=== PATIENT | female | born 1975 | race Hispanic/Latino ===

== ENCOUNTER → 2017-09-17 15:21 | Outpatient (CLI) | payer OTHER, SELFPAY ==
[2017-09-17 15:34] LABS: Add Manual Diff / Slide Review NO; Basophils Percent Auto 0.5 % (0-2); Eosinophils Percent Auto 1.1 % (2-4); Hematocrit 35.3 % (36-46); Hemoglobin 11.4 g/dL (12.0-16.0); Lymphocytes Percent Auto 25.9 % (25-40); Mean Corpuscular HGB Conc 32.4 % (30-36); Mean Corpuscular Hemoglobin 26.3 PG (26-34); Mean Corpuscular Volume 81.2 fL (80-100); Monocytes Percent Auto 6.6 % (3-14); Neutrophils Absolute Auto 5400 /uL (3000-5900); Neutrophils Percent Auto 65.9 % (50-75); Platelet Count 170 X10^3/uL (150-400); Red Blood Cell Count 4.34 X10^6/uL (4.0-5.2); White Blood Cell Count 8.2 X10^3/uL (4.5-11.0)
[2017-09-17 16:13] LABS: Alanine Aminotransferase 23 IU/L (9-52); Albumin 3.8 g/dL (3.5-5.0); Albumin Globulin Ratio 1.4 (1.0-2.8); Alkaline Phosphatase 40 U/L (38-126); Aspartate Aminotransferase 19 IU/L (14-36); BUN Creatinine Ratio 23.3 (6-22); Bilirubin Total 0.9 mg/dL (0.2-1.3); Blood Urea Nitrogen 14 mg/dL (7-17); Calcium 9.2 mg/dL (8.4-10.2); Carbon Dioxide 27 mmol/L (22-32); Chloride 102 mmol/L (98-107); Estimated Glomerular Filt Rate > 60.0 mL/min (>60); Globulin 2.8 g/dL (1.7-4.1); Glucose 95 mg/dL (70-100); HEMOLYSIS < 15 (0-50); Potassium 3.9 mmol/L (3.4-5.1); Sodium 139 mmol/L (137-145); Total Protein 6.6 g/dL (6.3-8.2)
[2017-09-17 16:42] LABS: Thyroid Stimulating Hormone 2.34 uIU/mL (0.47-4.68)
== END ==
PROVIDERS: Family Provider Family Medicine; PCP Family Medicine; Visit Provider Family Medicine
DX: R53.83 Other fatigue (principal)
CPT/HCPCS: 36415; 80053; 84443; 85025

== ENCOUNTER 2017-11-21 16:00 | Outpatient (RCR) | payer OTHER, SELFPAY ==
--- NOTE | 2017-10-31 18:24 | PT.OIE ---
Current Diagnoses Cervicalgia (10/30/17) Provider Visit Care Team Role Provider Type Emelia Henson MD Attending Provider Physician Family Provider Primary Care Provider Specialty: Family Practice Address: [address] [place] [address], [facility] Email: [email or web address] Physical Therapy Initial Evaluation PT-OP-A Visit Information Start: 10/22/17 08:10 Freq: Status: Active Protocol: Document 10/30/17 18:01 [facility] (Rec: 10/31/17 18:23 [facility] [email or web address]) Out-Patient Physical Therapy Visit Information Visit Information Visit Type Initial Evaluation Visit Start Time 10:45 Visit Stop Time 11:30 Total Visit Minutes 45 Visit Number 1 Number of BRIDGE IRONWORKER HELPER Visits 0 Evaluation Information Evaluation Date 10/30/17 PT-OP-B Current Condition Start: 10/22/17 08:10 Freq: Status: Active Protocol: Document 10/30/17 18:01 [facility] (Rec: 10/31/17 18:23 [facility] [email or web address]) Current Condition History of Current Condition Onset Date cervical pain began 1 month ago, chronic hx of LBP Current Complaints cervical and LBP History of Current Condition 42 year old female with 1 month onset of neck pain and history of chronic back pain. Marely reports she works in [employer] for [employer] . Her job requires frequent lifting of heavy boxes and pushing of carts. 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 She notes difficulty sleeping at night as it hurts to turn on bed. Her pain also includes intermittned pain into the lateral hip and groin on the right. Pain is rated 7/10 Prior Treatments and Tests Xrays taken in 2008 and 2014 Treatment Goals Patient/Caregiver Goals goals include reducing pain and improving function Current Functional Impairments (Reported) Functional Limitations- ADL's limited sleeping due to pain and limited Ability to do ADL' s at the end of her work day Functional Limitations- Work/School pain with lifting and pushing activities at work PT-OP-F Manual Assessment Start: 10/22/17 08:10 Freq: Status: Active Protocol: Document 10/30/17 18:01 [facility] (Rec: 10/31/17 18:23 [facility] [email or web address]) Manual Assessments Soft Tissue Assessment Soft Tissue Mobility Assessment tightness in the lumbarspinal bilaterally with flattened lumbar spine, this makes it difficult for Marely to lay flat on her back PT-OP-J Posture/Palpation/Skin Start: 10/22/17 08:10 Freq: Status: Active Protocol: Document 10/30/17 18:01 [facility] (Rec: 10/31/17 18:23 [facility] [email or web address]) Posture Evaluation Comments Posture Comments flattened lumbar spine with visable muscle guarding Palpation Assessment Location Three Palpation Location upper trapezius and levator scapula on the right Palpation Findings Soft Tissue Tightness Spasm Muscle Guarding Tenderness Two Palpation Location right PSIS Palpation Findings Tenderness One Palpation Location lumbar paraspinals Palpation Findings Soft Tissue Tightness Spasm Muscle Guarding Tenderness Palpation Details bilaterally PT-OP-K Range of Motion Start: 10/22/17 08:10 Freq: Status: Active Protocol: Document 10/30/17 18:01 [facility] (Rec: 10/31/17 18:23 [facility] [email or web address]) Cervical Spine Range of Motion Cervical Spine Active Testing Position Sitting Flexion 60 Rotation Left 40 Rotation Right 40 Lateral Flexion Left 20 Lateral Flexion Right 40 ROM Limitations Soft Tissue Tightness Pain Lumbar Spine Range of Motion Lumbar Spine Active Testing Position standing Flexion 50 Lateral Flexion Left 10 Lateral Flexion Right 10 ROM Limitations Soft Tissue Tightness Comments it is very difficult for Marely to flex her lumbar spine, extension was not attempted as she is already in a closed pack position with her lumbar spine Hip Goniometric Range of Motion Hip Measured in Degrees Left Hip ROM WFL No Testing Position Supine Flexion w/Knee Flexed 85 Straight Leg Raise 40 Extension 5 External Rotation 20 Right Hip ROM WFL No Testing Position Supine Flexion w/Knee Flexed 90 Straight Leg Raise 50 Extension 5 External Rotation 30 Hip ROM Limitations Hip ROM Limitations Soft Tissue Tightness Comments very limited in hip ROM biliaterally due to soft tissue tightness, unable to perform a single knee to chest with opposite knee straight due to pulling on the spine, tightness in the iliospoas bilaterally PT-OP-M Strength Start: 10/22/17 08:10 Freq: Status: Active Protocol: Document 10/30/17 18:01 [facility] (Rec: 10/31/17 18:23 [facility] [email or web address]) Trunk Strength Trunk Manual Muscle Testing Core Stabilization decreased strength of the transverse abdominal musculature with + ASLR bilaterally PT-OP-Q Treatments Start: 10/22/17 08:10 Freq: Status: Active Protocol: Document 10/30/17 18:01 [facility] (Rec: 10/31/17 18:23 [facility] [email or web address]) Therapeutic Exercises Supine Exercises 1 Supine Exercise Name pt given home stretching program of SKTC, HS stretch with strap, figure 4 Side bilateral Reps/Minutes hold 1-2 minutes per side PT-OP-R Modalities Start: 10/22/17 08:10 Freq: Status: Active Protocol: Document 10/30/17 18:01 [facility] (Rec: 10/31/17 18:23 [facility] [email or web address]) Hot Pack/Cold Pack Treatment Hot Pack Location low back and cervical spine with stretches Patient Position Hooklying PT-OP-T Assessment and Plan Start: 10/22/17 08:10 Freq: Status: Active Protocol: Document 10/30/17 18:01 [facility] (Rec: 10/31/17 18:23 [facility] [email or web address]) Physical Therapy Assessment Rehab Potential Rehabilitation Potential Excellent Evaluation Complexity Number of Personal Factors/Comorbidities 0 Number of Body Systems Impaired 1-2 Clinical Presentation at Evaluation Stable Impairments Impairments Activity Tolerance Pain Posture ROM Soft Tissue Mobility Strength Tone Goals Three Impairment the patient is in need of body mechanics training for work related activity Usp Goal (LTG) Marely understands proper body mechanics for work related activity and is able to demonstrate proper lifting techniques in the clinic Two Impairment Soft tissue tightness in the right upper trapezius and lumbar paraspinals Usp Goal (LTG) improve mobilty of the muscle tissue to improve cervical and lumbar ROM and decrease myofascial tightness LTG Duration 8 weeks One Impairment pain rated 7/10 in the cervical spine and low back Short Term Goal (STG) Marely is able to reduce her LBP and cervical pain with manual techniques and a home stretching/stabilization program to 2-3/10 STG Duration 6 weeks Assessment Summary Assessment Marely presents to Physical therapy today with signs and symptoms of both neck and low back pain. She does not currently have a exercise program and her work related duties place strain on her lumbar spine. She is very limited in ROM of lumbar flexion and her hip musculature is very tight. She holds tension in the upper trapezius R>L and has difficulty with cervical spine side bending activities. Treatment will focus on a program for improved flexibility, manual therapy techniques, strengthening and body mechanics training to prevent injuries while working Physical Therapy Plan Frequency and Duration Frequency of Treatment 2x/Week Duration of Treatment 8 weeks Plan of Care Start Date 10/30/17 Plan of Care End Date 12/25/17 Therapeutic Interventions Therapeutic Interventions Home Exercise Program Joint Mobilizations Manual Therapy Neuromuscular Re-education Self-Care/Home Management Soft Tissue Mobilization Therapeutic Exercises Modalities Electric Stimulation Hot Packs Ultrasound Next Visit Focus/Plan Next Note Type Treatment Note Next Visit Plan begin working on soft tissue mobilizations for the lumbar spine and upper trapezius
--- NOTE | 2017-11-07 13:41 | PT.OPPOC ---
Current Diagnoses Cervicalgia (10/30/17) Provider Visit Care Team Role Provider Type Emelia Henson MD Attending Provider Physician Family Provider Primary Care Provider Specialty: Family Practice Address: [address] [place] [address], [id number] Email: [email or web address] Plan Of Care PT-OP-T Assessment and Plan Start: 10/22/17 08:10 Freq: Status: Active Protocol: Document 10/30/17 18:01 [facility] (Rec: 10/31/17 18:23 [facility] [email or web address]) Physical Therapy Assessment Rehab Potential Rehabilitation Potential Excellent Evaluation Complexity Number of Personal Factors/Comorbidities 0 Number of Body Systems Impaired 1-2 Clinical Presentation at Evaluation Stable Impairments Impairments Activity Tolerance Pain Posture ROM Soft Tissue Mobility Strength Tone Goals Three Impairment the patient is in need of body mechanics training for work related activity Correction Goal (LTG) Marely understands proper body mechanics for work related activity and is able to demonstrate proper lifting techniques in the clinic Two Impairment Soft tissue tightness in the right upper trapezius and lumbar paraspinals Teletype Technician Goal (LTG) improve mobilty of the muscle tissue to improve cervical and lumbar ROM and decrease myofascial tightness LTG Duration 8 weeks One Impairment pain rated 7/10 in the cervical spine and low back Short Term Goal (STG) Marely is able to reduce her LBP and cervical pain with manual techniques and a home stretching/stabilization program to 2-3/10 STG Duration 6 weeks Assessment Summary Assessment Marely presents to Physical therapy today with signs and symptoms of both neck and low back pain. She does not currently have a exercise program and her work related duties place strain on her lumbar spine. She is very limited in ROM of lumbar flexion and her hip musculatre is very tight. She holds tension in the upper trapezius R>L and hasd difficulty with cervical spine sidebending activities. Treatment will focus on a program for improved flexibility, manual therapy tecnhiques, strengthening and bodymechanics training to prevent injuries while working Physical Therapy Plan Frequency and Duration Frequency of Treatment 2x/Week Duration of Treatment 8 weeks Plan of Care Start Date 10/30/17 Plan of Care End Date 12/25/17 Therapeutic Interventions Therapeutic Interventions Home Exercise Program Joint Mobilizations Manual Therapy Neuromuscular Re-education Self-Care/Home Management Soft Tissue Mobilization Therapeutic Exercises Modalities Electric Stimulation Hot Packs Ultrasound Next Visit Focus/Plan Next Note Type Treatment Note Next Visit Plan begin working on soft tissue mobilizations for the lumbar spine and upper trapezius Plan of Care Dates Plan of Care Start Date 10/30/17 Plan of Care End Date 12/25/17 Please Sign and Return: I have reviewed this Plan of Care and certify that the skilled therapy services above are required to meet the patient?s needs. Physician Signature Date Printed Name and Credentials Clinical Instructor Signature Printed Name and Credentials
--- NOTE | 2017-11-12 17:55 | PT.OTN ---
Current Diagnoses Cervicalgia (11/12/17) Physical Therapy Treatment Note PT-OP-A Visit Information Start: 10/22/17 08:10 Freq: Status: Active Protocol: Document 11/12/17 17:49 [facility] (Rec: 11/12/17 17:55 [facility] [email or web address]) Out-Patient Physical Therapy Visit Information Visit Information Visit Type Treatment Note Visit Start Time 16:00 Visit Stop Time 16:45 Total Visit Minutes 45 Visit Number 2 Number of ELECTROPHONIC ENGINEER Visits 0 PT-OP-B Current Condition Start: 10/22/17 08:10 Freq: Status: Active Protocol: Document 10/30/17 18:01 [facility] (Rec: 10/31/17 18:23 [facility] [email or web address]) Current Condition History of Current Condition Onset Date cervical pain began 1 month ago, chronic hx of LBP Current Complaints cervical and LBP History of Current Condition 42 year old female with 1 month onset of neck pain and history of chronic back pain. Marely reports she works [facility] [employer] . Her job requires frequent lifting of heavy boxes and pushing of carts. 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 She notes difficulty sleeping at night as it hurts to turn on bed. Her pain also includes intermittned pain into the lateral hip and groin on the right. Pain is rated 7/10 Prior Treatments and Tests Xrays taken in 2008 and 2014 Treatment Goals Patient/Caregiver Goals goals include reducing pain and improving function Current Functional Impairments (Reported) Functional Limitations- ADL's limited sleeping due to pain and limited Ability to do ADL' s at the end of her work day Functional Limitations- Work/School pain with lifting and pushing activities at work PT-OP-C Subjective Start: 10/22/17 08:10 Freq: Status: Active Protocol: Document 11/12/17 17:49 [facility] (Rec: 11/12/17 17:55 [facility] [email or web address]) OP-PT Subjective Patient Comments Patient Comments Marely reports she has only done the stretches a few times as she does not have a lot of time after work PT-OP-F Manual Assessment Start: 10/22/17 08:10 Freq: Status: Active Protocol: Document 10/30/17 18:01 [facility] (Rec: 10/31/17 18:23 [facility] [email or web address]) Manual Assessments Soft Tissue Assessment Soft Tissue Mobility Assessment tightness in the lumbarspinal bilaterally with flattened lumbar spine, this makes it difficult for Marely to lay flat on her back PT-OP-J Posture/Palpation/Skin Start: 10/22/17 08:10 Freq: Status: Active Protocol: Document 10/30/17 18:01 [facility] (Rec: 10/31/17 18:23 [facility] [email or web address]) Posture Evaluation Comments Posture Comments flattened lumbar spine with visable muscle guarding Palpation Assessment Location Three Palpation Location upper trapezius and levator scapula on the right Palpation Findings Soft Tissue Tightness Spasm Muscle Guarding Tenderness Two Palpation Location right PSIS Palpation Findings Tenderness One Palpation Location lumbar paraspinals Palpation Findings Soft Tissue Tightness Spasm Muscle Guarding Tenderness Palpation Details bilaterally PT-OP-K Range of Motion Start: 10/22/17 08:10 Freq: Status: Active Protocol: Document 10/30/17 18:01 [facility] (Rec: 10/31/17 18:23 [facility] [email or web address]) Cervical Spine Range of Motion Cervical Spine Active Testing Position Sitting Flexion 60 Rotation Left 40 Rotation Right 40 Lateral Flexion Left 20 Lateral Flexion Right 40 ROM Limitations Soft Tissue Tightness Pain Lumbar Spine Range of Motion Lumbar Spine Active Testing Position standing Flexion 50 Lateral Flexion Left 10 Lateral Flexion Right 10 ROM Limitations Soft Tissue Tightness Comments it is very difficult for Marely to flex her lumbar spine, extension was not attempted as she is already in a closed pack position with her lumbar spine Hip Goniometric Range of Motion Hip Measured in Degrees Left Hip ROM WFL No Testing Position Supine Flexion w/Knee Flexed 85 Straight Leg Raise 40 Extension 5 External Rotation 20 Right Hip ROM WFL No Testing Position Supine Flexion w/Knee Flexed 90 Straight Leg Raise 50 Extension 5 External Rotation 30 Hip ROM Limitations Hip ROM Limitations Soft Tissue Tightness Comments very limited in hip ROM biliaterally due to soft tissue tightness, unable to perform a single knee to chest with opposite knee straight due to pulling on the spine, tightness in the iliospoas bilaterally PT-OP-M Strength Start: 10/22/17 08:10 Freq: Status: Active Protocol: Document 10/30/17 18:01 [facility] (Rec: 10/31/17 18:23 [facility] [email or web address]) Trunk Strength Trunk Manual Muscle Testing Core Stabilization decreased strength of the transverse abdominal musculature with + ASLR bilaterally PT-OP-Q Treatments Start: 10/22/17 08:10 Freq: Status: Active Protocol: Document 11/12/17 17:49 [facility] (Rec: 11/12/17 17:55 [facility] [email or web address]) Therapeutic Exercises Supine Exercises 1 Supine Exercise Name pt given home stretching program of SKTC, HS stretch with strap, figure 4 Side bilateral Reps/Minutes hold 1-2 minutes per side Other Exercises 2 Other Exercise Name bhavana pose Reps/Minutes hold 1-2 minutes 1 Other Exercise Name quadruped cat/cow Reps/Minutes 10 reps Manual Therapy Treatment Soft Tissue Mobilization 1 Body Location soft tissue mobilization to the lumbar paraspinals and thoracolumbar fascia Body Position prone over body pillow PT-OP-R Modalities Start: 10/22/17 08:10 Freq: Status: Active Protocol: Document 10/30/17 18:01 [facility] (Rec: 10/31/17 18:23 [facility] [email or web address]) Hot Pack/Cold Pack Treatment Hot Pack Location low back and cervical spine with stretches Patient Position Hooklying PT-OP-T Assessment and Plan Start: 10/22/17 08:10 Freq: Status: Active Protocol: Document 11/12/17 17:49 [facility] (Rec: 11/12/17 17:55 [facility] [email or web address]) Physical Therapy Assessment Assessment Summary Assessment I encouraged Marely to work on a home stretching program. She has poor ability to perform any type of lumbar segmental flexion. Pelvic tilts are extremely difficult for her and she is very guarded in the lumbar spine due to musculature restrictions Physical Therapy Plan Frequency and Duration Frequency of Treatment 2x/Week Duration of Treatment 8 weeks Plan of Care Start Date 10/30/17 Plan of Care End Date 12/25/17 Therapeutic Interventions Therapeutic Interventions Home Exercise Program Joint Mobilizations Manual Therapy Neuromuscular Re-education Self-Care/Home Management Soft Tissue Mobilization Therapeutic Exercises Modalities Electric Stimulation Hot Packs Ultrasound Next Visit Focus/Plan Next Note Type Treatment Note Next Visit Plan continue focusing on lumbar mobility into flexion and overall flexibility of the lumbar spine
--- NOTE | 2017-11-21 17:22 | PT.OTN ---
Current Diagnoses Cervicalgia (11/21/17) Physical Therapy Treatment Note PT-OP-A Visit Information Start: 10/22/17 08:10 Freq: Status: Active Protocol: Document 11/21/17 17:14 [facility] (Rec: 11/21/17 17:22 [facility] [email or web address]) Out-Patient Physical Therapy Visit Information Visit Information Visit Type Treatment Note Visit Start Time 16:00 Visit Stop Time 16:45 Total Visit Minutes 45 Visit Number 3 Number of SECURITY ASSESSOR Visits 0 PT-OP-B Current Condition Start: 10/22/17 08:10 Freq: Status: Active Protocol: Document 10/30/17 18:01 [facility] (Rec: 10/31/17 18:23 [facility] [email or web address]) Current Condition History of Current Condition Onset Date cervical pain began 1 month ago, chronic hx of LBP Current Complaints cervical and LBP History of Current Condition 42 year old female with 1 month onset of neck pain and history of chronic back pain. Marely reports she works [facility] [employer] [facility] . Her job requires frequent lifting of heavy boxes and pushing of carts. 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 She notes difficulty sleeping at night as it hurts to turn on bed. Her pain also includes intermittned pain into the lateral hip and groin on the right. Pain is rated 7/10 Prior Treatments and Tests Xrays taken in 2008 and 2014 Treatment Goals Patient/Caregiver Goals goals include reducing pain and improving function Current Functional Impairments (Reported) Functional Limitations- ADL's limited sleeping due to pain and limited Ability to do ADL' s at the end of her work day Functional Limitations- Work/School pain with lifting and pushing activities at work PT-OP-C Subjective Start: 10/22/17 08:10 Freq: Status: Active Protocol: Document 11/21/17 17:14 [facility] (Rec: 11/21/17 17:22 [facility] [email or web address]) OP-PT Subjective Patient Comments Patient Comments Marely reports she was gone camping last week so hasn't been stretching. Her back feels very tight and she is wondering about further imaging PT-OP-F Manual Assessment Start: 10/22/17 08:10 Freq: Status: Active Protocol: Document 10/30/17 18:01 [facility] (Rec: 10/31/17 18:23 [facility] [email or web address]) Manual Assessments Soft Tissue Assessment Soft Tissue Mobility Assessment tightness in the lumbarspinal bilaterally with flattened lumbar spine, this makes it difficult for Marely to lay flat on her back PT-OP-J Posture/Palpation/Skin Start: 10/22/17 08:10 Freq: Status: Active Protocol: Document 10/30/17 18:01 [facility] (Rec: 10/31/17 18:23 [facility] [email or web address]) Posture Evaluation Comments Posture Comments flattened lumbar spine with visable muscle guarding Palpation Assessment Location Three Palpation Location upper trapezius and levator scapula on the right Palpation Findings Soft Tissue Tightness Spasm Muscle Guarding Tenderness Two Palpation Location right PSIS Palpation Findings Tenderness One Palpation Location lumbar paraspinals Palpation Findings Soft Tissue Tightness Spasm Muscle Guarding Tenderness Palpation Details bilaterally PT-OP-K Range of Motion Start: 10/22/17 08:10 Freq: Status: Active Protocol: Document 10/30/17 18:01 [facility] (Rec: 10/31/17 18:23 [facility] [email or web address]) Cervical Spine Range of Motion Cervical Spine Active Testing Position Sitting Flexion 60 Rotation Left 40 Rotation Right 40 Lateral Flexion Left 20 Lateral Flexion Right 40 ROM Limitations Soft Tissue Tightness Pain Lumbar Spine Range of Motion Lumbar Spine Active Testing Position standing Flexion 50 Lateral Flexion Left 10 Lateral Flexion Right 10 ROM Limitations Soft Tissue Tightness Comments it is very difficult for Marely to flex her lumbar spine, extension was not attempted as she is already in a closed pack position with her lumbar spine Hip Goniometric Range of Motion Hip Measured in Degrees Left Hip ROM WFL No Testing Position Supine Flexion w/Knee Flexed 85 Straight Leg Raise 40 Extension 5 External Rotation 20 Right Hip ROM WFL No Testing Position Supine Flexion w/Knee Flexed 90 Straight Leg Raise 50 Extension 5 External Rotation 30 Hip ROM Limitations Hip ROM Limitations Soft Tissue Tightness Comments very limited in hip ROM biliaterally due to soft tissue tightness, unable to perform a single knee to chest with opposite knee straight due to pulling on the spine, tightness in the iliospoas bilaterally PT-OP-M Strength Start: 10/22/17 08:10 Freq: Status: Active Protocol: Document 10/30/17 18:01 [facility] (Rec: 10/31/17 18:23 [facility] [email or web address]) Trunk Strength Trunk Manual Muscle Testing Core Stabilization decreased strength of the transverse abdominal musculature with + ASLR bilaterally PT-OP-Q Treatments Start: 10/22/17 08:10 Freq: Status: Active Protocol: Document 11/21/17 17:14 [facility] (Rec: 11/21/17 17:22 [facility] [email or web address]) Therapeutic Exercises Supine Exercises 1 Supine Exercise Name SKTC, HS stretch with strap, figure 4 Side bilateral Reps/Minutes hold 1-2 minutes per side Other Exercises 4 Other Exercise Name hip flexor stretching off the edge of the bed 3 Other Exercise Name quadraped sidebends and thoracic rotation 2 Other Exercise Name bhavana pose Reps/Minutes hold 1-2 minutes 1 Other Exercise Name quadruped cat/cow Reps/Minutes 10 reps Manual Therapy Treatment Soft Tissue Mobilization 1 Body Location soft tissue mobilization to the lumbar paraspinals and thoracolumbar fascia Body Position prone over body pillow PT-OP-R Modalities Start: 10/22/17 08:10 Freq: Status: Active Protocol: Document 10/30/17 18:01 [facility] (Rec: 10/31/17 18:23 [facility] [email or web address]) Hot Pack/Cold Pack Treatment Hot Pack Location low back and cervical spine with stretches Patient Position Hooklying PT-OP-T Assessment and Plan Start: 10/22/17 08:10 Freq: Status: Active Protocol: Document 11/21/17 17:14 [facility] (Rec: 11/21/17 17:22 [facility] [email or web address]) Physical Therapy Assessment Assessment Summary Assessment cat cow is very difficult for marely to perform as she lacks awareness of lumbar flexion and her lumbar spine is very tight. Following STM and verbal cueing she was able to do it. Lumbar flexion increased following treatment Physical Therapy Plan Frequency and Duration Frequency of Treatment 2x/Week Duration of Treatment 8 weeks Plan of Care Start Date 10/30/17 Plan of Care End Date 12/25/17 Therapeutic Interventions Therapeutic Interventions Home Exercise Program Joint Mobilizations Manual Therapy Neuromuscular Re-education Self-Care/Home Management Soft Tissue Mobilization Therapeutic Exercises Modalities Electric Stimulation Hot Packs Ultrasound Next Visit Focus/Plan Next Note Type Treatment Note Next Visit Plan continue focusing on lumbar mobility into flexion and overall flexibility of the lumbar spine. add reach and pull for rotation next visit
--- NOTE | 2018-02-05 11:14 | PT.OPDS ---
Current Diagnoses Cervicalgia (11/21/17) Provider Visit Care Team Role Provider Type Emelia Henson MD Attending Provider Physician Family Provider Primary Care Provider Specialty: Family Practice Address: [address] [place] [address], [facility] Email: [email or web address] Visit Number Visit Number 3 Discharge Summary PT-OP-B Current Condition Start: 10/22/17 08:10 Freq: Status: Active Protocol: Document 10/30/17 18:01 [facility] (Rec: 10/31/17 18:23 [facility] [email or web address]) Current Condition History of Current Condition Onset Date cervical pain began 1 month ago, chronic hx of LBP Current Complaints cervical and LBP History of Current Condition 42 year old female with 1 month onset of neck pain and history of chronic back pain. Marely reports she works in [employer] . Her job requires frequent lifting of heavy boxes and pushing of carts. 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 She notes difficulty sleeping at night as it hurts to turn on bed. Her pain also includes intermittned pain into the lateral hip and groin on the right. Pain is rated 7/10 Prior Treatments and Tests Xrays taken in 2008 and 2014 Treatment Goals Patient/Caregiver Goals goals include reducing pain and improving function Current Functional Impairments (Reported) Functional Limitations- ADL's limited sleeping due to pain and limited Ability to do ADL' s at the end of her work day Functional Limitations- Work/School pain with lifting and pushing activities at work PT-OP-C Subjective Start: 10/22/17 08:10 Freq: Status: Active Protocol: Document 11/21/17 17:14 [facility] (Rec: 11/21/17 17:22 [facility] [email or web address]) OP-PT Subjective Patient Comments Patient Comments Marely reports she was gone camping last week so hasn't been stretching. Her back feels very tight and she is wondering about further imaging PT-OP-F Manual Assessment Start: 10/22/17 08:10 Freq: Status: Active Protocol: Document 10/30/17 18:01 [facility] (Rec: 10/31/17 18:23 [facility] [email or web address]) Manual Assessments Soft Tissue Assessment Soft Tissue Mobility Assessment tightness in the lumbarspinal bilaterally with flattened lumbar spine, this makes it difficult for Marely to lay flat on her back PT-OP-J Posture/Palpation/Skin Start: 10/22/17 08:10 Freq: Status: Active Protocol: Document 10/30/17 18:01 [facility] (Rec: 10/31/17 18:23 [facility] [email or web address]) Posture Evaluation Comments Posture Comments flattened lumbar spine with visable muscle guarding Palpation Assessment Location Three Palpation Location upper trapezius and levator scapula on the right Palpation Findings Soft Tissue Tightness Spasm Muscle Guarding Tenderness Two Palpation Location right PSIS Palpation Findings Tenderness One Palpation Location lumbar paraspinals Palpation Findings Soft Tissue Tightness Spasm Muscle Guarding Tenderness Palpation Details bilaterally PT-OP-K Range of Motion Start: 10/22/17 08:10 Freq: Status: Active Protocol: Document 10/30/17 18:01 [facility] (Rec: 10/31/17 18:23 [facility] [email or web address]) Cervical Spine Range of Motion Cervical Spine Active Testing Position Sitting Flexion 60 Rotation Left 40 Rotation Right 40 Lateral Flexion Left 20 Lateral Flexion Right 40 ROM Limitations Soft Tissue Tightness Pain Lumbar Spine Range of Motion Lumbar Spine Active Testing Position standing Flexion 50 Lateral Flexion Left 10 Lateral Flexion Right 10 ROM Limitations Soft Tissue Tightness Comments it is very difficult for Marely to flex her lumbar spine, extension was not attempted as she is already in a closed pack position with her lumbar spine Hip Goniometric Range of Motion Hip Measured in Degrees Left Hip ROM WFL No Testing Position Supine Flexion w/Knee Flexed 85 Straight Leg Raise 40 Extension 5 External Rotation 20 Right Hip ROM WFL No Testing Position Supine Flexion w/Knee Flexed 90 Straight Leg Raise 50 Extension 5 External Rotation 30 Hip ROM Limitations Hip ROM Limitations Soft Tissue Tightness Comments very limited in hip ROM biliaterally due to soft tissue tightness, unable to perform a single knee to chest with opposite knee straight due to pulling on the spine, tightness in the iliospoas bilaterally PT-OP-M Strength Start: 10/22/17 08:10 Freq: Status: Active Protocol: Document 10/30/17 18:01 [facility] (Rec: 10/31/17 18:23 [facility] [email or web address]) Trunk Strength Trunk Manual Muscle Testing Core Stabilization decreased strength of the transverse abdominal musculature with + ASLR bilaterally PT-OP-T Assessment and Plan Start: 10/22/17 08:10 Freq: Status: Active Protocol: Document 02/05/18 11:12 [facility] (Rec: 02/05/18 11:14 [facility] [email or web address]) Physical Therapy Assessment Assessment Summary Assessment Marely was seen for a total of 3 visits and failed to show up for her remaining visit in PT. She was last seen on . At that time she had not noticed a difference in her symptoms. Marely will be discharged from PT at this time Physical Therapy Plan Discharge Physical Therapy Discharge Reasons No Longer Attending PT Discharge Comments Marely did not continue PT for her full plan of care
== END 2018-06-18 08:07 ==
LOC: PHYS 16:00
PROVIDERS: Family Provider Family Medicine; PCP Family Medicine; Visit Provider Family Medicine
DX: M54.2 Cervicalgia (principal)
CPT/HCPCS: 97110; 97140; 97161

== ENCOUNTER → 2018-01-02 10:00 | Outpatient (CLI) | payer OTHER, SELFPAY | PROVIDERS: Family Provider Family Medicine; PCP Family Medicine | DX: Z23 Encounter for immunization (principal) | CPT/HCPCS: 90471; 90686 ==

== ENCOUNTER → 2018-01-08 09:33 | Outpatient (CLI) | payer OTHER, SELFPAY ==
[2018-01-08 11:35] LABS: Add Manual Diff / Slide Review NO; Basophils Percent Auto 0.7 % (0-2); Eosinophils Percent Auto 1.6 % (2-4); Hematocrit 33.4 % (36-46); Lymphocytes Percent Auto 19.6 % (25-40); Mean Corpuscular HGB Conc 32.2 % (30-36); Mean Corpuscular Hemoglobin 26.1 PG (26-34); Monocytes Percent Auto 6.5 % (3-14); Neutrophils Absolute Auto 4500 /uL (3000-5900); Neutrophils Percent Auto 71.6 % (50-75); Platelet Count 198 X10^3/uL (150-400); Red Blood Cell Count 4.13 X10^6/uL (4.0-5.2); Red Cell Distribution Width 14.3 % (11.6-14.8); White Blood Cell Count 6.3 X10^3/uL (4.5-11.0)
[2018-01-08 11:37] LABS: Hemoglobin 10.7 g/dL (12.0-16.0)
== END ==
PROVIDERS: Family Provider Family Medicine; PCP Family Medicine; Visit Provider Registered Nurse
DX: N93.9 Abnormal uterine and vaginal bleeding, unspecified (principal); R11.0 Nausea
CPT/HCPCS: 36415; 85025

== ENCOUNTER → 2018-01-29 09:55 | Outpatient (CLI) | payer OTHER, SELFPAY ==
--- NOTE | 2018-01-29 09:56 | DI.US.S_ITS ---
PROCEDURE: US PELVIC COMPLETE INDICATIONS: PAIN TECHNIQUE: Real-time scanning was performed of the pelvic organs, with image documentation. Additional endovaginal scanning was necessary due to incomplete visualization of the adnexal and endometrial structures by transabdominal scanning. COMPARISON: [facility], US, US PELVIC COMPLETE, 08/14/2017, 12:28. FINDINGS: Transabdominal scanning: Limited scanning through the kidneys shows no hydronephrosis. No pathologic free abdominal or pelvic fluid. Endovaginal scanning: Uterus: Uterus is normal in size at 10.0 x 5.5 x 8.0 cm. The endometrium measures 11.3 mm in combined thickness and is suboptimally visualized. Intramural versus submucosal fibroid measuring 3.8 x 3.9 x 3.9 cm. Ovaries: Dominant follicle involves right ovary measuring 14 mm otherwise the ovaries are normal. No adnexal masses seen. Normal transit kidneys. IMPRESSION: 1. 3.9 cm intramural versus submucosal fibroid along the anterior surface of the myometrium. If indicated. Pre and post contrast gynecologic protocol MRI could be performed for further localization. 2. Suboptimal visualization of the endometrial complex. Dictated by: Loi Stewart [facility] Interpreted: Moses Gabriel MD on 01/29/2018 at 11:21 Approved by: Moses Gabriel M.D. on 01/29/2018 at 15:38
== END ==
PROVIDERS: Family Provider Family Medicine; PCP Family Medicine; Visit Provider Obstetrics & Gynecology
DX: R10.2 Pelvic and perineal pain (principal); D25.9 Leiomyoma of uterus, unspecified
CPT/HCPCS: 76830; 76856

== ENCOUNTER → 2018-03-20 14:10 | Outpatient (CLI) | payer OTHER, SELFPAY | PROVIDERS: Visit Provider Registered Nurse | DX: R10.13 Epigastric pain (principal) | CPT/HCPCS: 83013 ==

== ENCOUNTER 2018-05-26 06:45 | Day surgery (SDC) | payer OTHER, SELFPAY ==
[2018-05-26] VITALS (9 sets, daily range): BP systolic 100–122; BP diastolic 55–76; PULSE 53–622; RESP 16–17; TEMP 36.2–37.1; O2SAT 96–100; BMI 23.6
--- NOTE | 2018-05-26 | PATH.2_ITS ---
[facility] Accession Number: [id number] . 01 Material submitted: . UTERUS AND BILATERAL FALLOPIAN TUBES . 02 Diagnosis: Morcellated Supracervical Hysterectomy Specimen With Bilateral Fallopian Tubes: Multiple leiomyomata, myometrium. Focal adenomysis. Inactive atrophic appearing endometrium, negative for atypia. Fallopian tubes unremarkable with the exception of one single small paratubal cyst, negative for atypia. MRV/05/28/2018 . 02 Electronically signed: . Toni Castañeda MD, Pathologist NPI- [id number] . 01 Gross description: . Received in formalin, labeled uterus and bilateral fallopian tubes, is a morcellated uterus (145 grams, 12.5 x 12.0 x 3.7 cm in aggregate) and two fimbriated fallopian tubes (tube #1: length-4.5 cm, diameter-0.6 cm; tube #2: length-3.7 cm, diameter-0.4 cm). The specimen cannot be oriented and the endometrium and myometrium cannot be grossly measured. The parenchyma is saini and contains multiple solid firm white whorled well-circumscribed homogenous nodules (0.2 x 0.2 x 0.1 cm-3.7 x 3.5 x 1.7 cm). The serosa is pale saini smooth and shiny. The fallopian tubes have peng-purple smooth and shiny serosa and saini unremarkable lumens. Section code: (A1-A4) uterine parenchyma, motor vehicle field representative; (A5) fallopian tube #1, motor vehicle field representative serial sections; (A6) fimbria #1, bivalved, entirely submitted; (A7) fallopian tube #2, motor vehicle field representative serial sections; (A8) fimbria #2, bivalved, entirely submitted. ([id number]) /[facility] . 02 Pathologist provided ICD-10: D25.9 . 02 CPT . 915883 Performed at: 01 [facility] [address] [place] [address], [place], [place] [id number] MD Phill Goins MD Phone: [phone] Performed at: [address] [place] [id number] [place], [place] [id number] MD Laurie Wilson MD Phone: [phone]
[2018-05-26] MEDS: LACTATED RINGERS 1,000 ML 100 ML IV ×2 (07:25→11:02)
[2018-05-26] MEDS: CEFAZOLIN 2 GM/100 ML FROZ.PIGGY IV (07:45)
--- NOTE | 2018-05-26 08:17 | SUR.PREOP ---
per dr. turner fingerstick blood glucose not needed
[2018-05-26] MEDS: BUPIVACAINE 0.5% W/ EPI (PF) VIAL 30 ML INJ (08:20)
[2018-05-26] MEDS: ACETAMINOPHEN IV 1,000 MG/100 ML VIAL 400 MG IV (08:30)
[2018-05-26] MEDS: ROPIVACAINE 0.2% PF 2 MG/ML 10ML AMP 20 ML INJ (08:33)
--- NOTE | 2018-05-26 08:35 | SUR.OPER ---
Lithotomy on padded OR bed. Mccalla Pad Positioner under torso. Head on pillow, arms padded and tucked at sides. Legs secured in padded yellow fins stirrups.
--- NOTE | 2018-05-26 09:34 | PM.PREOP ---
Pre-operative Note Interval Note History & Physical reviewed/Exam performed by Physician: Yes Changes to H&P: No
--- NOTE | 2018-05-26 09:49 | P.OP_ITS ---
Operative Date/Time/Diagnoses Date of procedure: 05/26/18 Time of procedure: 09:43 Pre-op diagnosis: Abnormal uterine bleeding Pelvic pain Post-op diagnosis: same Procedure: Procedures Operation Date: 05/26/18 07:45 Actual Procedures Side Surgeon p Laparoscopic Supracervical Hysterectomy w/Bilat salpinectomys Danna Craft MD Indications: Pelvic pain Abnormal uterine bleeding Surgeon: Danna Craft Lobsterman: Kory Pugh Anesthesia Type: General Operative Notes Findings: 10 week size uterus 2 cm simple left ovarian cyst Normal tubes Normal right ovary Normal liver and gallbladder Normal appendix Closure Type: primary Specimen(s): left tube, right tube and uterus Applied: catheter (Removed at the end of the case) Estimated blood loss (mL): 50 Blood products transfused: none Procedure in detail: The patient was taken to the operating room where she was placed in the dorsal supine position. After adequate general endotracheal anesthesia was achieved, she was placed in the dorsal lithotomy position, and prepped and draped in the usual sterile fashion. A timeout was performed. A bivalve speculum was placed into the vagina and the anterior lip of the cervix grasped with a single-tooth tenaculum. The cervical os was sequentially dilated until the ZUMI uterine manipulator could pass easily into the endometrial cavity. The single-tooth tenaculum was removed from the anterior lip of the cervix, and the bivalve speculum was removed from the vagina. Attention was then turned to the abdomen where 6 mL of half percent Marcaine with epinephrine were injected in the umbilical fold. A 5 mm incision was made. The Verhees needle was placed into the peritoneal cavity, and its placement confirmed by aspiration and drop test. The Verhees needle was removed. A 5 mm trocar was placed without difficulty. 2 other incisions were made midway between the pubic symphysis and umbilicus after 5 mL of half percent Marcaine with epinephrine were injected. These were 5 mm incisions. Two 5 mm trochars were placed under direct visualization. The right tube was grasped with an atraumatic grasper. Using the plasma kinetic with settings of 40 W the mesosalpinx was cauterized and cut all the way down to the cornua of the uterus. The cornua of the uterus was then grasped with an atraumatic grasper. The utero-ovarian ligaments were cauterized and cut. The round ligament and broad ligament was cauterized and cut with plasma kinetic. Hemostasis was achieved. The bladder flap was created using the plasma kinetic with cautery and cut [facility] across. The uterine arteries on the right side were extensively cauterized with plasma kinetic. All of this was repeated on the left side. A simple left ovarian cyst was excised using the PlasmaKinetic. The remainder of the bladder flap was created using the plasma kinetic, and the bladder taken down off the lower uterine segment and cervix. Using the Endoloop, the cervix was amputated from the uterus 2 cm above the uterosacral ligaments, after the ZUMI uterine manipulator was removed from the uterus. There endocervical canal was extensively cauterized. A sponge stick was placed into the vagina. 6 mL of half percent Marcaine with epi nephrine were injected above the pubic symphysis. A 12 mm trocar was placed and then removed. The fascia was extended bluntly using a Ramakrishna. An Endobag was placed through the suprapubic trocar and the uterus placed into the Endobag. The Tushar was placed into the endobag. The uterus was hand morcellated in approximately 16 pieces. The Endobag and Tushar were removed from the peritoneal cavity. The pelvis was copiously irrigated with warm normal saline. No bleeding was noted. 20 cc of 0.2% ropivacaine were placed over the pedicles. The instruments were removed from the abdomen. The CO2 was allowed to escape. The suprapubic incision was closed on the fascia with 0 Vicryl. All of the incisions were closed with 4-0 undyed Vicryl in a subcuticular fashion. Steri- Strips, 2 x 2, and op site were placed over the incisions. The moistened sponge stick was removed from the vagina. Sponge, lap, and instrument counts were correct x-2. The patient tolerated the procedure well, was taken to PACU in stable condition. Complications: none Post-operative Condition: stable Disposition: PACU Plan for aftercare: Home after recovery
--- NOTE | 2018-05-26 11:03 | SUR.PHASEII ---
Sister brought in, d/c instructions discussed, both voiced an understaning.
[2018-05-26] MEDS: ONDANSETRON 4 MG/2 ML INJ IV (11:05)
--- NOTE | 2018-05-26 11:06 | SUR.PHASEII ---
Pt lifted HOB and became pale and c/o nausea, dry heaved, medicated with ondansetron.
[2018-05-26] MEDS: METOCLOPRAMIDE 10 MG/2 ML INJ IV (11:13)
--- NOTE | 2018-05-26 11:15 | SUR.PHASEII ---
Pt still nauseated medicated with reglan.
--- NOTE | 2018-05-26 12:07 | SUR.PHASEII ---
[id number]!
--- NOTE | 2018-05-26 12:08 | SUR.PHASEII ---
Nausea resolved, up to br, steady on feet, pt wanting to get dressed. dressed and left when ready and left in stable condition.
== END 2018-05-26 12:20 | disposition home or self-care (01) ==
PROVIDERS: Family Provider Family Medicine; PCP Family Medicine; Visit Provider Obstetrics & Gynecology
PROC: 0UT94ZL Resection of Uterus, Supracervical, Percutaneous Endoscopic Approach (ICD-10-PCS; CPT 58542; principal; 2018-05-26 07:45)
DX: D25.9 Leiomyoma of uterus, unspecified (principal); D64.9 Anemia, unspecified; F41.9 Anxiety disorder, unspecified; F32.9 Major depressive disorder, single episode, unspecified; N93.9 Abnormal uterine and vaginal bleeding, unspecified
CPT/HCPCS: 58542; J0131; J0690; J1100; J1885; J2250; J2405; J2704; J2765; J2795; J3010

== ENCOUNTER → 2018-07-31 10:31 | Outpatient (CLI) | payer OTHER, SELFPAY ==
[2018-07-31 12:24] LABS: HEMOLYSIS < 15 (0-50); Iron 111 ug/dL (37-170)
[2018-07-31 12:37] LABS: Percent Iron Saturation 34 % (15-50); Total Iron Binding Capacity 331 ug/dL (265-497); Transferrin 244 mg/dL (206-381)
[2018-07-31 15:41] LABS: Add Manual Diff / Slide Review NO; Basophils Absolute Auto 100 /uL (0-100); Basophils Percent Auto 1.2 % (0-2); Eosinophils Absolute Auto 0 /uL (0-450); Eosinophils Percent Auto 0.8 % (2-4); Hematocrit 35.9 % (36-46); Hemoglobin 10.9 g/dL (12.0-16.0); Lymphocytes Absolute Auto 1300 /uL (1100-4500); Lymphocytes Percent Auto 29.1 % (25-40); Mean Corpuscular HGB Conc 30.4 % (30-36); Mean Corpuscular Volume 69.2 fL (80-100); Monocytes Absolute Auto 300 /uL (0-900); Monocytes Percent Auto 5.6 % (3-14); Neutrophils Absolute Auto 2900 /uL (1500-7000); Neutrophils Percent Auto 63.3 % (50-75); Platelet Count 163 X10^3/uL (150-400); Red Blood Cell Count 5.18 X10^6/uL (4.0-5.2); Red Cell Distribution Width 30.2 % (11.6-14.8); White Blood Cell Count 4.5 X10^3/uL (4.5-11.0)
[2018-07-31 16:06] LABS: Anisocytosis 3+; Hypochromasia 1+; Microcytosis 2+; Ovalocytes 1+; Poikilocytosis 1+; Target Cells 1+
== END ==
PROVIDERS: PCP Family Medicine; Visit Provider Registered Nurse
DX: D64.9 Anemia, unspecified (principal)
CPT/HCPCS: 36415; 83540; 83550; 85025

== ENCOUNTER → 2018-07-31 15:28 | Outpatient (CLI) | payer OTHER, SELFPAY ==
--- NOTE | 2018-07-31 15:30 | DI.RAD.S_ITS ---
PROCEDURE: XR LUMBAR SPINE MIN 4V INDICATIONS: Low back pain TECHNIQUE: 5 views of the lumbar spine were acquired. COMPARISON: [facility], , L-SPINE 2-3 VIEWS, 08/19/2008, 8:22. FINDINGS: Bones: 5 [id number] vertebrae are present. There is normal bony alignment. No vertebral body compression fractures. No suspicious bony lesions. Soft tissues: Overlying bowel gas pattern is normal. No suspicious soft tissue calcifications. Oblique images: No pars defects. IMPRESSION: No lumbar spine abnormalities. If clinical symptoms persist or clinical suspicion for pathology is high, MRI is suggested for further evaluation. Dictated by: Enedina Rodriguez M.D. on 07/31/2018 at 17:43 Approved by: Enedina Rodriguez M.D. on 07/31/2018 at 17:45
== END ==
PROVIDERS: Visit Provider Registered Nurse
DX: M54.5 Low back pain (principal); D64.9 Anemia, unspecified
CPT/HCPCS: 36415; 72110; 83540; 83550; 85025

== ENCOUNTER → 2018-08-25 14:56 | Outpatient (CLI) | payer OTHER, SELFPAY | PROVIDERS: Visit Provider Physician Assistant | DX: J02.9 Acute pharyngitis, unspecified (principal) | CPT/HCPCS: 87070 ==

== ENCOUNTER → 2018-08-26 14:18 | Outpatient (CLI) | payer OTHER, SELFPAY ==
[2018-08-29 18:29] LABS: Hematocrit 38.6 % (35.0-45.0); Hemoglobin 11.6 g/dL (11.7-15.5); MCH 23.4 pg (27.0-33.0); RBC Total Count 4.95 Million/uL (3.80-5.10); RDW 23.3 % (11.0-15.0)
== END ==
PROVIDERS: PCP Family Medicine; Visit Provider Family Medicine
DX: D64.9 Anemia, unspecified (principal)
CPT/HCPCS: 36415; 83021; 85014; 85018

== ENCOUNTER → 2018-08-26 15:29 | Outpatient (CLI) | payer OTHER, SELFPAY ==
--- NOTE | 2018-08-26 15:32 | DI.RAD.S_ITS ---
PROCEDURE: XR HIP W PEL IF DONE RT 2V INDICATIONS: DEFORMITY OF RIGHT HIP TECHNIQUE: AP pelvis with lateral view(s) of the right hip. COMPARISON: [facility], [facility], L-SPINE 2-3 VIEWS, 12/02/2014, 16:40. [facility], [facility], XR LUMBAR SPINE MIN 4V, 07/31/2018, 15:40. FINDINGS: Bones: No fractures or dislocations. Pelvic ring appears intact. No suspicious bony lesions. Soft tissues: The visualized bowel gas pattern is normal. No suspicious soft tissue calcifications. IMPRESSION: Minimal thinning of the interspace at each hip, no prior trauma or congenital anomaly identified over the hips bilaterally or the pelvis. Dictated by: Sánchez Javier M.D. on 08/26/2018 at 17:01 Approved by: Sánchez Javier M.D. on 08/26/2018 at 17:02
== END ==
PROVIDERS: PCP Family Medicine; Visit Provider Family Medicine
DX: M21.951 Unspecified acquired deformity of right thigh (principal); D64.9 Anemia, unspecified
CPT/HCPCS: 36415; 73502; 83021; 85014; 85018; 85041

== ENCOUNTER → 2019-01-13 08:38 | Outpatient (CLI) | payer OTHER, SELFPAY | PROVIDERS: PCP Family Medicine | DX: Z23 Encounter for immunization (principal) | CPT/HCPCS: 90471; 90686 ==

== ENCOUNTER → 2019-04-20 07:11 | Outpatient (CLI) | payer OTHER, SELFPAY ==
--- NOTE | 2019-04-20 07:12 | DI.US.S_ITS ---
PROCEDURE: US PELVIC COMPLETE INDICATIONS: PAIN TECHNIQUE: Real-time scanning was performed of the pelvic organs, with image documentation. Additional endovaginal scanning was necessary due to incomplete visualization of the adnexal and endometrial structures by transabdominal scanning. COMPARISON: [facility], US, US PELVIC COMPLETE, 01/29/2018, 10:11. [facility], US, US PELVIC COMPLETE, 08/14/2017, 12:28. FINDINGS: Transabdominal scanning: Limited scanning through the kidneys shows no hydronephrosis. No pathologic free abdominal or pelvic fluid. Endovaginal scanning: Uterus: Surgically absent Ovaries: Not seen on the left. On the right the ovary measures 1.7 x 1.9 x 3.1 cm and contains a complex solid versus echogenic cystic mass measuring up to 1.7 x 1.3 x 1.3 cm with increased peripheral vascularity. IMPRESSION: 3 ovoid complex structure measuring up to 1.7 cm within the right ovary could be echogenic cystic or solid in character, and a followup pelvic ultrasound in 6-8 weeks is recommended to establish presence or absence of resolution of this abnormality. An ovarian neoplasm could produce this appearance. Dictated by: Sánchez Javier M.D. on 04/20/2019 at 12:21 Approved by: Sánchez Javier M.D. on 04/20/2019 at 12:24
== END ==
PROVIDERS: PCP Family Medicine; Referring Provider Obstetrics & Gynecology; Visit Provider Nurse Practitioner Family
DX: R10.2 Pelvic and perineal pain (principal); N83.9 Noninflammatory disorder of ovary, fallopian tube and broad ligament, unspecified
CPT/HCPCS: 76830; 76856

== ENCOUNTER → 2019-04-22 16:58 | Outpatient (CLI) | payer OTHER, SELFPAY ==
[2019-04-22 18:36] LABS: Cancer Antigen 125 < 6 U/mL (0-35)
[2019-04-25 15:29] LABS: Human HE4 Antigen 25 pmol/L
== END ==
PROVIDERS: PCP Family Medicine; Visit Provider Specialist
DX: N83.209 Unspecified ovarian cyst, unspecified side (principal); R19.00 Intra-abdominal and pelvic swelling, mass and lump, unspecified site
CPT/HCPCS: 36415; 86304; 86305

== ENCOUNTER → 2019-05-26 13:33 | Outpatient (CLI) | payer OTHER, SELFPAY ==
[2019-05-26 14:21] LABS: Add Manual Diff / Slide Review NO; Basophils Absolute Auto 0 /uL (0-100); Basophils Percent Auto 0.6 % (0-2); Eosinophils Absolute Auto 100 /uL (0-450); Eosinophils Percent Auto 0.9 % (2-4); Hematocrit 39.4 % (36-46); Lymphocytes Absolute Auto 1500 /uL (1100-4500); Lymphocytes Percent Auto 22.6 % (25-40); Mean Corpuscular Hemoglobin 26.8 PG (26-34); Mean Corpuscular Volume 81.2 fL (80-100); Monocytes Absolute Auto 300 /uL (0-900); Monocytes Percent Auto 4.3 % (3-14); Neutrophils Absolute Auto 4900 /uL (1500-7000); Neutrophils Percent Auto 71.6 % (50-75); Platelet Count 175 X10^3/uL (150-400); Red Blood Cell Count 4.85 X10^6/uL (4.0-5.2); Red Cell Distribution Width 13.8 % (11.6-14.8); White Blood Cell Count 6.8 X10^3/uL (4.5-11.0)
== END ==
DX: D64.9 Anemia, unspecified (principal)
CPT/HCPCS: 36415; 85025

== ENCOUNTER → 2019-06-01 09:03 | Outpatient (CLI) | payer OTHER, SELFPAY ==
--- NOTE | 2019-06-01 09:04 | DI.US.S_ITS ---
PROCEDURE: US CAROTID DOPPLER BI INDICATIONS: LIGHT HEADED, DIZZINESS TECHNIQUE: Color and pulse Doppler interrogation was performed of both carotid systems, with image documentation and velocity measurements. COMPARISON: None. FINDINGS: Stenosis calculations are based on SRU (Society of Radiologists in Ultrasound) criteria. Right side: Brachial blood pressure: 121/81 mm Hg. Common carotid artery peak systolic velocity: 87 cm/sec. Internal carotid artery peak systolic velocity: 93 cm/sec. Internal carotid artery end diastolic velocity: 47 cm/sec. External carotid artery peak systolic velocity: 68 cm/sec. ICA/CCA peak systolic ratio: 1.08. Hernandez scale imaging description: No atherosclerotic plaques are seen. Percent internal carotid artery stenosis: Normal. Vertebral artery: Flow direction is antegrade. Left side: Brachial blood pressure: 116/83 mm Hg. Common carotid artery peak systolic velocity: 87 cm/sec. Internal carotid artery peak systolic velocity: 88 cm/sec. Internal carotid artery end diastolic velocity: 45 cm/sec. External carotid artery peak systolic velocity: 79 cm/sec. ICA/CCA peak systolic ratio: 1.02. Hernandez scale imaging description: No atherosclerotic plaques are seen. Percent internal carotid artery stenosis: Normal. Vertebral artery: Flow direction is antegrade. IMPRESSION: Normal appearing bilateral carotid arteries. No atherosclerotic plaques are seen. No stenosis is noted. Dictated by: Moses Gabriel M.D. on 06/01/2019 at 11:15 Approved by: Moses Gabriel M.D. on 06/01/2019 at 11:22
== END ==
DX: R42 Dizziness and giddiness (principal)
CPT/HCPCS: 93880

== ENCOUNTER 2019-06-23 16:45 | Outpatient (RCR) | payer OTHER, SELFPAY ==
--- NOTE | 2019-05-27 18:13 | PT.OIE ---
Current Diagnoses Cervicalgia (05/27/19) Pain in throat (05/27/19) Abnormal posture (05/27/19) Headache (05/27/19) Weakness (05/27/19) Past Medical History (Last Updated 04/14/19 @ 15:29 by LIZ Asher) Anemia (Chronic) Anxiety (Chronic) Depression (Chronic) History of heavy periods (Resolved) Pelvic pain (Acute 2008) Past Surgical History (Last Reviewed 08/22/18 @ 13:50 by Sravanthi Murillo DO) S/P laparoscopic supracervical hysterectomy (Acute 05/26/18) Visit Care Team Role Provider Type Andrey Damico [facility] Primary Care Provider Advanced Zig Zag Stitcher Specialty: Medical Address: [address] [place] [address], [id number] Email: Allan Mccurdy MD Attending Provider Physician Referring Provider Specialty: Ear, Nose, Throat Address: [address] [place] [id number] Email: [email or web address] Physical Therapy Initial Evaluation PT-OP-A Visit Information Start: 05/26/19 14:24 Freq: Status: Active Protocol: Document 05/27/19 09:02 [facility] (Rec: 05/27/19 09:57 [facility] [id number]) Out-Patient Physical Therapy Visit Information Visit Information Visit Type Initial Evaluation Visit Start Time 09:02 Visit Stop Time 09:50 Total Visit Minutes 48 Visit Number 1 Number of ANALYST Visits 0 PT-OP-B Current Condition Start: 05/26/19 14:24 Freq: Status: Active Protocol: Document 05/27/19 09:02 [facility] (Rec: 05/27/19 09:57 [facility] [id number]) Current Condition History of Current Condition Onset Date years Current Complaints neck pain, DEVI & R arm pain History of Current Condition Pt reprots neck pain for 3 years but never done anything about it. She thinks it could be related to her job and for the last year, it has been causing a lot of problems for her. She also has DEVI and has pain that goes from neck to wrist on R side. Pt denies any dizziness with DEVI. DEVI come and go and this last weekend, it was really bad. Pt reports her back also hurts. Pt reprots it is really bad. 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 Pt reports she can sleep but wakes up in the middle of night and has to change position. Pt is avoiding social activites on weekend d/ t just overall not feeling well. Prior Treatments and Tests none Treatment Goals Patient/Caregiver Goals make pain go away, do her daily activites without pain and be able to what she wants PT-OP-C Subjective Start: 05/26/19 14:24 Freq: Status: Active Protocol: Document 05/27/19 09:02 [facility] (Rec: 05/27/19 09:57 [facility] [id number]) Patient Questionnaires Neck Disability Index NDI Score 26.6%; OP-PT Pain Assessment Location neck Intensity 7 Scale Used Numeric (1 - 10) Description- Other tension, can get up to a 9/10, pins & needls in arms Frequency Constant Radiating Location R>L arm lat and sup or inf & med/ant to ant wrist & fingers2-5 & DEVI Variations/Patterns also pain in R lat side Pain Aggravating Factors Lifting Other Pain Aggravating Factors turning R>L, driving, longer she stays rotated, opening boxes Pain Alleviating Factors Cold,Medication PT-OP-F Manual Assessment Start: 05/26/19 14:24 Freq: Status: Active Protocol: Document 05/27/19 09:02 [facility] (Rec: 05/27/19 09:57 [facility] [id number]) Manual Assessments Soft Tissue Assessment Soft Tissue Mobility Assessment tightness in UT, LS, cervical paraspinals, scalenes w/ tenderness B PT-OP-K Range of Motion Start: 05/26/19 14:24 Freq: Status: Active Protocol: Document 05/27/19 09:02 [facility] (Rec: 05/27/19 09:57 [facility] [id number]) Cervical Spine Range of Motion Cervical Spine Active Flexion 25 Extension 50 Rotation Left 50 Rotation Right 40 Lateral Flexion Left 20 Lateral Flexion Right 25 ROM Limitations Pain Comments pain R with R SB PT-OP-L Special Tests Start: 05/26/19 14:24 Freq: Status: Active Protocol: Document 05/27/19 09:02 [facility] (Rec: 05/27/19 09:57 [facility] [id number]) Special Tests Cervical Spine Special Tests Vertebral Artery Test Results positive for dizziness Spurling's Test Test Results neg Alar Ligament Test Results neg Neural Special Tests- Upper Body Ulnar Nerve Tension Test Results Positive B Median Nerve Tension Test Results positive R> L Radial Nerve Tension Test Results neg B PT-OP-M Strength Start: 05/26/19 14:24 Freq: Status: Active Protocol: Document 05/27/19 09:02 [facility] (Rec: 05/27/19 09:57 [facility] [id number]) Shoulder Strength Shoulder Manual Muscle Testing Right Flexion 3+ Fair+ Abduction (C5) 3+ Fair+ External Rotation 4 Good Internal Rotation 4 Good Reason Not Measured Pain Comments pain w/flex & abd Left Flexion 4- Good- Abduction (C5) 4- Good- External Rotation 4 Good Internal Rotation 4 Good Elbow/Forearm Strength Elbow and Forearm Manual Muscle Testing Right Flexion (C6) 4 Good Extension (C7) 4 Good Pronation 4 Good Supination 4 Good Reason Not Measured Pain Comments pain w/ flex, ext, pronation Left Flexion (C6) 4 Good Extension (C7) 4 Good Pronation 4 Good Supination 4 Good Wrist Strength Wrist Manual Muscle Testing Right Flexion (C7) 4 Good Extension (C6) 4 Good Ulnar Deviation 4 Good Radial Deviation 4 Good Comments flex & ext pain Left Flexion (C7) 4 Good Extension (C6) 4 Good Ulnar Deviation 4 Good Radial Deviation 4 Good Hand Medical Charge Entry Specialist/Pinch Strength Hand Dominance Hand Dominance Right Hand Strength Right Comments 30lb, 30lb, 38lb, tension in neck w/ R gripping Left Comments 30lb, 40lb, 45lb PT-OP-Q Treatments Start: 05/26/19 14:24 Freq: Status: Active Protocol: Document 05/27/19 09:02 [facility] (Rec: 05/27/19 09:57 [facility] [id number]) Therapeutic Exercises Sitting Exercises scap retraction Side bilateral Reps/Minutes 5 Standing Exercises wall posture Standing Exercise Name w/90/90 ER Side bilateral Reps/Minutes 5 Self-Care/Home Management Treatment Education Other Education 144/98 BP PT-OP-T Assessment and Plan Start: 05/26/19 14:24 Freq: Status: Active Protocol: Document 05/27/19 09:02 [facility] (Rec: 05/27/19 09:57 [facility] [id number]) Physical Therapy Assessment Rehab Potential Rehabilitation Potential Good Evaluation Complexity Number of Personal Factors/Comorbidities 3 or More Number of Body Systems Impaired 4 or More Clinical Presentation at Evaluation Unstable Impairments Impairments Activity Tolerance,Functional Activities,Functional Mobility ,Pain,Posture,ROM,Soft Tissue Mobility,Strength Other Concerns Barriers to Rehabilitation high BP, vision changes, DEVI, neck pain, possible VBI testing-called STRATEGIC INSIGHTS LEAD re: symtoms and concerns and spoke with STRATEGIC INSIGHTS LEAD who planning testing and follow up on Saturday Goals activities [facility] Goal (LTG) Pt will report neck pain does not prevent her from doing social things on weekends and time off. LTG Duration 07/26/19 Three Impairment strength Short Term Goal (STG) Pt will be indep with HEP STG Duration 06/25/19 Deputy Sheriff Bailiff Goal (LTG) Pt will have 5/5 UE strength and age appropriate norms for hand strength to allow greater ease with owrk with dec pain. LTG Duration 07/26/19 Two Impairment ROM Short Term Goal (STG) Pt will be able to rotate and extend without dizziness. STG Duration 06/25/19 Deputy Sheriff Bailiff Goal (LTG) Pt will have full AROM for cervical mobility in order to be able to drive and do work activities without pain. LTG Duration 07/26/19 One Impairment NDI Short Term Goal (STG) Improve to lower than 17% to show improved function. STG Duration 06/25/19 Deputy Sheriff Bailiff Goal (LTG) Pt will improve to lower than 6% impairment to allow pt to have greater ease with daily activities. LTG Duration 07/26/19 Assessment Summary Assessment Pt presents with neck pain, DEVI and R>L arm pain with BUE weakness. She reports vision changes like things are moving sometimes and dizziness was noted with B rotations passively and actively especailly when extension was added. She presented with high BP today,which she reports is not typical. At this time her overall neck pain limits her activity on her time off. Call was placed to her provider re : symptoms and concern for possible VBI and he ordered US . Pt is to not be seen until cleared by her provider after testing. If she is clear with testing, then pt would benefit from PT in order to improve her ROM, strength of UE, and overall quality of life by improving function. Physical Therapy Plan Frequency and Duration Frequency of Treatment 1-2x/week Duration of Treatment 2 months Plan of Care Start Date 05/27/19 Plan of Care End Date 07/26/19 Therapeutic Interventions Therapeutic Interventions Aquatic Therapy,Home Exercise Program,Joint Mobilizations, Manual Therapy,Neuromuscular Re-education,Patient/Caregiver Education,Self-Care/Home Management,Soft Tissue Mobilization,Taping, Therapeutic Activities, Therapeutic Exercises Modalities Cold Pack/Ice Massage,Electric Stimulation,Hot Packs, Traction- Mechanical, Ultrasound Other Therapeutic Interventions manaul and modalities and end range ROM hold until sure no vascular involvement. Next Visit Focus/Plan Next Note Type Treatment Note Next Visit Plan monitor BP and wait to do follow up until further testing reveals if any VBI
--- NOTE | 2019-05-27 18:14 | PT.OPPOC ---
Physical, Occupational & Speech Therapy At [facility] Current Diagnoses Cervicalgia (05/27/19) Pain in throat (05/27/19) Abnormal posture (05/27/19) Headache (05/27/19) Weakness (05/27/19) Visit Care Team Role Provider Type Andrey Damico BLINDST[employer] LINING FELLER- Primary Care Provider Advanced Lace Pinner Specialty: Medical Address: [address] [place] [address], [id number] Email: Allan Mccurdy MD Attending Provider Physician Referring Provider Specialty: Ear, Nose, Throat Address: [address] [place] [address], [id number] Email: [email or web address] Plan Of Care PT-OP-T Assessment and Plan Start: 05/26/19 14:24 Freq: Status: Active Protocol: Document 05/27/19 09:02 [facility] (Rec: 05/27/19 09:57 [facility] [id number]) Physical Therapy Assessment Rehab Potential Rehabilitation Potential Good Evaluation Complexity Number of Personal Factors/Comorbidities 3 or More Number of Body Systems Impaired 4 or More Clinical Presentation at Evaluation Unstable Impairments Impairments Activity Tolerance,Functional Activities,Functional Mobility ,Pain,Posture,ROM,Soft Tissue Mobility,Strength Other Concerns Barriers to Rehabilitation high BP, vision changes, DEVI, neck pain, possible VBI testing-called TRAVEL GUIDE re: symtoms and concerns and spoke with TRAVEL GUIDE who planning testing and follow up on Saturday Goals activities Conservation Engineer Goal (LTG) Pt will report neck pain does not prevent her from doing social things on weekends and time off. LTG Duration 07/26/19 Three Impairment strength Short Term Goal (STG) Pt will be indep with HEP STG Duration 06/25/19 Conservation Engineer Goal (LTG) Pt will have 5/5 UE strength and age appropriate norms for hand strength to allow greater ease with owrk with dec pain. LTG Duration 07/26/19 Two Impairment ROM Short Term Goal (STG) Pt will be able to rotate and extend without dizziness. STG Duration 06/25/19 Conservation Engineer Goal (LTG) Pt will have full AROM for cervical mobility in order to be able to drive and do work activities without pain. LTG Duration 07/26/19 One Impairment NDI Short Term Goal (STG) Improve to lower than 17% to show improved function. STG Duration 06/25/19 Conservation Engineer Goal (LTG) Pt will improve to lower than 6% impairment to allow pt to have greater ease with daily activities. LTG Duration 07/26/19 Assessment Summary Assessment Pt presents with neck pain, DEVI and R>L arm pain with BUE weakness. She reports vision changes like things are moving sometimes and dizziness was noted with B rotations passively and actively especailly when extension was added. She presented with high BP today,which she reports is not typical. At this time her overall neck pain limits her activity on her time off. Call was placed to her provider re : symptoms and concern for possible VBI and he ordered US . Pt is to not be seen until cleared by her provider after testing. If she is clear with testing, then pt would benefit from PT in order to improve her ROM, strength of UE, and overall quality of life by improving function. Physical Therapy Plan Frequency and Duration Frequency of Treatment 1-2x/week Duration of Treatment 2 months Plan of Care Start Date 05/27/19 Plan of Care End Date 07/26/19 Therapeutic Interventions Therapeutic Interventions Aquatic Therapy,Home Exercise Program,Joint Mobilizations, Manual Therapy,Neuromuscular Re-education,Patient/Caregiver Education,Self-Care/Home Management,Soft Tissue Mobilization,Taping, Therapeutic Activities, Therapeutic Exercises Modalities Cold Pack/Ice Massage,Electric Stimulation,Hot Packs, Traction- Mechanical, Ultrasound Other Therapeutic Interventions manaul and modalities and end range ROM hold until sure no vascular involvement. Next Visit Focus/Plan Next Note Type Treatment Note Next Visit Plan monitor BP and wait to do follow up until further testing reveals if any VBI Plan of Care Dates Plan of Care Start Date 05/27/19 Plan of Care End Date 07/26/19 Electronically Signed by: Carmen Mccurdy, PT 05/27/19 [id number] Please Sign and Return: I have reviewed this Plan of Care and certify that the skilled therapy services above are required to meet the patient?s needs. Physician Signature Date Printed Name and Credentials Clinical Instructor Signature Printed Name and Credentials
--- NOTE | 2019-05-27 18:14 | PT.OPPOC ---
Physical, Occupational & Speech Therapy At [facility] Current Diagnoses Cervicalgia (05/27/19) Pain in throat (05/27/19) Abnormal posture (05/27/19) Headache (05/27/19) Weakness (05/27/19) Visit Care Team Role Provider Type Andrey Damico LOGISTICAL ENGINEER- Primary Care Provider Advanced Pharmacy Intake Technician Specialty: Medical Address: [address] [place] [address], [id number] Email: Allan Mccurdy MD Attending Provider Physician Referring Provider Specialty: Ear, Nose, Throat Address: [address] [place] [address], [id number] Email: [email or web address] Plan Of Care PT-OP-T Assessment and Plan Start: 05/26/19 14:24 Freq: Status: Active Protocol: Document 05/27/19 09:02 [facility] (Rec: 05/27/19 09:57 [facility] [id number]) Physical Therapy Assessment Rehab Potential Rehabilitation Potential Good Evaluation Complexity Number of Personal Factors/Comorbidities 3 or More Number of Body Systems Impaired 4 or More Clinical Presentation at Evaluation Unstable Impairments Impairments Activity Tolerance,Functional Activities,Functional Mobility ,Pain,Posture,ROM,Soft Tissue Mobility,Strength Other Concerns Barriers to Rehabilitation high BP, vision changes, DEVI, neck pain, possible VBI testing-called CEMENTER HELPER re: symtoms and concerns and spoke with CEMENTER HELPER who planning testing and follow up on Saturday Goals activities [employer] Miner Goal (LTG) Pt will report neck pain does not prevent her from doing social things on weekends and time off. LTG Duration 07/26/19 Three Impairment strength Short Term Goal (STG) Pt will be indep with HEP STG Duration 06/25/19 [place] Miner Goal (LTG) Pt will have 5/5 UE strength and age appropriate norms for hand strength to allow greater ease with owrk with dec pain. LTG Duration 07/26/19 Two Impairment ROM Short Term Goal (STG) Pt will be able to rotate and extend without dizziness. STG Duration 06/25/19 [employer] [place] Miner Goal (LTG) Pt will have full AROM for cervical mobility in order to be able to drive and do work activities without pain. LTG Duration 07/26/19 One Impairment NDI Short Term Goal (STG) Improve to lower than 17% to show improved function. STG Duration 06/25/19 [place] Miner Goal (LTG) Pt will improve to lower than 6% impairment to allow pt to have greater ease with daily activities. LTG Duration 07/26/19 Assessment Summary Assessment Pt presents with neck pain, DEVI and R>L arm pain with BUE weakness. She reports vision changes like things are moving sometimes and dizziness was noted with B rotations passively and actively especailly when extension was added. She presented with high BP today,which she reports is not typical. At this time her overall neck pain limits her activity on her time off. Call was placed to her provider re : symptoms and concern for possible VBI and he ordered US . Pt is to not be seen until cleared by her provider after testing. If she is clear with testing, then pt would benefit from PT in order to improve her ROM, strength of UE, and overall quality of life by improving function. Physical Therapy Plan Frequency and Duration Frequency of Treatment 1-2x/week Duration of Treatment 2 months Plan of Care Start Date 05/27/19 Plan of Care End Date 07/26/19 Therapeutic Interventions Therapeutic Interventions Aquatic Therapy,Home Exercise Program,Joint Mobilizations, Manual Therapy,Neuromuscular Re-education,Patient/Caregiver Education,Self-Care/Home Management,Soft Tissue Mobilization,Taping, Therapeutic Activities, Therapeutic Exercises Modalities Cold Pack/Ice Massage,Electric Stimulation,Hot Packs, Traction- Mechanical, Ultrasound Other Therapeutic Interventions manaul and modalities and end range ROM hold until sure no vascular involvement. Next Visit Focus/Plan Next Note Type Treatment Note Next Visit Plan monitor BP and wait to do follow up until further testing reveals if any VBI Plan of Care Dates Plan of Care Start Date 05/27/19 Plan of Care End Date 07/26/19 Electronically Signed by: Carmen Mccurdy, PT 05/27/19 0617 Please Sign and Return: I have reviewed this Plan of Care and certify that the skilled therapy services above are required to meet the patient?s needs. Physician Signature Date Printed Name and Credentials Clinical Instructor Signature Printed Name and Credentials
--- NOTE | 2019-06-10 11:19 | PT.OTN ---
Current Diagnoses Cervicalgia (06/10/19) Pain in throat (06/10/19) Abnormal posture (06/10/19) Headache (06/10/19) Weakness (06/10/19) Physical Therapy Treatment Note PT-OP-A Visit Information Start: 05/26/19 14:24 Freq: Status: Active Protocol: Document 06/10/19 08:12 [facility] (Rec: 06/10/19 11:19 [facility] [id number]) Out-Patient Physical Therapy Visit Information Visit Information Visit Type Treatment Note Visit Start Time 08:15 Visit Stop Time 08:58 Total Visit Minutes 43 Visit Number 2 Number of ENGINEERING TECHNOLOGIST Visits 0 PT-OP-B Current Condition Start: 05/26/19 14:24 Freq: Status: Active Protocol: Document 05/27/19 09:02 [facility] (Rec: 05/27/19 09:57 [facility] [id number]) Current Condition History of Current Condition Onset Date years Current Complaints neck pain, DEVI & R arm pain History of Current Condition Pt reprots neck pain for 3 years but never done anything about it. She thinks it could be related to her job and for the last year, it has been causing a lot of problems for her. She also has DEVI and has pain that goes from neck to wrist on R side. Pt denies any dizziness with DEVI. DEVI come and go and this last weekend, it was really bad. Pt reports her back also hurts. Pt reprots it is really bad. 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 Pt reports she can sleep but wakes up in the middle of night and has to change position. Pt is avoiding social activites on weekend d/ t just overall not feeling well. Prior Treatments and Tests none Treatment Goals Patient/Caregiver Goals make pain go away, do her daily activites without pain and be able to what she wants PT-OP-C Subjective Start: 05/26/19 14:24 Freq: Status: Active Protocol: Document 06/10/19 08:12 [facility] (Rec: 06/10/19 11:19 [facility] [id number]) OP-PT Subjective Patient Comments Patient Comments Pt reports she had a DEVI tonight and still a slight DEVI this AM but it is better now. PT-OP-F Manual Assessment Start: 05/26/19 14:24 Freq: Status: Active Protocol: Document 05/27/19 09:02 [facility] (Rec: 05/27/19 09:57 [facility] [id number]) Manual Assessments Soft Tissue Assessment Soft Tissue Mobility Assessment tightness in UT, LS, cervical paraspinals, scalenes w/ tenderness B PT-OP-K Range of Motion Start: 05/26/19 14:24 Freq: Status: Active Protocol: Document 05/27/19 09:02 [facility] (Rec: 05/27/19 09:57 [facility] [id number]) Cervical Spine Range of Motion Cervical Spine Active Flexion 25 Extension 50 Rotation Left 50 Rotation Right 40 Lateral Flexion Left 20 Lateral Flexion Right 25 ROM Limitations Pain Comments pain R with R SB PT-OP-L Special Tests Start: 05/26/19 14:24 Freq: Status: Active Protocol: Document 05/27/19 09:02 [facility] (Rec: 05/27/19 09:57 [facility] [id number]) Special Tests Cervical Spine Special Tests Vertebral Artery Test Results positive for dizziness Spurling's Test Test Results neg Alar Ligament Test Results neg Neural Special Tests- Upper Body Ulnar Nerve Tension Test Results Positive B Median Nerve Tension Test Results positive R> L Radial Nerve Tension Test Results neg B PT-OP-M Strength Start: 05/26/19 14:24 Freq: Status: Active Protocol: Document 05/27/19 09:02 [facility] (Rec: 05/27/19 09:57 [facility] [id number]) Shoulder Strength Shoulder Manual Muscle Testing Right Flexion 3+ Fair+ Abduction (C5) 3+ Fair+ External Rotation 4 Good Internal Rotation 4 Good Reason Not Measured Pain Comments pain w/flex & abd Left Flexion 4- Good- Abduction (C5) 4- Good- External Rotation 4 Good Internal Rotation 4 Good Elbow/Forearm Strength Elbow and Forearm Manual Muscle Testing Right Flexion (C6) 4 Good Extension (C7) 4 Good Pronation 4 Good Supination 4 Good Reason Not Measured Pain Comments pain w/ flex, ext, pronation Left Flexion (C6) 4 Good Extension (C7) 4 Good Pronation 4 Good Supination 4 Good Wrist Strength Wrist Manual Muscle Testing Right Flexion (C7) 4 Good Extension (C6) 4 Good Ulnar Deviation 4 Good Radial Deviation 4 Good Comments flex & ext pain Left Flexion (C7) 4 Good Extension (C6) 4 Good Ulnar Deviation 4 Good Radial Deviation 4 Good Hand Waterproofer Helper/Pinch Strength Hand Dominance Hand Dominance Right Hand Strength Right Comments 30lb, 30lb, 38lb, tension in neck w/ R gripping Left Comments 30lb, 40lb, 45lb PT-OP-Q Treatments Start: 05/26/19 14:24 Freq: Status: Active Protocol: Document 06/10/19 08:12 [facility] (Rec: 06/10/19 11:19 [facility] [id number]) Therapeutic Exercises Sidelying Exercises open book Side bilateral Reps/Minutes 10 Sitting Exercises stretches Sitting Exercise Name UT & LS Reps/Minutes 30 sec Comments UT stretch only L SB d/t pain w. R scap retraction Side bilateral Reps/Minutes 10 Standing Exercises wall posture Standing Exercise Name w/90/90 ER Side bilateral Reps/Minutes 5 Manual Therapy Treatment Soft Tissue Mobilization paraspinals Body Location R>L cervical paraspinals Mobilization Type Rolling Intensity/Depth Superficial Body Position Supine UT/LS Body Location R>L UT, LS & scalenes & SCM Mobilization Type Rolling,Strumming,Sustained Pressure Intensity/Depth Superficial Body Position Supine 1 Body Location SOR Mobilization Type Sustained Pressure Intensity/Depth Moderate Body Position Supine Joint Mobilizations 1st rib Joint R Direction caudal FM w/SB T spine Joint T1-3 Direction R transverse & PA FM w/L shoulder abd Grade II PT-OP-T Assessment and Plan Start: 05/26/19 14:24 Freq: Status: Active Protocol: Document 06/10/19 08:12 [facility] (Rec: 06/10/19 11:19 [facility] [id number]) Physical Therapy Assessment Goals activities Prison Goal (LTG) Pt will report neck pain does not prevent her from doing social things on weekends and time off. LTG Duration 07/26/19 Three Impairment strength Short Term Goal (STG) Pt will be indep with HEP STG Duration 06/25/19 Prison Goal (LTG) Pt will have 5/5 UE strength and age appropriate norms for hand strength to allow greater ease with owrk with dec pain. LTG Duration 07/26/19 Two Impairment ROM Short Term Goal (STG) Pt will be able to rotate and extend without dizziness. STG Duration 06/25/19 Internship Coordinator Goal (LTG) Pt will have full AROM for cervical mobility in order to be able to drive and do work activities without pain. LTG Duration 07/26/19 One Impairment NDI Short Term Goal (STG) Improve to lower than 17% to show improved function. STG Duration 06/25/19 Prison Goal (LTG) Pt will improve to lower than 6% impairment to allow pt to have greater ease with daily activities. LTG Duration 07/26/19 Assessment Summary Assessment Pt had clear US study of arteries with all normal flows . She had dizziness with ext & L rot but after gentle mobs to upper t spine no further c/ o dizziness with those head movements. She has significant tightness in R>L side witht elevated 1st rib on R Physical Therapy Plan Frequency and Duration Frequency of Treatment 1-2x/week Duration of Treatment 2 months Plan of Care Start Date 05/27/19 Plan of Care End Date 07/26/19 Next Visit Focus/Plan Next Note Type Treatment Note Next Visit Plan Gentle stretching & ROM with no dizziness symptoms during exercises, reivew HEP exercises from this session, gentle manual. work on upper thoracic mobility.
--- NOTE | 2019-06-16 18:20 | PT.OTN ---
Current Diagnoses Cervicalgia (06/16/19) Pain in throat (06/16/19) Abnormal posture (06/16/19) Headache (06/16/19) Weakness (06/16/19) Physical Therapy Treatment Note PT-OP-A Visit Information Start: 05/26/19 14:24 Freq: Status: Active Protocol: Document 06/16/19 18:09 [facility] (Rec: 06/16/19 18:20 [facility] [id number]) Out-Patient Physical Therapy Visit Information Visit Information Visit Type Treatment Note Visit Start Time 16:46 Visit Stop Time 17:32 Total Visit Minutes 46 Visit Number 3 Number of PSYCHIATRIC ORDERLY Visits 0 PT-OP-B Current Condition Start: 05/26/19 14:24 Freq: Status: Active Protocol: Document 05/27/19 09:02 [facility] (Rec: 05/27/19 09:57 [facility] [id number]) Current Condition History of Current Condition Onset Date years Current Complaints neck pain, DEVI & R arm pain History of Current Condition Pt reprots neck pain for 3 years but never done anything about it. She thinks it could be related to her job and for the last year, it has been causing a lot of problems for her. She also has DEVI and has pain that goes from neck to wrist on R side. Pt denies any dizziness with DEVI. DEVI come and go and this last weekend, it was really bad. Pt reports her back also hurts. Pt reprots it is really bad. 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 Pt reports she can sleep but wakes up in the middle of night and has to change position. Pt is avoiding social activites on weekend d/ t just overall not feeling well. Prior Treatments and Tests none Treatment Goals Patient/Caregiver Goals make pain go away, do her daily activites without pain and be able to what she wants PT-OP-C Subjective Start: 05/26/19 14:24 Freq: Status: Active Protocol: Document 06/16/19 18:09 [facility] (Rec: 06/16/19 18:20 [facility] [id number]) OP-PT Subjective Patient Comments Patient Comments Pt reprots yesterday having a DEVI & neck pain after wroking but not much today. COmpliance with HEP PT-OP-F Manual Assessment Start: 05/26/19 14:24 Freq: Status: Active Protocol: Document 05/27/19 09:02 [facility] (Rec: 05/27/19 09:57 [facility] [id number]) Manual Assessments Soft Tissue Assessment Soft Tissue Mobility Assessment tightness in UT, LS, cervical paraspinals, scalenes w/ tenderness B PT-OP-K Range of Motion Start: 05/26/19 14:24 Freq: Status: Active Protocol: Document 05/27/19 09:02 [facility] (Rec: 05/27/19 09:57 [facility] [id number]) Cervical Spine Range of Motion Cervical Spine Active Flexion 25 Extension 50 Rotation Left 50 Rotation Right 40 Lateral Flexion Left 20 Lateral Flexion Right 25 ROM Limitations Pain Comments pain R with R SB PT-OP-L Special Tests Start: 05/26/19 14:24 Freq: Status: Active Protocol: Document 05/27/19 09:02 [facility] (Rec: 05/27/19 09:57 [facility] [id number]) Special Tests Cervical Spine Special Tests Vertebral Artery Test Results positive for dizziness Spurling's Test Test Results neg Alar Ligament Test Results neg Neural Special Tests- Upper Body Ulnar Nerve Tension Test Results Positive B Median Nerve Tension Test Results positive R> L Radial Nerve Tension Test Results neg B PT-OP-M Strength Start: 05/26/19 14:24 Freq: Status: Active Protocol: Document 05/27/19 09:02 [facility] (Rec: 05/27/19 09:57 [facility] [id number]) Shoulder Strength Shoulder Manual Muscle Testing Right Flexion 3+ Fair+ Abduction (C5) 3+ Fair+ External Rotation 4 Good Internal Rotation 4 Good Reason Not Measured Pain Comments pain w/flex & abd Left Flexion 4- Good- Abduction (C5) 4- Good- External Rotation 4 Good Internal Rotation 4 Good Elbow/Forearm Strength Elbow and Forearm Manual Muscle Testing Right Flexion (C6) 4 Good Extension (C7) 4 Good Pronation 4 Good Supination 4 Good Reason Not Measured Pain Comments pain w/ flex, ext, pronation Left Flexion (C6) 4 Good Extension (C7) 4 Good Pronation 4 Good Supination 4 Good Wrist Strength Wrist Manual Muscle Testing Right Flexion (C7) 4 Good Extension (C6) 4 Good Ulnar Deviation 4 Good Radial Deviation 4 Good Comments flex & ext pain Left Flexion (C7) 4 Good Extension (C6) 4 Good Ulnar Deviation 4 Good Radial Deviation 4 Good Hand Billet Assembler/Pinch Strength Hand Dominance Hand Dominance Right Hand Strength Right Comments 30lb, 30lb, 38lb, tension in neck w/ R gripping Left Comments 30lb, 40lb, 45lb PT-OP-Q Treatments Start: 05/26/19 14:24 Freq: Status: Active Protocol: Document 06/16/19 18:09 [facility] (Rec: 06/16/19 18:20 [facility] [id number]) Therapeutic Exercises Standing Exercises flex Standing Exercise Name w/Habd Side bilateral Equipment Used L2 Reps/Minutes 10 ER Side bilateral Equipment Used L2 Reps/Minutes 10 row Side bilateral Equipment Used L3 Reps/Minutes 10 wall posture Standing Exercise Name w/90/90 ER Side bilateral Reps/Minutes 8 Manual Therapy Treatment Soft Tissue Mobilization paraspinals Body Location R>L cervical paraspinals Mobilization Type Rolling Intensity/Depth Superficial Body Position Supine UT/LS Body Location R>L UT, LS & scalenes & SCM Mobilization Type Rolling,Strumming,Sustained Pressure Intensity/Depth Superficial Body Position Supine 1 Body Location SOR Mobilization Type Sustained Pressure Intensity/Depth Moderate Body Position Supine Joint Mobilizations Cervical Joint C5 Direction transverse L w/chin tuck Grade II 1st rib Joint R Direction caudal FM w/SB T spine Joint T1-3 Direction L transverse & PA FM w/R cover position Grade II Self-Care/Home Management Treatment Education Other Education self release with tennis jen nd cane PT-OP-T Assessment and Plan Start: 05/26/19 14:24 Freq: Status: Active Protocol: Document 06/16/19 18:09 [facility] (Rec: 06/16/19 18:20 [facility] [id number]) Physical Therapy Assessment Goals activities Sales Agent Insurance Goal (LTG) Pt will report neck pain does not prevent her from doing social things on weekends and time off. LTG Duration 07/26/19 Three Impairment strength Short Term Goal (STG) Pt will be indep with HEP STG Duration 06/25/19 Sales Agent Insurance Goal (LTG) Pt will have 5/5 UE strength and age appropriate norms for hand strength to allow greater ease with owrk with dec pain. LTG Duration 07/26/19 Two Impairment ROM Short Term Goal (STG) Pt will be able to rotate and extend without dizziness. STG Duration 06/25/19 Half-Way Goal (LTG) Pt will have full AROM for cervical mobility in order to be able to drive and do work activities without pain. LTG Duration 07/26/19 One Impairment NDI Short Term Goal (STG) Improve to lower than 17% to show improved function. STG Duration 06/25/19 Half-Way Goal (LTG) Pt will improve to lower than 6% impairment to allow pt to have greater ease with daily activities. LTG Duration 07/26/19 Assessment Summary Assessment Pt did well with all exercises and mnaul with no dizziness. She had improved R rotation from about 60% to 90% full range. She required cueing for scap movement with UE exercises. Physical Therapy Plan Frequency and Duration Frequency of Treatment 1-2x/week Duration of Treatment 2 months Plan of Care Start Date 05/27/19 Plan of Care End Date 07/26/19 Next Visit Focus/Plan Next Note Type Treatment Note Next Visit Plan Gentle stretching & ROM with no dizziness symptoms during exercises, reivew HEP exercises from this session, gentle manual. work on upper thoracic mobility.
--- NOTE | 2019-06-23 17:58 | PT.OTN ---
Current Diagnoses Cervicalgia (06/23/19) Pain in throat (06/23/19) Abnormal posture (06/23/19) Headache (06/23/19) Weakness (06/23/19) Physical Therapy Treatment Note PT-OP-A Visit Information Start: 05/26/19 14:24 Freq: Status: Active Protocol: Document 06/23/19 17:41 [facility] (Rec: 06/23/19 17:58 [facility] [id number]) Out-Patient Physical Therapy Visit Information Visit Information Visit Type Treatment Note Visit Start Time 16:35 Visit Stop Time 17:30 Total Visit Minutes 55 Visit Number 4 Number of VOICE TEACHER Visits 0 PT-OP-B Current Condition Start: 05/26/19 14:24 Freq: Status: Active Protocol: Document 05/27/19 09:02 [facility] (Rec: 05/27/19 09:57 [facility] [id number]) Current Condition History of Current Condition Onset Date years Current Complaints neck pain, DEVI & R arm pain History of Current Condition Pt reprots neck pain for 3 years but never done anything about it. She thinks it could be related to her job and for the last year, it has been causing a lot of problems for her. She also has DEVI and has pain that goes from neck to wrist on R side. Pt denies any dizziness with DEVI. DEVI come and go and this last weekend, it was really bad. Pt reports her back also hurts. Pt reprots it is really bad. 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 Pt reports she can sleep but wakes up in the middle of night and has to change position. Pt is avoiding social activites on weekend d/ t just overall not feeling well. Prior Treatments and Tests none Treatment Goals Patient/Caregiver Goals make pain go away, do her daily activites without pain and be able to what she wants PT-OP-C Subjective Start: 05/26/19 14:24 Freq: Status: Active Protocol: Document 06/23/19 17:41 [facility] (Rec: 06/23/19 17:58 [facility] [id number]) OP-PT Subjective Patient Comments Patient Comments Pt reports she called out of work today d/t DEVI. notes she had a DEVI last night thatw as still present in AM. Pt reprots she had some neck pain during the time but neck pain was not has bad as head Patient Reported Progress Same PT-OP-F Manual Assessment Start: 05/26/19 14:24 Freq: Status: Active Protocol: Document 05/27/19 09:02 [facility] (Rec: 05/27/19 09:57 [facility] [id number]) Manual Assessments Soft Tissue Assessment Soft Tissue Mobility Assessment tightness in UT, LS, cervical paraspinals, scalenes w/ tenderness B PT-OP-K Range of Motion Start: 05/26/19 14:24 Freq: Status: Active Protocol: Document 05/27/19 09:02 [facility] (Rec: 05/27/19 09:57 [facility] [id number]) Cervical Spine Range of Motion Cervical Spine Active Flexion 25 Extension 50 Rotation Left 50 Rotation Right 40 Lateral Flexion Left 20 Lateral Flexion Right 25 ROM Limitations Pain Comments pain R with R SB PT-OP-L Special Tests Start: 05/26/19 14:24 Freq: Status: Active Protocol: Document 05/27/19 09:02 [facility] (Rec: 05/27/19 09:57 [facility] [id number]) Special Tests Cervical Spine Special Tests Vertebral Artery Test Results positive for dizziness Spurling's Test Test Results neg Alar Ligament Test Results neg Neural Special Tests- Upper Body Ulnar Nerve Tension Test Results Positive B Median Nerve Tension Test Results positive R> L Radial Nerve Tension Test Results neg B PT-OP-M Strength Start: 05/26/19 14:24 Freq: Status: Active Protocol: Document 05/27/19 09:02 [facility] (Rec: 05/27/19 09:57 [facility] [id number]) Shoulder Strength Shoulder Manual Muscle Testing Right Flexion 3+ Fair+ Abduction (C5) 3+ Fair+ External Rotation 4 Good Internal Rotation 4 Good Reason Not Measured Pain Comments pain w/flex & abd Left Flexion 4- Good- Abduction (C5) 4- Good- External Rotation 4 Good Internal Rotation 4 Good Elbow/Forearm Strength Elbow and Forearm Manual Muscle Testing Right Flexion (C6) 4 Good Extension (C7) 4 Good Pronation 4 Good Supination 4 Good Reason Not Measured Pain Comments pain w/ flex, ext, pronation Left Flexion (C6) 4 Good Extension (C7) 4 Good Pronation 4 Good Supination 4 Good Wrist Strength Wrist Manual Muscle Testing Right Flexion (C7) 4 Good Extension (C6) 4 Good Ulnar Deviation 4 Good Radial Deviation 4 Good Comments flex & ext pain Left Flexion (C7) 4 Good Extension (C6) 4 Good Ulnar Deviation 4 Good Radial Deviation 4 Good Hand Senior Director Of [employer]/Pinch Strength Hand Dominance Hand Dominance Right Hand Strength Right Comments 30lb, 30lb, 38lb, tension in neck w/ R gripping Left Comments 30lb, 40lb, 45lb PT-OP-Q Treatments Start: 05/26/19 14:24 Freq: Status: Active Protocol: Document 06/23/19 17:41 [facility] (Rec: 06/23/19 17:58 [facility] [id number]) Therapeutic Exercises Supine Exercises 1 Supine Exercise Name axial elongation Reps/Minutes 3sec x5 Sitting Exercises stretches Sitting Exercise Name UT & LS Side bilateral Reps/Minutes 30 sec ea Standing Exercises flex Standing Exercise Name w/Habd Side bilateral Equipment Used L2 Reps/Minutes 10 ER Side bilateral Equipment Used L2 Reps/Minutes 10 row Side bilateral Equipment Used L3 Reps/Minutes 5 wall posture Standing Exercise Name w/shoulder ext Side bilateral Reps/Minutes 8 Manual Therapy Treatment Soft Tissue Mobilization post neck Body Location w/flex & dycem Mobilization Type Myofascial Release cranial fascia Intensity/Depth Superficial Body Position Supine Comments ant & post R>L 1 Body Location SOR Mobilization Type Sustained Pressure Intensity/Depth Moderate Body Position Supine Joint Mobilizations T spine Joint T1-3 Direction L transverse & PA FM w/R cover position Grade II Self-Care/Home Management Treatment Education Other Education importance of posture, importance of postural exercises, importance of drinking water PT-OP-T Assessment and Plan Start: 05/26/19 14:24 Freq: Status: Active Protocol: Document 06/23/19 17:41 [facility] (Rec: 06/23/19 17:58 [facility] [id number]) Physical Therapy Assessment Goals activities Senior Living Goal (LTG) Pt will report neck pain does not prevent her from doing social things on weekends and time off. LTG Duration 07/26/19 Three Impairment strength Short Term Goal (STG) Pt will be indep with HEP STG Duration 06/25/19 Manager Generation Goal (LTG) Pt will have 5/5 UE strength and age appropriate norms for hand strength to allow greater ease with owrk with dec pain. LTG Duration 07/26/19 Two Impairment ROM Short Term Goal (STG) Pt will be able to rotate and extend without dizziness. STG Duration 06/25/19 Manager Generation Goal (LTG) Pt will have full AROM for cervical mobility in order to be able to drive and do work activities without pain. LTG Duration 07/26/19 One Impairment NDI Short Term Goal (STG) Improve to lower than 17% to show improved function. STG Duration 06/25/19 Manager Generation Goal (LTG) Pt will improve to lower than 6% impairment to allow pt to have greater ease with daily activities. LTG Duration 07/26/19 Assessment Summary Assessment Min cueing only required for exercises pt had already performed. Pt had difficulty with axial elongation but was indep after session. She was educated on why posture and posture exercises are also important and also on importance of drinking water as she only drinks at most 2 small bottles (10 oz) a day. She had improvement with neck R rotation from 75% to 90% ater manual treatment & had no pain with flex and ext. Physical Therapy Plan Frequency and Duration Frequency of Treatment 1-2x/week Duration of Treatment 2 months Plan of Care Start Date 05/27/19 Plan of Care End Date 07/26/19 Next Visit Focus/Plan Next Note Type Treatment Note Next Visit Plan Gentle stretching & ROM with no dizziness symptoms during exercises, reivew HEP exercises from this session, gentle manual. work on upper thoracic mobility.
--- NOTE | 2019-07-28 13:27 | PT-OP ANOTE ---
Pt called re: starting to schedule appointments again and informed will be following CDC guidelines with dec therapists present in clinic, masks worn, cleaning and hand washing. Educated that they are not required to attend and it this pt choice re: attending. Pt left message re: this and will be called to schedule later with options given.
--- NOTE | 2019-09-28 11:14 | PT.OPDS ---
Current Diagnoses Cervicalgia (06/23/19) Pain in throat (06/23/19) Abnormal posture (06/23/19) Headache (06/23/19) Weakness (06/23/19) Visit Care Team Role Provider Type Andrey Damico [facility] Primary Care Provider Advanced [employer]ric[employer] Specialist Specialty: Medical Address: [address] [place] [address], [id number] Email: Allan Mccurdy MD Attending Provider Physician Referring Provider Specialty: Ear, Nose, Throat Address: [address] [place] [address] Email: [email or web address] Number Visit Number 4 Discharge Summary PT-OP-T Assessment and Plan Start: 05/26/19 14:24 Freq: Status: Active Protocol: Document 09/28/19 11:13 [facility] (Rec: 09/28/19 11:14 [facility] [id number]) Physical Therapy Plan Discharge Physical Therapy Discharge Reasons Patient Request Discharge Comments Pt reports she is not ready to start attending PT again. DC at this time until pt feels ready was was instructed to get new referal.
== END 2019-10-06 09:00 ==
LOC: PHYS 16:45
PROVIDERS: Referring Provider Otolaryngology; Visit Provider Otolaryngology
DX: M54.2 Cervicalgia (principal); R07.0 Pain in throat; R53.1 Weakness; R51 Headache; R29.3 Abnormal posture
CPT/HCPCS: 97110; 97140; 97163

== ENCOUNTER → 2019-07-15 16:08 | Outpatient (CLI) | payer OTHER, SELFPAY ==
--- NOTE | 2019-07-15 16:13 | DI.MRI.S_ITS ---
PROCEDURE: MR HEAD/BRAIN WO/W CON INDICATIONS: ongoing new onset headaches, changing in severity TECHNIQUE: Noncontrast axial T1 spin echo, axial T2 fast spin echo, sagittal and axial FLAIR, coronal T2 fast spin echo, axial gradient echo, axial diffusion and ADC through the brain. After the administration of contrast, axial and coronal 3D VIBE or T1 spin echo with fat saturation through the brain. COMPARISON: None. FINDINGS: Image quality: Excellent. CSF Spaces: Basal cisterns are patent. No extra-axial fluid collections. Ventricles are normal in size and shape. Brain: No midline shift. No intracranial bleeds or masses. No abnormal intracranial enhancement. The brainstem appears normal. Diffusion-weighted images demonstrate no acute ischemic insults. No chronic ischemic insults. Normal intravascular flow voids are present. Skull and face: Calvarial marrow is normal in signal. Orbits appear normal. Sinuses: Sinuses and mastoids appear clear. IMPRESSION: Unremarkable intracranial study, without an imaging explanation found for the patient's presenting history of headache. No masses or abnormal enhancement can be seen. Dictated by: Ian Justice M.D. on 07/15/2019 at 16:31 Approved by: Ian Justice M.D. on 07/15/2019 at 16:33
== END ==
PROVIDERS: PCP Nurse Practitioner Family; Referring Provider Nurse Practitioner Family; Visit Provider Nurse Practitioner Family
DX: R51 Headache (principal)
CPT/HCPCS: 70553; A9579

== ENCOUNTER → 2019-08-31 06:43 | Outpatient (CLI) | payer OTHER, SELFPAY ==
[2019-08-31 07:22] LABS: Add Manual Diff / Slide Review NO; Basophils Absolute Auto 100 /uL (0-100); Basophils Percent Auto 0.9 % (0-2); Eosinophils Absolute Auto 100 /uL (0-450); Eosinophils Percent Auto 1.2 % (2-4); Hematocrit 39.1 % (36-46); Hemoglobin 12.6 g/dL (12.0-16.0); Lymphocytes Absolute Auto 1600 /uL (1100-4500); Lymphocytes Percent Auto 26.8 % (25-40); Mean Corpuscular HGB Conc 32.3 % (30-36); Mean Corpuscular Hemoglobin 26.6 PG (26-34); Mean Corpuscular Volume 82.3 fL (80-100); Monocytes Absolute Auto 400 /uL (0-900); Monocytes Percent Auto 7.1 % (3-14); Neutrophils Absolute Auto 3900 /uL (1500-7000); Platelet Count 188 X10^3/uL (150-400); Red Blood Cell Count 4.75 X10^6/uL (4.0-5.2); Red Cell Distribution Width 14.5 % (11.6-14.8)
[2019-08-31 07:32] LABS: HEMOLYSIS < 15 (0-50); Iron 118 ug/dL (37-170)
[2019-08-31 07:34] LABS: Alanine Aminotransferase 12 IU/L (<35); Albumin 4.2 g/dL (3.5-5.0); Albumin Globulin Ratio 1.4 (1.0-2.8); Alkaline Phosphatase 37 U/L (38-126); Aspartate Aminotransferase 24 IU/L (14-36); Bilirubin Total 1.2 mg/dL (0.2-1.3); Blood Urea Nitrogen 17 mg/dL (7-17); Calcium 9.2 mg/dL (8.4-10.2); Carbon Dioxide 27 mmol/L (22-32); Chloride 104 mmol/L (98-107); Estimated Glomerular Filt Rate > 60.0 mL/min (>60); Globulin 3.1 g/dL (1.7-4.1); Glucose 94 mg/dL (70-100); HEMOLYSIS < 15 (0-50); Potassium 3.7 mmol/L (3.4-5.1); Sodium 140 mmol/L (137-145); Total Protein 7.3 g/dL (6.3-8.2)
[2019-08-31 07:43] LABS: Percent Iron Saturation 49 % (15-50); Total Iron Binding Capacity 240 ug/dL (265-497); Transferrin 173 mg/dL (206-381)
[2019-08-31 08:13] LABS: Ferritin 70 ng/mL (6-137)
== END ==
PROVIDERS: PCP Nurse Practitioner Family; Referring Provider Internal Medicine Hematology & Oncology; Visit Provider Internal Medicine Hematology & Oncology
DX: D64.9 Anemia, unspecified (principal)
CPT/HCPCS: 36415; 80053; 82728; 83540; 83550; 85025

== ENCOUNTER → 2019-10-06 16:48 | Outpatient (CLI) | payer OTHER, SELFPAY ==
--- NOTE | 2019-10-06 16:51 | DI.RAD.S_ITS ---
PROCEDURE: XR CLAVICLE RT INDICATIONS: right clavicle enlargement at the lateral head TECHNIQUE: 2 views of the clavicle were acquired. COMPARISON: None. FINDINGS: Bones: No fractures or dislocations. There is degenerative changes at the a.c. joint with osteophytic spurring directed cephalad and caudad, and also relative elevation of the clavicle across the acromion to a mild degree, resulting in a contour prominence over the area of elevation. This is extended cephalad by an estimated 6-7 mm from normal. This may indicate ligamentous laxity or prior trauma in that area. No suspicious bony lesions. Soft tissues: No suspicious soft tissue calcifications. IMPRESSION: A.c. joint osteoarthritis and mild elevation of the distal clavicle at the a.c. joint. This produces an overlying soft tissue prominence in that area, but no underlying bone lesion or soft tissue lesion/mass is suspected. Dictated by: Sánchez Javier M.D. on 10/06/2019 at 17:23 Approved by: Sánchez Javier M.D. on 10/06/2019 at 17:24
== END ==
PROVIDERS: PCP Nurse Practitioner Family; Referring Provider Nurse Practitioner Family; Visit Provider Nurse Practitioner Family
DX: Q74.0 Other congenital malformations of upper limb(s), including shoulder girdle (principal); M19.011 Primary osteoarthritis, right shoulder
CPT/HCPCS: 73000

== ENCOUNTER → 2019-10-08 14:50 | Outpatient (CLI) | payer OTHER, SELFPAY ==
--- NOTE | 2019-10-08 14:52 | DI.US.S_ITS ---
PROCEDURE: US PELVIC COMPLETE INDICATIONS: PELVIC PRESSURE TECHNIQUE: Real-time scanning was performed of the pelvic organs, with image documentation. Additional endovaginal scanning was necessary due to incomplete visualization of the adnexal and endometrial structures by transabdominal scanning. COMPARISON: [facility], , PELVIC COMPLETE, 04/20/2019, 7:32. [facility], , PELVIC COMPLETE, 06/10/2019, 10:26. [facility], , PELVIC COMPLETE, 07/22/2019, 10:39. FINDINGS: Transabdominal scanning: Limited scanning through the kidneys shows no hydronephrosis. No pathologic free abdominal or pelvic fluid. Endovaginal scanning: Uterus: Status post hysterectomy. Ovaries: The left ovary is not seen. The right ovary measures 2.1 x 1 x 1.2 cm and demonstrates no significant ultrasound abnormality. No adnexal masses are seen on either side. IMPRESSION: Unremarkable right ovary. Status post hysterectomy. Nonvisualization of the left ovary. Dictated by: Ian Justice M.D. on 10/08/2019 at 15:06 Approved by: Ian Justice M.D. on 10/08/2019 at 15:07
== END ==
PROVIDERS: PCP Nurse Practitioner Family; Referring Provider Nurse Practitioner Family; Visit Provider Nurse Practitioner Family
DX: R10.2 Pelvic and perineal pain (principal); Z90.710 Acquired absence of both cervix and uterus
CPT/HCPCS: 76830; 76856

== ENCOUNTER → 2019-11-05 07:09 | Outpatient (CLI) | payer OTHER, SELFPAY ==
[2019-11-05 08:47] LABS: Cholesterol 168 mg/dL (140-199); HDL Cholesterol 59 mg/dL (40-60); LDL Cholesterol Calculated 95 mg/dL (<100); Triglycerides 71 mg/dL (35-150)
[2019-11-05 09:14] LABS: TSH w/ Reflex to FT4 1.96 uIU/mL (0.47-4.68)
== END ==
PROVIDERS: PCP Nurse Practitioner Family; Referring Provider Nurse Practitioner Family; Visit Provider Nurse Practitioner Family
DX: Z13.6 Encounter for screening for cardiovascular disorders (principal); L65.9 Nonscarring hair loss, unspecified; R53.83 Other fatigue
CPT/HCPCS: 36415; 80061; 84443

== ENCOUNTER → 2020-01-26 | Outpatient (CLI) | payer OTHER, SELFPAY | PROVIDERS: PCP Nurse Practitioner Family; Referring Provider Internal Medicine; Visit Provider Internal Medicine | DX: Z23 Encounter for immunization (principal) | CPT/HCPCS: 90471; 90686 ==

== ENCOUNTER → 2020-03-29 08:36 | Outpatient (CLI) | payer OTHER, SELFPAY ==
[2020-03-29 09:20] LABS: COVID19 -Nasal RAPID POSITIVE (Negative)
== END ==
PROVIDERS: PCP Nurse Practitioner Family; Visit Provider Nurse Practitioner Family
DX: U07.1 COVID-19 (principal)
CPT/HCPCS: 87635

== ENCOUNTER → 2020-04-14 14:00 | Outpatient (CLI) | payer OTHER, SELFPAY ==
[2020-04-14 14:22] LABS: COVID19 -Nasal RAPID Negative (Negative)
== END ==
PROVIDERS: PCP Nurse Practitioner Family; Visit Provider Physician Assistant
DX: Z20.822 Contact with and (suspected) exposure to COVID-19 (principal)
CPT/HCPCS: 87635

== ENCOUNTER → 2020-05-13 11:17 | Outpatient (CLI) | payer OTHER, SELFPAY ==
[2020-05-13 12:07] LABS: COVID19 -Nasal RAPID Negative (Negative)
[2020-05-13 12:24] LABS: Influenza A - CEPHEID Flu A NEGATIVE (NEGATIVE); Influenza B - CEPHEID Flu B NEGATIVE (NEGATIVE)
== END ==
PROVIDERS: PCP Nurse Practitioner Family; Visit Provider Student in an Organized Health Care Education/Training Program
DX: R05 Cough (principal); Z20.822 Contact with and (suspected) exposure to COVID-19; J34.89 Other specified disorders of nose and nasal sinuses; R07.9 Chest pain, unspecified
CPT/HCPCS: 87502; 87635

== ENCOUNTER → 2020-05-13 11:51 | Outpatient (CLI) | payer OTHER, SELFPAY ==
--- NOTE | 2020-05-13 11:52 | DI.RAD.S_ITS ---
PROCEDURE: XR CHEST 2V INDICATIONS: Chest pain, likely cough-related TECHNIQUE: 2 views of the chest were acquired. COMPARISON: None. FINDINGS: Surgical changes and devices: None. Lungs and pleura: Lungs are clear. No pleural effusions or pneumothorax. Mediastinum: Mediastinal contours are normal. Heart size is normal. Bones and chest wall: No suspicious bony abnormalities. Soft tissues appear unremarkable. IMPRESSION: No acute cardiopulmonary process demonstrated radiographically. Dictated by: Lucas Valentin M.D. on 05/13/2020 at 11:34 Approved by: Lucas Valentin M.D. on 05/13/2020 at 11:35
--- NOTE | 2020-05-13 11:52 | DI.RAD.S_ITS ---
PROCEDURE: XR SINUS <3V INDICATIONS: Sinus pain, atypical for infection. TECHNIQUE: 2 views of the sinuses were acquired. COMPARISON: None. FINDINGS: Sinuses: The visualized sinuses demonstrate no air-fluid levels or mucosal thickening. The visualized mastoids also appear clear. Bones: No suspicious bony lesions. Nasal septum is midline. IMPRESSION: Normal sinus series. Dictated by: Mark Duarte M.D. on 05/13/2020 at 12:32 Approved by: Mark Duarte M.D. on 05/13/2020 at 12:32
== END ==
PROVIDERS: PCP Nurse Practitioner Family; Referring Provider Student in an Organized Health Care Education/Training Program; Visit Provider Student in an Organized Health Care Education/Training Program
DX: Z20.822 Contact with and (suspected) exposure to COVID-19 (principal); R05 Cough; J34.89 Other specified disorders of nose and nasal sinuses; R07.9 Chest pain, unspecified
CPT/HCPCS: 70210; 71046; 87502; 87635

== ENCOUNTER → 2020-06-30 08:10 | Outpatient (CLI) | payer OTHER, SELFPAY ==
[2020-06-30 09:50] LABS: Add Manual Diff / Slide Review NO; Basophils Absolute Auto 0 /uL (0-100); Basophils Percent Auto 0.9 % (0-2); Eosinophils Absolute Auto 100 /uL (0-450); Eosinophils Percent Auto 1.5 % (2-4); Hematocrit 39.6 % (36-46); Hemoglobin 12.8 g/dL (12.0-16.0); Lymphocytes Absolute Auto 1500 /uL (1100-4500); Lymphocytes Percent Auto 29.1 % (25-40); Mean Corpuscular HGB Conc 32.3 % (30-36); Mean Corpuscular Hemoglobin 26.2 PG (26-34); Mean Corpuscular Volume 81.2 fL (80-100); Monocytes Absolute Auto 400 /uL (0-900); Monocytes Percent Auto 7.2 % (3-14); Neutrophils Absolute Auto 3100 /uL (1500-7000); Neutrophils Percent Auto 61.3 % (50-75); Platelet Count 175 X10^3/uL (150-400); Red Blood Cell Count 4.87 X10^6/uL (4.0-5.2); Red Cell Distribution Width 14.8 % (11.6-14.8)
[2020-06-30 09:54] LABS: Alanine Aminotransferase 31 IU/L (<35); Albumin 4.2 g/dL (3.5-5.0); Albumin Globulin Ratio 1.6 (1.0-2.8); Alkaline Phosphatase 52 U/L (38-126); Aspartate Aminotransferase 34 IU/L (14-36); Bilirubin Total 1.3 mg/dL (0.2-1.3); Blood Urea Nitrogen 13 mg/dL (7-17); Calcium 9.7 mg/dL (8.4-10.2); Carbon Dioxide 31 mmol/L (22-32); Chloride 102 mmol/L (98-107); Estimated Glomerular Filt Rate > 60.0 mL/min (>60); Globulin 2.7 g/dL (1.7-4.1); Glucose 92 mg/dL (70-100); HEMOLYSIS < 15 (0-50); Potassium 3.9 mmol/L (3.4-5.1); Sodium 139 mmol/L (137-145); Total Protein 6.9 g/dL (6.3-8.2)
== END ==
PROVIDERS: PCP Nurse Practitioner Family; Referring Provider Nurse Practitioner Family; Visit Provider Nurse Practitioner Family
DX: Z00.00 Encounter for general adult medical examination without abnormal findings (principal)
CPT/HCPCS: 36415; 80053; 85025

== ENCOUNTER → 2020-07-07 16:51 | Outpatient (CLI) | payer OTHER, SELFPAY ==
--- NOTE | 2020-07-07 16:55 | DI.RAD.S_ITS ---
PROCEDURE: XR CERVICAL SPINE 2V OR 3V INDICATIONS: muscular neck pain, patient request TECHNIQUE: 3 view(s) of the cervical spine were acquired. COMPARISON: [facility], CR, XR CLAVICLE RT, 10/06/2019, 16:49. FINDINGS: Bones: No fractures or dislocations to the T1 level. The lateral masses of C1 appear intact on the odontoid view. No suspicious bony lesions. Note is made of moderate-to- moderately severe C6-C7 degenerative disc height reduction and endplate osteophyte formation, without subluxation. Soft tissues: No prevertebral soft tissue swelling. IMPRESSION: C6-C7 moderate to moderately severe degenerative disc disease without subluxation. No definite acute disease is found, however. Dictated by: Sánchez Javier M.D. on 07/08/2020 at 10:45 Approved by: Sánchez Javier M.D. on 07/08/2020 at 10:59
== END ==
PROVIDERS: PCP Nurse Practitioner Family; Referring Provider Nurse Practitioner Family; Visit Provider Nurse Practitioner Family
DX: S16.1XXA Strain of muscle, fascia and tendon at neck level, initial encounter (principal); M50.323 Other cervical disc degeneration at C6-C7 level
CPT/HCPCS: 72040

== ENCOUNTER → 2020-08-23 13:18 | Outpatient (CLI) | payer OTHER, SELFPAY ==
--- NOTE | 2020-08-23 | DI.RAD.S_ITS ---
PROCEDURE: FL BARIUM SWALLOW W SPEECH INDICATIONS: Gastro-esophageal reflux disease without esophagit COMPARISON: None. TECHNIQUE: Examination was conducted in conjunction with speech pathology per standard protocol. In the lateral projection, filming was performed of the patient swallowing. AP projection filming may also be performed with patient swallowing. COMPARISON: FINDINGS: Function: The oral preparatory phase appears normal, with proper containment. The subsequent oral propulsive phase, pharyngeal phase, and esophageal phase of swallowing also appear normal with all proffered substances. No laryngotracheal penetration or aspiration. There is mild residue with thicker barium consistencies. Morphology: No cricopharyngeal bar is identified. No cervical esophageal webs. No Zenker's diverticulum. No strictures. IMPRESSION: No evidence of aspiration. Dictated by: Alvino Tovar M.D. on 08/23/2020 at 15:09 Approved by: Alvino Tovar M.D. on 08/23/2020 at 15:09
--- NOTE | 2020-08-23 14:50 | ST.SWALLOW ---
Visit Care Team Role Provider Type LIZ Asher Primary Care Provider Advanced [employer] Service Technician Specialty: Family Practice Address: [address] [place] [address], [id number] Email: [email or web address] Allan Mccurdy MD Attending Provider Physician Referring Provider Specialty: Ear, Nose, Throat Address: [address] [place] [address], [id number] Email: [email or web address] Modified Barium Swallow Study [employer] Modified Barium Swallow Study Start: 08/23/20 14:13 Freq: Status: Active Protocol: Document 08/23/20 14:13 [facility] (Rec: 08/23/20 14:50 [facility] [id number]) Modified Barium Swallow Study Total Time Visit Start Time 13:30 Visit Stop Time 14:00 Total Visit Minutes [address] Allan Mccurdy Reason for Referral GERD, dysphagia Setting Setting Outpatient Care Patient Information Identification Type Name,ID Card Patient History Pt is a 45-yr-old female who c /o sticking sensation at base of throat and proximal to medial esophagus with intake of foods such as chicken and Gummy Bears over the last 8 weeks. She is sometimes able to clear this with additional swallows of food or liquid but not always. Recently she has had pain at the left base of throat with swallow as well. Medical history is significant for GERD, which is not being actively treated. No complaints of airway compromise during sticking episodes. Pt denies choking or coughing with oral intake. Subjective Observations The pt arrived on time. The procedure was explained to her and she was agreeable to proceed. Patient Positioning Position View Lat-A/P Imaging Lateral View Textures Administered Trials Presented Thin Liquid via Spoon,Thin Liquid via Cup,[place] Liquid via Spoon,[place] Liquid via Cup,Honey Liquid via Spoon, Dysphagia Blenderized Textures ,Regular Textures Oral Phase Source: MBSIMP (TM) (C) Bolus Specific Scoring Grid Lip Closure No Impairment (WNL) Tongue Control During Bolus Hold No Impairment (WNL) Bolus Prep/Mastication No Impairment (WNL) Bolus Transport/Lingual Motion No Impairment (WNL) A/P Lingual Propulsion Delay No: One mild episode d/t gag reflex Oral Residue No Impairment (WNL) Residue Clearing No Impairment (WNL) Nasal Regurgitation No Additional Oral Phase Observations Oral Peripheral Exam: Features were symmetrical and WNL of strength, coordination, and ROM. Pt has natural dentition with some molars missing on left side, upper and lower. This did not appear to impact mastication. Soft palate elevated mildly upon phonation; completely during swallowing. Pharyngeal Phase Source: MBSIMP (TM) (C) Bolus Specific Scoring Grid Delayed Initiation of Pharyngeal Swallow No Soft Palate Elevation No Impairment (WNL) Tongue Base Strength/Range of Motion No Impairment (WNL) Residue Along the Tongue Base Yes: Occ trace, clears with subsequent swallow Clearance of Residue Along Tongue Base No Impairment (WNL) Laryngeal Elevation No Impairment (WNL) Anterior Hyoid Movement Minimal Impairment Epiglottic Range of Motion Moderate Impairment Vallecular Residue Yes: Mild-moderate Clearance of Vallecular Residue Mild Impairment Laryngeal Vestibular Closure Mild Impairment Pharyngeal Stripping Wave No Impairment (WNL) Pharyngeal Contraction No Impairment (WNL) Posterior Pharyngeal Wall Residue No Upper Esophageal Sphincter Opening No Impairment (WNL) Residue in the Pyriform Sinuses No Esophageal Clearance Upright Position No Impairment (WNL) Pharyngoesophageal Backflow Observed No Additional Pharyngeal Phase Observations No laryngeal penetration or tracheal aspiration observed. Epiglottic inversion was reduced to horizontal displacement, resulting in consistent residue in vallecula, trace to moderate, increasing with increase bolus bulk. Hyolaryngeal elevation was WNL; anterior excursion was inconsistent, occ mildly reduced. Osteophytes were observed at C5-C6 and C6-C7 which did not significantly impede bolus flow; trace residue was observed post swallow at C6-C7 osteophyte and mostly cleared with subsequent swallows. No significant increase in residue at this level was observed with increased bolus bulk; not likely the source of the pt's sticking sensation. A/P View Textures Administered Trials Presented [place] Liquid via Cup,Barium Tablet A/P View Observations Pharyngeal Contraction No Impairment (WNL) Esophageal Function No Impairment (WNL) Esophageal Clearance Upright Position No Impairment (WNL) Esophageal Observations Esophageal Function No esophageal residue was observed in a/p view. NTL and 13 mm barium tablet passed through to stomach without delay. Clinical Impressions Dysphagia Type Oral and Pharyngeal Swallow WFL Findings The pt presents with largely normal swallow function. Occasional reduced anterior propulsion of the hyoid was observed, as was consistently (reduced epiglottic inversion to horizontal level). This resulted in consistent mild residue at vallecula that mostly but not entirely cleared with subsequent swallows. Osteophytes were observed at C5-C6 and C6-C7. Trace residue was observed at the latter level, but otherwise did not impede bolus flow and is not suspected as source of the pt's sticking sensation. Suspect GERD/LPR contributes to the pt's symptoms. While esophageal clearance was timely and complete during this study, symptoms may appear over the course of a meal or with more varied foods. Additionally, the pt's pain with swallow may be a result of LPR, although this cannot be determined from this study. Appreciate ENT's assessment in this area. Patient Appropriate for Therapy Yes: Short course for education & exercises Recommendations Diet Liquids Order Thin Diet Order Regular Medication Recommendation As Tolerated Aspiration Precautions Recommended Precautions Upright at 90 Degrees,Small Bites/Sips Treatment Plan Therapy Recommendations Outpatient Speech Therapy Additional Therapy Recommendations May benefit from education RE GERD/LPR, exercises for epiglottic inversion Compensatory Strategies Recommendations Sitting Upright (90 deg),Small Bites and Sips,Alternate Liquids/Solids Short Term Goals Pt education; Exercises to increase epiglottic inversion [employer] Goals Pt to tolerate regular diet, thin liquids without discomfort and s/sx of aspiration. Placement Recommendation After Discharge Home
== END ==
PROVIDERS: PCP Nurse Practitioner Family; Referring Provider Otolaryngology; Visit Provider Otolaryngology
DX: R13.10 Dysphagia, unspecified (principal); K21.9 Gastro-esophageal reflux disease without esophagitis; R09.89 Other specified symptoms and signs involving the circulatory and respiratory systems
CPT/HCPCS: 74230; 92611

== ENCOUNTER → 2020-09-22 14:03 | Outpatient (CLI) | payer OTHER, SELFPAY ==
[2020-09-22 16:25] LABS: Free T4, Direct Thyroxine 1.02 ng/dL (0.78-2.19)
[2020-09-22 16:38] LABS: Thyroid Stimulating Hormone 1.65 uIU/mL (0.47-4.68)
== END ==
PROVIDERS: PCP Nurse Practitioner Family; Referring Provider Physician Assistant; Visit Provider Physician Assistant
DX: L65.9 Nonscarring hair loss, unspecified (principal)
CPT/HCPCS: 36415; 84439; 84443

== ENCOUNTER → 2021-03-03 18:37 | Outpatient (CLI) | payer OTHER, SELFPAY | PROVIDERS: PCP Nurse Practitioner Family; Referring Provider Internal Medicine; Visit Provider Internal Medicine | DX: Z23 Encounter for immunization (principal) | CPT/HCPCS: 90471; 90686 ==

== ENCOUNTER 2021-08-09 16:45 | Outpatient (RCR) | payer OTHER, SELFPAY ==
--- NOTE | 2021-03-30 16:23 | PT.OIE ---
Current Diagnoses Tension-type headache, unspecified, not intractable (03/30/21) Other muscle spasm (03/30/21) Abnormal posture (03/30/21) Weakness (03/30/21) Jaw pain (03/30/21) Strain of muscle, fascia and tendon at neck level, initial encounter (03/30/21) Past Medical History (Last Updated 07/06/20 @ 17:32 by LIZ Asher) Abnormal prominence of clavicle Anemia Anxiety Chronic sore throat Depression Encounter for routine gynecological examination (07/06/20) Encounter for wellness examination in adult (07/06/20) Fatigue Hair loss History of heavy periods Neck strain Pelvic pain (2008) S/P laparoscopic supracervical hysterectomy (05/26/18) Screening for heart disease Sinusitis Tension headache Past Surgical History (Last Reviewed 08/22/18 @ 13:50 by Sravanthi Murillo DO) S/P laparoscopic supracervical hysterectomy (05/26/18) Visit Care Team Role Provider Type LIZ Asher Attending Provider Advanced Senior Resident Care Director Family Provider Primary Care Provider Referring Provider Specialty: Family Practice Address: [address] [place] [address], [facility] Email: [email or web address] Physical Therapy Initial Evaluation PT-OP-A Visit Information Start: 03/29/21 12:31 Freq: Status: Active Protocol: Document 03/30/21 12:04 [facility] (Rec: 03/30/21 13:02 [facility] [id number]) Out-Patient Physical Therapy Visit Information Visit Information Visit Type Initial Evaluation Visit Start Time 12:05 Visit Stop Time 12:50 Total Visit Minutes 45 Visit Number 1 Number of HYDRO OPERATOR Visits 0 PT-OP-B Current Condition Start: 03/29/21 12:31 Freq: Status: Active Protocol: Document 03/30/21 12:04 [facility] (Rec: 03/30/21 13:02 [facility] [id number]) Current Condition History of Current Condition Onset Date 2018 start w/neck pain but constant since 2019 & recent worsening Current Complaints neck pain, DEVI, R UE pain, R jaw pain History of Current Condition Pt reports months after last time PT session and was doing Botox for DEVI but they haven't had much improvement. She saw chiro for about 3 months and it helped a little. She was doing her PT exercises for a while but has stopped. Pt has pain in ears now and hurts R upper neck all to inf shoulder blade and into upper R brachium and goes occ into forearm. Pt has pain B w/neck and w/head and ears. Pt has DEVI pretty much every day. Some days she can deal with it and other days it gets worse. Pt reports ears are sensative to noises like loud noises (like closing doors and dropping something, noises in the kitchen). She doesn't ahve any infection and saw ENT and they said nothing is wrong w/ her ears. Pt gets jaw pain and when gets botox gets it in her jaw, neck and R shoulder. Pt repots sometimes when she gts really bad DEVI then she feels it go into jaw. She told her dentist about pain in jaw /R mouth and was told her teeth are fine. She clenches and is supposed to wear a lifeguard at night but she hasn't done it. She got the ones at the store but they don 't stay in place. It would cost $600 to do out of pocket nigtht guard. Pt reports she has had constant DEVI and neck pain about 2 years ago. Pt reports she feels like PT exercises helped a little (was only able to do about 3x/week ). Pt tried massage but was frustrated because the person did entire body and it didn't help. She uses self massage tools but only helps sometimes . Pt gets only a little bit of dizziness. Notices only when sitting up. She has to lift, push and pull heavy stuff and does a lot of repitions of opening boxes and this all inc pain.SOmetimes just putting force to use knife and it starts to hurt before even moving knife. She has tried mm relaxers MDs prescribe but they make her so sleepy that she cannot do it for long. She tries for 10-12 days but it only helps a little. Pt reports she is constantly moving when she sleeps d/t pain in R shoulder. pt has chronic LBP Prior Treatments and Tests MRI brain-WNL, Xray neck( from report-IMPRESSION: C6-C7 moderate to moderately severe degenerative disc disease without subluxation. No definite acute disease is found, however.), carotid doppler-WNL , ENT testing, dental treatment w/over the counter mouth guard, PT-some help, chiro-some help, 1x massage, normal swallow based on MBS Treatment Goals Patient/Caregiver Goals dec pain w/daily activities, improve sleep PT-OP-C Subjective Start: 03/29/21 12:31 Freq: Status: Active Protocol: Document 03/30/21 12:04 [facility] (Rec: 03/30/21 13:02 [facility] [id number]) Patient Questionnaires Neck Disability Index NDI Score 13/50 Quick Dash- Upper Extremity Quick Dash UE Score 25 OP-PT Pain Assessment Location neck Pain Location Details B neck, temples, R shoulder & scap, R brachium, R jaw, B ears Scale Used 2/10 at best, 8/10 Description Sharp,With Movement Description- Other feels swollen Frequency Constant Pain Duration can last 24 hours when it gets really flared Radiating Location R forearm & tingling in post fingers 3&4 Pain Aggravating Factors Changing Position,ADL's, Lifting Pain Alleviating Factors Heat,Medication Other Pain Alleviating Factors self massage tool, ibuprofen, ointment PT-OP-F Manual Assessment Start: 03/29/21 12:31 Freq: Status: Active Protocol: Document 03/30/21 12:04 [facility] (Rec: 03/30/21 13:02 [facility] [id number]) Manual Assessments Soft Tissue Assessment Soft Tissue Mobility Assessment R>L UT, LS, scalenes, SCM, temporalis, masseter, rhomboids, lats, traps Joint Mobility Assessment Joint Mobility Assessment 1st rib eelvation, ant humerus in glenoid PT-OP-J Posture/Palpation/Skin Start: 03/29/21 12:31 Freq: Status: Active Protocol: Document 03/30/21 12:04 [facility] (Rec: 03/30/21 13:02 [facility] [id number]) Posture Evaluation Evelyn Postural Classification System Elbow Flexion Test 0 Comments Posture Comments fwd shoulders R>L, IR R shoulder, SB neck L shear R, R 1st rib elevated, fwd head PT-OP-K Range of Motion Start: 03/29/21 12:31 Freq: Status: Active Protocol: Document 03/30/21 12:04 [facility] (Rec: 03/30/21 13:02 [facility] [id number]) Cervical Spine Range of Motion Cervical Spine Active Degrees Flexion 34 Extension 57 Rotation Left 42 Rotation Right 45 Lateral Flexion Left 24 Lateral Flexion Right 24 Comments pain R rot, flex TMJ Range of Motion Comments Comments slight deviation to L w/WNL ROM Shoulder Goniometric Range of Motion Shoulder ROM Limitations Comments pain at end ranges w/RUE ROM and missing about 10 deg in most motions as compared to L PT-OP-L Special Tests Start: 03/29/21 12:31 Freq: Status: Active Protocol: Document 03/30/21 12:04 [facility] (Rec: 03/30/21 13:02 [facility] [id number]) Special Tests Neural Special Tests- Upper Body Ulnar Nerve Tension Test Results neg R Median Nerve Tension Test Results positive R Radial Nerve Tension Test Results positive r PT-OP-M Strength Start: 03/29/21 12:31 Freq: Status: Active Protocol: Document 03/30/21 12:04 [facility] (Rec: 03/30/21 13:02 [facility] [id number]) Shoulder Strength Shoulder Manual Muscle Testing Left Flexion 4 Good Extension 4+ Good+ Abduction (C5) 4 Good External Rotation 4 Good Internal Rotation 4 Good Right Flexion 3+ Fair+ Extension 3+ Fair+ Abduction (C5) 3+ Fair+ External Rotation 3+ Fair+ Internal Rotation 3+ Fair+ Elbow/Forearm Strength Elbow and Forearm Manual Muscle Testing Left Flexion (C6) 4+ Good+ Extension (C7) 5 Normal Right Flexion (C6) 4- Good- Extension (C7) 4- Good- Hand Portable Track Crew Chief/Pinch Strength Hand Strength Right Comments 30lb, 25lb 33lb Left Comments 45lb, 30lb, 35lb PT-OP-Q Treatments Start: 03/29/21 12:31 Freq: Status: Active Protocol: Document 03/30/21 12:04 [facility] (Rec: 03/30/21 13:02 [facility] [id number]) Therapeutic Exercises Sidelying Exercises open book Side bilateral Reps/Minutes 8 Comments significantly less range w/RUE Standing Exercises wall posture Standing Exercise Name wall roll up w/B UE ext Side bilateral Reps/Minutes 2x PT-OP-T Assessment and Plan Start: 03/29/21 12:31 Freq: Status: Active Protocol: Document 03/30/21 12:04 [facility] (Rec: 03/30/21 13:02 [facility] [id number]) Physical Therapy Assessment Rehab Potential Rehabilitation Potential Good Evaluation Complexity Number of Personal Factors/Comorbidities 3 or More Number of Body Systems Impaired 4 or More Clinical Presentation at Evaluation Evolving Impairments Impairments Activity Tolerance,Functional Activities,Functional Mobility ,Pain,Posture,ROM,Soft Tissue Mobility,Strength Goals sleep Short Term Goal (STG) Pt will be able to prop self comfortably to be able to have inc ease of falling asleep and staying asleep. STG Duration 04/30/21 Invoicing Machine Operator Goal (LTG) Pt will be sherie to sleep through the night waking up no more than 1x to readjust LTG Duration 06/28/21 activties Short Term Goal (STG) Pt will have neg median and radial n tension testing in order to improve return to UE activities w/dec pain. STG Duration Invoicing Machine Operator Goal (LTG) Pt will be able to do all work tasks and housework w/o inc pain greater than 2/10 LTG Duration 06/28/21 strength Short Term Goal (STG) Pt will be indep w/HEP for ROM , strength and mobility. STG Duration 04/30/21 Invoicing Machine Operator Goal (LTG) pt will improve UE strength to 5/5 B w/o inc pain and universal winding machine operator strength to age related norms and EFT to at least 4/5 to show improved stabilty in order for pt to carry out work related tasks w/o inc pain. LTG Duration 06/28/21 ROM Short Term Goal (STG) pt will have equal R to L shoulder ROM w/o pain at end ranges STG Duration 05/29/21 Intermediate Goal (LTG) Pt will have full cervical motion without pain in order to imrpove pt's ability to do typical daily activities like driving, and work. LTG Duration 06/28/21 Assessment Summary Assessment Pt presents w/worsening and spreading of neck pain and DEVI to now pain into RUE w/pos median & radial neural tension testing and pain into scapular region and jaw/ears. She has some deviation of jaw w/opening but liekly jaw and ear pain related to upper cervical dysfunction. She has constant pain now that gets worse with activity including ADLs, house work, and her occupation. She has decreased RUE strength including dec universal winding machine operator strength, dec R shoulder ROm and dec thoracic and cervical mobility likely contributing to and as a result of her pain. She would benefit from skilled PT to work on her deficits and improve her overall mobility. Physical Therapy Plan Frequency and Duration Frequency of Treatment 1-2x/week Duration of Treatment 3 months Plan of Care Start Date 03/30/21 Plan of Care End Date 06/28/21 Therapeutic Interventions Therapeutic Interventions Home Exercise Program,Joint Mobilizations,Manual Therapy, Neuromuscular Re-education, Patient/Caregiver Education, Self-Care/Home Management,Soft Tissue Mobilization,Taping, Therapeutic Activities, Therapeutic Exercises Modalities Cold Pack/Ice Massage,Electric Stimulation,Hot Packs, Infrared Therapy,Traction- Mechanical,Ultrasound Next Visit Focus/Plan Next Note Type Treatment Note Next Visit Plan review exercises, upper tspine mobs, STM to cervical & thoracic mobility, PNF R scap, axial elongation training, scap retraction exercises
--- NOTE | 2021-03-30 16:23 | PT.OPPOC ---
Physical, Occupational & Speech Therapy At [facility] Current Diagnoses Tension-type headache, unspecified, not intractable (03/30/21) Other muscle spasm (03/30/21) Abnormal posture (03/30/21) Weakness (03/30/21) Jaw pain (03/30/21) Strain of muscle, fascia and tendon at neck level, initial encounter (03/30/21) Visit Care Team Role Provider Type LIZ Asher Attending Provider Advanced Water And Gas Helper Family Provider Primary Care Provider Referring Provider Specialty: Family Practice Address: [address] [place] [address], [id number] Email: [email or web address] Plan Of Care PT-OP-T Assessment and Plan Start: 03/29/21 12:31 Freq: Status: Active Protocol: Document 03/30/21 12:04 [facility] (Rec: 03/30/21 13:02 [facility] [id number]) Physical Therapy Assessment Rehab Potential Rehabilitation Potential Good Evaluation Complexity Number of Personal Factors/Comorbidities 3 or More Number of Body Systems Impaired 4 or More Clinical Presentation at Evaluation Evolving Impairments Impairments Activity Tolerance,Functional Activities,Functional Mobility ,Pain,Posture,ROM,Soft Tissue Mobility,Strength Goals sleep Short Term Goal (STG) Pt will be able to prop self comfortably to be able to have inc ease of falling asleep and staying asleep. STG Duration 04/30/21 Quality Assurance Supervisor Body Goal (LTG) Pt will be sherie to sleep through the night waking up no more than 1x to readjust LTG Duration 06/28/21 activties Short Term Goal (STG) Pt will have neg median and radial n tension testing in order to improve return to UE activities w/dec pain. STG Duration Custodial Goal (LTG) Pt will be able to do all work tasks and housework w/o inc pain greater than 2/10 LTG Duration 06/28/21 strength Short Term Goal (STG) Pt will be indep w/HEP for ROM , strength and mobility. STG Duration 04/30/21 Quality Assurance Supervisor Body Goal (LTG) pt will improve UE strength to 5/5 B w/o inc pain and hospice educator strength to age related norms and EFT to at least 4/5 to show improved stabilty in order for pt to carry out work related tasks w/o inc pain. LTG Duration 06/28/21 ROM Short Term Goal (STG) pt will have equal R to L shoulder ROM w/o pain at end ranges STG Duration 05/29/21 Quality Assurance Supervisor Body Goal (LTG) Pt will have full cervical motion without pain in order to imrpove pt's ability to do typical daily activities like driving, and work. LTG Duration 06/28/21 Assessment Summary Assessment Pt presents w/worsening and spreading of neck pain and DEVI to now pain into RUE w/pos median & radial neural tension testing and pain into scapular region and jaw/ears. She has some deviation of jaw w/opening but liekly jaw and ear pain related to upper cervical dysfunction. She has constant pain now that gets worse with activity including ADLs, house work, and her occupation. She has decreased RUE strength including dec hospice educator strength, dec R shoulder ROm and dec thoracic and cervical mobility likely contributing to and as a result of her pain. She would benefit from skilled PT to work on her deficits and improve her overall mobility. Physical Therapy Plan Frequency and Duration Frequency of Treatment 1-2x/week Duration of Treatment 3 months Plan of Care Start Date 03/30/21 Plan of Care End Date 06/28/21 Therapeutic Interventions Therapeutic Interventions Home Exercise Program,Joint Mobilizations,Manual Therapy, Neuromuscular Re-education, Patient/Caregiver Education, Self-Care/Home Management,Soft Tissue Mobilization,Taping, Therapeutic Activities, Therapeutic Exercises Modalities Cold Pack/Ice Massage,Electric Stimulation,Hot Packs, Infrared Therapy,Traction- Mechanical,Ultrasound Next Visit Focus/Plan Next Note Type Treatment Note Next Visit Plan review exercises, upper tspine mobs, STM to cervical & thoracic mobility, PNF R scap, axial elongation training, scap retraction exercises Plan of Care Dates Plan of Care Start Date 03/30/21 Plan of Care End Date 06/28/21 Electronically Signed by: Carmen Mccurdy, PT 03/30/21 [id number] Please Sign and Return: I have reviewed this Plan of Care and certify that the skilled therapy services above are required to meet the patient?s needs. Physician Signature Date Printed Name and Credentials Clinical Instructor Signature Printed Name and Credentials
--- NOTE | 2021-04-04 18:57 | PT.OTN ---
Current Diagnoses Tension-type headache, unspecified, not intractable (04/04/21) Other muscle spasm (04/04/21) Abnormal posture (04/04/21) Weakness (04/04/21) Jaw pain (04/04/21) Strain of muscle, fascia and tendon at neck level, initial encounter (04/04/21) Physical Therapy Treatment Note PT-OP-A Visit Information Start: 03/29/21 12:31 Freq: Status: Active Protocol: Document 04/04/21 15:18 [facility] (Rec: 04/04/21 18:57 [facility] [id number]) Out-Patient Physical Therapy Visit Information Visit Information Visit Type Treatment Note Visit Start Time 15:19 Visit Stop Time 16:01 Total Visit Minutes 42 Visit Number 2 Number of CEMENT FINISHER Visits 0 PT-OP-B Current Condition Start: 03/29/21 12:31 Freq: Status: Active Protocol: Document 03/30/21 12:04 [facility] (Rec: 03/30/21 13:02 [facility] [id number]) Current Condition History of Current Condition Onset Date 2017 start w/neck pain but constant since 2019 & recent worsening Current Complaints neck pain, DEVI, R UE pain, R jaw pain History of Current Condition Pt reports months after last time PT session and was doing Botox for DEVI but they haven't had much improvement. She saw chiro for about 3 months and it helped a little. She was doing her PT exercises for a while but has stopped. Pt has pain in ears now and hurts R upper neck all to inf shoulder blade and into upper R brachium and goes occ into forearm. Pt has pain B w/neck and w/head and ears. Pt has DEVI pretty much every day. Some days she can deal with it and other days it gets worse. Pt reports ears are sensative to noises like loud noises (like closing doors and dropping something, noises in the kitchen). She doesn't ahve any infection and saw ENT and they said nothing is wrong w/ her ears. Pt gets jaw pain and when gets botox gets it in her jaw, neck and R shoulder. Pt repots sometimes when she gts really bad DEVI then she feels it go into jaw. She told her dentist about pain in jaw /R mouth and was told her teeth are fine. 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 She got the ones at the store but they don 't stay in place. It would cost $600 to do out of pocket nigtht guard. Pt reports she has had constant DEVI and neck pain about 2 years ago. Pt reports she feels like PT exercises helped a little (was only able to do about 3x/week ). Pt tried massage but was frustrated because the person did entire body and it didn't help. She uses self massage tools but only helps sometimes . Pt gets only a little bit of dizziness. Notices only when sitting up. She has to lift, push and pull heavy stuff and does a lot of repitions of opening boxes and this all inc pain.SOmetimes just putting force to use knife and it starts to hurt before even moving knife. She has tried mm relaxers MDs prescribe but they make her so sleepy that she cannot do it for long. She tries for 10-12 days but it only helps a little. Pt reports she is constantly moving when she sleeps d/t pain in R shoulder. pt has chronic LBP Prior Treatments and Tests MRI brain-WNL, Xray neck( from report-IMPRESSION: C6-C7 moderate to moderately severe degenerative disc disease without subluxation. No definite acute disease is found, however.), carotid doppler-WNL , ENT testing, dental treatment w/over the counter mouth guard, PT-some help, chiro-some help, 1x massage, normal swallow based on MBS Treatment Goals Patient/Caregiver Goals dec pain w/daily activities, improve sleep PT-OP-C Subjective Start: 03/29/21 12:31 Freq: Status: Active Protocol: Document 04/04/21 15:18 [facility] (Rec: 04/04/21 18:57 [facility] [id number]) OP-PT Subjective Patient Comments Patient Comments Pt reports just washing her hands today hurt her hsoulder/ neck PT-OP-F Manual Assessment Start: 03/29/21 12:31 Freq: Status: Active Protocol: Document 03/30/21 12:04 [facility] (Rec: 03/30/21 13:02 [facility] [id number]) Manual Assessments Soft Tissue Assessment Soft Tissue Mobility Assessment R>L UT, LS, scalenes, SCM, temporalis, masseter, rhomboids, lats, traps Joint Mobility Assessment Joint Mobility Assessment 1st rib eelvation, ant humerus in glenoid PT-OP-J Posture/Palpation/Skin Start: 03/29/21 12:31 Freq: Status: Active Protocol: Document 03/30/21 12:04 [facility] (Rec: 03/30/21 13:02 [facility] [id number]) Posture Evaluation [facility] Postural Classification System Elbow Flexion Test 0 Comments Posture Comments fwd shoulders R>L, IR R shoulder, SB neck L shear R, R 1st rib elevated, fwd head PT-OP-K Range of Motion Start: 03/29/21 12:31 Freq: Status: Active Protocol: Document 03/30/21 12:04 [facility] (Rec: 03/30/21 13:02 [facility] [id number]) Cervical Spine Range of Motion Cervical Spine Active Degrees Flexion 34 Extension 57 Rotation Left 42 Rotation Right 45 Lateral Flexion Left 24 Lateral Flexion Right 24 Comments pain R rot, flex TMJ Range of Motion Comments Comments slight deviation to L w/WNL ROM Shoulder Goniometric Range of Motion Shoulder ROM Limitations Comments pain at end ranges w/RUE ROM and missing about 10 deg in most motions as compared to L PT-OP-L Special Tests Start: 03/29/21 12:31 Freq: Status: Active Protocol: Document 03/30/21 12:04 [facility] (Rec: 03/30/21 13:02 [facility] [id number]) Special Tests Neural Special Tests- Upper Body Ulnar Nerve Tension Test Results neg R Median Nerve Tension Test Results positive R Radial Nerve Tension Test Results positive r PT-OP-M Strength Start: 03/29/21 12:31 Freq: Status: Active Protocol: Document 03/30/21 12:04 [facility] (Rec: 03/30/21 13:02 [facility] [id number]) Shoulder Strength Shoulder Manual Muscle Testing Left Flexion 4 Good Extension 4+ Good+ Abduction (C5) 4 Good External Rotation 4 Good Internal Rotation 4 Good Right Flexion 3+ Fair+ Extension 3+ Fair+ Abduction (C5) 3+ Fair+ External Rotation 3+ Fair+ Internal Rotation 3+ Fair+ Elbow/Forearm Strength Elbow and Forearm Manual Muscle Testing Left Flexion (C6) 4+ Good+ Extension (C7) 5 Normal Right Flexion (C6) 4- Good- Extension (C7) 4- Good- Hand Screen Printer/Pinch Strength Hand Strength Right Comments 30lb, 25lb 33lb Left Comments 45lb, 30lb, 35lb PT-OP-Q Treatments Start: 03/29/21 12:31 Freq: Status: Active Protocol: Document 04/04/21 15:18 [facility] (Rec: 04/04/21 18:57 [facility] [id number]) Therapeutic Exercises Supine Exercises thoracic mobilization Supine Exercise Name towel roll under back (pelvic tilts & LTR) Side bilateral Comments pt had difficulty w/tilt and did better w/LTR cervical retraction Supine Exercise Name focus on axial elongation Reps/Minutes 10 Sidelying Exercises open book Side bilateral Reps/Minutes 6 Comments significantly less range w/RUE Standing Exercises row Side bilateral Equipment Used L1 Reps/Minutes 20 Comments cues for scap retraction wall posture Standing Exercise Name wall roll up w/B UE ext Side bilateral Reps/Minutes 2x20 sec Manual Therapy Treatment Soft Tissue Mobilization UT/LS Body Location R UT, LS & scalenes & SCM Mobilization Type Rolling,Strumming,Sustained Pressure Intensity/Depth Moderate Body Position Sidelying Comments w/ post dep of scapR Joint Mobilizations T spine Body Position Sidelying Comments transverse glide FM T5 UPA R T6 inf glide rib 6 FM inf glide rib 2 & 3 FM s/l Self-Care/Home Management Treatment Education Other Education Anatomy of ribcage and importance of mobility of ribcage for scap movement and how that affects neck pain & its connection-use of pictures and models PT-OP-T Assessment and Plan Start: 03/29/21 12:31 Freq: Status: Active Protocol: Document 04/04/21 15:18 [facility] (Rec: 04/04/21 18:57 [facility] [id number]) Physical Therapy Assessment Goals sleep Short Term Goal (STG) Pt will be able to prop self comfortably to be able to have inc ease of falling asleep and staying asleep. STG Duration 04/30/21 Ergonomic Specialist Goal (LTG) Pt will be sherie to sleep through the night waking up no more than 1x to readjust LTG Duration 06/28/21 activties Short Term Goal (STG) Pt will have neg median and radial n tension testing in order to improve return to UE activities w/dec pain. STG Duration Correction Goal (LTG) Pt will be able to do all work tasks and housework w/o inc pain greater than 2/10 LTG Duration 06/28/21 strength Short Term Goal (STG) Pt will be indep w/HEP for ROM , strength and mobility. STG Duration 04/30/21 Correction Goal (LTG) pt will improve UE strength to 5/5 B w/o inc pain and rocket engine tester strength to age related norms and EFT to at least 4/5 to show improved stabilty in order for pt to carry out work related tasks w/o inc pain. LTG Duration 06/28/21 ROM Short Term Goal (STG) pt will have equal R to L shoulder ROM w/o pain at end ranges STG Duration 05/29/21 Ergonomic Specialist Goal (LTG) Pt will have full cervical motion without pain in order to imrpove pt's ability to do typical daily activities like driving, and work. LTG Duration 06/28/21 Assessment Summary Assessment Pt had improved ability for scapula to sit on ribcage after manual treatment. She had slight improvement in depression but was still significant limited w/ depression. She was able to do exercises w/o inc pain as lng as cued to stay in comfortable range. Physical Therapy Plan Frequency and Duration Frequency of Treatment 1-2x/week Duration of Treatment 3 months Plan of Care Start Date 03/30/21 Plan of Care End Date 06/28/21 Next Visit Focus/Plan Next Note Type Treatment Note Next Visit Plan review rows & chin tucks & tspine mob w/towel, PNF & work on scap R mobility & cervical soft tissue mobility
--- NOTE | 2021-04-06 17:09 | PT.OTN ---
Current Diagnoses Tension-type headache, unspecified, not intractable (04/06/21) Other muscle spasm (04/06/21) Abnormal posture (04/06/21) Weakness (04/06/21) Jaw pain (04/06/21) Strain of muscle, fascia and tendon at neck level, initial encounter (04/06/21) Physical Therapy Treatment Note PT-OP-A Visit Information Start: 03/29/21 12:31 Freq: Status: Active Protocol: Document 04/06/21 15:13 [facility] (Rec: 04/06/21 17:09 [facility] [id number]) Out-Patient Physical Therapy Visit Information Visit Information Visit Type Treatment Note Visit Start Time 16:05 Visit Stop Time 16:50 Total Visit Minutes 45 Visit Number 3 Number of SECURITY TECHNICIAN Visits 0 PT-OP-B Current Condition Start: 03/29/21 12:31 Freq: Status: Active Protocol: Document 03/30/21 12:04 [facility] (Rec: 03/30/21 13:02 [facility] [id number]) Current Condition History of Current Condition Onset Date 2017 start w/neck pain but constant since 2019 & recent worsening Current Complaints neck pain, DEVI, R UE pain, R jaw pain History of Current Condition Pt reports months after last time PT session and was doing Botox for DEVI but they haven't had much improvement. She saw chiro for about 3 months and it helped a little. She was doing her PT exercises for a while but has stopped. Pt has pain in ears now and hurts R upper neck all to inf shoulder blade and into upper R brachium and goes occ into forearm. Pt has pain B w/neck and w/head and ears. Pt has DEVI pretty much every day. Some days she can deal with it and other days it gets worse. Pt reports ears are sensative to noises like loud noises (like closing doors and dropping something, noises in the kitchen). She doesn't ahve any infection and saw ENT and they said nothing is wrong w/ her ears. Pt gets jaw pain and when gets botox gets it in her jaw, neck and R shoulder. Pt repots sometimes when she gts really bad DEVI then she feels it go into jaw. She told her dentist about pain in jaw /R mouth and was told her teeth are fine. 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 She got the ones at the store but they don 't stay in place. It would cost $600 to do out of pocket nigtht guard. Pt reports she has had constant DEVI and neck pain about 2 years ago. Pt reports she feels like PT exercises helped a little (was only able to do about 3x/week ). Pt tried massage but was frustrated because the person did entire body and it didn't help. She uses self massage tools but only helps sometimes . Pt gets only a little bit of dizziness. Notices only when sitting up. She has to lift, push and pull heavy stuff and does a lot of repitions of opening boxes and this all inc pain.SOmetimes just putting force to use knife and it starts to hurt before even moving knife. She has tried mm relaxers MDs prescribe but they make her so sleepy that she cannot do it for long. She tries for 10-12 days but it only helps a little. Pt reports she is constantly moving when she sleeps d/t pain in R shoulder. pt has chronic LBP Prior Treatments and Tests MRI brain-WNL, Xray neck( from report-IMPRESSION: C6-C7 moderate to moderately severe degenerative disc disease without subluxation. No definite acute disease is found, however.), carotid doppler-WNL , ENT testing, dental treatment w/over the counter mouth guard, PT-some help, chiro-some help, 1x massage, normal swallow based on MBS Treatment Goals Patient/Caregiver Goals dec pain w/daily activities, improve sleep PT-OP-C Subjective Start: 03/29/21 12:31 Freq: Status: Active Protocol: Document 04/06/21 15:13 [facility] (Rec: 04/06/21 17:09 [facility] [id number]) OP-PT Subjective Patient Comments Patient Comments Pt reports soreness for about 1 hour after last session but noted imrpoved comfort a little later. PT-OP-F Manual Assessment Start: 03/29/21 12:31 Freq: Status: Active Protocol: Document 03/30/21 12:04 [facility] (Rec: 03/30/21 13:02 [facility] [id number]) Manual Assessments Soft Tissue Assessment Soft Tissue Mobility Assessment R>L UT, LS, scalenes, SCM, temporalis, masseter, rhomboids, lats, traps Joint Mobility Assessment Joint Mobility Assessment 1st rib eelvation, ant humerus in glenoid PT-OP-J Posture/Palpation/Skin Start: 03/29/21 12:31 Freq: Status: Active Protocol: Document 03/30/21 12:04 [facility] (Rec: 03/30/21 13:02 [facility] [id number]) Posture Evaluation [facility] Postural Classification System Elbow Flexion Test 0 Comments Posture Comments fwd shoulders R>L, IR R shoulder, SB neck L shear R, R 1st rib elevated, fwd head PT-OP-K Range of Motion Start: 03/29/21 12:31 Freq: Status: Active Protocol: Document 03/30/21 12:04 [facility] (Rec: 03/30/21 13:02 [facility] [id number]) Cervical Spine Range of Motion Cervical Spine Active Degrees Flexion 34 Extension 57 Rotation Left 42 Rotation Right 45 Lateral Flexion Left 24 Lateral Flexion Right 24 Comments pain R rot, flex TMJ Range of Motion Comments Comments slight deviation to L w/WNL ROM Shoulder Goniometric Range of Motion Shoulder ROM Limitations Comments pain at end ranges w/RUE ROM and missing about 10 deg in most motions as compared to L PT-OP-L Special Tests Start: 03/29/21 12:31 Freq: Status: Active Protocol: Document 03/30/21 12:04 [facility] (Rec: 03/30/21 13:02 [facility] [id number]) Special Tests Neural Special Tests- Upper Body Ulnar Nerve Tension Test Results neg R Median Nerve Tension Test Results positive R Radial Nerve Tension Test Results positive r PT-OP-M Strength Start: 03/29/21 12:31 Freq: Status: Active Protocol: Document 03/30/21 12:04 [facility] (Rec: 03/30/21 13:02 [facility] [id number]) Shoulder Strength Shoulder Manual Muscle Testing Left Flexion 4 Good Extension 4+ Good+ Abduction (C5) 4 Good External Rotation 4 Good Internal Rotation 4 Good Right Flexion 3+ Fair+ Extension 3+ Fair+ Abduction (C5) 3+ Fair+ External Rotation 3+ Fair+ Internal Rotation 3+ Fair+ Elbow/Forearm Strength Elbow and Forearm Manual Muscle Testing Left Flexion (C6) 4+ Good+ Extension (C7) 5 Normal Right Flexion (C6) 4- Good- Extension (C7) 4- Good- Hand Oracle Programmer/Pinch Strength Hand Strength Right Comments 30lb, 25lb 33lb Left Comments 45lb, 30lb, 35lb PT-OP-Q Treatments Start: 03/29/21 12:31 Freq: Status: Active Protocol: Document 04/06/21 15:13 [facility] (Rec: 04/06/21 17:09 [facility] [id number]) Therapeutic Exercises Supine Exercises cervical retraction Supine Exercise Name focus on axial elongation Reps/Minutes 10 Standing Exercises row Side bilateral Equipment Used L1 Reps/Minutes 20 Comments cues for scap retraction Other Exercises cat/cow Reps/Minutes 10 Self-Care/Home Management Treatment Education Other Education edu to try to ice after therapy and drink a lot of water to help w/the soreness. edu to work on HEP at home to cont to keep gains. Discussed how scap and ribcage position are likely heavy contributors to pain and how that affects her neck pain. PT-OP-T Assessment and Plan Start: 03/29/21 12:31 Freq: Status: Active Protocol: Document 04/06/21 15:13 [facility] (Rec: 04/06/21 17:09 [facility] [id number]) Physical Therapy Assessment Goals sleep Short Term Goal (STG) Pt will be able to prop self comfortably to be able to have inc ease of falling asleep and staying asleep. STG Duration 04/30/21 Pole Tester Goal (LTG) Pt will be sherie to sleep through the night waking up no more than 1x to readjust LTG Duration 06/28/21 activties Short Term Goal (STG) Pt will have neg median and radial n tension testing in order to improve return to UE activities w/dec pain. STG Duration Pole Tester Goal (LTG) Pt will be able to do all work tasks and housework w/o inc pain greater than 2/10 LTG Duration 06/28/21 strength Short Term Goal (STG) Pt will be indep w/HEP for ROM , strength and mobility. STG Duration 04/30/21 Intermediate Goal (LTG) pt will improve UE strength to 5/5 B w/o inc pain and molder setter strength to age related norms and EFT to at least 4/5 to show improved stabilty in order for pt to carry out work related tasks w/o inc pain. LTG Duration 06/28/21 ROM Short Term Goal (STG) pt will have equal R to L shoulder ROM w/o pain at end ranges STG Duration 05/29/21 Intermediate Goal (LTG) Pt will have full cervical motion without pain in order to imrpove pt's ability to do typical daily activities like driving, and work. LTG Duration 06/28/21 Assessment Summary Assessment Pt had signicantly improved cervical rotation from about 50% R rot to about 70% range after manual treatment. She had improved scap depression and retraction after manual also. Good exercise performance Physical Therapy Plan Frequency and Duration Frequency of Treatment 1-2x/week Duration of Treatment 3 months Plan of Care Start Date 03/30/21 Plan of Care End Date 06/28/21 Next Visit Focus/Plan Next Note Type Treatment Note Next Visit Plan C1 & C2 mobs, work on cranium mobility, PNF, review wall posture and tspine towel mob, cat/camel
--- NOTE | 2021-04-10 17:06 | PT.OTN ---
Current Diagnoses Tension-type headache, unspecified, not intractable (04/10/21) Other muscle spasm (04/10/21) Abnormal posture (04/10/21) Weakness (04/10/21) Jaw pain (04/10/21) Strain of muscle, fascia and tendon at neck level, initial encounter (04/10/21) Physical Therapy Treatment Note PT-OP-A Visit Information Start: 03/29/21 12:31 Freq: Status: Active Protocol: Document 04/10/21 15:25 MA (Rec: 04/10/21 16:04 MA [id number]) Out-Patient Physical Therapy Visit Information Visit Information Visit Type Treatment Note Visit Note pt was 10 minutes late to tx Visit Start Time 15:25 Visit Stop Time 16:03 Total Visit Minutes 38 Visit Number 4 Number of SPRAY BLENDER Visits 1 PT-OP-B Current Condition Start: 03/29/21 12:31 Freq: Status: Active Protocol: Document 03/30/21 12:04 [facility] (Rec: 03/30/21 13:02 [facility] [id number]) Current Condition History of Current Condition Onset Date 2017 start w/neck pain but constant since 2019 & recent worsening Current Complaints neck pain, DEVI, R UE pain, R jaw pain History of Current Condition Pt reports months after last time PT session and was doing Botox for DEVI but they haven't had much improvement. She saw chiro for about 3 months and it helped a little. She was doing her PT exercises for a while but has stopped. Pt has pain in ears now and hurts R upper neck all to inf shoulder blade and into upper R brachium and goes occ into forearm. Pt has pain B w/neck and w/head and ears. Pt has DEVI pretty much every day. Some days she can deal with it and other days it gets worse. Pt reports ears are sensative to noises like loud noises (like closing doors and dropping something, noises in the kitchen). She doesn't ahve any infection and saw ENT and they said nothing is wrong w/ her ears. Pt gets jaw pain and when gets botox gets it in her jaw, neck and R shoulder. Pt repots sometimes when she gts really bad DEVI then she feels it go into jaw. She told her dentist about pain in jaw /R mouth and was told her teeth are fine. She clenches and is supposed to wear a awake overnight monitor at night but she hasn't done it. She got the ones at the store but they don 't stay in place. It would cost $600 to do out of pocket nigtht guard. Pt reports she has had constant DEVI and neck pain about 2 years ago. Pt reports she feels like PT exercises helped a little (was only able to do about 3x/week ). Pt tried massage but was frustrated because the person did entire body and it didn't help. She uses self massage tools but only helps sometimes . Pt gets only a little bit of dizziness. Notices only when sitting up. She has to lift, push and pull heavy stuff and does a lot of repitions of opening boxes and this all inc pain.SOmetimes just putting force to use knife and it starts to hurt before even moving knife. She has tried mm relaxers MDs prescribe but they make her so sleepy that she cannot do it for long. She tries for 10-12 days but it only helps a little. Pt reports she is constantly moving when she sleeps d/t pain in R shoulder. pt has chronic LBP Prior Treatments and Tests MRI brain-WNL, Xray neck( from report-IMPRESSION: C6-C7 moderate to moderately severe degenerative disc disease without subluxation. No definite acute disease is found, however.), carotid doppler-WNL , ENT testing, dental treatment w/over the counter mouth guard, PT-some help, chiro-some help, 1x massage, normal swallow based on MBS Treatment Goals Patient/Caregiver Goals dec pain w/daily activities, improve sleep PT-OP-C Subjective Start: 03/29/21 12:31 Freq: Status: Active Protocol: Document 04/10/21 15:25 MA (Rec: 04/10/21 16:04 MA [id number]) OP-PT Subjective Patient Comments Patient Comments Pt feels a little stiff after this weekend where she primarily sat around watching TV and didn't move much. PT-OP-F Manual Assessment Start: 03/29/21 12:31 Freq: Status: Active Protocol: Document 03/30/21 12:04 [facility] (Rec: 03/30/21 13:02 [facility] [id number]) Manual Assessments Soft Tissue Assessment Soft Tissue Mobility Assessment R>L UT, LS, scalenes, SCM, temporalis, masseter, rhomboids, lats, traps Joint Mobility Assessment Joint Mobility Assessment 1st rib eelvation, ant humerus in glenoid PT-OP-J Posture/Palpation/Skin Start: 03/29/21 12:31 Freq: Status: Active Protocol: Document 03/30/21 12:04 [facility] (Rec: 03/30/21 13:02 [facility] [id number]) Posture Evaluation [facility] Postural Classification System Elbow Flexion Test 0 Comments Posture Comments fwd shoulders R>L, IR R shoulder, SB neck L shear R, R 1st rib elevated, fwd head PT-OP-K Range of Motion Start: 03/29/21 12:31 Freq: Status: Active Protocol: Document 03/30/21 12:04 [facility] (Rec: 03/30/21 13:02 [facility] [id number]) Cervical Spine Range of Motion Cervical Spine Active Degrees Flexion 34 Extension 57 Rotation Left 42 Rotation Right 45 Lateral Flexion Left 24 Lateral Flexion Right 24 Comments pain R rot, flex TMJ Range of Motion Comments Comments slight deviation to L w/WNL ROM Shoulder Goniometric Range of Motion Shoulder ROM Limitations Comments pain at end ranges w/RUE ROM and missing about 10 deg in most motions as compared to L PT-OP-L Special Tests Start: 03/29/21 12:31 Freq: Status: Active Protocol: Document 03/30/21 12:04 [facility] (Rec: 03/30/21 13:02 [facility] [id number]) Special Tests Neural Special Tests- Upper Body Ulnar Nerve Tension Test Results neg R Median Nerve Tension Test Results positive R Radial Nerve Tension Test Results positive r PT-OP-M Strength Start: 03/29/21 12:31 Freq: Status: Active Protocol: Document 03/30/21 12:04 [facility] (Rec: 03/30/21 13:02 [facility] [id number]) Shoulder Strength Shoulder Manual Muscle Testing Left Flexion 4 Good Extension 4+ Good+ Abduction (C5) 4 Good External Rotation 4 Good Internal Rotation 4 Good Right Flexion 3+ Fair+ Extension 3+ Fair+ Abduction (C5) 3+ Fair+ External Rotation 3+ Fair+ Internal Rotation 3+ Fair+ Elbow/Forearm Strength Elbow and Forearm Manual Muscle Testing Left Flexion (C6) 4+ Good+ Extension (C7) 5 Normal Right Flexion (C6) 4- Good- Extension (C7) 4- Good- Hand Registered Representative/Pinch Strength Hand Strength Right Comments 30lb, 25lb 33lb Left Comments 45lb, 30lb, 35lb PT-OP-Q Treatments Start: 03/29/21 12:31 Freq: Status: Active Protocol: Document 04/10/21 15:25 MA (Rec: 04/10/21 16:04 MA [id number]) Therapeutic Exercises Supine Exercises cervical retraction Supine Exercise Name focus on axial elongation Reps/Minutes 10 Sidelying Exercises open book Side bilateral Reps/Minutes 6 Comments significantly less range w/RUE Sitting Exercises Chin Tucks Sitting Exercise Name Cervical retraction-chin truck s Reps/Minutes x5 Other Exercises cat/cow Reps/Minutes 10 Manual Therapy Treatment Soft Tissue Mobilization UT/LS Body Location R UT, LS & scalenes & SCM Mobilization Type Rolling,Strumming,Sustained Pressure Intensity/Depth Moderate Body Position Sidelying Comments w/ post dep of scapR Manual Traction CS Details cervical traction Reps/Duration 2x1' PT-OP-T Assessment and Plan Start: 03/29/21 12:31 Freq: Status: Active Protocol: Document 04/10/21 15:25 MA (Rec: 04/10/21 16:04 MA [id number]) Physical Therapy Assessment Goals sleep Short Term Goal (STG) Pt will be able to prop self comfortably to be able to have inc ease of falling asleep and staying asleep. STG Duration 04/30/21 Longterm Goal (LTG) Pt will be sherie to sleep through the night waking up no more than 1x to readjust LTG Duration 06/28/21 activties Short Term Goal (STG) Pt will have neg median and radial n tension testing in order to improve return to UE activities w/dec pain. STG Duration Longterm Goal (LTG) Pt will be able to do all work tasks and housework w/o inc pain greater than 2/10 LTG Duration 06/28/21 strength Short Term Goal (STG) Pt will be indep w/HEP for ROM , strength and mobility. STG Duration 04/30/21 Perfect Bind Machine Operator Goal (LTG) pt will improve UE strength to 5/5 B w/o inc pain and roving machine operator strength to age related norms and EFT to at least 4/5 to show improved stabilty in order for pt to carry out work related tasks w/o inc pain. LTG Duration 06/28/21 ROM Short Term Goal (STG) pt will have equal R to L shoulder ROM w/o pain at end ranges STG Duration 05/29/21 Longterm Goal (LTG) Pt will have full cervical motion without pain in order to imrpove pt's ability to do typical daily activities like driving, and work. LTG Duration 06/28/21 Assessment Summary Assessment Pt requires heavy cues during cat/cow exercise to avoid shd elevation and for thoracic flexion. She continues to report increased pain during cervical rotation when seated but has no pain with rotation when in supine with head supported by pillows. Pt requires cues during open book exercise to increase cervical rotation with her thoracic rotation. Pt would continue to benefit from skilled therapy for decreasing cervical pain and increasing cervical ROM bilaterally. Physical Therapy Plan Frequency and Duration Frequency of Treatment 1-2x/week Duration of Treatment 3 months Plan of Care Start Date 03/30/21 Plan of Care End Date 06/28/21 Therapeutic Interventions Therapeutic Interventions Home Exercise Program,Joint Mobilizations,Manual Therapy, Neuromuscular Re-education, Patient/Caregiver Education, Self-Care/Home Management,Soft Tissue Mobilization,Taping, Therapeutic Activities, Therapeutic Exercises Modalities Cold Pack/Ice Massage,Electric Stimulation,Hot Packs, Infrared Therapy,Traction- Mechanical,Ultrasound Next Visit Focus/Plan Next Note Type Treatment Note Next Visit Plan C1 & C2 mobs, work on cranium mobility, PNF, review wall posture and tspine towel mob, cat/camel
--- NOTE | 2021-04-12 16:53 | PT.OTN ---
Current Diagnoses Tension-type headache, unspecified, not intractable (04/12/21) Other muscle spasm (04/12/21) Abnormal posture (04/12/21) Weakness (04/12/21) Jaw pain (04/12/21) Strain of muscle, fascia and tendon at neck level, initial encounter (04/12/21) Physical Therapy Treatment Note PT-OP-A Visit Information Start: 03/29/21 12:31 Freq: Status: Active Protocol: Document 04/12/21 15:17 [facility] (Rec: 04/12/21 16:52 [facility] [id number]) Out-Patient Physical Therapy Visit Information Visit Information Visit Type Treatment Note Visit Start Time 15:20 Visit Stop Time 16:00 Total Visit Minutes 40 Visit Number 5 Number of ELECTRIC RANGE ASSEMBLER Visits 0 PT-OP-B Current Condition Start: 03/29/21 12:31 Freq: Status: Active Protocol: Document 03/30/21 12:04 [facility] (Rec: 03/30/21 13:02 [facility] [id number]) Current Condition History of Current Condition Onset Date 2017 start w/neck pain but constant since 2019 & recent worsening Current Complaints neck pain, DEVI, R UE pain, R jaw pain History of Current Condition Pt reports months after last time PT session and was doing Botox for DEVI but they haven't had much improvement. She saw chiro for about 3 months and it helped a little. She was doing her PT exercises for a while but has stopped. Pt has pain in ears now and hurts R upper neck all to inf shoulder blade and into upper R brachium and goes occ into forearm. Pt has pain B w/neck and w/head and ears. Pt has DEVI pretty much every day. Some days she can deal with it and other days it gets worse. Pt reports ears are sensative to noises like loud noises (like closing doors and dropping something, noises in the kitchen). She doesn't ahve any infection and saw ENT and they said nothing is wrong w/ her ears. Pt gets jaw pain and when gets botox gets it in her jaw, neck and R shoulder. Pt repots sometimes when she gts really bad DEVI then she feels it go into jaw. She told her dentist about pain in jaw /R mouth and was told her teeth are fine. She clenches and is supposed to wear a steward/stewardess night at night but she hasn't done it. She got the ones at the store but they don 't stay in place. It would cost $600 to do out of pocket nigtht guard. Pt reports she has had constant DEVI and neck pain about 2 years ago. Pt reports she feels like PT exercises helped a little (was only able to do about 3x/week ). Pt tried massage but was frustrated because the person did entire body and it didn't help. She uses self massage tools but only helps sometimes . Pt gets only a little bit of dizziness. Notices only when sitting up. She has to lift, push and pull heavy stuff and does a lot of repitions of opening boxes and this all inc pain.SOmetimes just putting force to use knife and it starts to hurt before even moving knife. She has tried mm relaxers MDs prescribe but they make her so sleepy that she cannot do it for long. She tries for 10-12 days but it only helps a little. Pt reports she is constantly moving when she sleeps d/t pain in R shoulder. pt has chronic LBP Prior Treatments and Tests MRI brain-WNL, Xray neck( from report-IMPRESSION: C6-C7 moderate to moderately severe degenerative disc disease without subluxation. No definite acute disease is found, however.), carotid doppler-WNL , ENT testing, dental treatment w/over the counter mouth guard, PT-some help, chiro-some help, 1x massage, normal swallow based on MBS Treatment Goals Patient/Caregiver Goals dec pain w/daily activities, improve sleep PT-OP-C Subjective Start: 03/29/21 12:31 Freq: Status: Active Protocol: Document 04/12/21 15:17 [facility] (Rec: 04/12/21 16:52 [facility] [id number]) OP-PT Subjective Patient Comments Patient Comments Pt reports a little better. Notes some upper tspine discomfort w/chin tucks Patient Reported Progress Improving PT-OP-F Manual Assessment Start: 03/29/21 12:31 Freq: Status: Active Protocol: Document 03/30/21 12:04 [facility] (Rec: 03/30/21 13:02 [facility] [id number]) Manual Assessments Soft Tissue Assessment Soft Tissue Mobility Assessment R>L UT, LS, scalenes, SCM, temporalis, masseter, rhomboids, lats, traps Joint Mobility Assessment Joint Mobility Assessment 1st rib eelvation, ant humerus in glenoid PT-OP-J Posture/Palpation/Skin Start: 03/29/21 12:31 Freq: Status: Active Protocol: Document 03/30/21 12:04 [facility] (Rec: 03/30/21 13:02 [facility] [id number]) Posture Evaluation [facility] Postural Classification System Elbow Flexion Test 0 Comments Posture Comments fwd shoulders R>L, IR R shoulder, SB neck L shear R, R 1st rib elevated, fwd head PT-OP-K Range of Motion Start: 03/29/21 12:31 Freq: Status: Active Protocol: Document 03/30/21 12:04 [facility] (Rec: 03/30/21 13:02 [facility] [id number]) Cervical Spine Range of Motion Cervical Spine Active Degrees Flexion 34 Extension 57 Rotation Left 42 Rotation Right 45 Lateral Flexion Left 24 Lateral Flexion Right 24 Comments pain R rot, flex TMJ Range of Motion Comments Comments slight deviation to L w/WNL ROM Shoulder Goniometric Range of Motion Shoulder ROM Limitations Comments pain at end ranges w/RUE ROM and missing about 10 deg in most motions as compared to L PT-OP-L Special Tests Start: 03/29/21 12:31 Freq: Status: Active Protocol: Document 03/30/21 12:04 [facility] (Rec: 03/30/21 13:02 [facility] [id number]) Special Tests Neural Special Tests- Upper Body Ulnar Nerve Tension Test Results neg R Median Nerve Tension Test Results positive R Radial Nerve Tension Test Results positive r PT-OP-M Strength Start: 03/29/21 12:31 Freq: Status: Active Protocol: Document 03/30/21 12:04 [facility] (Rec: 03/30/21 13:02 [facility] [id number]) Shoulder Strength Shoulder Manual Muscle Testing Left Flexion 4 Good Extension 4+ Good+ Abduction (C5) 4 Good External Rotation 4 Good Internal Rotation 4 Good Right Flexion 3+ Fair+ Extension 3+ Fair+ Abduction (C5) 3+ Fair+ External Rotation 3+ Fair+ Internal Rotation 3+ Fair+ Elbow/Forearm Strength Elbow and Forearm Manual Muscle Testing Left Flexion (C6) 4+ Good+ Extension (C7) 5 Normal Right Flexion (C6) 4- Good- Extension (C7) 4- Good- Hand Behavioral Health Professional/Pinch Strength Hand Strength Right Comments 30lb, 25lb 33lb Left Comments 45lb, 30lb, 35lb PT-OP-Q Treatments Start: 03/29/21 12:31 Freq: Status: Active Protocol: Document 04/12/21 15:17 [facility] (Rec: 04/12/21 16:52 [facility] [id number]) Therapeutic Exercises Supine Exercises foam roll Supine Exercise Name // on it: relax onto then roll side to side, shoulder flex, shoulder habd Side bilateral Reps/Minutes 10 ea Sitting Exercises Chin Tucks Sitting Exercise Name Cervical retraction-chin truck s Reps/Minutes 2x8 Comments 1x before and 1x after manual Other Exercises cat/cow Reps/Minutes 10 Manual Therapy Treatment Soft Tissue Mobilization post neck Body Location SOR Mobilization Type Sustained Pressure cranial fascia Body Location R temporalis Mobilization Type Rolling UT/LS Body Location R UT, LS & scalenes & SCM Mobilization Type Rolling,Strumming,Sustained Pressure Intensity/Depth Moderate Body Position Supine Comments w/ chin tuck Joint Mobilizations Cervical Comments C 1 transverse L and UPA R FM C2 transverse L FM 1st rib Joint R Direction caudal FM w/SB T spine Body Position seated Comments UPA R T1&2 PA T1& T2 PT-OP-T Assessment and Plan Start: 03/29/21 12:31 Freq: Status: Active Protocol: Document 04/12/21 15:17 [facility] (Rec: 04/12/21 16:52 [facility] [id number]) Physical Therapy Assessment Goals sleep Short Term Goal (STG) Pt will be able to prop self comfortably to be able to have inc ease of falling asleep and staying asleep. STG Duration 04/30/21 Fresh Foods Clerk Goal (LTG) Pt will be sherie to sleep through the night waking up no more than 1x to readjust LTG Duration 06/28/21 activties Short Term Goal (STG) Pt will have neg median and radial n tension testing in order to improve return to UE activities w/dec pain. STG Duration Fresh Foods Clerk Goal (LTG) Pt will be able to do all work tasks and housework w/o inc pain greater than 2/10 LTG Duration 06/28/21 strength Short Term Goal (STG) Pt will be indep w/HEP for ROM , strength and mobility. STG Duration 04/30/21 Long-Term Goal (LTG) pt will improve UE strength to 5/5 B w/o inc pain and tobacco sweeper strength to age related norms and EFT to at least 4/5 to show improved stabilty in order for pt to carry out work related tasks w/o inc pain. LTG Duration 06/28/21 ROM Short Term Goal (STG) pt will have equal R to L shoulder ROM w/o pain at end ranges STG Duration 05/29/21 Long-Term Goal (LTG) Pt will have full cervical motion without pain in order to imrpove pt's ability to do typical daily activities like driving, and work. LTG Duration 06/28/21 Assessment Summary Assessment Pt did well with manual therapy today with imrpoved ROM into chin tuck with less pain along w/ improved rotations but still pain at end range R rot. She did better w/cat/camel exercise today Physical Therapy Plan Frequency and Duration Frequency of Treatment 1-2x/week Duration of Treatment 3 months Plan of Care Start Date 03/30/21 Plan of Care End Date 06/28/21 Next Visit Focus/Plan Next Note Type Treatment Note Next Visit Plan C1 & C2 mobs, work on cranium mobility, PNF, review wall posture and tspine towel mob, thoracic mobility exercises
--- NOTE | 2021-04-17 17:36 | PT.OTN ---
Current Diagnoses Tension-type headache, unspecified, not intractable (04/17/21) Other muscle spasm (04/17/21) Abnormal posture (04/17/21) Weakness (04/17/21) Jaw pain (04/17/21) Strain of muscle, fascia and tendon at neck level, initial encounter (04/17/21) Physical Therapy Treatment Note PT-OP-A Visit Information Start: 03/29/21 12:31 Freq: Status: Active Protocol: Document 04/17/21 16:05 MA (Rec: 04/17/21 17:36 MA [id number]) Out-Patient Physical Therapy Visit Information Visit Information Visit Type Treatment Note Visit Start Time 16:05 Visit Stop Time 17:00 Total Visit Minutes 55 Visit Number 6 Number of FASHION CONSULTANT SELLING Visits 1 PT-OP-B Current Condition Start: 03/29/21 12:31 Freq: Status: Active Protocol: Document 03/30/21 12:04 [facility] (Rec: 03/30/21 13:02 [facility] [id number]) Current Condition History of Current Condition Onset Date 2017 start w/neck pain but constant since 2019 & recent worsening Current Complaints neck pain, DEVI, R UE pain, R jaw pain History of Current Condition Pt reports months after last time PT session and was doing Botox for DEVI but they haven't had much improvement. She saw chiro for about 3 months and it helped a little. She was doing her PT exercises for a while but has stopped. Pt has pain in ears now and hurts R upper neck all to inf shoulder blade and into upper R brachium and goes occ into forearm. Pt has pain B w/neck and w/head and ears. Pt has DEVI pretty much every day. Some days she can deal with it and other days it gets worse. Pt reports ears are sensative to noises like loud noises (like closing doors and dropping something, noises in the kitchen). She doesn't ahve any infection and saw ENT and they said nothing is wrong w/ her ears. Pt gets jaw pain and when gets botox gets it in her jaw, neck and R shoulder. Pt repots sometimes when she gts really bad DEVI then she feels it go into jaw. She told her dentist about pain in jaw /R mouth and was told her teeth are fine. She clenches and is supposed to wear a ice guard skating rink at night but she hasn't done it. She got the ones at the store but they don 't stay in place. It would cost $600 to do out of pocket nigtht guard. Pt reports she has had constant DEVI and neck pain about 2 years ago. Pt reports she feels like PT exercises helped a little (was only able to do about 3x/week ). Pt tried massage but was frustrated because the person did entire body and it didn't help. She uses self massage tools but only helps sometimes . Pt gets only a little bit of dizziness. Notices only when sitting up. She has to lift, push and pull heavy stuff and does a lot of repitions of opening boxes and this all inc pain.SOmetimes just putting force to use knife and it starts to hurt before even moving knife. She has tried mm relaxers MDs prescribe but they make her so sleepy that she cannot do it for long. She tries for 10-12 days but it only helps a little. Pt reports she is constantly moving when she sleeps d/t pain in R shoulder. pt has chronic LBP Prior Treatments and Tests MRI brain-WNL, Xray neck( from report-IMPRESSION: C6-C7 moderate to moderately severe degenerative disc disease without subluxation. No definite acute disease is found, however.), carotid doppler-WNL , ENT testing, dental treatment w/over the counter mouth guard, PT-some help, chiro-some help, 1x massage, normal swallow based on MBS Treatment Goals Patient/Caregiver Goals dec pain w/daily activities, improve sleep PT-OP-C Subjective Start: 03/29/21 12:31 Freq: Status: Active Protocol: Document 04/17/21 16:05 MA (Rec: 04/17/21 17:36 MA [id number]) OP-PT Subjective Patient Comments Patient Comments Pt has been trying to carry her purse on her L shd more often. She has had some pain when looking over her R shd and pain is in the middle of her R shd blade PT-OP-F Manual Assessment Start: 03/29/21 12:31 Freq: Status: Active Protocol: Document 03/30/21 12:04 [facility] (Rec: 03/30/21 13:02 [facility] [id number]) Manual Assessments Soft Tissue Assessment Soft Tissue Mobility Assessment R>L UT, LS, scalenes, SCM, temporalis, masseter, rhomboids, lats, traps Joint Mobility Assessment Joint Mobility Assessment 1st rib eelvation, ant humerus in glenoid PT-OP-J Posture/Palpation/Skin Start: 03/29/21 12:31 Freq: Status: Active Protocol: Document 03/30/21 12:04 [facility] (Rec: 03/30/21 13:02 [facility] [id number]) Posture Evaluation [facility] Postural Classification System Elbow Flexion Test 0 Comments Posture Comments fwd shoulders R>L, IR R shoulder, SB neck L shear R, R 1st rib elevated, fwd head PT-OP-K Range of Motion Start: 03/29/21 12:31 Freq: Status: Active Protocol: Document 03/30/21 12:04 [facility] (Rec: 03/30/21 13:02 [facility] [id number]) Cervical Spine Range of Motion Cervical Spine Active Degrees Flexion 34 Extension 57 Rotation Left 42 Rotation Right 45 Lateral Flexion Left 24 Lateral Flexion Right 24 Comments pain R rot, flex TMJ Range of Motion Comments Comments slight deviation to L w/WNL ROM Shoulder Goniometric Range of Motion Shoulder ROM Limitations Comments pain at end ranges w/RUE ROM and missing about 10 deg in most motions as compared to L PT-OP-L Special Tests Start: 03/29/21 12:31 Freq: Status: Active Protocol: Document 03/30/21 12:04 [facility] (Rec: 03/30/21 13:02 [facility] [id number]) Special Tests Neural Special Tests- Upper Body Ulnar Nerve Tension Test Results neg R Median Nerve Tension Test Results positive R Radial Nerve Tension Test Results positive r PT-OP-M Strength Start: 03/29/21 12:31 Freq: Status: Active Protocol: Document 03/30/21 12:04 [facility] (Rec: 03/30/21 13:02 [facility] [id number]) Shoulder Strength Shoulder Manual Muscle Testing Left Flexion 4 Good Extension 4+ Good+ Abduction (C5) 4 Good External Rotation 4 Good Internal Rotation 4 Good Right Flexion 3+ Fair+ Extension 3+ Fair+ Abduction (C5) 3+ Fair+ External Rotation 3+ Fair+ Internal Rotation 3+ Fair+ Elbow/Forearm Strength Elbow and Forearm Manual Muscle Testing Left Flexion (C6) 4+ Good+ Extension (C7) 5 Normal Right Flexion (C6) 4- Good- Extension (C7) 4- Good- Hand Freelance Graphic Designer/Pinch Strength Hand Strength Right Comments 30lb, 25lb 33lb Left Comments 45lb, 30lb, 35lb PT-OP-Q Treatments Start: 03/29/21 12:31 Freq: Status: Active Protocol: Document 04/17/21 16:05 MA (Rec: 04/17/21 17:36 MA [id number]) Therapeutic Exercises Supine Exercises cervical retraction Supine Exercise Name focus on axial elongation Reps/Minutes 10 Sitting Exercises Chin Tucks Sitting Exercise Name Cervical retraction-chin truck s Reps/Minutes 2x8 Therapeutic Activity Therapeutic Activity Lifting Name lifting, pushing, pulling Reps/Minutes 10' Comments ten pounds in milk crate working on proper posture an d mm recruitment for daily work activities Manual Therapy Treatment Soft Tissue Mobilization infraspinatus Body Location R infra scour Intensity/Depth Moderate Body Position seated UT/LS Body Location R UT, LS & scalenes & SCM Mobilization Type Rolling,Strumming,Sustained Pressure Intensity/Depth Moderate Body Position Supine Comments w/ chin tuck Self-Care/Home Management Treatment Activities Self-Care/Home Management Activities posture in seated in front of mirror; pt tends to elevate R shd PT-OP-R Modalities Start: 03/29/21 12:31 Freq: Status: Active Protocol: Document 04/17/21 16:05 MA (Rec: 04/17/21 17:36 MA [id number]) Electric Stimulation Electric Stimulation IFC Body Location R UT Duration (Minutes) 10 Intensity 9 Target/Sweep Sweep High/Low Low Patient Position Supine PT-OP-T Assessment and Plan Start: 03/29/21 12:31 Freq: Status: Active Protocol: Document 04/17/21 16:05 MA (Rec: 04/17/21 17:36 MA [id number]) Physical Therapy Assessment Goals sleep Short Term Goal (STG) Pt will be able to prop self comfortably to be able to have inc ease of falling asleep and staying asleep. STG Duration 04/30/21 Residential Goal (LTG) Pt will be sherie to sleep through the night waking up no more than 1x to readjust LTG Duration 06/28/21 activties Short Term Goal (STG) Pt will have neg median and radial n tension testing in order to improve return to UE activities w/dec pain. STG Duration Jig Operator Goal (LTG) Pt will be able to do all work tasks and housework w/o inc pain greater than 2/10 LTG Duration 06/28/21 strength Short Term Goal (STG) Pt will be indep w/HEP for ROM , strength and mobility. STG Duration 04/30/21 Residential Goal (LTG) pt will improve UE strength to 5/5 B w/o inc pain and registered nurse teacher strength to age related norms and EFT to at least 4/5 to show improved stabilty in order for pt to carry out work related tasks w/o inc pain. LTG Duration 06/28/21 ROM Short Term Goal (STG) pt will have equal R to L shoulder ROM w/o pain at end ranges STG Duration 05/29/21 Residential Goal (LTG) Pt will have full cervical motion without pain in order to imrpove pt's ability to do typical daily activities like driving, and work. LTG Duration 06/28/21 Assessment Summary Assessment Had pt watch posture in mirror during activities. Pt tends to recruit R UT>L UT and has difficutly with scap retraction. Worked on pushing/ pulling a 10# box, working on scap retraction without elevation while pulling box backwards. When pt demonstrates lifting, she twists knees to one side and lifts box, holding box out to one side of body. Educated pt on proper lifting techniques, keeping box close to center of mass and widening stance, using legs to lift. Pt c/o pain in middle of shd blade when performing activities such as looking over R shd. She is tender to palpation along medial infraspinatus, but has no pain with shd abd. Ended with IFC to R UT for cervical pain. Physical Therapy Plan Frequency and Duration Frequency of Treatment 1-2x/week Duration of Treatment 3 months Plan of Care Start Date 03/30/21 Plan of Care End Date 06/28/21 Therapeutic Interventions Therapeutic Interventions Home Exercise Program,Joint Mobilizations,Manual Therapy, Neuromuscular Re-education, Patient/Caregiver Education, Self-Care/Home Management,Soft Tissue Mobilization,Taping, Therapeutic Activities, Therapeutic Exercises Modalities Cold Pack/Ice Massage,Electric Stimulation,Hot Packs, Infrared Therapy,Traction- Mechanical,Ultrasound Next Visit Focus/Plan Next Note Type Treatment Note Next Visit Plan Assess how pt felt after IFC and review lifting/pushing/ pulling; C1 & C2 mobs, work on cranium mobility, PNF, review wall posture and tspine towel mob, thoracic mobility exercises
--- NOTE | 2021-04-19 18:36 | PT.OTN ---
Current Diagnoses Tension-type headache, unspecified, not intractable (04/19/21) Other muscle spasm (04/19/21) Abnormal posture (04/19/21) Weakness (04/19/21) Jaw pain (04/19/21) Strain of muscle, fascia and tendon at neck level, initial encounter (04/19/21) Physical Therapy Treatment Note PT-OP-A Visit Information Start: 03/29/21 12:31 Freq: Status: Active Protocol: Document 04/19/21 18:12 [facility] (Rec: 04/19/21 18:36 [facility] [id number]) Out-Patient Physical Therapy Visit Information Visit Information Visit Type Treatment Note Visit Start Time 10:30 Visit Stop Time 11:30 Total Visit Minutes 60 Visit Number 7 Number of ACTIVITY THERAPY TEACHER Visits 0 PT-OP-B Current Condition Start: 03/29/21 12:31 Freq: Status: Active Protocol: Document 03/30/21 12:04 [facility] (Rec: 03/30/21 13:02 [facility] [id number]) Current Condition History of Current Condition Onset Date 2017 start w/neck pain but constant since 2019 & recent worsening Current Complaints neck pain, DEVI, R UE pain, R jaw pain History of Current Condition Pt reports months after last time PT session and was doing Botox for DEVI but they haven't had much improvement. She saw chiro for about 3 months and it helped a little. She was doing her PT exercises for a while but has stopped. Pt has pain in ears now and hurts R upper neck all to inf shoulder blade and into upper R brachium and goes occ into forearm. Pt has pain B w/neck and w/head and ears. Pt has DEVI pretty much every day. Some days she can deal with it and other days it gets worse. Pt reports ears are sensative to noises like loud noises (like closing doors and dropping something, noises in the kitchen). She doesn't ahve any infection and saw ENT and they said nothing is wrong w/ her ears. Pt gets jaw pain and when gets botox gets it in her jaw, neck and R shoulder. Pt repots sometimes when she gts really bad DEVI then she feels it go into jaw. She told her dentist about pain in jaw /R mouth and was told her teeth are fine. She clenches and is supposed to wear a roll carrier at night but she hasn't done it. She got the ones at the store but they don 't stay in place. It would cost $600 to do out of pocket nigtht guard. Pt reports she has had constant DEVI and neck pain about 2 years ago. Pt reports she feels like PT exercises helped a little (was only able to do about 3x/week ). Pt tried massage but was frustrated because the person did entire body and it didn't help. She uses self massage tools but only helps sometimes . Pt gets only a little bit of dizziness. Notices only when sitting up. She has to lift, push and pull heavy stuff and does a lot of repitions of opening boxes and this all inc pain.SOmetimes just putting force to use knife and it starts to hurt before even moving knife. She has tried mm relaxers MDs prescribe but they make her so sleepy that she cannot do it for long. She tries for 10-12 days but it only helps a little. Pt reports she is constantly moving when she sleeps d/t pain in R shoulder. pt has chronic LBP Prior Treatments and Tests MRI brain-WNL, Xray neck( from report-IMPRESSION: C6-C7 moderate to moderately severe degenerative disc disease without subluxation. No definite acute disease is found, however.), carotid doppler-WNL , ENT testing, dental treatment w/over the counter mouth guard, PT-some help, chiro-some help, 1x massage, normal swallow based on MBS Treatment Goals Patient/Caregiver Goals dec pain w/daily activities, improve sleep PT-OP-C Subjective Start: 03/29/21 12:31 Freq: Status: Active Protocol: Document 04/19/21 18:12 [facility] (Rec: 04/19/21 18:36 [facility] [id number]) OP-PT Subjective Patient Comments Patient Comments Pt reprots Devi and neck pain have been less intense. She has been sleeping better through the night w/less pain. Notes she also dec coffee and no longe ris drinking a cup at night Patient Reported Progress Improving PT-OP-F Manual Assessment Start: 03/29/21 12:31 Freq: Status: Active Protocol: Document 03/30/21 12:04 [facility] (Rec: 03/30/21 13:02 [facility] [id number]) Manual Assessments Soft Tissue Assessment Soft Tissue Mobility Assessment R>L UT, LS, scalenes, SCM, temporalis, masseter, rhomboids, lats, traps Joint Mobility Assessment Joint Mobility Assessment 1st rib eelvation, ant humerus in glenoid PT-OP-J Posture/Palpation/Skin Start: 03/29/21 12:31 Freq: Status: Active Protocol: Document 03/30/21 12:04 [facility] (Rec: 03/30/21 13:02 [facility] [id number]) Posture Evaluation [facility] Postural Classification System Elbow Flexion Test 0 Comments Posture Comments fwd shoulders R>L, IR R shoulder, SB neck L shear R, R 1st rib elevated, fwd head PT-OP-K Range of Motion Start: 03/29/21 12:31 Freq: Status: Active Protocol: Document 03/30/21 12:04 [facility] (Rec: 03/30/21 13:02 [facility] [id number]) Cervical Spine Range of Motion Cervical Spine Active Degrees Flexion 34 Extension 57 Rotation Left 42 Rotation Right 45 Lateral Flexion Left 24 Lateral Flexion Right 24 Comments pain R rot, flex TMJ Range of Motion Comments Comments slight deviation to L w/WNL ROM Shoulder Goniometric Range of Motion Shoulder ROM Limitations Comments pain at end ranges w/RUE ROM and missing about 10 deg in most motions as compared to L PT-OP-L Special Tests Start: 03/29/21 12:31 Freq: Status: Active Protocol: Document 03/30/21 12:04 [facility] (Rec: 03/30/21 13:02 [facility] [id number]) Special Tests Neural Special Tests- Upper Body Ulnar Nerve Tension Test Results neg R Median Nerve Tension Test Results positive R Radial Nerve Tension Test Results positive r PT-OP-M Strength Start: 03/29/21 12:31 Freq: Status: Active Protocol: Document 03/30/21 12:04 [facility] (Rec: 03/30/21 13:02 [facility] [id number]) Shoulder Strength Shoulder Manual Muscle Testing Left Flexion 4 Good Extension 4+ Good+ Abduction (C5) 4 Good External Rotation 4 Good Internal Rotation 4 Good Right Flexion 3+ Fair+ Extension 3+ Fair+ Abduction (C5) 3+ Fair+ External Rotation 3+ Fair+ Internal Rotation 3+ Fair+ Elbow/Forearm Strength Elbow and Forearm Manual Muscle Testing Left Flexion (C6) 4+ Good+ Extension (C7) 5 Normal Right Flexion (C6) 4- Good- Extension (C7) 4- Good- Hand In Store Marketing Associate/Pinch Strength Hand Strength Right Comments 30lb, 25lb 33lb Left Comments 45lb, 30lb, 35lb PT-OP-Q Treatments Start: 03/29/21 12:31 Freq: Status: Active Protocol: Document 04/19/21 18:12 [facility] (Rec: 04/19/21 18:36 [facility] [id number]) Therapeutic Activity Therapeutic Activity Lifting Reps/Minutes 15min Comments work on lifting crate from ground then pull from under plinth to lift w/no weight then progressed to 10lb, 20lb then 30 lb in each position, work on scap set Manual Therapy Treatment Soft Tissue Mobilization post neck Body Location SOR Mobilization Type Sustained Pressure paraspinals Body Location R>L cervical paraspinals Mobilization Type Rolling Intensity/Depth Superficial Body Position Supine UT/LS Body Location R UT, LS & scalenes & SCM Mobilization Type Rolling,Strumming,Sustained Pressure Intensity/Depth Moderate Body Position Supine Comments w/ chin tuck Joint Mobilizations Cervical Comments R UPA C1 R UPA C4 1st rib Joint R 1st & 2nd Direction caudal FM T spine Comments UPA R T1&2 PA T1& T2 PT-OP-R Modalities Start: 03/29/21 12:31 Freq: Status: Active Protocol: Document 04/19/21 18:12 [facility] (Rec: 04/19/21 18:36 [facility] [id number]) Electric Stimulation Electric Stimulation IFC Body Location R UT Duration (Minutes) 10 Intensity 12 Target/Sweep Sweep High/Low Low Patient Position Supine Combined With Heat/Cold Hot Pack PT-OP-T Assessment and Plan Start: 03/29/21 12:31 Freq: Status: Active Protocol: Document 04/19/21 18:12 [facility] (Rec: 04/19/21 18:36 [facility] [id number]) Physical Therapy Assessment Goals sleep Short Term Goal (STG) Pt will be able to prop self comfortably to be able to have inc ease of falling asleep and staying asleep. STG Duration 04/30/21 Usp Goal (LTG) Pt will be sherie to sleep through the night waking up no more than 1x to readjust LTG Duration 06/28/21 activties Short Term Goal (STG) Pt will have neg median and radial n tension testing in order to improve return to UE activities w/dec pain. STG Duration Senior Database Programmer Goal (LTG) Pt will be able to do all work tasks and housework w/o inc pain greater than 2/10 LTG Duration 06/28/21 strength Short Term Goal (STG) Pt will be indep w/HEP for ROM , strength and mobility. STG Duration 04/30/21 Usp Goal (LTG) pt will improve UE strength to 5/5 B w/o inc pain and third officer strength to age related norms and EFT to at least 4/5 to show improved stabilty in order for pt to carry out work related tasks w/o inc pain. LTG Duration 06/28/21 ROM Short Term Goal (STG) pt will have equal R to L shoulder ROM w/o pain at end ranges STG Duration 05/29/21 Senior Database Programmer Goal (LTG) Pt will have full cervical motion without pain in order to imrpove pt's ability to do typical daily activities like driving, and work. LTG Duration 06/28/21 Assessment Summary Assessment Pt did better with lifting after cues and mult reps and was able to lift up to 30#. She did well with manual with improvement of range. Physical Therapy Plan Frequency and Duration Frequency of Treatment 1-2x/week Duration of Treatment 3 months Plan of Care Start Date 03/30/21 Plan of Care End Date 06/28/21 Next Visit Focus/Plan Next Note Type Treatment Note Next Visit Plan cont to work cervical mobility for R rot, review lifting as needed
--- NOTE | 2021-04-26 12:53 | PT.OTN ---
Current Diagnoses Tension-type headache, unspecified, not intractable (04/26/21) Other muscle spasm (04/26/21) Abnormal posture (04/26/21) Weakness (04/26/21) Jaw pain (04/26/21) Strain of muscle, fascia and tendon at neck level, initial encounter (04/26/21) Physical Therapy Treatment Note PT-OP-A Visit Information Start: 03/29/21 12:31 Freq: Status: Active Protocol: Document 04/26/21 11:54 MA (Rec: 04/26/21 12:50 MA [id number]) Out-Patient Physical Therapy Visit Information Visit Information Visit Type Treatment Note Visit Start Time 12:00 Visit Stop Time 12:54 Total Visit Minutes 54 Visit Number 8 Number of DISTRIBUTION SUPERVISOR Visits 1 PT-OP-B Current Condition Start: 03/29/21 12:31 Freq: Status: Active Protocol: Document 03/30/21 12:04 [facility] (Rec: 03/30/21 13:02 [facility] [id number]) Current Condition History of Current Condition Onset Date 2017 start w/neck pain but constant since 2019 & recent worsening Current Complaints neck pain, DEVI, R UE pain, R jaw pain History of Current Condition Pt reports months after last time PT session and was doing Botox for DEVI but they haven't had much improvement. She saw chiro for about 3 months and it helped a little. She was doing her PT exercises for a while but has stopped. Pt has pain in ears now and hurts R upper neck all to inf shoulder blade and into upper R brachium and goes occ into forearm. Pt has pain B w/neck and w/head and ears. Pt has DEVI pretty much every day. Some days she can deal with it and other days it gets worse. Pt reports ears are sensative to noises like loud noises (like closing doors and dropping something, noises in the kitchen). She doesn't ahve any infection and saw ENT and they said nothing is wrong w/ her ears. Pt gets jaw pain and when gets botox gets it in her jaw, neck and R shoulder. Pt repots sometimes when she gts really bad DEVI then she feels it go into jaw. She told her dentist about pain in jaw /R mouth and was told her teeth are fine. 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 She got the ones at the store but they don 't stay in place. It would cost $600 to do out of pocket nigtht guard. Pt reports she has had constant DEVI and neck pain about 2 years ago. Pt reports she feels like PT exercises helped a little (was only able to do about 3x/week ). Pt tried massage but was frustrated because the person did entire body and it didn't help. She uses self massage tools but only helps sometimes . Pt gets only a little bit of dizziness. Notices only when sitting up. She has to lift, push and pull heavy stuff and does a lot of repitions of opening boxes and this all inc pain.SOmetimes just putting force to use knife and it starts to hurt before even moving knife. She has tried mm relaxers MDs prescribe but they make her so sleepy that she cannot do it for long. She tries for 10-12 days but it only helps a little. Pt reports she is constantly moving when she sleeps d/t pain in R shoulder. pt has chronic LBP Prior Treatments and Tests MRI brain-WNL, Xray neck( from report-IMPRESSION: C6-C7 moderate to moderately severe degenerative disc disease without subluxation. No definite acute disease is found, however.), carotid doppler-WNL , ENT testing, dental treatment w/over the counter mouth guard, PT-some help, chiro-some help, 1x massage, normal swallow based on MBS Treatment Goals Patient/Caregiver Goals dec pain w/daily activities, improve sleep PT-OP-C Subjective Start: 03/29/21 12:31 Freq: Status: Active Protocol: Document 04/26/21 11:54 MA (Rec: 04/26/21 12:50 MA [id number]) OP-PT Subjective Patient Comments Patient Comments Pt had increased neck pain over the weekend but has not had any HAs recently PT-OP-F Manual Assessment Start: 03/29/21 12:31 Freq: Status: Active Protocol: Document 03/30/21 12:04 [facility] (Rec: 03/30/21 13:02 [facility] [id number]) Manual Assessments Soft Tissue Assessment Soft Tissue Mobility Assessment R>L UT, LS, scalenes, SCM, temporalis, masseter, rhomboids, lats, traps Joint Mobility Assessment Joint Mobility Assessment 1st rib eelvation, ant humerus in glenoid PT-OP-J Posture/Palpation/Skin Start: 03/29/21 12:31 Freq: Status: Active Protocol: Document 03/30/21 12:04 [facility] (Rec: 03/30/21 13:02 [facility] [id number]) Posture Evaluation [facility] Postural Classification System Elbow Flexion Test 0 Comments Posture Comments fwd shoulders R>L, IR R shoulder, SB neck L shear R, R 1st rib elevated, fwd head PT-OP-K Range of Motion Start: 03/29/21 12:31 Freq: Status: Active Protocol: Document 03/30/21 12:04 [facility] (Rec: 03/30/21 13:02 [facility] [id number]) Cervical Spine Range of Motion Cervical Spine Active Degrees Flexion 34 Extension 57 Rotation Left 42 Rotation Right 45 Lateral Flexion Left 24 Lateral Flexion Right 24 Comments pain R rot, flex TMJ Range of Motion Comments Comments slight deviation to L w/WNL ROM Shoulder Goniometric Range of Motion Shoulder ROM Limitations Comments pain at end ranges w/RUE ROM and missing about 10 deg in most motions as compared to L PT-OP-L Special Tests Start: 03/29/21 12:31 Freq: Status: Active Protocol: Document 03/30/21 12:04 [facility] (Rec: 03/30/21 13:02 [facility] [id number]) Special Tests Neural Special Tests- Upper Body Ulnar Nerve Tension Test Results neg R Median Nerve Tension Test Results positive R Radial Nerve Tension Test Results positive r PT-OP-M Strength Start: 03/29/21 12:31 Freq: Status: Active Protocol: Document 03/30/21 12:04 [facility] (Rec: 03/30/21 13:02 [facility] [id number]) Shoulder Strength Shoulder Manual Muscle Testing Left Flexion 4 Good Extension 4+ Good+ Abduction (C5) 4 Good External Rotation 4 Good Internal Rotation 4 Good Right Flexion 3+ Fair+ Extension 3+ Fair+ Abduction (C5) 3+ Fair+ External Rotation 3+ Fair+ Internal Rotation 3+ Fair+ Elbow/Forearm Strength Elbow and Forearm Manual Muscle Testing Left Flexion (C6) 4+ Good+ Extension (C7) 5 Normal Right Flexion (C6) 4- Good- Extension (C7) 4- Good- Hand Filler Block Inserter Remover/Pinch Strength Hand Strength Right Comments 30lb, 25lb 33lb Left Comments 45lb, 30lb, 35lb PT-OP-Q Treatments Start: 03/29/21 12:31 Freq: Status: Active Protocol: Document 04/26/21 11:54 MA (Rec: 04/26/21 12:50 MA [id number]) Therapeutic Exercises Sitting Exercises Stretch Sitting Exercise Name UT & levator stretches Side bilateral Reps/Minutes 30 ea Chin Tucks Sitting Exercise Name Cervical retraction-chin truck s Reps/Minutes 2x8 Manual Therapy Treatment Soft Tissue Mobilization UT/LS Body Location R UT, LS & scalenes & SCM Mobilization Type Rolling,Strumming,Sustained Pressure Intensity/Depth Moderate Body Position Supine Comments w/ chin tuck Joint Mobilizations Cervical Body Position Sitting Comments NAGS for CS rotation PT-OP-R Modalities Start: 03/29/21 12:31 Freq: Status: Active Protocol: Document 04/26/21 11:54 MA (Rec: 04/26/21 12:50 MA [id number]) Electric Stimulation Electric Stimulation IFC Body Location R UT Duration (Minutes) 15 Intensity 12 Target/Sweep Sweep High/Low Low Patient Position Supine Combined With Heat/Cold Hot Pack PT-OP-T Assessment and Plan Start: 03/29/21 12:31 Freq: Status: Active Protocol: Document 04/26/21 11:54 MA (Rec: 04/26/21 12:50 MA [id number]) Physical Therapy Assessment Goals sleep Short Term Goal (STG) Pt will be able to prop self comfortably to be able to have inc ease of falling asleep and staying asleep. STG Duration 04/30/21 Casino Floor Walker Goal (LTG) Pt will be sherie to sleep through the night waking up no more than 1x to readjust LTG Duration 06/28/21 activties Short Term Goal (STG) Pt will have neg median and radial n tension testing in order to improve return to UE activities w/dec pain. STG Duration Casino Floor Walker Goal (LTG) Pt will be able to do all work tasks and housework w/o inc pain greater than 2/10 LTG Duration 06/28/21 strength Short Term Goal (STG) Pt will be indep w/HEP for ROM , strength and mobility. STG Duration 04/30/21 Casino Floor Walker Goal (LTG) pt will improve UE strength to 5/5 B w/o inc pain and medical coding instructor strength to age related norms and EFT to at least 4/5 to show improved stabilty in order for pt to carry out work related tasks w/o inc pain. LTG Duration 06/28/21 ROM Short Term Goal (STG) pt will have equal R to L shoulder ROM w/o pain at end ranges STG Duration 05/29/21 Casino Floor Walker Goal (LTG) Pt will have full cervical motion without pain in order to imrpove pt's ability to do typical daily activities like driving, and work. LTG Duration 06/28/21 Assessment Summary Assessment Pt has improved cervical rotation after manual work. She is able to get 55 degrees R rotation and 60 degrees L rot at end of session. Spent time talking with pt during electrical stimulation about her concerns over her neck pain. Despite pain getting better, pt still wonders if she needs imaging done. Reminded pt she has had less HAs and cervical pain since starting therapy and has improved ~10 degrees bilaterally with cervical rotation demonstrating good progress with PT. Pt is getting increased pain on the weekends but does not have as much pain on weekdays while at work. Pt is primarily sedentary on the weekends and admits to watching more TV. PT encouraged pt to continue stretching and working on posture more on the weekends to avoid stiffness through CS which is likely leading to her increased pain. Physical Therapy Plan Frequency and Duration Frequency of Treatment 1-2x/week Duration of Treatment 3 months Plan of Care Start Date 03/30/21 Plan of Care End Date 06/28/21 Therapeutic Interventions Therapeutic Interventions Home Exercise Program,Joint Mobilizations,Manual Therapy, Neuromuscular Re-education, Patient/Caregiver Education, Self-Care/Home Management,Soft Tissue Mobilization,Taping, Therapeutic Activities, Therapeutic Exercises Modalities Cold Pack/Ice Massage,Electric Stimulation,Hot Packs, Infrared Therapy,Traction- Mechanical,Ultrasound Next Visit Focus/Plan Next Note Type Treatment Note Next Visit Plan cont to work cervical mobility for R rot, review lifting as needed
--- NOTE | 2021-05-05 17:04 | PT.OTN ---
Current Diagnoses Tension-type headache, unspecified, not intractable (05/05/21) Other muscle spasm (05/05/21) Abnormal posture (05/05/21) Weakness (05/05/21) Jaw pain (05/05/21) Strain of muscle, fascia and tendon at neck level, initial encounter (05/05/21) Physical Therapy Treatment Note PT-OP-A Visit Information Start: 03/29/21 12:31 Freq: Status: Active Protocol: Document 05/05/21 16:07 MA (Rec: 05/05/21 17:02 MA [id number]) Out-Patient Physical Therapy Visit Information Visit Information Visit Type Treatment Note Visit Start Time 16:05 Visit Stop Time 16:52 Total Visit Minutes 47 Visit Number 9 Number of BACK SIZER Visits 2 PT-OP-B Current Condition Start: 03/29/21 12:31 Freq: Status: Active Protocol: Document 03/30/21 12:04 [facility] (Rec: 03/30/21 13:02 [facility] [id number]) Current Condition History of Current Condition Onset Date 2017 start w/neck pain but constant since 2019 & recent worsening Current Complaints neck pain, DEVI, R UE pain, R jaw pain History of Current Condition Pt reports months after last time PT session and was doing Botox for DEVI but they haven't had much improvement. She saw chiro for about 3 months and it helped a little. She was doing her PT exercises for a while but has stopped. Pt has pain in ears now and hurts R upper neck all to inf shoulder blade and into upper R brachium and goes occ into forearm. Pt has pain B w/neck and w/head and ears. Pt has DEVI pretty much every day. Some days she can deal with it and other days it gets worse. Pt reports ears are sensative to noises like loud noises (like closing doors and dropping something, noises in the kitchen). She doesn't ahve any infection and saw ENT and they said nothing is wrong w/ her ears. Pt gets jaw pain and when gets botox gets it in her jaw, neck and R shoulder. Pt repots sometimes when she gts really bad DEVI then she feels it go into jaw. She told her dentist about pain in jaw /R mouth and was told her teeth are fine. 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 She got the ones at the store but they don 't stay in place. It would cost $600 to do out of pocket nigtht guard. Pt reports she has had constant DEVI and neck pain about 2 years ago. Pt reports she feels like PT exercises helped a little (was only able to do about 3x/week ). Pt tried massage but was frustrated because the person did entire body and it didn't help. She uses self massage tools but only helps sometimes . Pt gets only a little bit of dizziness. Notices only when sitting up. She has to lift, push and pull heavy stuff and does a lot of repitions of opening boxes and this all inc pain.SOmetimes just putting force to use knife and it starts to hurt before even moving knife. She has tried mm relaxers MDs prescribe but they make her so sleepy that she cannot do it for long. She tries for 10-12 days but it only helps a little. Pt reports she is constantly moving when she sleeps d/t pain in R shoulder. pt has chronic LBP Prior Treatments and Tests MRI brain-WNL, Xray neck( from report-IMPRESSION: C6-C7 moderate to moderately severe degenerative disc disease without subluxation. No definite acute disease is found, however.), carotid doppler-WNL , ENT testing, dental treatment w/over the counter mouth guard, PT-some help, chiro-some help, 1x massage, normal swallow based on MBS Treatment Goals Patient/Caregiver Goals dec pain w/daily activities, improve sleep PT-OP-C Subjective Start: 03/29/21 12:31 Freq: Status: Active Protocol: Document 05/05/21 16:07 MA (Rec: 05/05/21 17:02 [place] [id number]) OP-PT Subjective Patient Comments Patient Comments Pt had increased neck pain again over the weekend. She had to call out of work on Saturday due to pain. Pain has been pretty consistent since the weekend. She is now having R ear aches, suboccipital DEVI, and R neck pain. PT-OP-F Manual Assessment Start: 03/29/21 12:31 Freq: Status: Active Protocol: Document 03/30/21 12:04 [facility] (Rec: 03/30/21 13:02 [facility] [id number]) Manual Assessments Soft Tissue Assessment Soft Tissue Mobility Assessment R>L UT, LS, scalenes, SCM, temporalis, masseter, rhomboids, lats, traps Joint Mobility Assessment Joint Mobility Assessment 1st rib eelvation, ant humerus in glenoid PT-OP-J Posture/Palpation/Skin Start: 03/29/21 12:31 Freq: Status: Active Protocol: Document 03/30/21 12:04 [facility] (Rec: 03/30/21 13:02 [facility] [id number]) Posture Evaluation [facility] Postural Classification System Elbow Flexion Test 0 Comments Posture Comments fwd shoulders R>L, IR R shoulder, SB neck L shear R, R 1st rib elevated, fwd head PT-OP-K Range of Motion Start: 03/29/21 12:31 Freq: Status: Active Protocol: Document 03/30/21 12:04 [facility] (Rec: 03/30/21 13:02 [facility] [id number]) Cervical Spine Range of Motion Cervical Spine Active Degrees Flexion 34 Extension 57 Rotation Left 42 Rotation Right 45 Lateral Flexion Left 24 Lateral Flexion Right 24 Comments pain R rot, flex TMJ Range of Motion Comments Comments slight deviation to L w/WNL ROM Shoulder Goniometric Range of Motion Shoulder ROM Limitations Comments pain at end ranges w/RUE ROM and missing about 10 deg in most motions as compared to L PT-OP-L Special Tests Start: 03/29/21 12:31 Freq: Status: Active Protocol: Document 03/30/21 12:04 [facility] (Rec: 03/30/21 13:02 [facility] [id number]) Special Tests Neural Special Tests- Upper Body Ulnar Nerve Tension Test Results neg R Median Nerve Tension Test Results positive R Radial Nerve Tension Test Results positive r PT-OP-M Strength Start: 03/29/21 12:31 Freq: Status: Active Protocol: Document 03/30/21 12:04 [facility] (Rec: 03/30/21 13:02 [facility] [id number]) Shoulder Strength Shoulder Manual Muscle Testing Left Flexion 4 Good Extension 4+ Good+ Abduction (C5) 4 Good External Rotation 4 Good Internal Rotation 4 Good Right Flexion 3+ Fair+ Extension 3+ Fair+ Abduction (C5) 3+ Fair+ External Rotation 3+ Fair+ Internal Rotation 3+ Fair+ Elbow/Forearm Strength Elbow and Forearm Manual Muscle Testing Left Flexion (C6) 4+ Good+ Extension (C7) 5 Normal Right Flexion (C6) 4- Good- Extension (C7) 4- Good- Hand Optical Goods Worker/Pinch Strength Hand Strength Right Comments 30lb, 25lb 33lb Left Comments 45lb, 30lb, 35lb PT-OP-Q Treatments Start: 03/29/21 12:31 Freq: Status: Active Protocol: Document 05/05/21 16:07 MA (Rec: 05/05/21 17:02 MA [id number]) Therapeutic Exercises Sitting Exercises Stretch Sitting Exercise Name gentle ROM and UT/levator stretches Side bilateral Reps/Minutes 4' Manual Therapy Treatment Soft Tissue Mobilization paraspinals Body Location R>L cervical paraspinals Mobilization Type Rolling Intensity/Depth Superficial Body Position Supine UT/LS Body Location R UT, mid trap, LS & scalenes & SCM Mobilization Type Rolling,Strumming,Sustained Pressure Intensity/Depth Moderate Body Position Supine Comments w/ chin tuck Manual Traction CS Details cervical traction Reps/Duration 2x1' Self-Care/Home Management Treatment Education Other Education Educated pt on continuing to work on posture throughout day ; discussed what could be causing ear ache/DEVI; encouraged pt to stretch and use heating pad at home this weekend; educated on sleeping position and using a thicker pillow for more neck support when side sleeping. PT-OP-R Modalities Start: 03/29/21 12:31 Freq: Status: Active Protocol: Document 04/26/21 11:54 MA (Rec: 04/26/21 12:50 MA [id number]) Electric Stimulation Electric Stimulation IFC Body Location R UT Duration (Minutes) 15 Intensity 12 Target/Sweep Sweep High/Low Low Patient Position Supine Combined With Heat/Cold Hot Pack PT-OP-T Assessment and Plan Start: 03/29/21 12:31 Freq: Status: Active Protocol: Document 05/05/21 16:07 MA (Rec: 05/05/21 17:02 MA [id number]) Physical Therapy Assessment Goals sleep Short Term Goal (STG) Pt will be able to prop self comfortably to be able to have inc ease of falling asleep and staying asleep. STG Duration 04/30/21 Long-Term Goal (LTG) Pt will be sherie to sleep through the night waking up no more than 1x to readjust LTG Duration 06/28/21 activties Short Term Goal (STG) Pt will have neg median and radial n tension testing in order to improve return to UE activities w/dec pain. STG Duration Choir Accompanist Goal (LTG) Pt will be able to do all work tasks and housework w/o inc pain greater than 2/10 LTG Duration 06/28/21 strength Short Term Goal (STG) Pt will be indep w/HEP for ROM , strength and mobility. STG Duration 04/30/21 Long-Term Goal (LTG) pt will improve UE strength to 5/5 B w/o inc pain and city collector strength to age related norms and EFT to at least 4/5 to show improved stabilty in order for pt to carry out work related tasks w/o inc pain. LTG Duration 06/28/21 ROM Short Term Goal (STG) pt will have equal R to L shoulder ROM w/o pain at end ranges STG Duration 05/29/21 Choir Accompanist Goal (LTG) Pt will have full cervical motion without pain in order to imrpove pt's ability to do typical daily activities like driving, and work. LTG Duration 06/28/21 Assessment Summary Assessment Pt arrives with R side cervical pain and R ear pain this session. Pain improves after STM and ear no longer hurts by end of session. Educated pt on mm that could cause DEVI and ear pain felt. Discussed sleeping with a thicker pillow for more cervical support as pt is a side sleeper. Encouraged pt to continue with gentle stretches this weekend and being more mindful of forward head posture. Physical Therapy Plan Frequency and Duration Frequency of Treatment 1-2x/week Duration of Treatment 3 months Plan of Care Start Date 03/30/21 Plan of Care End Date 06/28/21 Therapeutic Interventions Therapeutic Interventions Home Exercise Program,Joint Mobilizations,Manual Therapy, Neuromuscular Re-education, Patient/Caregiver Education, Self-Care/Home Management,Soft Tissue Mobilization,Taping, Therapeutic Activities, Therapeutic Exercises Modalities Cold Pack/Ice Massage,Electric Stimulation,Hot Packs, Infrared Therapy,Traction- Mechanical,Ultrasound Next Visit Focus/Plan Next Note Type Treatment Note Next Visit Plan cont to work cervical mobility for R rot, review lifting as needed
--- NOTE | 2021-05-10 18:13 | PT.OTN ---
Current Diagnoses Tension-type headache, unspecified, not intractable (05/10/21) Other muscle spasm (05/10/21) Abnormal posture (05/10/21) Weakness (05/10/21) Jaw pain (05/10/21) Strain of muscle, fascia and tendon at neck level, initial encounter (05/10/21) Physical Therapy Treatment Note PT-OP-A Visit Information Start: 03/29/21 12:31 Freq: Status: Active Protocol: Document 05/10/21 17:52 [facility] (Rec: 05/10/21 18:13 [facility] [id number]) Out-Patient Physical Therapy Visit Information Visit Information Visit Type Treatment Note Visit Start Time 16:50 Visit Stop Time 17:31 Total Visit Minutes 41 Visit Number 10 Number of GRIZZLY WORKER Visits 0 PT-OP-B Current Condition Start: 03/29/21 12:31 Freq: Status: Active Protocol: Document 03/30/21 12:04 [facility] (Rec: 03/30/21 13:02 [facility] [id number]) Current Condition History of Current Condition Onset Date 2017 start w/neck pain but constant since 2019 & recent worsening Current Complaints neck pain, DEVI, R UE pain, R jaw pain History of Current Condition Pt reports months after last time PT session and was doing Botox for DEVI but they haven't had much improvement. She saw chiro for about 3 months and it helped a little. She was doing her PT exercises for a while but has stopped. Pt has pain in ears now and hurts R upper neck all to inf shoulder blade and into upper R brachium and goes occ into forearm. Pt has pain B w/neck and w/head and ears. Pt has DEVI pretty much every day. Some days she can deal with it and other days it gets worse. Pt reports ears are sensative to noises like loud noises (like closing doors and dropping something, noises in the kitchen). She doesn't ahve any infection and saw ENT and they said nothing is wrong w/ her ears. Pt gets jaw pain and when gets botox gets it in her jaw, neck and R shoulder. Pt repots sometimes when she gts really bad DEVI then she feels it go into jaw. She told her dentist about pain in jaw /R mouth and was told her teeth are fine. She clenches and is supposed to wear a guard lieutenant at night but she hasn't done it. She got the ones at the store but they don 't stay in place. It would cost $600 to do out of pocket nigtht guard. Pt reports she has had constant DEVI and neck pain about 2 years ago. Pt reports she feels like PT exercises helped a little (was only able to do about 3x/week ). Pt tried massage but was frustrated because the person did entire body and it didn't help. She uses self massage tools but only helps sometimes . Pt gets only a little bit of dizziness. Notices only when sitting up. She has to lift, push and pull heavy stuff and does a lot of repitions of opening boxes and this all inc pain.SOmetimes just putting force to use knife and it starts to hurt before even moving knife. She has tried mm relaxers MDs prescribe but they make her so sleepy that she cannot do it for long. She tries for 10-12 days but it only helps a little. Pt reports she is constantly moving when she sleeps d/t pain in R shoulder. pt has chronic LBP Prior Treatments and Tests MRI brain-WNL, Xray neck( from report-IMPRESSION: C6-C7 moderate to moderately severe degenerative disc disease without subluxation. No definite acute disease is found, however.), carotid doppler-WNL , ENT testing, dental treatment w/over the counter mouth guard, PT-some help, chiro-some help, 1x massage, normal swallow based on MBS Treatment Goals Patient/Caregiver Goals dec pain w/daily activities, improve sleep PT-OP-C Subjective Start: 03/29/21 12:31 Freq: Status: Active Protocol: Document 05/10/21 17:52 [facility] (Rec: 05/10/21 18:13 [facility] [id number]) OP-PT Subjective Patient Comments Patient Comments Pt reprots she has good days and bad days. Sometimes neck is really sore but sometimes not. Notes mostly UT region pain and mild DEVI but no UE pain. PT-OP-F Manual Assessment Start: 03/29/21 12:31 Freq: Status: Active Protocol: Document 03/30/21 12:04 [facility] (Rec: 03/30/21 13:02 [facility] [id number]) Manual Assessments Soft Tissue Assessment Soft Tissue Mobility Assessment R>L UT, LS, scalenes, SCM, temporalis, masseter, rhomboids, lats, traps Joint Mobility Assessment Joint Mobility Assessment 1st rib eelvation, ant humerus in glenoid PT-OP-J Posture/Palpation/Skin Start: 03/29/21 12:31 Freq: Status: Active Protocol: Document 03/30/21 12:04 [facility] (Rec: 03/30/21 13:02 [facility] [id number]) Posture Evaluation [facility] Postural Classification System Elbow Flexion Test 0 Comments Posture Comments fwd shoulders R>L, IR R shoulder, SB neck L shear R, R 1st rib elevated, fwd head PT-OP-K Range of Motion Start: 03/29/21 12:31 Freq: Status: Active Protocol: Document 03/30/21 12:04 [facility] (Rec: 03/30/21 13:02 [facility] [id number]) Cervical Spine Range of Motion Cervical Spine Active Degrees Flexion 34 Extension 57 Rotation Left 42 Rotation Right 45 Lateral Flexion Left 24 Lateral Flexion Right 24 Comments pain R rot, flex TMJ Range of Motion Comments Comments slight deviation to L w/WNL ROM Shoulder Goniometric Range of Motion Shoulder ROM Limitations Comments pain at end ranges w/RUE ROM and missing about 10 deg in most motions as compared to L PT-OP-L Special Tests Start: 03/29/21 12:31 Freq: Status: Active Protocol: Document 03/30/21 12:04 [facility] (Rec: 03/30/21 13:02 [facility] [id number]) Special Tests Neural Special Tests- Upper Body Ulnar Nerve Tension Test Results neg R Median Nerve Tension Test Results positive R Radial Nerve Tension Test Results positive r PT-OP-M Strength Start: 03/29/21 12:31 Freq: Status: Active Protocol: Document 03/30/21 12:04 [facility] (Rec: 03/30/21 13:02 [facility] [id number]) Shoulder Strength Shoulder Manual Muscle Testing Left Flexion 4 Good Extension 4+ Good+ Abduction (C5) 4 Good External Rotation 4 Good Internal Rotation 4 Good Right Flexion 3+ Fair+ Extension 3+ Fair+ Abduction (C5) 3+ Fair+ External Rotation 3+ Fair+ Internal Rotation 3+ Fair+ Elbow/Forearm Strength Elbow and Forearm Manual Muscle Testing Left Flexion (C6) 4+ Good+ Extension (C7) 5 Normal Right Flexion (C6) 4- Good- Extension (C7) 4- Good- Hand Bilingual Office Assistant/Pinch Strength Hand Strength Right Comments 30lb, 25lb 33lb Left Comments 45lb, 30lb, 35lb PT-OP-Q Treatments Start: 03/29/21 12:31 Freq: Status: Active Protocol: Document 05/10/21 17:52 [facility] (Rec: 05/10/21 18:13 [facility] [id number]) Manual Therapy Treatment Soft Tissue Mobilization post neck Body Location SOR Mobilization Type Sustained Pressure paraspinals Body Location R>L cervical paraspinals Mobilization Type Rolling Intensity/Depth Superficial Body Position Supine UT/LS Body Location R UT, mid trap, LS & scalenes & SCM Mobilization Type Rolling,Strumming,Sustained Pressure Intensity/Depth Moderate Body Position Supine 1 Body Location R rhomboids Mobilization Type Rolling Intensity/Depth Moderate Body Position Sidelying Joint Mobilizations Cervical Joint C5 AP FM 1st rib Body Position Supine Comments 1st and 2nd rib caudal FM 2nd rib AP FM 3rd rib AP & caudal FM T spine Comments 1. UPA T 1-2 FM supine w/chin tuck 2. transverse L FM T1 3. T5 transverse L FM s/l Neuro Re-Education Treatment Other Activities PNF Details R post dep sustained hold Self-Care/Home Management Treatment Education Other Education edu importance for checking scap posture through day PT-OP-R Modalities Start: 03/29/21 12:31 Freq: Status: Active Protocol: Document 04/26/21 11:54 [facility] (Rec: 04/26/21 12:50 [facility] [id number]) Electric Stimulation Electric Stimulation IFC Body Location R UT Duration (Minutes) 15 Intensity 12 Target/Sweep Sweep High/Low Low Patient Position Supine Combined With Heat/Cold Hot Pack PT-OP-T Assessment and Plan Start: 03/29/21 12:31 Freq: Status: Active Protocol: Document 05/10/21 17:52 [facility] (Rec: 05/10/21 18:13 [facility] [id number]) Physical Therapy Assessment Goals sleep Short Term Goal (STG) Pt will be able to prop self comfortably to be able to have inc ease of falling asleep and staying asleep. STG Duration 04/30/21 Education Counselor Goal (LTG) Pt will be sherie to sleep through the night waking up no more than 1x to readjust LTG Duration 06/28/21 activties Short Term Goal (STG) Pt will have neg median and radial n tension testing in order to improve return to UE activities w/dec pain. STG Duration Education Counselor Goal (LTG) Pt will be able to do all work tasks and housework w/o inc pain greater than 2/10 LTG Duration 06/28/21 strength Short Term Goal (STG) Pt will be indep w/HEP for ROM , strength and mobility. STG Duration 04/30/21 Mcc Goal (LTG) pt will improve UE strength to 5/5 B w/o inc pain and seed laboratory technician strength to age related norms and EFT to at least 4/5 to show improved stabilty in order for pt to carry out work related tasks w/o inc pain. LTG Duration 06/28/21 ROM Short Term Goal (STG) pt will have equal R to L shoulder ROM w/o pain at end ranges STG Duration 05/29/21 Mcc Goal (LTG) Pt will have full cervical motion without pain in order to imrpove pt's ability to do typical daily activities like driving, and work. LTG Duration 06/28/21 Assessment Summary Assessment Pt had imrpoved R AROM rot from about 65% to about 75% after manual therapy and L rot AROm from about 80% to 90% after manual treatment and signifiacnlty improved ability to scap depress/retract to allow cervical mm to relax. Physical Therapy Plan Frequency and Duration Frequency of Treatment 1-2x/week Duration of Treatment 3 months Plan of Care Start Date 03/30/21 Plan of Care End Date 06/28/21 Next Visit Focus/Plan Next Note Type Treatment Note Next Visit Plan work on cervical mobility and scap mobility to improve R scap depression; review exercises
--- NOTE | 2021-05-18 17:49 | PT.OTN ---
Current Diagnoses Tension-type headache, unspecified, not intractable (05/18/21) Other muscle spasm (05/18/21) Abnormal posture (05/18/21) Weakness (05/18/21) Jaw pain (05/18/21) Strain of muscle, fascia and tendon at neck level, initial encounter (05/18/21) Physical Therapy Treatment Note PT-OP-A Visit Information Start: 03/29/21 12:31 Freq: Status: Active Protocol: Document 05/18/21 16:41 [facility] (Rec: 05/18/21 17:49 [facility] [id number]) Out-Patient Physical Therapy Visit Information Visit Information Visit Type Treatment Note Visit Start Time 16:47 Visit Stop Time 17:30 Total Visit Minutes 43 Visit Number 11 Number of CATERPILLAR OPERATOR Visits 0 PT-OP-B Current Condition Start: 03/29/21 12:31 Freq: Status: Active Protocol: Document 03/30/21 12:04 [facility] (Rec: 03/30/21 13:02 [facility] [id number]) Current Condition History of Current Condition Onset Date 2017 start w/neck pain but constant since 2019 & recent worsening Current Complaints neck pain, DEVI, R UE pain, R jaw pain History of Current Condition Pt reports months after last time PT session and was doing Botox for DEVI but they haven't had much improvement. She saw chiro for about 3 months and it helped a little. She was doing her PT exercises for a while but has stopped. Pt has pain in ears now and hurts R upper neck all to inf shoulder blade and into upper R brachium and goes occ into forearm. Pt has pain B w/neck and w/head and ears. Pt has DEVI pretty much every day. Some days she can deal with it and other days it gets worse. Pt reports ears are sensative to noises like loud noises (like closing doors and dropping something, noises in the kitchen). She doesn't ahve any infection and saw ENT and they said nothing is wrong w/ her ears. Pt gets jaw pain and when gets botox gets it in her jaw, neck and R shoulder. Pt repots sometimes when she gts really bad DEVI then she feels it go into jaw. She told her dentist about pain in jaw /R mouth and was told her teeth are fine. She clenches and is supposed to wear a receiver stocker at night but she hasn't done it. She got the ones at the store but they don 't stay in place. It would cost $600 to do out of pocket nigtht guard. Pt reports she has had constant DEVI and neck pain about 2 years ago. Pt reports she feels like PT exercises helped a little (was only able to do about 3x/week ). Pt tried massage but was frustrated because the person did entire body and it didn't help. She uses self massage tools but only helps sometimes . Pt gets only a little bit of dizziness. Notices only when sitting up. She has to lift, push and pull heavy stuff and does a lot of repitions of opening boxes and this all inc pain.SOmetimes just putting force to use knife and it starts to hurt before even moving knife. She has tried mm relaxers MDs prescribe but they make her so sleepy that she cannot do it for long. She tries for 10-12 days but it only helps a little. Pt reports she is constantly moving when she sleeps d/t pain in R shoulder. pt has chronic LBP Prior Treatments and Tests MRI brain-WNL, Xray neck( from report-IMPRESSION: C6-C7 moderate to moderately severe degenerative disc disease without subluxation. No definite acute disease is found, however.), carotid doppler-WNL , ENT testing, dental treatment w/over the counter mouth guard, PT-some help, chiro-some help, 1x massage, normal swallow based on MBS Treatment Goals Patient/Caregiver Goals dec pain w/daily activities, improve sleep PT-OP-C Subjective Start: 03/29/21 12:31 Freq: Status: Active Protocol: Document 05/18/21 16:41 [facility] (Rec: 05/18/21 17:49 [facility] [id number]) OP-PT Subjective Patient Comments Patient Comments Pt reports last weekend and week and sometimes she doesn't feel it at all. She thinks she has been doing well. Notes some pain in R temporal area the other day. Took migrane med and after going to bed that evening, felt finethe next day. thinks sometimes gets pain when sitting on couch for long periods watching TV Patient Reported Progress Improving PT-OP-F Manual Assessment Start: 03/29/21 12:31 Freq: Status: Active Protocol: Document 03/30/21 12:04 [facility] (Rec: 03/30/21 13:02 [facility] [id number]) Manual Assessments Soft Tissue Assessment Soft Tissue Mobility Assessment R>L UT, LS, scalenes, SCM, temporalis, masseter, rhomboids, lats, traps Joint Mobility Assessment Joint Mobility Assessment 1st rib eelvation, ant humerus in glenoid PT-OP-J Posture/Palpation/Skin Start: 03/29/21 12:31 Freq: Status: Active Protocol: Document 03/30/21 12:04 [facility] (Rec: 03/30/21 13:02 [facility] [id number]) Posture Evaluation [facility] Postural Classification System Elbow Flexion Test 0 Comments Posture Comments fwd shoulders R>L, IR R shoulder, SB neck L shear R, R 1st rib elevated, fwd head PT-OP-K Range of Motion Start: 03/29/21 12:31 Freq: Status: Active Protocol: Document 03/30/21 12:04 [facility] (Rec: 03/30/21 13:02 [facility] [id number]) Cervical Spine Range of Motion Cervical Spine Active Degrees Flexion 34 Extension 57 Rotation Left 42 Rotation Right 45 Lateral Flexion Left 24 Lateral Flexion Right 24 Comments pain R rot, flex TMJ Range of Motion Comments Comments slight deviation to L w/WNL ROM Shoulder Goniometric Range of Motion Shoulder ROM Limitations Comments pain at end ranges w/RUE ROM and missing about 10 deg in most motions as compared to L PT-OP-L Special Tests Start: 03/29/21 12:31 Freq: Status: Active Protocol: Document 03/30/21 12:04 [facility] (Rec: 03/30/21 13:02 [facility] [id number]) Special Tests Neural Special Tests- Upper Body Ulnar Nerve Tension Test Results neg R Median Nerve Tension Test Results positive R Radial Nerve Tension Test Results positive r PT-OP-M Strength Start: 03/29/21 12:31 Freq: Status: Active Protocol: Document 03/30/21 12:04 [facility] (Rec: 03/30/21 13:02 [facility] [id number]) Shoulder Strength Shoulder Manual Muscle Testing Left Flexion 4 Good Extension 4+ Good+ Abduction (C5) 4 Good External Rotation 4 Good Internal Rotation 4 Good Right Flexion 3+ Fair+ Extension 3+ Fair+ Abduction (C5) 3+ Fair+ External Rotation 3+ Fair+ Internal Rotation 3+ Fair+ Elbow/Forearm Strength Elbow and Forearm Manual Muscle Testing Left Flexion (C6) 4+ Good+ Extension (C7) 5 Normal Right Flexion (C6) 4- Good- Extension (C7) 4- Good- Hand Process Tank Tender/Pinch Strength Hand Strength Right Comments 30lb, 25lb 33lb Left Comments 45lb, 30lb, 35lb PT-OP-Q Treatments Start: 03/29/21 12:31 Freq: Status: Active Protocol: Document 05/18/21 16:41 [facility] (Rec: 05/18/21 17:49 [facility] [id number]) Manual Therapy Treatment Soft Tissue Mobilization post neck Body Location SOR Mobilization Type Sustained Pressure cranial fascia Body Location R temporalis Mobilization Type Rolling paraspinals Body Location R>L cervical paraspinals Mobilization Type Rolling Intensity/Depth Superficial Body Position Supine UT/LS Body Location R UT, LS & scalenes & SCM Mobilization Type Rolling,Strumming,Sustained Pressure Intensity/Depth Moderate Body Position Hooklying Joint Mobilizations Cervical Joint C2 transverse glide FM L 1st rib Body Position Supine Comments 1st and 2nd rib caudal FM T spine Comments 1. UPA & PA T1-2 seatd FM Self-Care/Home Management Treatment Education Other Education edu re: use of throw pillows to prop spine into better alignment on couchand how that affects neck. Edu to cont current exercises at home. Edu how to prop self if leaning to side or laying on the couch too and working on neutral neck alignment PT-OP-R Modalities Start: 03/29/21 12:31 Freq: Status: Active Protocol: Document 04/26/21 11:54 [facility] (Rec: 04/26/21 12:50 [facility] [id number]) Electric Stimulation Electric Stimulation IFC Body Location R UT Duration (Minutes) 15 Intensity 12 Target/Sweep Sweep High/Low Low Patient Position Supine Combined With Heat/Cold Hot Pack PT-OP-T Assessment and Plan Start: 03/29/21 12:31 Freq: Status: Active Protocol: Document 05/18/21 16:41 [facility] (Rec: 05/18/21 17:49 [facility] [id number]) Physical Therapy Assessment Goals sleep Short Term Goal (STG) Pt will be able to prop self comfortably to be able to have inc ease of falling asleep and staying asleep. STG Duration 04/30/21 Theater Teacher Goal (LTG) Pt will be sherie to sleep through the night waking up no more than 1x to readjust LTG Duration 06/28/21 activties Short Term Goal (STG) Pt will have neg median and radial n tension testing in order to improve return to UE activities w/dec pain. STG Duration Intermediate Goal (LTG) Pt will be able to do all work tasks and housework w/o inc pain greater than 2/10 LTG Duration 06/28/21 strength Short Term Goal (STG) Pt will be indep w/HEP for ROM , strength and mobility. STG Duration 04/30/21 Theater Teacher Goal (LTG) pt will improve UE strength to 5/5 B w/o inc pain and pedigree tracer strength to age related norms and EFT to at least 4/5 to show improved stabilty in order for pt to carry out work related tasks w/o inc pain. LTG Duration 06/28/21 ROM Short Term Goal (STG) pt will have equal R to L shoulder ROM w/o pain at end ranges STG Duration 05/29/21 Intermediate Goal (LTG) Pt will have full cervical motion without pain in order to imrpove pt's ability to do typical daily activities like driving, and work. LTG Duration 06/28/21 Assessment Summary Assessment Pt did well with ROM and improved to have equal ROM to about 90% of range B after mnaul and less tightness when turning to R. She started w/ about 75% to R and 85% to L. Pt had improved cervical ext w /less discomfort after manual. Physical Therapy Plan Frequency and Duration Frequency of Treatment 1-2x/week Duration of Treatment 3 months Plan of Care Start Date 03/30/21 Plan of Care End Date 06/28/21 Next Visit Focus/Plan Next Note Type Treatment Note Next Visit Plan Cont to work on cranial mobility & cervical moblity to allow for improved scap movement, try further scap staibltiy exercises.
--- NOTE | 2021-05-31 16:56 | PT.OTN ---
Current Diagnoses Tension-type headache, unspecified, not intractable (05/31/21) Other muscle spasm (05/31/21) Abnormal posture (05/31/21) Weakness (05/31/21) Jaw pain (05/31/21) Strain of muscle, fascia and tendon at neck level, initial encounter (05/31/21) Physical Therapy Treatment Note PT-OP-A Visit Information Start: 03/29/21 12:31 Freq: Status: Active Protocol: Document 05/31/21 16:04 MA (Rec: 05/31/21 16:56 MA [id number]) Out-Patient Physical Therapy Visit Information Visit Information Visit Type Treatment Note Visit Start Time 16:05 Visit Stop Time 16:55 Total Visit Minutes 50 Visit Number 12 Number of HAMMER SMITH Visits 1 PT-OP-B Current Condition Start: 03/29/21 12:31 Freq: Status: Active Protocol: Document 03/30/21 12:04 [facility] (Rec: 03/30/21 13:02 [facility] [id number]) Current Condition History of Current Condition Onset Date 2017 start w/neck pain but constant since 2019 & recent worsening Current Complaints neck pain, DEVI, R UE pain, R jaw pain History of Current Condition Pt reports months after last time PT session and was doing Botox for DEVI but they haven't had much improvement. She saw chiro for about 3 months and it helped a little. She was doing her PT exercises for a while but has stopped. Pt has pain in ears now and hurts R upper neck all to inf shoulder blade and into upper R brachium and goes occ into forearm. Pt has pain B w/neck and w/head and ears. Pt has DEVI pretty much every day. Some days she can deal with it and other days it gets worse. Pt reports ears are sensative to noises like loud noises (like closing doors and dropping something, noises in the kitchen). She doesn't ahve any infection and saw ENT and they said nothing is wrong w/ her ears. Pt gets jaw pain and when gets botox gets it in her jaw, neck and R shoulder. Pt repots sometimes when she gts really bad DEVI then she feels it go into jaw. She told her dentist about pain in jaw /R mouth and was told her teeth are fine. 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 She got the ones at the store but they don 't stay in place. It would cost $600 to do out of pocket nigtht guard. Pt reports she has had constant DEVI and neck pain about 2 years ago. Pt reports she feels like PT exercises helped a little (was only able to do about 3x/week ). Pt tried massage but was frustrated because the person did entire body and it didn't help. She uses self massage tools but only helps sometimes . Pt gets only a little bit of dizziness. Notices only when sitting up. She has to lift, push and pull heavy stuff and does a lot of repitions of opening boxes and this all inc pain.SOmetimes just putting force to use knife and it starts to hurt before even moving knife. She has tried mm relaxers MDs prescribe but they make her so sleepy that she cannot do it for long. She tries for 10-12 days but it only helps a little. Pt reports she is constantly moving when she sleeps d/t pain in R shoulder. pt has chronic LBP Prior Treatments and Tests MRI brain-WNL, Xray neck( from report-IMPRESSION: C6-C7 moderate to moderately severe degenerative disc disease without subluxation. No definite acute disease is found, however.), carotid doppler-WNL , ENT testing, dental treatment w/over the counter mouth guard, PT-some help, chiro-some help, 1x massage, normal swallow based on MBS Treatment Goals Patient/Caregiver Goals dec pain w/daily activities, improve sleep PT-OP-C Subjective Start: 03/29/21 12:31 Freq: Status: Active Protocol: Document 05/31/21 16:04 MA (Rec: 05/31/21 16:56 MA [id number]) OP-PT Subjective Patient Comments Patient Comments Pt has not had a DEVI since last week. Her neck pain has improved. She has had issues swallowing for ~2 years and recently got an endoscopy and colonoscopy but does not have results. PT-OP-F Manual Assessment Start: 03/29/21 12:31 Freq: Status: Active Protocol: Document 03/30/21 12:04 [facility] (Rec: 03/30/21 13:02 [facility] [id number]) Manual Assessments Soft Tissue Assessment Soft Tissue Mobility Assessment R>L UT, LS, scalenes, SCM, temporalis, masseter, rhomboids, lats, traps Joint Mobility Assessment Joint Mobility Assessment 1st rib eelvation, ant humerus in glenoid PT-OP-J Posture/Palpation/Skin Start: 03/29/21 12:31 Freq: Status: Active Protocol: Document 03/30/21 12:04 [facility] (Rec: 03/30/21 13:02 [facility] [id number]) Posture Evaluation [facility] Postural Classification System Elbow Flexion Test 0 Comments Posture Comments fwd shoulders R>L, IR R shoulder, SB neck L shear R, R 1st rib elevated, fwd head PT-OP-K Range of Motion Start: 03/29/21 12:31 Freq: Status: Active Protocol: Document 03/30/21 12:04 [facility] (Rec: 03/30/21 13:02 [facility] [id number]) Cervical Spine Range of Motion Cervical Spine Active Degrees Flexion 34 Extension 57 Rotation Left 42 Rotation Right 45 Lateral Flexion Left 24 Lateral Flexion Right 24 Comments pain R rot, flex TMJ Range of Motion Comments Comments slight deviation to L w/WNL ROM Shoulder Goniometric Range of Motion Shoulder ROM Limitations Comments pain at end ranges w/RUE ROM and missing about 10 deg in most motions as compared to L PT-OP-L Special Tests Start: 03/29/21 12:31 Freq: Status: Active Protocol: Document 03/30/21 12:04 [facility] (Rec: 03/30/21 13:02 [facility] [id number]) Special Tests Neural Special Tests- Upper Body Ulnar Nerve Tension Test Results neg R Median Nerve Tension Test Results positive R Radial Nerve Tension Test Results positive r PT-OP-M Strength Start: 03/29/21 12:31 Freq: Status: Active Protocol: Document 03/30/21 12:04 [facility] (Rec: 03/30/21 13:02 [facility] [id number]) Shoulder Strength Shoulder Manual Muscle Testing Left Flexion 4 Good Extension 4+ Good+ Abduction (C5) 4 Good External Rotation 4 Good Internal Rotation 4 Good Right Flexion 3+ Fair+ Extension 3+ Fair+ Abduction (C5) 3+ Fair+ External Rotation 3+ Fair+ Internal Rotation 3+ Fair+ Elbow/Forearm Strength Elbow and Forearm Manual Muscle Testing Left Flexion (C6) 4+ Good+ Extension (C7) 5 Normal Right Flexion (C6) 4- Good- Extension (C7) 4- Good- Hand Plywood Layup Line Back Feeder/Pinch Strength Hand Strength Right Comments 30lb, 25lb 33lb Left Comments 45lb, 30lb, 35lb PT-OP-Q Treatments Start: 03/29/21 12:31 Freq: Status: Active Protocol: Document 05/31/21 16:04 MA (Rec: 05/31/21 16:56 MA [id number]) Therapeutic Exercises Sidelying Exercises open book Side bilateral Reps/Minutes 6 Comments significantly less range w/RUE Sitting Exercises Stretch Sitting Exercise Name gentle ROM and UT/levator stretches Side bilateral Reps/Minutes 4' Chin Tucks Sitting Exercise Name Cervical retraction-chin truck s Reps/Minutes 2x8 Manual Therapy Treatment Soft Tissue Mobilization paraspinals Body Location R>L cervical paraspinals Mobilization Type Rolling Intensity/Depth Superficial Body Position Supine UT/LS Body Location R UT, LS & scalenes & SCM Mobilization Type Rolling,Strumming,Sustained Pressure Intensity/Depth Moderate Body Position Hooklying Joint Mobilizations Cervical Joint C2 transverse glide FM L 1st rib Body Position Supine Comments 1st and 2nd rib caudal FM Manual Traction CS Details cervical traction Reps/Duration 2x1' PT-OP-R Modalities Start: 03/29/21 12:31 Freq: Status: Active Protocol: Document 05/31/21 16:04 MA (Rec: 05/31/21 16:56 MA [id number]) Hot Pack/Cold Pack Treatment Hot Pack Location CS Patient Position Hooklying Treatment Duration (minutes) 10 Patient Tolerance Good PT-OP-T Assessment and Plan Start: 03/29/21 12:31 Freq: Status: Active Protocol: Document 05/31/21 16:04 MA (Rec: 05/31/21 16:56 MA [id number]) Physical Therapy Assessment Goals sleep Short Term Goal (STG) Pt will be able to prop self comfortably to be able to have inc ease of falling asleep and staying asleep. STG Duration 04/30/21 Fdc Goal (LTG) Pt will be sherie to sleep through the night waking up no more than 1x to readjust LTG Duration 06/28/21 activties Short Term Goal (STG) Pt will have neg median and radial n tension testing in order to improve return to UE activities w/dec pain. STG Duration Fdc Goal (LTG) Pt will be able to do all work tasks and housework w/o inc pain greater than 2/10 LTG Duration 06/28/21 strength Short Term Goal (STG) Pt will be indep w/HEP for ROM , strength and mobility. STG Duration 04/30/21 Computer Programming Professor Goal (LTG) pt will improve UE strength to 5/5 B w/o inc pain and station manager strength to age related norms and EFT to at least 4/5 to show improved stabilty in order for pt to carry out work related tasks w/o inc pain. LTG Duration 06/28/21 ROM Short Term Goal (STG) pt will have equal R to L shoulder ROM w/o pain at end ranges STG Duration 05/29/21 Computer Programming Professor Goal (LTG) Pt will have full cervical motion without pain in order to imrpove pt's ability to do typical daily activities like driving, and work. LTG Duration 06/28/21 Assessment Summary Assessment Marely was able to increase cervical ROM from 60-68 degrees R rotation and from 70 -73 degrees L. She mentions during therapy that she has some discomfort during open book exercise at home. Reviewed exercise and pt states she usually only uses one flat pillow to support her head but has no discomfort when she uses two pillows today at therapy. Discomfort was likely caused by pt sidebending with rotation. Physical Therapy Plan Frequency and Duration Frequency of Treatment 1-2x/week Duration of Treatment 3 months Plan of Care Start Date 03/30/21 Plan of Care End Date 06/28/21 Therapeutic Interventions Therapeutic Interventions Home Exercise Program,Joint Mobilizations,Manual Therapy, Neuromuscular Re-education, Patient/Caregiver Education, Self-Care/Home Management,Soft Tissue Mobilization,Taping, Therapeutic Activities, Therapeutic Exercises Modalities Cold Pack/Ice Massage,Electric Stimulation,Hot Packs, Infrared Therapy,Traction- Mechanical,Ultrasound Next Visit Focus/Plan Next Note Type Treatment Note Next Visit Plan Cont to work on cranial mobility & cervical moblity to allow for improved scap movement, try further scap staibltiy exercises.
--- NOTE | 2021-06-07 09:06 | PT.OTN ---
Current Diagnoses Tension-type headache, unspecified, not intractable (06/07/21) Other muscle spasm (06/07/21) Abnormal posture (06/07/21) Weakness (06/07/21) Jaw pain (06/07/21) Strain of muscle, fascia and tendon at neck level, initial encounter (06/07/21) Physical Therapy Treatment Note PT-OP-A Visit Information Start: 03/29/21 12:31 Freq: Status: Active Protocol: Document 06/07/21 08:19 [facility] (Rec: 06/07/21 09:06 [facility] [id number]) Out-Patient Physical Therapy Visit Information Visit Information Visit Type Treatment Note Visit Start Time 08:19 Visit Stop Time 09:00 Total Visit Minutes 41 Visit Number 13 Number of DRY END TESTER Visits 0 PT-OP-B Current Condition Start: 03/29/21 12:31 Freq: Status: Active Protocol: Document 03/30/21 12:04 [facility] (Rec: 03/30/21 13:02 [facility] [id number]) Current Condition History of Current Condition Onset Date 2017 start w/neck pain but constant since 2019 & recent worsening Current Complaints neck pain, DEVI, R UE pain, R jaw pain History of Current Condition Pt reports months after last time PT session and was doing Botox for DEVI but they haven't had much improvement. She saw chiro for about 3 months and it helped a little. She was doing her PT exercises for a while but has stopped. Pt has pain in ears now and hurts R upper neck all to inf shoulder blade and into upper R brachium and goes occ into forearm. Pt has pain B w/neck and w/head and ears. Pt has DEVI pretty much every day. Some days she can deal with it and other days it gets worse. Pt reports ears are sensative to noises like loud noises (like closing doors and dropping something, noises in the kitchen). She doesn't ahve any infection and saw ENT and they said nothing is wrong w/ her ears. Pt gets jaw pain and when gets botox gets it in her jaw, neck and R shoulder. Pt repots sometimes when she gts really bad DEVI then she feels it go into jaw. She told her dentist about pain in jaw /R mouth and was told her teeth are fine. 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 She got the ones at the store but they don 't stay in place. It would cost $600 to do out of pocket nigtht guard. Pt reports she has had constant DEVI and neck pain about 2 years ago. Pt reports she feels like PT exercises helped a little (was only able to do about 3x/week ). Pt tried massage but was frustrated because the person did entire body and it didn't help. She uses self massage tools but only helps sometimes . Pt gets only a little bit of dizziness. Notices only when sitting up. She has to lift, push and pull heavy stuff and does a lot of repitions of opening boxes and this all inc pain.SOmetimes just putting force to use knife and it starts to hurt before even moving knife. She has tried mm relaxers MDs prescribe but they make her so sleepy that she cannot do it for long. She tries for 10-12 days but it only helps a little. Pt reports she is constantly moving when she sleeps d/t pain in R shoulder. pt has chronic LBP Prior Treatments and Tests MRI brain-WNL, Xray neck( from report-IMPRESSION: C6-C7 moderate to moderately severe degenerative disc disease without subluxation. No definite acute disease is found, however.), carotid doppler-WNL , ENT testing, dental treatment w/over the counter mouth guard, PT-some help, chiro-some help, 1x massage, normal swallow based on MBS Treatment Goals Patient/Caregiver Goals dec pain w/daily activities, improve sleep PT-OP-C Subjective Start: 03/29/21 12:31 Freq: Status: Active Protocol: Document 06/07/21 08:19 [facility] (Rec: 06/07/21 09:06 [facility] [id number]) OP-PT Subjective Patient Comments Patient Comments Pt reports much better, More mild pain w/turning to R or heavy lift at work PT-OP-F Manual Assessment Start: 03/29/21 12:31 Freq: Status: Active Protocol: Document 03/30/21 12:04 [facility] (Rec: 03/30/21 13:02 [facility] [id number]) Manual Assessments Soft Tissue Assessment Soft Tissue Mobility Assessment R>L UT, LS, scalenes, SCM, temporalis, masseter, rhomboids, lats, traps Joint Mobility Assessment Joint Mobility Assessment 1st rib eelvation, ant humerus in glenoid PT-OP-J Posture/Palpation/Skin Start: 03/29/21 12:31 Freq: Status: Active Protocol: Document 03/30/21 12:04 [facility] (Rec: 03/30/21 13:02 [facility] [id number]) Posture Evaluation [facility] Postural Classification System Elbow Flexion Test 0 Comments Posture Comments fwd shoulders R>L, IR R shoulder, SB neck L shear R, R 1st rib elevated, fwd head PT-OP-K Range of Motion Start: 03/29/21 12:31 Freq: Status: Active Protocol: Document 03/30/21 12:04 [facility] (Rec: 03/30/21 13:02 [facility] [id number]) Cervical Spine Range of Motion Cervical Spine Active Degrees Flexion 34 Extension 57 Rotation Left 42 Rotation Right 45 Lateral Flexion Left 24 Lateral Flexion Right 24 Comments pain R rot, flex TMJ Range of Motion Comments Comments slight deviation to L w/WNL ROM Shoulder Goniometric Range of Motion Shoulder ROM Limitations Comments pain at end ranges w/RUE ROM and missing about 10 deg in most motions as compared to L PT-OP-L Special Tests Start: 03/29/21 12:31 Freq: Status: Active Protocol: Document 03/30/21 12:04 [facility] (Rec: 03/30/21 13:02 [facility] [id number]) Special Tests Neural Special Tests- Upper Body Ulnar Nerve Tension Test Results neg R Median Nerve Tension Test Results positive R Radial Nerve Tension Test Results positive r PT-OP-M Strength Start: 03/29/21 12:31 Freq: Status: Active Protocol: Document 03/30/21 12:04 [facility] (Rec: 03/30/21 13:02 [facility] [id number]) Shoulder Strength Shoulder Manual Muscle Testing Left Flexion 4 Good Extension 4+ Good+ Abduction (C5) 4 Good External Rotation 4 Good Internal Rotation 4 Good Right Flexion 3+ Fair+ Extension 3+ Fair+ Abduction (C5) 3+ Fair+ External Rotation 3+ Fair+ Internal Rotation 3+ Fair+ Elbow/Forearm Strength Elbow and Forearm Manual Muscle Testing Left Flexion (C6) 4+ Good+ Extension (C7) 5 Normal Right Flexion (C6) 4- Good- Extension (C7) 4- Good- Hand Court Orderly/Pinch Strength Hand Strength Right Comments 30lb, 25lb 33lb Left Comments 45lb, 30lb, 35lb PT-OP-Q Treatments Start: 03/29/21 12:31 Freq: Status: Active Protocol: Document 06/07/21 08:19 [facility] (Rec: 06/07/21 09:06 [facility] [id number]) Therapeutic Exercises Sidelying Exercises open book Side bilateral Reps/Minutes 6 Comments significantly less range w/RUE Sitting Exercises Chin Tucks Sitting Exercise Name Cervical retraction-chin truck s Reps/Minutes 5 Standing Exercises Habd Standing Exercise Name Habd w/flex Side bilateral Equipment Used L2 Reps/Minutes 15 row Side bilateral Equipment Used L2 Reps/Minutes 20 Comments cues for scap retraction Manual Therapy Treatment Soft Tissue Mobilization UT/LS Body Location R UT, LS & scalenes & SCM Mobilization Type Rolling,Strumming,Sustained Pressure Intensity/Depth Moderate Body Position Hooklying Joint Mobilizations 1st rib Comments 1st and 2nd & 3rd rib inf and caudal FM T spine Comments 1. transverse L T2&3 FM 2. transverse T7 L FM & UPA R FM PT-OP-R Modalities Start: 03/29/21 12:31 Freq: Status: Active Protocol: Document 05/31/21 16:04 MA (Rec: 05/31/21 16:56 MA [id number]) Hot Pack/Cold Pack Treatment Hot Pack Location CS Patient Position Hooklying Treatment Duration (minutes) 10 Patient Tolerance Good PT-OP-T Assessment and Plan Start: 03/29/21 12:31 Freq: Status: Active Protocol: Document 06/07/21 08:19 [facility] (Rec: 06/07/21 09:06 [facility] [id number]) Physical Therapy Assessment Goals sleep Short Term Goal (STG) Pt will be able to prop self comfortably to be able to have inc ease of falling asleep and staying asleep. STG Duration achieved 06/07 Global Cto Goal (LTG) Pt will be sherie to sleep through the night waking up no more than 1x to readjust LTG Duration achieved 06/07 activties Short Term Goal (STG) Pt will have neg median and radial n tension testing in order to improve return to UE activities w/dec pain. 06/07-no radial or ulnar n tension, mild median n tension STG Duration Group Home Goal (LTG) Pt will be able to do all work tasks and housework w/o inc pain greater than 2/10 06/07-okay right now but avoids lifting heavy boxes and opening boxes LTG Duration 8 weeks strength Short Term Goal (STG) Pt will be indep w/HEP for ROM , strength and mobility. STG Duration achieved progressing as able Group Home Goal (LTG) pt will improve UE strength to 5/5 B w/o inc pain and crate builder strength to age related norms and EFT to at least 4/5 to show improved stabilty in order for pt to carry out work related tasks w/o inc pain. LTG Duration 06/28/21 ROM Short Term Goal (STG) pt will have equal R to L shoulder ROM w/o pain at end ranges 06/07 achieved all except R IR still mild discomfort STG Duration 05/29/21 Global Cto Goal (LTG) Pt will have full cervical motion without pain in order to imrpove pt's ability to do typical daily activities like driving, and work. LTG Duration 06/28/21 Assessment Summary Assessment Pt tolerated session well and was able to do arm behidn back into IR without paina fter manual and improved about 15 deg w/rot R cervically Physical Therapy Plan Frequency and Duration Frequency of Treatment 1-2x/week Duration of Treatment 3 months Plan of Care Start Date 03/30/21 Plan of Care End Date 06/28/21 Next Visit Focus/Plan Next Note Type Treatment Note Next Visit Plan Cont to work on cranial mobility & cervical moblity to allow for improved scap movement, try further scap staibltiy exercises.
--- NOTE | 2021-06-14 10:07 | PT.OTN ---
Current Diagnoses Tension-type headache, unspecified, not intractable (06/14/21) Other muscle spasm (06/14/21) Abnormal posture (06/14/21) Weakness (06/14/21) Jaw pain (06/14/21) Strain of muscle, fascia and tendon at neck level, initial encounter (06/14/21) Physical Therapy Treatment Note PT-OP-A Visit Information Start: 03/29/21 12:31 Freq: Status: Active Protocol: Document 06/14/21 07:29 [facility] (Rec: 06/14/21 10:05 [facility] [id number]) Out-Patient Physical Therapy Visit Information Visit Information Visit Type Treatment Note Visit Start Time 09:05 Visit Stop Time 09:44 Total Visit Minutes 39 Visit Number 14 Number of STARBUCKS CLERK Visits 0 PT-OP-B Current Condition Start: 03/29/21 12:31 Freq: Status: Active Protocol: Document 03/30/21 12:04 [facility] (Rec: 03/30/21 13:02 [facility] [id number]) Current Condition History of Current Condition Onset Date 2017 start w/neck pain but constant since 2019 & recent worsening Current Complaints neck pain, DEVI, R UE pain, R jaw pain History of Current Condition Pt reports months after last time PT session and was doing Botox for DEVI but they haven't had much improvement. She saw chiro for about 3 months and it helped a little. She was doing her PT exercises for a while but has stopped. Pt has pain in ears now and hurts R upper neck all to inf shoulder blade and into upper R brachium and goes occ into forearm. Pt has pain B w/neck and w/head and ears. Pt has DEVI pretty much every day. Some days she can deal with it and other days it gets worse. Pt reports ears are sensative to noises like loud noises (like closing doors and dropping something, noises in the kitchen). She doesn't ahve any infection and saw ENT and they said nothing is wrong w/ her ears. Pt gets jaw pain and when gets botox gets it in her jaw, neck and R shoulder. Pt repots sometimes when she gts really bad DEVI then she feels it go into jaw. She told her dentist about pain in jaw /R mouth and was told her teeth are fine. 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 She got the ones at the store but they don 't stay in place. It would cost $600 to do out of pocket nigtht guard. Pt reports she has had constant DEVI and neck pain about 2 years ago. Pt reports she feels like PT exercises helped a little (was only able to do about 3x/week ). Pt tried massage but was frustrated because the person did entire body and it didn't help. She uses self massage tools but only helps sometimes . Pt gets only a little bit of dizziness. Notices only when sitting up. She has to lift, push and pull heavy stuff and does a lot of repitions of opening boxes and this all inc pain.SOmetimes just putting force to use knife and it starts to hurt before even moving knife. She has tried mm relaxers MDs prescribe but they make her so sleepy that she cannot do it for long. She tries for 10-12 days but it only helps a little. Pt reports she is constantly moving when she sleeps d/t pain in R shoulder. pt has chronic LBP Prior Treatments and Tests MRI brain-WNL, Xray neck( from report-IMPRESSION: C6-C7 moderate to moderately severe degenerative disc disease without subluxation. No definite acute disease is found, however.), carotid doppler-WNL , ENT testing, dental treatment w/over the counter mouth guard, PT-some help, chiro-some help, 1x massage, normal swallow based on MBS Treatment Goals Patient/Caregiver Goals dec pain w/daily activities, improve sleep PT-OP-C Subjective Start: 03/29/21 12:31 Freq: Status: Active Protocol: Document 06/14/21 07:29 [facility] (Rec: 06/14/21 10:05 [facility] [id number]) OP-PT Subjective Patient Comments Patient Comments Last couple of days she has noted some pain along neck. Usure what started it.Tried stretches but didn't help while seh was doing it. This AM she woke up feeling better than other days. A little obit of DEVI at base of skull when neck was hurting. PT-OP-F Manual Assessment Start: 03/29/21 12:31 Freq: Status: Active Protocol: Document 03/30/21 12:04 [facility] (Rec: 03/30/21 13:02 [facility] [id number]) Manual Assessments Soft Tissue Assessment Soft Tissue Mobility Assessment R>L UT, LS, scalenes, SCM, temporalis, masseter, rhomboids, lats, traps Joint Mobility Assessment Joint Mobility Assessment 1st rib eelvation, ant humerus in glenoid PT-OP-J Posture/Palpation/Skin Start: 03/29/21 12:31 Freq: Status: Active Protocol: Document 03/30/21 12:04 [facility] (Rec: 03/30/21 13:02 [facility] [id number]) Posture Evaluation [facility] Postural Classification System Elbow Flexion Test 0 Comments Posture Comments fwd shoulders R>L, IR R shoulder, SB neck L shear R, R 1st rib elevated, fwd head PT-OP-K Range of Motion Start: 03/29/21 12:31 Freq: Status: Active Protocol: Document 03/30/21 12:04 [facility] (Rec: 03/30/21 13:02 [facility] [id number]) Cervical Spine Range of Motion Cervical Spine Active Degrees Flexion 34 Extension 57 Rotation Left 42 Rotation Right 45 Lateral Flexion Left 24 Lateral Flexion Right 24 Comments pain R rot, flex TMJ Range of Motion Comments Comments slight deviation to L w/WNL ROM Shoulder Goniometric Range of Motion Shoulder ROM Limitations Comments pain at end ranges w/RUE ROM and missing about 10 deg in most motions as compared to L PT-OP-L Special Tests Start: 03/29/21 12:31 Freq: Status: Active Protocol: Document 03/30/21 12:04 [facility] (Rec: 03/30/21 13:02 [facility] [id number]) Special Tests Neural Special Tests- Upper Body Ulnar Nerve Tension Test Results neg R Median Nerve Tension Test Results positive R Radial Nerve Tension Test Results positive r PT-OP-M Strength Start: 03/29/21 12:31 Freq: Status: Active Protocol: Document 03/30/21 12:04 [facility] (Rec: 03/30/21 13:02 [facility] [id number]) Shoulder Strength Shoulder Manual Muscle Testing Left Flexion 4 Good Extension 4+ Good+ Abduction (C5) 4 Good External Rotation 4 Good Internal Rotation 4 Good Right Flexion 3+ Fair+ Extension 3+ Fair+ Abduction (C5) 3+ Fair+ External Rotation 3+ Fair+ Internal Rotation 3+ Fair+ Elbow/Forearm Strength Elbow and Forearm Manual Muscle Testing Left Flexion (C6) 4+ Good+ Extension (C7) 5 Normal Right Flexion (C6) 4- Good- Extension (C7) 4- Good- Hand Manager Fine Dining/Pinch Strength Hand Strength Right Comments 30lb, 25lb 33lb Left Comments 45lb, 30lb, 35lb PT-OP-Q Treatments Start: 03/29/21 12:31 Freq: Status: Active Protocol: Document 06/14/21 07:29 [facility] (Rec: 06/14/21 10:05 [facility] [id number]) Therapeutic Exercises Prone Exercises over tball Prone Exercise Name 1. Habd 2. 90/90 ER 3. scaption Side bilateral Equipment Used 1. 2# 2. 1# 3. 0# Reps/Minutes 10 ea Standing Exercises Habd Standing Exercise Name Habd w/flex Side bilateral Equipment Used 1 Reps/Minutes 15 Manual Therapy Treatment Soft Tissue Mobilization scalenes Body Location R scalenes & SCM Mobilization Type Rolling,Strumming Intensity/Depth Moderate Body Position Supine 1 Body Location SOR Mobilization Type Sustained Pressure Joint Mobilizations Cervical Comments C4 UPA R FM 1st rib Comments 1-3 caudal FM rib 2 AP FM T spine Comments 1. T1-3 transverse L FM PT-OP-R Modalities Start: 03/29/21 12:31 Freq: Status: Active Protocol: Document 05/31/21 16:04 [facility] (Rec: 05/31/21 16:56 [facility] [id number]) Hot Pack/Cold Pack Treatment Hot Pack Location CS Patient Position Hooklying Treatment Duration (minutes) 10 Patient Tolerance Good PT-OP-T Assessment and Plan Start: 03/29/21 12:31 Freq: Status: Active Protocol: Document 06/14/21 07:29 [facility] (Rec: 06/14/21 10:05 [facility] [id number]) Physical Therapy Assessment Goals sleep Short Term Goal (STG) Pt will be able to prop self comfortably to be able to have inc ease of falling asleep and staying asleep. STG Duration achieved 06/07 Fpc Goal (LTG) Pt will be sherie to sleep through the night waking up no more than 1x to readjust LTG Duration achieved 06/07 activties Short Term Goal (STG) Pt will have neg median and radial n tension testing in order to improve return to UE activities w/dec pain. 06/07-no radial or ulnar n tension, mild median n tension STG Duration Distributor Sales Manager Goal (LTG) Pt will be able to do all work tasks and housework w/o inc pain greater than 2/10 3/9-okay right now but avoids lifting heavy boxes and opening boxes LTG Duration 8 weeks strength Short Term Goal (STG) Pt will be indep w/HEP for ROM , strength and mobility. 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 LTG Duration 06/28/21 ROM Short Term Goal (STG) pt will have equal R to L shoulder ROM w/o pain at end ranges 06/07 achieved all except R IR still mild discomfort STG Duration 05/29/21 Fpc Goal (LTG) Pt will have full cervical motion without pain in order to imrpove pt's ability to do typical daily activities like driving, and work. LTG Duration 06/28/21 Assessment Summary Assessment Pt had improved R rot from about 70% to 90% of range and had dec pain in R neck w/R SB after manual. Pt reported fatigue w/ball exercises, but did well w/scap motion w/min cues but did require a lot of cues for neck position duirng the exercises. Physical Therapy Plan Frequency and Duration Frequency of Treatment 1-2x/week Duration of Treatment 3 months Plan of Care Start Date 03/30/21 Plan of Care End Date 06/28/21 Next Visit Focus/Plan Next Note Type Treatment Note Next Visit Plan review exericses & cont to work on ability to get R scap dep & R cervical SB & rot w/o pain
--- NOTE | 2021-06-21 16:55 | PT.OTN ---
Current Diagnoses Tension-type headache, unspecified, not intractable (06/21/21) Other muscle spasm (06/21/21) Abnormal posture (06/21/21) Weakness (06/21/21) Jaw pain (06/21/21) Strain of muscle, fascia and tendon at neck level, initial encounter (06/21/21) Physical Therapy Treatment Note PT-OP-A Visit Information Start: 03/29/21 12:31 Freq: Status: Active Protocol: Document 06/21/21 14:30 [facility] (Rec: 06/21/21 15:18 [facility] [id number]) Out-Patient Physical Therapy Visit Information Visit Information Visit Type Treatment Note Visit Start Time 14:30 Visit Stop Time 15:10 Total Visit Minutes 40 Visit Number 15 Number of EDGE BLACKER Visits 1 PT-OP-B Current Condition Start: 03/29/21 12:31 Freq: Status: Active Protocol: Document 03/30/21 12:04 [facility] (Rec: 03/30/21 13:02 [facility] [id number]) Current Condition History of Current Condition Onset Date 2017 start w/neck pain but constant since 2019 & recent worsening Current Complaints neck pain, DEVI, R UE pain, R jaw pain History of Current Condition Pt reports months after last time PT session and was doing Botox for DEVI but they haven't had much improvement. She saw chiro for about 3 months and it helped a little. She was doing her PT exercises for a while but has stopped. Pt has pain in ears now and hurts R upper neck all to inf shoulder blade and into upper R brachium and goes occ into forearm. Pt has pain B w/neck and w/head and ears. Pt has DEVI pretty much every day. Some days she can deal with it and other days it gets worse. Pt reports ears are sensative to noises like loud noises (like closing doors and dropping something, noises in the kitchen). She doesn't ahve any infection and saw ENT and they said nothing is wrong w/ her ears. Pt gets jaw pain and when gets botox gets it in her jaw, neck and R shoulder. Pt repots sometimes when she gts really bad DEVI then she feels it go into jaw. She told her dentist about pain in jaw /R mouth and was told her teeth are fine. She clenches and is supposed to wear a night time nanny at night but she hasn't done it. She got the ones at the store but they don 't stay in place. It would cost $600 to do out of pocket nigtht guard. Pt reports she has had constant DEVI and neck pain about 2 years ago. Pt reports she feels like PT exercises helped a little (was only able to do about 3x/week ). Pt tried massage but was frustrated because the person did entire body and it didn't help. She uses self massage tools but only helps sometimes . Pt gets only a little bit of dizziness. Notices only when sitting up. She has to lift, push and pull heavy stuff and does a lot of repitions of opening boxes and this all inc pain.SOmetimes just putting force to use knife and it starts to hurt before even moving knife. She has tried mm relaxers MDs prescribe but they make her so sleepy that she cannot do it for long. She tries for 10-12 days but it only helps a little. Pt reports she is constantly moving when she sleeps d/t pain in R shoulder. pt has chronic LBP Prior Treatments and Tests MRI brain-WNL, Xray neck( from report-IMPRESSION: C6-C7 moderate to moderately severe degenerative disc disease without subluxation. No definite acute disease is found, however.), carotid doppler-WNL , ENT testing, dental treatment w/over the counter mouth guard, PT-some help, chiro-some help, 1x massage, normal swallow based on MBS Treatment Goals Patient/Caregiver Goals dec pain w/daily activities, improve sleep PT-OP-C Subjective Start: 03/29/21 12:31 Freq: Status: Active Protocol: Document 06/21/21 14:30 [facility] (Rec: 06/21/21 15:18 [facility] [id number]) OP-PT Subjective Patient Comments Patient Comments Pt has had less neck pain and feels therapy is helping. PT-OP-F Manual Assessment Start: 03/29/21 12:31 Freq: Status: Active Protocol: Document 03/30/21 12:04 [facility] (Rec: 03/30/21 13:02 [facility] [id number]) Manual Assessments Soft Tissue Assessment Soft Tissue Mobility Assessment R>L UT, LS, scalenes, SCM, temporalis, masseter, rhomboids, lats, traps Joint Mobility Assessment Joint Mobility Assessment 1st rib eelvation, ant humerus in glenoid PT-OP-J Posture/Palpation/Skin Start: 03/29/21 12:31 Freq: Status: Active Protocol: Document 03/30/21 12:04 [facility] (Rec: 03/30/21 13:02 [facility] [id number]) Posture Evaluation [facility] Postural Classification System Elbow Flexion Test 0 Comments Posture Comments fwd shoulders R>L, IR R shoulder, SB neck L shear R, R 1st rib elevated, fwd head PT-OP-K Range of Motion Start: 03/29/21 12:31 Freq: Status: Active Protocol: Document 03/30/21 12:04 [facility] (Rec: 03/30/21 13:02 [facility] [id number]) Cervical Spine Range of Motion Cervical Spine Active Degrees Flexion 34 Extension 57 Rotation Left 42 Rotation Right 45 Lateral Flexion Left 24 Lateral Flexion Right 24 Comments pain R rot, flex TMJ Range of Motion Comments Comments slight deviation to L w/WNL ROM Shoulder Goniometric Range of Motion Shoulder ROM Limitations Comments pain at end ranges w/RUE ROM and missing about 10 deg in most motions as compared to L PT-OP-L Special Tests Start: 03/29/21 12:31 Freq: Status: Active Protocol: Document 03/30/21 12:04 [facility] (Rec: 03/30/21 13:02 [facility] [id number]) Special Tests Neural Special Tests- Upper Body Ulnar Nerve Tension Test Results neg R Median Nerve Tension Test Results positive R Radial Nerve Tension Test Results positive r PT-OP-M Strength Start: 03/29/21 12:31 Freq: Status: Active Protocol: Document 03/30/21 12:04 [facility] (Rec: 03/30/21 13:02 [facility] [id number]) Shoulder Strength Shoulder Manual Muscle Testing Left Flexion 4 Good Extension 4+ Good+ Abduction (C5) 4 Good External Rotation 4 Good Internal Rotation 4 Good Right Flexion 3+ Fair+ Extension 3+ Fair+ Abduction (C5) 3+ Fair+ External Rotation 3+ Fair+ Internal Rotation 3+ Fair+ Elbow/Forearm Strength Elbow and Forearm Manual Muscle Testing Left Flexion (C6) 4+ Good+ Extension (C7) 5 Normal Right Flexion (C6) 4- Good- Extension (C7) 4- Good- Hand Health Manager/Pinch Strength Hand Strength Right Comments 30lb, 25lb 33lb Left Comments 45lb, 30lb, 35lb PT-OP-Q Treatments Start: 03/29/21 12:31 Freq: Status: Active Protocol: Document 06/21/21 14:30 [facility] (Rec: 06/21/21 15:18 [facility] [id number]) Therapeutic Exercises Prone Exercises over tball Prone Exercise Name 1. Habd 2. 90/90 ER 3. scaption Side bilateral Equipment Used 1. 2# 2. 1# 3. 0# Reps/Minutes 10 ea Comments reviewed for HEP- cues for CS positioning Sitting Exercises Stretch Sitting Exercise Name gentle ROM and UT/levator stretches Side bilateral Reps/Minutes 2x30 Standing Exercises Scaption Resistance lvl 1 TB Reps/Minutes 10x Comments working on working on upward roation with depression Manual Therapy Treatment Soft Tissue Mobilization scalenes Body Location R scalenes & SCM Mobilization Type Rolling,Strumming Intensity/Depth Moderate Body Position Supine UT/LS Body Location R UT, LS & scalenes & SCM Mobilization Type Rolling,Strumming,Sustained Pressure Intensity/Depth Moderate Body Position Hooklying PT-OP-R Modalities Start: 03/29/21 12:31 Freq: Status: Active Protocol: Document 05/31/21 16:04 [facility] (Rec: 05/31/21 16:56 [facility] [id number]) Hot Pack/Cold Pack Treatment Hot Pack Location CS Patient Position Hooklying Treatment Duration (minutes) 10 Patient Tolerance Good PT-OP-T Assessment and Plan Start: 03/29/21 12:31 Freq: Status: Active Protocol: Document 06/21/21 14:30 [facility] (Rec: 06/21/21 15:18 [facility] [id number]) Physical Therapy Assessment Goals sleep Short Term Goal (STG) Pt will be able to prop self comfortably to be able to have inc ease of falling asleep and staying asleep. STG Duration achieved 06/07 Care Home Goal (LTG) Pt will be sherie to sleep through the night waking up no more than 1x to readjust LTG Duration achieved 06/07 activties Short Term Goal (STG) Pt will have neg median and radial n tension testing in order to improve return to UE activities w/dec pain. 06/07-no radial or ulnar n tension, mild median n tension STG Duration Stove Mechanic Goal (LTG) Pt will be able to do all work tasks and housework w/o inc pain greater than 2/10 3/9-okay right now but avoids lifting heavy boxes and opening boxes LTG Duration 8 weeks strength Short Term Goal (STG) Pt will be indep w/HEP for ROM , strength and mobility. 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 LTG Duration 06/28/21 ROM Short Term Goal (STG) pt will have equal R to L shoulder ROM w/o pain at end ranges 3 achieved all except R IR still mild discomfort STG Duration 05/29/21 Stove Mechanic Goal (LTG) Pt will have full cervical motion without pain in order to imrpove pt's ability to do typical daily activities like driving, and work. LTG Duration 06/28/21 Assessment Summary Assessment Pt arrives with minor pain when SB and rotating CS. She has no pain after manual work. Spent significant time today working on scaption as pt has difficulty with keeping scap depressed with upward rotation when prone over theraball. Pt better able to engage lower traps with scaption at wall using theraband resistance. Physical Therapy Plan Frequency and Duration Frequency of Treatment 1-2x/week Duration of Treatment 3 months Plan of Care Start Date 03/30/21 Plan of Care End Date 06/28/21 Therapeutic Interventions Therapeutic Interventions Home Exercise Program,Joint Mobilizations,Manual Therapy, Neuromuscular Re-education, Patient/Caregiver Education, Self-Care/Home Management,Soft Tissue Mobilization,Taping, Therapeutic Activities, Therapeutic Exercises Modalities Cold Pack/Ice Massage,Electric Stimulation,Hot Packs, Infrared Therapy,Traction- Mechanical,Ultrasound Next Visit Focus/Plan Next Note Type Treatment Note Next Visit Plan review exericses & cont to work on ability to get R scap dep & R cervical SB & rot w/o pain
--- NOTE | 2021-07-06 18:26 | PT.OTN ---
Current Diagnoses Tension-type headache, unspecified, not intractable (07/06/21) Other muscle spasm (07/06/21) Abnormal posture (07/06/21) Weakness (07/06/21) Jaw pain (07/06/21) Strain of muscle, fascia and tendon at neck level, initial encounter (07/06/21) Physical Therapy Treatment Note PT-OP-A Visit Information Start: 03/29/21 12:31 Freq: Status: Active Protocol: Document 07/06/21 16:53 [facility] (Rec: 07/06/21 18:25 [facility] [id number]) Out-Patient Physical Therapy Visit Information Visit Information Visit Type Progress Note Visit Start Time 16:51 Visit Stop Time 17:32 Total Visit Minutes 41 Visit Number 16 Number of RATE ENGINEER Visits 0 PT-OP-B Current Condition Start: 03/29/21 12:31 Freq: Status: Active Protocol: Document 03/30/21 12:04 [facility] (Rec: 03/30/21 13:02 [facility] [id number]) Current Condition History of Current Condition Onset Date 2017 start w/neck pain but constant since 2019 & recent worsening Current Complaints neck pain, DEVI, R UE pain, R jaw pain History of Current Condition Pt reports months after last time PT session and was doing Botox for DEVI but they haven't had much improvement. She saw chiro for about 3 months and it helped a little. She was doing her PT exercises for a while but has stopped. Pt has pain in ears now and hurts R upper neck all to inf shoulder blade and into upper R brachium and goes occ into forearm. Pt has pain B w/neck and w/head and ears. Pt has DEVI pretty much every day. Some days she can deal with it and other days it gets worse. Pt reports ears are sensative to noises like loud noises (like closing doors and dropping something, noises in the kitchen). She doesn't ahve any infection and saw ENT and they said nothing is wrong w/ her ears. Pt gets jaw pain and when gets botox gets it in her jaw, neck and R shoulder. Pt repots sometimes when she gts really bad DEVI then she feels it go into jaw. She told her dentist about pain in jaw /R mouth and was told her teeth are fine. She clenches and is supposed to wear a guard chief at night but she hasn't done it. She got the ones at the store but they don 't stay in place. It would cost $600 to do out of pocket nigtht guard. Pt reports she has had constant DEVI and neck pain about 2 years ago. Pt reports she feels like PT exercises helped a little (was only able to do about 3x/week ). Pt tried massage but was frustrated because the person did entire body and it didn't help. She uses self massage tools but only helps sometimes . Pt gets only a little bit of dizziness. Notices only when sitting up. She has to lift, push and pull heavy stuff and does a lot of repitions of opening boxes and this all inc pain.SOmetimes just putting force to use knife and it starts to hurt before even moving knife. She has tried mm relaxers MDs prescribe but they make her so sleepy that she cannot do it for long. She tries for 10-12 days but it only helps a little. Pt reports she is constantly moving when she sleeps d/t pain in R shoulder. pt has chronic LBP Prior Treatments and Tests MRI brain-WNL, Xray neck( from report-IMPRESSION: C6-C7 moderate to moderately severe degenerative disc disease without subluxation. No definite acute disease is found, however.), carotid doppler-WNL , ENT testing, dental treatment w/over the counter mouth guard, PT-some help, chiro-some help, 1x massage, normal swallow based on MBS Treatment Goals Patient/Caregiver Goals dec pain w/daily activities, improve sleep PT-OP-C Subjective Start: 03/29/21 12:31 Freq: Status: Active Protocol: Document 07/06/21 16:53 [facility] (Rec: 07/06/21 18:25 [facility] [id number]) OP-PT Subjective Patient Comments Patient Comments Pt reports feeling better. She does have to be careful how she does things and does still get minor pain in neck. wants to take a break from PT and see if she does okay indep Patient Reported Progress Improving PT-OP-F Manual Assessment Start: 03/29/21 12:31 Freq: Status: Active Protocol: Document 03/30/21 12:04 [facility] (Rec: 03/30/21 13:02 [facility] [id number]) Manual Assessments Soft Tissue Assessment Soft Tissue Mobility Assessment R>L UT, LS, scalenes, SCM, temporalis, masseter, rhomboids, lats, traps Joint Mobility Assessment Joint Mobility Assessment 1st rib eelvation, ant humerus in glenoid PT-OP-J Posture/Palpation/Skin Start: 03/29/21 12:31 Freq: Status: Active Protocol: Document 07/06/21 16:53 [facility] (Rec: 07/06/21 18:25 [facility] [id number]) Posture Evaluation Evelyn Postural Classification System Elbow Flexion Test 2 PT-OP-K Range of Motion Start: 03/29/21 12:31 Freq: Status: Active Protocol: Document 07/06/21 16:53 [facility] (Rec: 07/06/21 18:25 [facility] [id number]) Cervical Spine Range of Motion Cervical Spine Active Degrees Flexion 60 Extension 70 Rotation Left 79 Rotation Right 70 Lateral Flexion Left 43 Lateral Flexion Right 34 Comments tight w/rot R & SB L PT-OP-L Special Tests Start: 03/29/21 12:31 Freq: Status: Active Protocol: Document 07/06/21 16:53 [facility] (Rec: 07/06/21 18:25 [facility] [id number]) Special Tests Neural Special Tests- Upper Body Ulnar Nerve Tension Test Results neg R Median Nerve Tension Test Results neg R Radial Nerve Tension Test Results neg R PT-OP-M Strength Start: 03/29/21 12:31 Freq: Status: Active Protocol: Document 07/06/21 16:53 [facility] (Rec: 07/06/21 18:25 [facility] [id number]) Shoulder Strength Shoulder Manual Muscle Testing Left Flexion 5 Normal Extension 5 Normal Abduction (C5) 5 Normal External Rotation 5 Normal Internal Rotation 5 Normal Right Flexion 4+ Good+ Extension 5 Normal Abduction (C5) 4+ Good+ External Rotation 5 Normal Internal Rotation 5 Normal Elbow/Forearm Strength Elbow and Forearm Manual Muscle Testing Left Flexion (C6) 5 Normal Extension (C7) 5 Normal Right Flexion (C6) 4+ Good+ Extension (C7) 5 Normal Hand Aoc Director Intelligence Officer/Pinch Strength Hand Strength Right Comments 50, 60, 58lbs Left Comments 60, 55, 55 PT-OP-Q Treatments Start: 03/29/21 12:31 Freq: Status: Active Protocol: Document 07/06/21 16:53 [facility] (Rec: 07/06/21 18:25 [facility] [id number]) Therapeutic Exercises Prone Exercises over tball Prone Exercise Name 1. Habd 2. 90/90 ER 3. scaption Side bilateral Equipment Used 1. 2# 2. 1# 3. 0# Reps/Minutes 10 ea Comments reviewed for HEP- cues for CS positioning Standing Exercises Habd Standing Exercise Name Habd w/flex Side bilateral Equipment Used 1 Reps/Minutes 6 Manual Therapy Treatment Soft Tissue Mobilization scalenes Body Location R scalenes & SCM Mobilization Type Rolling,Strumming Intensity/Depth Moderate Body Position Supine Joint Mobilizations GH Joint post glide FM R 1st rib Comments 1 R caudal FM PT-OP-R Modalities Start: 03/29/21 12:31 Freq: Status: Active Protocol: Document 05/31/21 16:04 [facility] (Rec: 05/31/21 16:56 [facility] [id number]) Hot Pack/Cold Pack Treatment Hot Pack Location CS Patient Position Hooklying Treatment Duration (minutes) 10 Patient Tolerance Good PT-OP-T Assessment and Plan Start: 03/29/21 12:31 Freq: Status: Active Protocol: Document 07/06/21 16:53 [facility] (Rec: 07/06/21 18:25 [facility] [id number]) Physical Therapy Assessment Goals sleep Short Term Goal (STG) Pt will be able to prop self comfortably to be able to have inc ease of falling asleep and staying asleep. STG Duration achieved 06/07 Rug Hooker Goal (LTG) Pt will be sherie to sleep through the night waking up no more than 1x to readjust LTG Duration achieved 06/07 activties Short Term Goal (STG) Pt will have neg median and radial n tension testing in order to improve return to UE activities w/dec pain. 06/07-no radial or ulnar n tension, mild median n tension STG Duration achieved Rug Hooker Goal (LTG) Pt will be able to do all work tasks and housework w/o inc pain greater than 2/10 3-okay right now but avoids lifting heavy boxes and opening boxes LTG Duration achieved -is careful about how she does some things at work strength Short Term Goal (STG) Pt will be indep w/HEP for ROM , strength and mobility. STG Duration achieved progressing as able [facility]ci Goal (LTG) pt will improve UE strength to 5/5 B w/o inc pain and unitizer strength to age related norms and EFT to at least 4/5 to show improved stabilty in order for pt to carry out work related tasks w/o inc pain. 07/06-unitizer WNL, UE strenngth and EFT improved LTG Duration 09/05/21 ROM Short Term Goal (STG) pt will have equal R to L shoulder ROM w/o pain at end ranges / achieved all except R IR still mild discomfort STG Duration 08/05/21 [facility] Goal (LTG) Pt will have full cervical motion without pain in order to imrpove pt's ability to do typical daily activities like driving, and work. 07/06-much improved minorly limited LTG Duration 09/05/21 Assessment Summary Assessment Pt has made excellent progress w/PT. She has much improved cervical ROM, Shoulder ROM, UE strength. She is back to doing work tasks, but just more carefull and reports no DEVI recently and only mild plan . Plan to check in with pt in about 1 month to see if she does okay w/o PT and if she needs any review for exercises . Physical Therapy Plan Frequency and Duration Frequency of Treatment as needed Duration of Treatment 2 months Plan of Care Start Date 07/06/21 Plan of Care End Date 09/05/21 Therapeutic Interventions Therapeutic Interventions Home Exercise Program,Joint Mobilizations,Manual Therapy, Neuromuscular Re-education, Patient/Caregiver Education, Self-Care/Home Management,Soft Tissue Mobilization,Taping, Therapeutic Activities, Therapeutic Exercises Modalities Cold Pack/Ice Massage,Electric Stimulation,Hot Packs, Infrared Therapy,Traction- Mechanical,Ultrasound Next Visit Focus/Plan Next Note Type Treatment Note Next Visit Plan review exercises as needed and determine if pt ready for DC.
--- NOTE | 2021-07-06 18:26 | PT.OPPOC ---
Physical, Occupational & Speech Therapy At [facility] Current Diagnoses Tension-type headache, unspecified, not intractable (07/06/21) Other muscle spasm (07/06/21) Abnormal posture (07/06/21) Weakness (07/06/21) Jaw pain (07/06/21) Strain of muscle, fascia and tendon at neck level, initial encounter (07/06/21) Visit Care Team Role Provider Type LIZ Asher Attending Provider Advanced Acetylene Cylinder Packing Mixer Family Provider Primary Care Provider Referring Provider Specialty: Family Practice Address: [address] [place] [address], [id number] Email: [email or web address] Plan Of Care PT-OP-T Assessment and Plan Start: 03/29/21 12:31 Freq: Status: Active Protocol: Document 07/06/21 16:53 [facility] (Rec: 07/06/21 18:25 [facility] [id number]) Physical Therapy Assessment Goals sleep Short Term Goal (STG) Pt will be able to prop self comfortably to be able to have inc ease of falling asleep and staying asleep. STG Duration achieved 06/07 Automotive Refinish Technician Goal (LTG) Pt will be sherie to sleep through the night waking up no more than 1x to readjust LTG Duration achieved 06/07 activties Short Term Goal (STG) Pt will have neg median and radial n tension testing in order to improve return to UE activities w/dec pain. 06/07-no radial or ulnar n tension, mild median n tension STG Duration achieved Automotive Refinish Technician Goal (LTG) Pt will be able to do all work tasks and housework w/o inc pain greater than 2/10 06/07-okay right now but avoids lifting heavy boxes and opening boxes LTG Duration achieved -is careful about how she does some things at work strength Short Term Goal (STG) Pt will be indep w/HEP for ROM , strength and mobility. STG Duration achieved progressing as able Automotive Refinish Technician Goal (LTG) pt will improve UE strength to 5/5 B w/o inc pain and job molder strength to age related norms and EFT to at least 4/5 to show improved stabilty in order for pt to carry out work related tasks w/o inc pain. 07/06-job molder WNL, UE strenngth and EFT improved LTG Duration 09/05/21 ROM Short Term Goal (STG) pt will have equal R to L shoulder ROM w/o pain at end ranges 06/07 achieved all except R IR still mild discomfort STG Duration 08/05/21 [facility] Goal (LTG) Pt will have full cervical motion without pain in order to imrpove pt's ability to do typical daily activities like driving, and work. 07/06-much improved minorly limited LTG Duration 09/05/21 Assessment Summary Assessment Pt has made excellent progress w/PT. She has much improved cervical ROM, Shoulder ROM, UE strength. She is back to doing work tasks, but just more carefull and reports no DEVI recently and only mild plan . Plan to check in with pt in about 1 month to see if she does okay w/o PT and if she needs any review for exercises . Physical Therapy Plan Frequency and Duration Frequency of Treatment as needed Duration of Treatment 2 months Plan of Care Start Date 07/06/21 Plan of Care End Date 09/05/21 Therapeutic Interventions Therapeutic Interventions Home Exercise Program,Joint Mobilizations,Manual Therapy, Neuromuscular Re-education, Patient/Caregiver Education, Self-Care/Home Management,Soft Tissue Mobilization,Taping, Therapeutic Activities, Therapeutic Exercises Modalities Cold Pack/Ice Massage,Electric Stimulation,Hot Packs, Infrared Therapy,Traction- Mechanical,Ultrasound Next Visit Focus/Plan Next Note Type Treatment Note Next Visit Plan review exercises as needed and determine if pt ready for DC. Plan of Care Dates Plan of Care Start Date 07/06/21 Plan of Care End Date 09/05/21 Electronically Signed by: Carmen Mccurdy, PT 07/06/21 [id number] Please Sign and Return: I have reviewed this Plan of Care and certify that the skilled therapy services above are required to meet the patient?s needs. Physician Signature Date Printed Name and Credentials Clinical Instructor Signature Printed Name and Credentials
--- NOTE | 2021-08-09 18:01 | PT.OTN ---
Current Diagnoses Tension-type headache, unspecified, not intractable (08/09/21) Other muscle spasm (08/09/21) Abnormal posture (08/09/21) Weakness (08/09/21) Jaw pain (08/09/21) Strain of muscle, fascia and tendon at neck level, initial encounter (08/09/21) Physical Therapy Treatment Note PT-OP-A Visit Information Start: 03/29/21 12:31 Freq: Status: Active Protocol: Document 08/09/21 16:49 [facility] (Rec: 08/09/21 18:01 [facility] [id number]) Out-Patient Physical Therapy Visit Information Visit Information Visit Type Progress Note Visit Start Time 16:50 Visit Stop Time 17:35 Total Visit Minutes 45 Visit Number 17 Number of CAD TECHNICIAN Visits 0 PT-OP-B Current Condition Start: 03/29/21 12:31 Freq: Status: Active Protocol: Document 03/30/21 12:04 [facility] (Rec: 03/30/21 13:02 [facility] [id number]) Current Condition History of Current Condition Onset Date 2017 start w/neck pain but constant since 2019 & recent worsening Current Complaints neck pain, DEVI, R UE pain, R jaw pain History of Current Condition Pt reports months after last time PT session and was doing Botox for EDVI but they haven't had much improvement. She saw chiro for about 3 months and it helped a little. She was doing her PT exercises for a while but has stopped. Pt has pain in ears now and hurts R upper neck all to inf shoulder blade and into upper R brachium and goes occ into forearm. Pt has pain B w/neck and w/head and ears. Pt has DEVI pretty much every day. Some days she can deal with it and other days it gets worse. Pt reports ears are sensative to noises like loud noises (like closing doors and dropping something, noises in the kitchen). She doesn't ahve any infection and saw ENT and they said nothing is wrong w/ her ears. Pt gets jaw pain and when gets botox gets it in her jaw, neck and R shoulder. Pt repots sometimes when she gts really bad DEVI then she feels it go into jaw. She told her dentist about pain in jaw /R mouth and was told her teeth are fine. She clenches and is supposed to wear a guard captain at night but she hasn't done it. She got the ones at the store but they don 't stay in place. It would cost $600 to do out of pocket nigtht guard. Pt reports she has had constant DEVI and neck pain about 2 years ago. Pt reports she feels like PT exercises helped a little (was only able to do about 3x/week ). Pt tried massage but was frustrated because the person did entire body and it didn't help. She uses self massage tools but only helps sometimes . Pt gets only a little bit of dizziness. Notices only when sitting up. She has to lift, push and pull heavy stuff and does a lot of repitions of opening boxes and this all inc pain.SOmetimes just putting force to use knife and it starts to hurt before even moving knife. She has tried mm relaxers MDs prescribe but they make her so sleepy that she cannot do it for long. She tries for 10-12 days but it only helps a little. Pt reports she is constantly moving when she sleeps d/t pain in R shoulder. pt has chronic LBP Prior Treatments and Tests MRI brain-WNL, Xray neck( from report-IMPRESSION: C6-C7 moderate to moderately severe degenerative disc disease without subluxation. No definite acute disease is found, however.), carotid doppler-WNL , ENT testing, dental treatment w/over the counter mouth guard, PT-some help, chiro-some help, 1x massage, normal swallow based on MBS Treatment Goals Patient/Caregiver Goals dec pain w/daily activities, improve sleep PT-OP-C Subjective Start: 03/29/21 12:31 Freq: Status: Active Protocol: Document 08/09/21 16:49 [facility] (Rec: 08/09/21 18:01 [facility] [id number]) OP-PT Subjective Patient Comments Patient Comments Pt reports she has been stressed the last 2 weeks and has noticed inc pain including when trying to sleep. PT-OP-F Manual Assessment Start: 03/29/21 12:31 Freq: Status: Active Protocol: Document 03/30/21 12:04 [facility] (Rec: 03/30/21 13:02 [facility] [id number]) Manual Assessments Soft Tissue Assessment Soft Tissue Mobility Assessment R>L UT, LS, scalenes, SCM, temporalis, masseter, rhomboids, lats, traps Joint Mobility Assessment Joint Mobility Assessment 1st rib eelvation, ant humerus in glenoid PT-OP-J Posture/Palpation/Skin Start: 03/29/21 12:31 Freq: Status: Active Protocol: Document 08/09/21 16:49 [facility] (Rec: 08/09/21 18:01 [facility] [id number]) Posture Evaluation [facility] Postural Classification System Elbow Flexion Test 2 PT-OP-K Range of Motion Start: 03/29/21 12:31 Freq: Status: Active Protocol: Document 08/09/21 16:49 [facility] (Rec: 08/09/21 18:01 [facility] [id number]) Cervical Spine Range of Motion Cervical Spine Active Degrees Flexion 63 Extension 68 Rotation Left 64 Rotation Right 55 Lateral Flexion Left 26 Lateral Flexion Right 33 Comments discomfort R w/R SB & Rot & L sB PT-OP-L Special Tests Start: 03/29/21 12:31 Freq: Status: Active Protocol: Document 07/06/21 16:53 [facility] (Rec: 07/06/21 18:25 [facility] [id number]) Special Tests Neural Special Tests- Upper Body Ulnar Nerve Tension Test Results neg R Median Nerve Tension Test Results neg R Radial Nerve Tension Test Results neg R PT-OP-M Strength Start: 03/29/21 12:31 Freq: Status: Active Protocol: Document 08/09/21 16:49 [facility] (Rec: 08/09/21 18:01 [facility] [id number]) Shoulder Strength Shoulder Manual Muscle Testing Left Flexion 5 Normal Extension 5 Normal Abduction (C5) 5 Normal External Rotation 5 Normal Internal Rotation 5 Normal Right Flexion 4+ Good+ Extension 5 Normal Abduction (C5) 4+ Good+ External Rotation 5 Normal Internal Rotation 5 Normal PT-OP-Q Treatments Start: 03/29/21 12:31 Freq: Status: Active Protocol: Document 08/09/21 16:49 [facility] (Rec: 08/09/21 18:01 [facility] [id number]) Manual Therapy Treatment Soft Tissue Mobilization scalenes Body Location R scalenes & SCM Mobilization Type Rolling,Strumming Intensity/Depth Moderate Body Position Sidelying UT/LS Body Location R UT, LS Mobilization Type Rolling,Strumming,Sustained Pressure Intensity/Depth Moderate Body Position Sidelying Joint Mobilizations GH Joint post glide FM R Cervical Comments 1. C1 AP R 2. C7 AP R 1st rib Comments 1 R caudal FM T spine Comments 1. T1-3 L transverse FM 2. T6-9 R transverse FM 3. UPA R T6-8 FM Self-Care/Home Management Treatment Education Other Education edu to pt importance to do things to dec her stress like trying yoga or meditation or walks. Edu for cont exercises PT-OP-R Modalities Start: 03/29/21 12:31 Freq: Status: Active Protocol: Document 05/31/21 16:04 [facility] (Rec: 05/31/21 16:56 [facility] [id number]) Hot Pack/Cold Pack Treatment Hot Pack Location CS Patient Position Hooklying Treatment Duration (minutes) 10 Patient Tolerance Good PT-OP-T Assessment and Plan Start: 03/29/21 12:31 Freq: Status: Active Protocol: Document 08/09/21 16:49 [facility] (Rec: 08/09/21 18:01 [facility] [id number]) Physical Therapy Assessment Goals sleep Short Term Goal (STG) Pt will be able to prop self comfortably to be able to have inc ease of falling asleep and staying asleep. STG Duration achieved 06/07 Correction Goal (LTG) Pt will be sherie to sleep through the night waking up no more than 1x to readjust achieved 06/07 resume goal 08/09 d/t issue again LTG Duration 10/09/21 activties Short Term Goal (STG) Pt will have neg median and radial n tension testing in order to improve return to UE activities w/dec pain. 06/07-no radial or ulnar n tension, mild median n tension STG Duration achieved Real Estate Management Specialist Goal (LTG) Pt will be able to do all work tasks and housework w/o inc pain greater than 2/10 06/07-okay right now but avoids lifting heavy boxes and opening boxes LTG Duration achieved -is careful about how she does some things at work strength Short Term Goal (STG) Pt will be indep w/HEP for ROM , strength and mobility. STG Duration achieved progressing as able Real Estate Management Specialist Goal (LTG) pt will improve UE strength to 5/5 B w/o inc pain and gusset stitcher strength to age related norms and EFT to at least 4/5 to show improved stabilty in order for pt to carry out work related tasks w/o inc pain. 07/06-gusset stitcher WNL, UE strenngth and EFT improved LTG Duration 09/05/21 ROM Short Term Goal (STG) pt will have equal R to L shoulder ROM w/o pain at end ranges 3/9 achieved all except R IR still mild discomfort STG Duration 08/30/21 Real Estate Management Specialist Goal (LTG) Pt will have full cervical motion without pain in order to imrpove pt's ability to do typical daily activities like driving, and work. 07/06-much improved minorly limited LTG Duration 10/09/21 Assessment Summary Assessment Pt had imrpoved rotation and SB B w/less pain after manual treatment along w/imrpoved trunk rotation and scap depression ability. She presented w/signficantly more tightness today and was encouraged to work on doing activities to help manage this at home. Pt to resume regular PT as she did not do well on her own yet so plan to wrok on setting pt up w/ better independece w/HEP and maintaining gains Physical Therapy Plan Frequency and Duration Frequency of Treatment 1x/Week Duration of Treatment 2 months Plan of Care Start Date 08/09/21 Plan of Care End Date 10/09/21 Therapeutic Interventions Therapeutic Interventions Home Exercise Program,Joint Mobilizations,Manual Therapy, Neuromuscular Re-education, Patient/Caregiver Education, Self-Care/Home Management,Soft Tissue Mobilization,Taping, Therapeutic Activities, Therapeutic Exercises Modalities Cold Pack/Ice Massage,Electric Stimulation,Hot Packs, Infrared Therapy,Traction- Mechanical,Ultrasound Next Visit Focus/Plan Next Note Type Treatment Note Next Visit Plan review exercises for pt to be focusing on & tennis ball roll out and manual to imrpove mobiltiy
--- NOTE | 2021-08-09 18:02 | PT.OPPOC ---
Physical, Occupational & Speech Therapy At [facility] Current Diagnoses Tension-type headache, unspecified, not intractable (08/09/21) Other muscle spasm (08/09/21) Abnormal posture (08/09/21) Weakness (08/09/21) Jaw pain (08/09/21) Strain of muscle, fascia and tendon at neck level, initial encounter (08/09/21) Visit Care Team Role Provider Type LIZ Asher Attending Provider Advanced Leak Hunter Family Provider Primary Care Provider Referring Provider Specialty: Medical Address: [address] [place] [address], [id number] Email: [email or web address] Plan Of Care PT-OP-T Assessment and Plan Start: 03/29/21 12:31 Freq: Status: Active Protocol: Document 08/09/21 16:49 [facility] (Rec: 08/09/21 18:01 [facility] [id number]) Physical Therapy Assessment Goals sleep Short Term Goal (STG) Pt will be able to prop self comfortably to be able to have inc ease of falling asleep and staying asleep. STG Duration achieved 06/07 Fpc Goal (LTG) Pt will be sherie to sleep through the night waking up no more than 1x to readjust achieved 06/07 resume goal 08/09 d/t issue again LTG Duration 10/09/21 activties Short Term Goal (STG) Pt will have neg median and radial n tension testing in order to improve return to UE activities w/dec pain. 06/07-no radial or ulnar n tension, mild median n tension STG Duration achieved Loan Processor Goal (LTG) Pt will be able to do all work tasks and housework w/o inc pain greater than 2/10 06/07-okay right now but avoids lifting heavy boxes and opening boxes LTG Duration achieved -is careful about how she does some things at work strength Short Term Goal (STG) Pt will be indep w/HEP for ROM , strength and mobility. STG Duration achieved progressing as able Loan Processor Goal (LTG) pt will improve UE strength to 5/5 B w/o inc pain and melon packer strength to age related norms and EFT to at least 4/5 to show improved stabilty in order for pt to carry out work related tasks w/o inc pain. 07/06-melon packer WNL, UE strenngth and EFT improved LTG Duration 09/05/21 ROM Short Term Goal (STG) pt will have equal R to L shoulder ROM w/o pain at end ranges 3/9 achieved all except R IR still mild discomfort STG Duration 08/30/21 Fpc Goal (LTG) Pt will have full cervical motion without pain in order to imrpove pt's ability to do typical daily activities like driving, and work. 07/06-much improved minorly limited LTG Duration 10/09/21 Assessment Summary Assessment Pt had imrpoved rotation and SB B w/less pain after manual treatment along w/imrpoved trunk rotation and scap depression ability. She presented w/signficantly more tightness today and was encouraged to work on doing activities to help manage this at home. Pt to resume regular PT as she did not do well on her own yet so plan to wrok on setting pt up w/ better independece w/HEP and maintaining gains Physical Therapy Plan Frequency and Duration Frequency of Treatment 1x/Week Duration of Treatment 2 months Plan of Care Start Date 08/09/21 Plan of Care End Date 10/09/21 Therapeutic Interventions Therapeutic Interventions Home Exercise Program,Joint Mobilizations,Manual Therapy, Neuromuscular Re-education, Patient/Caregiver Education, Self-Care/Home Management,Soft Tissue Mobilization,Taping, Therapeutic Activities, Therapeutic Exercises Modalities Cold Pack/Ice Massage,Electric Stimulation,Hot Packs, Infrared Therapy,Traction- Mechanical,Ultrasound Next Visit Focus/Plan Next Note Type Treatment Note Next Visit Plan review exercises for pt to be focusing on & tennis ball roll out and manual to imrpove mobiltiy Plan of Care Dates Plan of Care Start Date 08/09/21 Plan of Care End Date 10/09/21 Electronically Signed by: Carmen Mccurdy, PT 08/09/21 8821 If you are in agreement with this Plan of Care, please return a signed and dated copy. I have reviewed this Plan of Care and certify that the skilled therapy services above are required to meet the patient?s needs. Physician Signature Date Printed Name and Credentials Clinical Instructor Signature Printed Name and Credentials
--- NOTE | 2021-09-26 10:23 | PT-OP ANOTE ---
Pt called and has not scheduled d/t having to work extra at work, but is going to have time soon so plans to call to schedule today
--- NOTE | 2021-12-14 14:13 | PT.OPDS ---
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 (Rec: 03/30/21 13:02 [facility] [id number]) Current Condition History of Current Condition Onset Date 2017 start w/neck pain but constant since 2019 & recent worsening Current Complaints neck pain, DEVI, R UE pain, R jaw pain History of Current Condition Pt reports months after last time PT session and was doing Botox for DEVI but they haven't had much improvement. She saw chiro for about 3 months and it helped a little. She was doing her PT exercises for a while but has stopped. Pt has pain in ears now and hurts R upper neck all to inf shoulder blade and into upper R brachium and goes occ into forearm. Pt has pain B w/neck and w/head and ears. Pt has DEVI pretty much every day. Some days she can deal with it and other days it gets worse. Pt reports ears are sensative to noises like loud noises (like closing doors and dropping something, noises in the kitchen). She doesn't ahve any infection and saw ENT and they said nothing is wrong w/ her ears. Pt gets jaw pain and when gets botox gets it in her jaw, neck and R shoulder. Pt repots sometimes when she gts really bad DEVI then she feels it go into jaw. She told her dentist about pain in jaw /R mouth and was told her teeth are fine. She clenches and is supposed to wear a book repairer at night but she hasn't done it. She got the ones at the store but they don 't stay in place. It would cost $600 to do out of pocket nigtht guard. Pt reports she has had constant DEVI and neck pain about 2 years ago. Pt reports she feels like PT exercises helped a little (was only able to do about 3x/week ). Pt tried massage but was frustrated because the person did entire body and it didn't help. She uses self massage tools but only helps sometimes . Pt gets only a little bit of dizziness. Notices only when sitting up. She has to lift, push and pull heavy stuff and does a lot of repitions of opening boxes and this all inc pain.SOmetimes just putting force to use knife and it starts to hurt before even moving knife. She has tried mm relaxers MDs prescribe but they make her so sleepy that she cannot do it for long. She tries for 10-12 days but it only helps a little. Pt reports she is constantly moving when she sleeps d/t pain in R shoulder. pt has chronic LBP Prior Treatments and Tests MRI brain-WNL, Xray neck( from report-IMPRESSION: C6-C7 moderate to moderately severe degenerative disc disease without subluxation. No definite acute disease is found, however.), carotid doppler-WNL , ENT testing, dental treatment w/over the counter mouth guard, PT-some help, chiro-some help, 1x massage, normal swallow based on MBS Treatment Goals Patient/Caregiver Goals dec pain w/daily activities, improve sleep PT-OP-C Subjective Start: 03/29/21 12:31 Freq: Status: Active Protocol: Document 08/09/21 16:49 [facility] (Rec: 08/09/21 18:01 [facility] [id number]) OP-PT Subjective Patient Comments Patient Comments Pt reports she has been stressed the last 2 weeks and has noticed inc pain including when trying to sleep. PT-OP-F Manual Assessment Start: 03/29/21 12:31 Freq: Status: Active Protocol: Document 03/30/21 12:04 [facility] (Rec: 03/30/21 13:02 [facility] [id number]) Manual Assessments Soft Tissue Assessment Soft Tissue Mobility Assessment R>L UT, LS, scalenes, SCM, temporalis, masseter, rhomboids, lats, traps Joint Mobility Assessment Joint Mobility Assessment 1st rib eelvation, ant humerus in glenoid PT-OP-J Posture/Palpation/Skin Start: 03/29/21 12:31 Freq: Status: Active Protocol: Document 08/09/21 16:49 [facility] (Rec: 08/09/21 18:01 [facility] [id number]) Posture Evaluation [facility] Postural Classification System Elbow Flexion Test 2 PT-OP-K Range of Motion Start: 03/29/21 12:31 Freq: Status: Active Protocol: Document 08/09/21 16:49 [facility] (Rec: 08/09/21 18:01 [facility] [id number]) Cervical Spine Range of Motion Cervical Spine Active Degrees Flexion 63 Extension 68 Rotation Left 64 Rotation Right 55 Lateral Flexion Left 26 Lateral Flexion Right 33 Comments discomfort R w/R SB & Rot & L sB PT-OP-L Special Tests Start: 03/29/21 12:31 Freq: Status: Active Protocol: Document 07/06/21 16:53 [facility] (Rec: 07/06/21 18:25 [facility] [id number]) Special Tests Neural Special Tests- Upper Body Ulnar Nerve Tension Test Results neg R Median Nerve Tension Test Results neg R Radial Nerve Tension Test Results neg R PT-OP-M Strength Start: 03/29/21 12:31 Freq: Status: Active Protocol: Document 08/09/21 16:49 [facility] (Rec: 08/09/21 18:01 [facility] [id number]) Shoulder Strength Shoulder Manual Muscle Testing Left Flexion 5 Normal Extension 5 Normal Abduction (C5) 5 Normal External Rotation 5 Normal Internal Rotation 5 Normal Right Flexion 4+ Good+ Extension 5 Normal Abduction (C5) 4+ Good+ External Rotation 5 Normal Internal Rotation 5 Normal PT-OP-T Assessment and Plan Start: 03/29/21 12:31 Freq: Status: Active Protocol: Document 12/14/21 14:12 [facility] (Rec: 12/14/21 14:13 [facility] [id number]) Physical Therapy Assessment Goals sleep Short Term Goal (STG) Pt will be able to prop self comfortably to be able to have inc ease of falling asleep and staying asleep. STG Duration achieved 06/07 Entertainment Dancer Goal (LTG) Pt will be sherie to sleep through the night waking up no more than 1x to readjust achieved 06/07 resume goal 08/09 d/t issue again LTG Duration 10/09/21 activties Short Term Goal (STG) Pt will have neg median and radial n tension testing in order to improve return to UE activities w/dec pain. 06/07-no radial or ulnar n tension, mild median n tension STG Duration achieved Entertainment Dancer Goal (LTG) Pt will be able to do all work tasks and housework w/o inc pain greater than 2/10 06/07-okay right now but avoids lifting heavy boxes and opening boxes LTG Duration achieved -is careful about how she does some things at work strength Short Term Goal (STG) Pt will be indep w/HEP for ROM , strength and mobility. 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 07/06-tour bus driver WNL, UE strenngth and EFT improved LTG Duration 09/05/21 ROM Short Term Goal (STG) pt will have equal R to L shoulder ROM w/o pain at end ranges 06/07 achieved all except R IR still mild discomfort STG Duration 08/30/21 Entertainment Dancer Goal (LTG) Pt will have full cervical motion without pain in order to imrpove pt's ability to do typical daily activities like driving, and work. 07/06-much improved minorly limited LTG Duration 10/09/21 Assessment Summary Assessment Pt was doing better at last appt with still intermittent pain. Pt was supposed to schedule more appts and was called a couple times to schedule and she noted she would call back.P t did not call back to schedule further appts so pt DC at this time. Pt has not been seen for 4 months. DC at this time. Physical Therapy Plan Discharge Physical Therapy Discharge Reasons No Longer Attending PT
== END 2021-12-15 09:22 ==
LOC: PHYS 16:45
PROVIDERS: Family Provider Nurse Practitioner Family; PCP Nurse Practitioner Family; Referring Provider Nurse Practitioner Family; Visit Provider Nurse Practitioner Family
DX: S16.1XXA Strain of muscle, fascia and tendon at neck level, initial encounter (principal); G44.209 Tension-type headache, unspecified, not intractable; M62.838 Other muscle spasm; R53.1 Weakness; R29.3 Abnormal posture; R68.84 Jaw pain
CPT/HCPCS: 97014; 97110; 97112; 97140; 97162; 97530; 97535; G0283

== ENCOUNTER → 2022-01-25 07:58 | Outpatient (CLI) | payer OTHER, SELFPAY | PROVIDERS: Family Provider Nurse Practitioner Family; PCP Registered Nurse Diabetes Educator; Referring Provider Internal Medicine; Visit Provider Internal Medicine | DX: Z23 Encounter for immunization (principal) | CPT/HCPCS: 90471; 90686 ==

== ENCOUNTER → 2022-03-12 09:26 | Outpatient (CLI) | payer OTHER, SELFPAY ==
[2022-03-12 10:01] LABS: Appearance Urine UA SL CLOUDY; Bilirubin Urine UA NEGATIVE (NEGATIVE); Color Urine UA YELLOW; Glucose Urine UA NEGATIVE (Negative); Ketones Urine UA NEGATIVE (NEGATIVE); Leukocyte Esterase Urine UA TRACE (NEGATIVE); Nitrite Urine UA NEGATIVE (Negative); Occult Blood Urine UA 2+ (Negative); Protein Urine UA NEGATIVE (Negative); Specific Gravity Urine UA 1.025 (1.000-1.035); Urobilinogen Urine UA 0.2 E.U./dL (0.2)
[2022-03-12 10:12] LABS: Bacteria Urine None Seen; Culture Indicated Urine Specimen Cultured; RBC Urine 0-1/HPF (0-5/HPF); Squamous Epithelial Cell Urine 0-1 /HPF (0-5/HPF); WBC Urine 0-1/HPF (0-5/HPF)
[2022-03-12 10:48] LABS: Hematocrit 36.6 % (36-46); Hemoglobin 11.9 g/dL (12.0-16.0)
== END ==
PROVIDERS: Family Provider Nurse Practitioner Family; PCP Registered Nurse Diabetes Educator; Referring Provider Registered Nurse Diabetes Educator; Visit Provider Registered Nurse Diabetes Educator
DX: R10.2 Pelvic and perineal pain (principal); R30.0 Dysuria
CPT/HCPCS: 36415; 81001; 85014; 85018

== ENCOUNTER → 2022-03-14 10:50 | Outpatient (CLI) | payer OTHER, SELFPAY | PROVIDERS: Family Provider Nurse Practitioner Family; PCP Registered Nurse Diabetes Educator; Visit Provider Registered Nurse Diabetes Educator | DX: R31.9 Hematuria, unspecified (principal) | CPT/HCPCS: 87086 ==

== ENCOUNTER → 2022-03-19 14:43 | Outpatient (CLI) | payer OTHER, SELFPAY ==
--- NOTE | 2022-03-19 14:44 | DI.US.S_ITS ---
PROCEDURE: US PELVIC COMPLETE INDICATIONS: RIGHT PELVIC PAIN, NAUSEA, AND DIARRHEA X 2 WEEKS. PARTIAL HYSTERECTOMY. HISTORY OF OVARIAN CYST. TECHNIQUE: Real-time scanning was performed of the pelvic organs, with image documentation. Additional endovaginal scanning was necessary due to incomplete visualization of the adnexal and endometrial structures by transabdominal scanning. COMPARISON: [facility], , US PELVIC COMPLETE, 10/08/2019, 15:02. FINDINGS: Uterus: Status post hysterectomy. Ovaries: The ovaries are not well visualized. Other: No pathologic free abdominal or pelvic fluid. IMPRESSION: Status post hysterectomy. Bilateral ovaries not visualized on this examination. We strive to produce accurate, complete, and clear reports of imaging services. To assist us in improving patient care, this report was composed using standard report templates and voice recognition software. Therefore, it may contain abnormal punctuation, insertions and/or omissions. Occasional wrong-word or sound-alike substitutions may occur. Though we review the report and make efforts to correct it, we do recommend that the report be read carefully in proper context to recognize any text inaccuracies. Dictated by: Carlos Ryenolds M.D. on 03/19/2022 at 16:11 Approved by: Carlos Reynolds M.D. on 03/19/2022 at 16:13
== END ==
PROVIDERS: Family Provider Nurse Practitioner Family; PCP Registered Nurse Diabetes Educator; Referring Provider Physician Assistant Medical; Visit Provider Physician Assistant Medical
DX: R10.2 Pelvic and perineal pain (principal); Z90.710 Acquired absence of both cervix and uterus
CPT/HCPCS: 76830; 76856

== ENCOUNTER → 2022-03-20 15:32 | Outpatient (CLI) | payer OTHER, SELFPAY ==
[2022-03-20 15:46] LABS: Add Manual Diff / Slide Review NO; Basophils Absolute Auto 0 /uL (0-100); Basophils Percent Auto 0.7 % (0-2); Eosinophils Absolute Auto 100 /uL (0-450); Eosinophils Percent Auto 1.1 % (2-4); Hematocrit 37.1 % (36-46); Hemoglobin 11.8 g/dL (12.0-16.0); Lymphocytes Absolute Auto 1800 /uL (1100-4500); Lymphocytes Percent Auto 27.8 % (25-40); Mean Corpuscular HGB Conc 31.9 % (30-36); Mean Corpuscular Hemoglobin 25.2 PG (26-34); Monocytes Absolute Auto 500 /uL (0-900); Monocytes Percent Auto 7.1 % (3-14); Neutrophils Absolute Auto 4100 /uL (1500-7000); Neutrophils Percent Auto 63.3 % (50-75); Platelet Count 171 X10^3/uL (150-400); Red Cell Distribution Width 14.1 % (11.6-14.8); White Blood Cell Count 6.5 X10^3/uL (4.5-11.0)
[2022-03-20 16:19] LABS: Alanine Aminotransferase 19 IU/L (<35); Albumin 4.2 g/dL (3.5-5.0); Albumin Globulin Ratio 1.3 (1.0-2.8); Alkaline Phosphatase 54 U/L (38-126); Aspartate Aminotransferase 25 IU/L (14-36); BUN Creatinine Ratio 31.5 (6-22); Bilirubin Total 0.9 mg/dL (0.2-1.3); Blood Urea Nitrogen 17 mg/dL (7-17); C-Reactive Protein Quant < 0.5 mg/dL (<1.0); Calcium 9.4 mg/dL (8.4-10.2); Carbon Dioxide 28 mmol/L (22-32); Chloride 103 mmol/L (98-107); Estimated Glomerular Filt Rate > 60 mL/min (>60); Globulin 3.2 g/dL (1.7-4.1); Glucose 94 mg/dL (70-100); HEMOLYSIS 16 (0-50); Potassium 3.8 mmol/L (3.4-5.1); Sodium 138 mmol/L (137-145); Total Protein 7.4 g/dL (6.3-8.2)
[2022-03-20 16:35] LABS: Erythrocyte Sedimentation Rate 7 MM/HR (0-20)
== END ==
PROVIDERS: Family Provider Nurse Practitioner Family; PCP Registered Nurse Diabetes Educator; Referring Provider Registered Nurse Diabetes Educator; Visit Provider Registered Nurse Diabetes Educator
DX: R10.31 Right lower quadrant pain (principal)
CPT/HCPCS: 36415; 80053; 85025; 85651; 86140

== ENCOUNTER → 2022-04-02 07:45 | Outpatient (CLI) | payer OTHER, SELFPAY ==
--- NOTE | 2022-04-02 07:46 | DI.CT.S_ITS ---
PROCEDURE: CT ABDOMEN PELVIS WO/W CON INDICATIONS: eval LLQ pain and hematuria TECHNIQUE: Optional 5 mm thick noncontrast images acquired from the diaphragm to the symphysis pubis. After the administration of intravenous contrast, 5 mm thick images acquired from the diaphragm to the symphysis pubis after a 10-minute delay. 2 mm thick coronal and sagittal reformats were then performed of the kidneys and ureters. For radiation dose reduction, the following was used: automated exposure control, adjustment of mA and/or kV according to patient size. COMPARISON: None. FINDINGS: Image quality: Excellent. Lung bases: Lung bases are clear. Heart size is normal. Urinary system: Both kidneys are normal in size, without hydronephrosis or nephrolithiasis on pre-contrast images. No perinephric fat stranding. There is normal bilateral renal enhancement. Renal calyces appear normal in morphology when filled with contrast. Opacified portions of both ureters demonstrate normal caliber. Bladder wall thickness is normal. No calcified bladder stones. Other solid organs: Liver is normal in size and enhancement. Multiple scattered hepatic hypodensities most of which are too small to accurately characterize. Largest measures 3.8 x 3.7 cm in maximum axial cross-sectional dimension (image 54/series 3). It measures fluid attenuation and is nonenhancing. This is compatible with a hepatic cyst within the lateral segment of left hepatic lobe. Gallbladder is unremarkable. Biliary system is non dilated. Pancreas enhances normally. Spleen is normal in size and enhancement. No adrenal nodules. Peritoneum and bowel: Bowel loops demonstrate normal wall thickness and caliber. No free fluid or air. A few scant colonic diverticula without acute diverticulitis. Nodes and vessels: No retroperitoneal or mesenteric adenopathy by size criteria. Aorta and inferior vena cava are normal in size. Abdominal wall: There is a fat-containing umbilical hernia without acute inflammation. Pelvis: No pathologic free pelvic fluid. No inguinal hernias. No pelvic adenopathy. Bones: No suspicious bony lesions. No acute vertebral body compression fractures. IMPRESSION: 1. No evidence for urolithiasis or obstructive uropathy. No suspicious urothelial abnormalities identified within the upper renal collecting system or urinary bladder. 2. Scanned colonic diverticulosis without acute diverticulitis. 3. Multiple hepatic hypodensities most of which are too small to accurately characterize. These are likely hepatic cysts versus hemangiomas. Largest hypodensity is noted in the lateral segment of the left hepatic lobe which is nonenhancing and measures near-fluid attenuation. Dictated by: Carlos Reynolds M.D. on 04/03/2022 at 9:40 Approved by: Carlos Reynolds M.D. on 04/03/2022 at 9:49
== END ==
PROVIDERS: Family Provider Nurse Practitioner Family; PCP Registered Nurse Diabetes Educator; Referring Provider Registered Nurse Diabetes Educator; Visit Provider Registered Nurse Diabetes Educator
DX: R10.31 Right lower quadrant pain (principal); R31.9 Hematuria, unspecified; K42.9 Umbilical hernia without obstruction or gangrene
CPT/HCPCS: 74178; Q9967

== ENCOUNTER → 2022-04-20 15:31 | Outpatient (ROUT) | payer OTHER, SELFPAY ==
[2022-04-20 15:51] LABS: Add Manual Diff / Slide Review NO; Basophils Absolute Auto 0 /uL (0-100); Basophils Percent Auto 0.7 % (0-2); Eosinophils Absolute Auto 100 /uL (0-450); Eosinophils Percent Auto 1.2 % (2-4); Hematocrit 35.8 % (36-46); Hemoglobin 11.5 g/dL (12.0-16.0); Lymphocytes Absolute Auto 2000 /uL (1100-4500); Lymphocytes Percent Auto 34.4 % (25-40); Mean Corpuscular Hemoglobin 25.3 PG (26-34); Mean Corpuscular Volume 78.9 fL (80-100); Monocytes Absolute Auto 400 /uL (0-900); Neutrophils Absolute Auto 3200 /uL (1500-7000); Neutrophils Percent Auto 56.7 % (50-75); Platelet Count 171 X10^3/uL (150-400); Red Blood Cell Count 4.54 X10^6/uL (4.0-5.2); Red Cell Distribution Width 14.4 % (11.6-14.8); White Blood Cell Count 5.7 X10^3/uL (4.5-11.0)
[2022-04-20 16:09] LABS: Alanine Aminotransferase 18 IU/L (<35); Albumin Globulin Ratio 1.4 (1.0-2.8); Alkaline Phosphatase 59 U/L (38-126); Aspartate Aminotransferase 26 IU/L (14-36); Bilirubin Total 0.6 mg/dL (0.2-1.3); Blood Urea Nitrogen 12 mg/dL (7-17); Calcium 8.7 mg/dL (8.4-10.2); Carbon Dioxide 27 mmol/L (22-32); Chloride 107 mmol/L (98-107); Estimated Glomerular Filt Rate > 60 mL/min (>60); Globulin 2.9 g/dL (1.7-4.1); Glucose 99 mg/dL (70-100); HEMOLYSIS < 15 (0-50); Magnesium 1.9 mg/dL (1.6-2.3); Potassium 3.9 mmol/L (3.4-5.1); Sodium 139 mmol/L (137-145); Total Protein 6.9 g/dL (6.3-8.2)
[2022-04-20 16:10] LABS: HEMOLYSIS < 15 (0-50); Iron 63 ug/dL (37-170)
[2022-04-20 16:20] LABS: Percent Iron Saturation 26 % (15-50); Total Iron Binding Capacity 241 ug/dL (265-497); Transferrin 181 mg/dL (206-381)
[2022-04-20 16:45] LABS: Ferritin 46 ng/mL (6-137)
== END ==
PROVIDERS: Family Provider Nurse Practitioner Family; PCP Registered Nurse Diabetes Educator; Visit Provider Internal Medicine Hematology & Oncology
DX: D50.9 Iron deficiency anemia, unspecified (principal)
CPT/HCPCS: 36415; 80053; 82728; 83540; 83550; 83735; 85025

== ENCOUNTER → 2022-05-07 14:57 | Outpatient (CLI) | payer OTHER, SELFPAY ==
[2022-05-07 16:23] LABS: Appearance Urine UA SL CLOUDY; Bilirubin Urine UA NEGATIVE (NEGATIVE); Color Urine UA YELLOW; Glucose Urine UA NEGATIVE (Negative); Ketones Urine UA NEGATIVE (NEGATIVE); Leukocyte Esterase Urine UA 3+ (NEGATIVE); Nitrite Urine UA NEGATIVE (Negative); Occult Blood Urine UA 1+ (Negative); Protein Urine UA NEGATIVE (Negative); Specific Gravity Urine UA 1.015 (1.000-1.035); Urobilinogen Urine UA 0.2 E.U./dL (0.2)
[2022-05-07 16:25] LABS: pH Urine UA 7.5 (4.5-8.0)
[2022-05-07 16:39] LABS: Amorphous Sediment Urine 1+; Bacteria Urine Occasional (0-1); Culture Indicated Urine Specimen Cultured; RBC Urine 1-5/HPF (0-5/HPF); Squamous Epithelial Cell Urine 5-10 /HPF (0-5/HPF); WBC Urine 5-10/HPF (0-5/HPF)
== END ==
PROVIDERS: Family Provider Nurse Practitioner Family; PCP Registered Nurse Diabetes Educator; Referring Provider Registered Nurse Diabetes Educator; Visit Provider Registered Nurse Diabetes Educator
DX: R31.29 Other microscopic hematuria (principal)
CPT/HCPCS: 81001; 87086

== ENCOUNTER → 2022-06-05 08:58 | Outpatient (CLI) | payer OTHER, SELFPAY ==
--- NOTE | 2022-06-05 08:59 | DI.US.S_ITS ---
PROCEDURE: US ABDOMEN LIMITED INDICATIONS: LIVER LESIONS ON CT TECHNIQUE: Real-time focused scanning was performed of the abdomen, with image documentation. COMPARISON: [facility], CT, CT ABDOMEN PELVIS WO/W CON, 04/02/2022, 7:56. FINDINGS: 3 simple cysts are identified in liver. There is a 3.9 x 3.2 x 4.3 cm simple cyst in the left hepatic lobe. In addition, couple of small simple cysts are seen, 1 in the anterior right hepatic lobe measuring 0.7 x 0.6 x 0.9 cm and 1 in the left hepatic lobe measuring 0.9 x 0.7 x 1.2 cm. Liver is normal in size. Gallbladder is normal. No gallstones. Common bile duct measures 5 mm. Visualized pancreas is normal. IMPRESSION: 1. Multiple hepatic cysts. 2. No solid liver lesions are identified on ultrasound. Dictated by: Enedina Rodriguez M.D. on 06/05/2022 at 11:56 Approved by: Enedina Rodriguez M.D. on 06/05/2022 at 12:00
== END ==
PROVIDERS: Family Provider Nurse Practitioner Family; PCP Registered Nurse Diabetes Educator; Referring Provider Registered Nurse Diabetes Educator; Visit Provider Registered Nurse Diabetes Educator
DX: K76.89 Other specified diseases of liver (principal)
CPT/HCPCS: 76705

== ENCOUNTER → 2023-01-17 12:19 | Outpatient (CLI) | payer OTHER, SELFPAY | PROVIDERS: PCP Registered Nurse Diabetes Educator; Referring Provider Family Medicine; Visit Provider Family Medicine | DX: Z23 Encounter for immunization (principal) | CPT/HCPCS: 90471; 90686 ==

== ENCOUNTER → 2023-02-07 15:33 | Outpatient (CLI) | payer OTHER, SELFPAY ==
--- NOTE | 2023-02-07 15:36 | DI.RAD.S_ITS ---
PROCEDURE: XR SHOULDER RT MIN 2V INDICATIONS: eval R shoulder, neck, upper back pain TECHNIQUE: 3 views of the shoulder were acquired. COMPARISON: None. FINDINGS: Bones: No fractures or dislocations. No suspicious bony lesions. Visualized ribs appear intact. Moderate acromioclavicular joint osteoarthritis. Soft tissues: No suspicious soft tissue calcifications. IMPRESSION: Moderate right acromioclavicular joint osteoarthritis. Dictated by: Maryan Valenzuela MD, PhD on 02/07/2023 at 16:05 Approved by: Maryan Valenzuela MD, PhD on 02/07/2023 at 16:06
--- NOTE | 2023-02-07 15:36 | DI.RAD.S_ITS ---
PROCEDURE: XR CERVICAL SPINE 4V OR 5V INDICATIONS: eval R shoulder, neck, upper back pain TECHNIQUE: 5 views of the cervical spine acquired. COMPARISON: None. FINDINGS: Bones: No fractures or dislocations to the T1 level. Oblique images demonstrate no bony foraminal stenoses. Moderate C6-C7 degenerative disc disease. Mild C5-C6 degenerative disc disease. Mild C5-C6, C6-C7 and C7-T1 facet arthropathy. Soft tissues: No prevertebral soft tissue swelling. IMPRESSION: Multilevel degenerative disc disease. Multilevel facet arthropathy. No acute osseous lesion. If symptoms and/or clinical suspicion for pathology persists, evaluation with MRI should be considered for further assessment. Dictated by: Maryan Valenzuela MD, PhD on 02/07/2023 at 16:07 Approved by: Maryan Valenzuela MD, PhD on 02/07/2023 at 16:07
--- NOTE | 2023-02-07 15:36 | DI.RAD.S_ITS ---
PROCEDURE: XR THORACIC SPINE 3V INDICATIONS: eval R shoulder, neck, upper back pain TECHNIQUE: 3 views of the thoracic spine were acquired. COMPARISON: None. FINDINGS: Bones: No fractures or dislocations. No suspicious bony lesions. 12 pairs of ribs are noted, and appear intact where visualized. Mild degenerative changes throughout the thoracic spine. Soft tissues: No paravertebral stripe thickening. IMPRESSION: Mild thoracic spine multilevel degenerative disc disease. No acute osseous lesion. If symptoms and/or clinical suspicion for pathology persists, evaluation with MRI should be considered for further assessment. Dictated by: Maryan Valenzuela MD, PhD on 02/07/2023 at 16:06 Approved by: Maryan Valenzuela MD, PhD on 02/07/2023 at 16:06
== END ==
PROVIDERS: PCP Registered Nurse Diabetes Educator; Referring Provider Registered Nurse Diabetes Educator; Visit Provider Registered Nurse Diabetes Educator
DX: M47.812 Spondylosis without myelopathy or radiculopathy, cervical region (principal); M50.322 Other cervical disc degeneration at C5-C6 level; M19.011 Primary osteoarthritis, right shoulder; M47.814 Spondylosis without myelopathy or radiculopathy, thoracic region; M25.511 Pain in right shoulder; M54.9 Dorsalgia, unspecified
CPT/HCPCS: 72050; 72072; 73030

== ENCOUNTER → 2023-04-23 15:24 | Outpatient (CLI) | payer OTHER, SELFPAY ==
--- NOTE | 2023-04-23 15:26 | DI.RAD.S_ITS ---
PROCEDURE: XR LUMBAR SPINE MIN 4V INDICATIONS: Back pain TECHNIQUE: 5 views of the lumbar spine acquired, including flexion and extension views. COMPARISON: [facility], , XR LUMBAR SPINE MIN 4V, 07/31/2018, 15:40. FINDINGS: Bones: 5 nonrib-bearing vertebrae are present. There is normal bony alignment. No vertebral body compression fractures. No suspicious bony lesions. Lower lumbar spine disc space narrowing and hypertrophic facet joints Soft tissues: Overlying bowel gas pattern is normal. No suspicious soft tissue calcifications. Oblique images shows no pars defect IMPRESSION: Mild lower lumbar spine degenerative disc disease and arthropathy without pars defect or spondylolisthesis Approved by: Bar Crocker M.D. on 04/23/2023 at 20:06
== END ==
LOC: RAD 15:25
PROVIDERS: PCP Registered Nurse Diabetes Educator; Referring Provider Anesthesiology; Visit Provider Anesthesiology
DX: M51.36 Other intervertebral disc degeneration, lumbar region (principal); M47.816 Spondylosis without myelopathy or radiculopathy, lumbar region; M54.9 Dorsalgia, unspecified
CPT/HCPCS: 72110

== ENCOUNTER → 2023-05-18 12:39 | Outpatient (CLI) | payer OTHER, SELFPAY ==
--- NOTE | 2023-05-18 12:40 | DI.RAD.S_ITS ---
PROCEDURE: XR KNEE RT 3V INDICATIONS: eval R knee pain/Conklin's cyst TECHNIQUE: 3 views of the knee were acquired. COMPARISON: None. FINDINGS: Bones: No fractures or dislocations. No suspicious bony lesions. Soft tissues: No joint effusion. No suspicious soft tissue calcifications. IMPRESSION: No acute bony abnormality or significant effusion. If there is high clinical suspicion for a Conlkin's cyst, ultrasound could be used to further for characterize findings. Dictated by: Wendy Uribe M.D. on 05/19/2023 at 18:34 Approved by: Wendy Uribe M.D. on 05/19/2023 at 18:35
== END ==
LOC: RAD 12:40
PROVIDERS: PCP Registered Nurse Diabetes Educator; Referring Provider Registered Nurse Diabetes Educator; Visit Provider Registered Nurse Diabetes Educator
DX: M71.21 Synovial cyst of popliteal space [Baker], right knee (principal); M25.561 Pain in right knee; G89.29 Other chronic pain
CPT/HCPCS: 73562

== ENCOUNTER → 2023-05-28 07:57 | Outpatient (CLI) | payer OTHER, SELFPAY ==
--- NOTE | 2023-05-28 07:57 | DI.US.S_ITS ---
PROCEDURE: US EXTREMITY NONVASC LOWER RT INDICATIONS: WORSENING RIGHT KNEE PAIN - ESTRELLA'S CYST TECHNIQUE: Real-time scanning was performed of the right lower extremity , with image documentation. COMPARISON: None. Findings and impression: At the area of interest at the popliteal fossa, no discrete fluid collection or thrombus is identified. Possible knee joint effusion is present. If there is high concern for further derangement, consider MRI evaluation. Dictated by: Abdiaziz Savage M.D. on 05/28/2023 at 8:31 Approved by: Abdiaziz Savage M.D. on 05/28/2023 at 8:32
== END ==
PROVIDERS: PCP Registered Nurse Diabetes Educator; Referring Provider Registered Nurse Diabetes Educator; Visit Provider Registered Nurse Diabetes Educator
DX: M71.21 Synovial cyst of popliteal space [Baker], right knee (principal); M25.561 Pain in right knee; G89.29 Other chronic pain
CPT/HCPCS: 76882

== ENCOUNTER → 2023-06-12 16:56 | Outpatient (CLI) | payer OTHER, SELFPAY ==
--- NOTE | 2023-06-12 16:57 | DI.MRI.S_ITS ---
PROCEDURE: MR KNEE RT WO CON INDICATIONS: Unspecified internal derangement of right knee TECHNIQUE: Noncontrast sagittal PD fast spin echo and T2 fast spin echo with fat saturation, sagittal 3-D FLASH with fat saturation; coronal T1 spin echo and PD fast spin echo with fat saturation, and axial PD fast spin echo with fat saturation through the knee. COMPARISON: None. FINDINGS: Image quality: Excellent. Menisci: Oblique tear involving posterior horn of medial meniscus is seen extending to inferior articulating surface. The lateral meniscus is intact.. The meniscal root ligaments appear intact. Cruciate ligaments: The anterior and posterior cruciate ligaments appear intact. Medial structures: The medial collateral ligament appears thickened with surrounding soft tissue edema. Visualized portions of the pes anserinus tendons appear normal. No abnormal bursal fluid. Lateral structures: The lateral collateral ligament, long and short heads of the biceps femoris tendon appear intact. The popliteus tendon appears normal. Iliotibial band appears normal. Anterior structures: Distal quadriceps tendinosis at its superior patellar insertion is seen. The patellar tendon is intact. Patellar alignment is normal. No femoral trochlear dysplasia or ventral trochlear prominence. No edema in the infrapatellar fat pad. Bones and cartilage: No bone marrow contusions or fractures. Mild medial femoral tibial compartment joint space laterally and low-grade chondromalacia is seen. Joint space: There is small knee joint fluid. No Conklin's cyst. Normal appearing synovial plicae are incidentally noted. IMPRESSION: 1. Oblique tear involving posterior horn of medial meniscus extending to inferior articulating surface. The lateral meniscus is intact. 2. The cruciate ligaments are intact. Low-grade MCL sprain. 3. Distal quadriceps tendinosis. 4. 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 No fracture or dislocation. Small joint effusion, no gross loose bodies. Dictated by: Moses Gabriel M.D. on 06/13/2023 at 10:48 Approved by: Moses Gabriel M.D. on 06/13/2023 at 11:01
== END ==
LOC: MRI 16:56
PROVIDERS: PCP Registered Nurse Diabetes Educator; Referring Provider Orthopaedic Surgery Orthopaedic Surgery of the Spine; Visit Provider Orthopaedic Surgery Orthopaedic Surgery of the Spine
DX: S83.241A Other tear of medial meniscus, current injury, right knee, initial encounter (principal); S83.411A Sprain of medial collateral ligament of right knee, initial encounter; M17.11 Unilateral primary osteoarthritis, right knee; M94.261 Chondromalacia, right knee; M23.91 Unspecified internal derangement of right knee; M25.461 Effusion, right knee
CPT/HCPCS: 73721

== ENCOUNTER → 2023-07-17 16:16 | Outpatient (CLI) | payer OTHER, SELFPAY ==
--- NOTE | 2023-07-17 16:17 | DI.MRI.S_ITS ---
PROCEDURE: MR LUMBAR SPINE WO CON INDICATIONS: Chronic low back pain TECHNIQUE: Noncontrast sagittal T1 spin echo and T2 fast echo, sagittal STIR, and T2 fast spin echo through the lumbar spine. In cases with scoliosis, additional coronal T2 fast spin echo may be performed. COMPARISON: [facility], CT, CT ABDOMEN PELVIS WO/W CON, 04/02/2022, 7:56. FINDINGS: Image quality: Excellent. Alignment and Curvature: There is normal bony alignment. Bone Marrow: Fibrovascular endplate change at L5-S1. Vertebral body heights are well maintained. Spinal Cord: Conus medullaris terminates at the L1-2 level. Visualized cord demonstrates normal signal and size. Paraspinous Soft Tissues: No paravertebral masses. T11-T12: Unremarkable T12-L1: Mild disc bulge. No stenosis. L1-2: Unremarkable L2-3: Mild bilateral facet arthropathy. No stenosis. L3-4: Mild bilateral facet arthropathy. No stenosis. L4-5: Mild disc bulge. Mild bilateral facet arthropathy. No central canal stenosis. No right neural foraminal stenosis. Mild left neural foraminal stenosis. L5-S1: Mild disc bulge. Mild bilateral facet arthropathy. No central canal stenosis. No neural foraminal stenosis. Visualized sacrum is unremarkable. No abdominal aortic aneurysm. 4.2 T2 hyperintense lesion in the left ange liver, previously better characterized on CT abdomen pelvis on 04/02/2022. IMPRESSION: 1. Fibrovascular endplate change at L5-S1. 2. Multilevel degenerative changes of the lumbar spine, most pronounced at L4-5, where there is mild left neural foraminal stenosis. Dictated by: Lacie Mike M.D. on 07/18/2023 at 9:31 Approved by: Lacie Mike M.D. on 07/18/2023 at 9:39
== END ==
LOC: MRI 16:16
PROVIDERS: PCP Registered Nurse Diabetes Educator; Referring Provider Anesthesiology; Visit Provider Anesthesiology
DX: M47.816 Spondylosis without myelopathy or radiculopathy, lumbar region (principal); M47.817 Spondylosis without myelopathy or radiculopathy, lumbosacral region; M48.061 Spinal stenosis, lumbar region without neurogenic claudication; M54.9 Dorsalgia, unspecified
CPT/HCPCS: 72148

== ENCOUNTER → 2023-11-25 07:46 | Outpatient (CLI) | payer OTHER, SELFPAY ==
[2023-11-25 08:34] LABS: Add Manual Diff / Slide Review NO; Basophils Absolute Auto 0 /uL (0-100); Basophils Percent Auto 0.5 % (0-2); Eosinophils Absolute Auto 100 /uL (0-450); Eosinophils Percent Auto 1.6 % (2-4); Hematocrit 37.8 % (36-46); Hemoglobin 12.2 g/dL (12.0-16.0); Lymphocytes Absolute Auto 2100 /uL (1100-4500); Lymphocytes Percent Auto 32.5 % (25-40); Mean Corpuscular HGB Conc 32.2 % (30-36); Mean Corpuscular Hemoglobin 25.6 PG (26-34); Mean Corpuscular Volume 79.4 fL (80-100); Monocytes Absolute Auto 500 /uL (0-900); Monocytes Percent Auto 7.3 % (3-14); Neutrophils Absolute Auto 3700 /uL (1500-7000); Neutrophils Percent Auto 58.1 % (50-75); Platelet Count 196 X10^3/uL (150-400); Red Blood Cell Count 4.76 X10^6/uL (4.0-5.2); Red Cell Distribution Width 14.8 % (11.6-14.8); White Blood Cell Count 6.4 X10^3/uL (4.5-11.0)
[2023-11-25 08:57] LABS: Alanine Aminotransferase 19 IU/L (<35); Albumin 3.9 g/dL (3.5-5.0); Albumin Globulin Ratio 1.5 (1.0-2.8); Alkaline Phosphatase 66 U/L (38-126); Aspartate Aminotransferase 28 IU/L (14-36); BUN Creatinine Ratio 21.1 (6-22); Blood Urea Nitrogen 12 mg/dL (7-17); Calcium 9.4 mg/dL (8.4-10.2); Carbon Dioxide 26 mmol/L (22-32); Chloride 106 mmol/L (98-107); Cholesterol 171 mg/dL (140-199); Estimated Glomerular Filt Rate > 60 mL/min (>60); Globulin 2.6 g/dL (1.7-4.1); Glucose 93 mg/dL (70-100); HDL Cholesterol 54 mg/dL (40-60); HEMOLYSIS < 15 (0-50); LDL Cholesterol Calculated 104 mg/dL (<100); Potassium 3.8 mmol/L (3.4-5.1); Sodium 139 mmol/L (137-145); Total Protein 6.5 g/dL (6.3-8.2); Triglycerides 67 mg/dL (35-150)
[2023-11-25 09:25] LABS: Thyroid Stimulating Hormone 4.48 uIU/mL (0.47-4.68)
[2023-11-25 10:27] LABS: Vitamin D 25 Hydroxy (D3) 34.6 ng/mL (30.0-100.0)
== END ==
PROVIDERS: PCP Registered Nurse Diabetes Educator; Referring Provider Registered Nurse Diabetes Educator; Visit Provider Registered Nurse Diabetes Educator
DX: Z00.00 Encounter for general adult medical examination without abnormal findings (principal); R53.83 Other fatigue; D50.9 Iron deficiency anemia, unspecified; F41.9 Anxiety disorder, unspecified; F32.9 Major depressive disorder, single episode, unspecified
CPT/HCPCS: 36415; 80053; 80061; 82306; 84439; 84443; 85025

== ENCOUNTER → 2024-01-10 20:06 | Outpatient (CLI) | payer OTHER, SELFPAY | PROVIDERS: PCP Registered Nurse Diabetes Educator; Referring Provider Internal Medicine; Visit Provider Internal Medicine | DX: Z23 Encounter for immunization (principal) | CPT/HCPCS: 90471; 90656 ==

== ENCOUNTER 2024-02-10 15:51 | Emergency (ER) | payer OTHER, SELFPAY ==
[2024-02-10 16:00] VITALS: PULSE 69; RESP 18; TEMP 36.8; O2SAT 97; BMI 26.5
[2024-02-10] MEDS: ACETAMINOPHEN 325 MG TABLET PO (16:31)
[2024-02-10] MEDS: IBUPROFEN 400 MG TABLET PO (16:35)
--- NOTE | 2024-02-10 17:04 | ED_ITS ---
HPI - Fall General Chief Complaint: Fall Stated Complaint: GLF, R Wrist/Low Back Px Time Seen by Provider: 02/10/24 16:17 History of Present Illness HPI Narrative: 49-year-old woman with a history of migraine was at work, reaching up to open high covered, stepped on a small block and lost her footing. She was able to mostly catch herself so that she had a soft landing with her fall but did land with her right hand on the floor and on her right hip. She was able to get up off the floor and walk without difficulty. She is noticing some muscle tightening in her low back and around her right hip. There is some tenderness along the thenar eminence palmar surface of her right hand. She comes in for further evaluation Related Data Home Medications Medication Instructions Recorded Confirmed rizatriptan 10 mg tablet See Rx Instructions PO .COMPLEX 01/09/21 12/04/23 Previous Rx's Medication Instructions Recorded hydroxyzine HCl 25 mg tablet 25 mg PO QID PRN anxiety #10 tabs 11/12/23 Allergies Allergy/AdvReac Type Severity Reaction Status Date / Time No Known Drug Allergies Allergy Verified 12/04/23 09:11 Review of Systems Review of Systems Narrative: Pertinent positive and negative findings as per HPI Patient History Medical History Lumbar spondylosis Dorsalgia Myofascial pain Cervical spondylosis Chronic neck pain Right shoulder pain Arthritis of right acromioclavicular joint Migraine without aura, not intractable GERD (gastroesophageal reflux disease) (2019) Encounter for routine gynecological examination (07/06/20) Encounter for wellness examination in adult (07/06/20) Sinusitis Chronic sore throat Screening for heart disease Fatigue Hair loss Abnormal prominence of clavicle Tension headache Neck strain Pelvic pain (2008) Depression Anxiety Anemia History of heavy periods Surgical History S/P laparoscopic supracervical hysterectomy (05/26/18) Family History Mother Diabetes mellitus Social History household members: family Smoking Status: Never smoker second hand exposure: No alcohol intake: never substance use type: does not use Smoking Status: Never smoker Exam Initial Vital Signs Initial Vital Signs: Vital Signs Temperature 98.3 F 02/10/24 16:00 Pulse Rate 69 02/10/24 16:00 Respiratory Rate 18 02/10/24 16:00 Pulse Oximetry 97 02/10/24 16:00 Oxygen Delivery Method Room Air 02/10/24 16:00 General: Alert appropriate in no acute distress Respiratory: Able to speak in full sentences, no obvious respiratory distress Skin: No obvious rashes, warm and dry Neurologic: Grossly intact no obvious asymmetries or abnormalities Psych: appropriate insight and affect, cooperative Extremity: No point tenderness along the lumbar spine or with manipulation of the pelvic ring. No obvious contusion to the buttock posterior right thigh. She does have bruising to the palmar surface, thenar eminence right hand but full range of motion of the thumb and no obvious bony injury. There is no bony injury or limited range of motion of the wrist, the elbow or the shoulder. Course Orders Ordered: Discontinued Medications Acetaminophen (Acetaminophen 325 Mg Tablet) 325 mg PO NOW ONE Stop: 02/10/24 16:13 Last Admin: 02/10/24 16:31 Dose: 325 mg Documented By: HEATH Ibuprofen (Ibuprofen 400 Mg Tablet) 400 mg PO NOW ONE Stop: 02/10/24 16:13 Last Admin: 02/10/24 16:35 Dose: 400 mg Documented By: RB Vital Signs Vital signs: Vital Signs - 8 hr 02/10/24 16:00 Temperature 98.3 F Pulse Rate 69 Respiratory Rate 18 Pulse Oximetry 97 Oxygen Delivery Method Room Air MDM - Fall MDM Narrative Medical decision making narrative: 49-year-old woman with a fall at work. She was almost able to catch herself so the fall was a soft landing with an outstretched hand on a hard floor. She did not hit her head she has some mild tenderness to the lumbar spine without eviden ce of new compression fracture. No evidence of pelvic fracture. No obvious contusion to the hip appreciated. Some tenderness to the wrist but no evidence of fracture. Bruising to the palmar surface of the hand again, no evidence of fracture to any of the bones of the hand or finger. She is placed in a wrist splint for comfort and is neurovascularly intact afterward. She is given 400 mg of ibuprofen and 325 mg of Tylenol for pain control. We did discuss additional pain control she declined. With shared decision-making we opted to not proceed with any x-rays at today's visit. We did discuss how much more she is going to be hurting tomorrow and I recommended not returning to work until at least the . Questions are answered and she is safe for discharge. L and I forms are filled out Discharge Plan Departure Patient Disposition: Home Clinical Impression: Fall Qualifiers: Encounter type: initial encounter Qualified Code(s): W19.XXXA - Unspecified fall, initial encounter Right wrist sprain Qualifiers: Encounter type: initial encounter Qualified Code(s): S63.501A - Unspecified sprain of right wrist, initial encounter Contusion of right palm Qualifiers: Encounter type: initial encounter Qualified Code(s): S60.221A - Contusion of right hand, initial encounter Contusion of hip, right Qualifiers: Encounter type: initial encounter Qualified Code(s): S70.01XA - Contusion of right hip, initial encounter Instructions: DI for Wrist Sprain, DI for Contusion Activity Restrictions/Additional Instructions: Thank you for coming in today, I am glad you are able to partially catch yourself with your fall. Based on your exam, you are going to be bruised and sore but I do not suspect underlying fractures. Together we decided to not proceed with any x-rays The splint that you are given for your wrist is purely for comfort. You can wear it as long as it is helpful. Do expect to be more sore over the 1st 24-48 hours, this does not mean that you injured more it is simply means that you are healing Using 400 mg of ibuprofen (2 [id number] pills) and 1 Tylenol every 6 hours can be very helpful in controlling pain. If you find that you are getting worse or develop any new symptoms, please feel free to return to the emergency department for further evaluation. Prescriptions: No Action rizatriptan 10 mg tablet See Rx Instructions PO .COMPLEX Rx Instructions: take 1 tab at onset of headache; if no relief may repeat 1 tab after at least 2 hrs; max = 3 tabs/24 hr PO hydroxyzine HCl 25 mg tablet 25 mg PO QID PRN (Reason: anxiety) Qty: 10 3RF Referrals: Jae Hernandez ARNP [Primary Care Provider] - Stand Alone Forms: Patient Portal/API/Survey, Work Release Note
== END 2024-02-10 17:18 | disposition home or self-care (01) ==
PROVIDERS: Emergency Provider Emergency Medicine; PCP Registered Nurse Diabetes Educator
DX: S63.501A Unspecified sprain of right wrist, initial encounter (principal); S60.221A Contusion of right hand, initial encounter; S70.01XA Contusion of right hip, initial encounter; M54.50 Low back pain, unspecified; W18.30XA Fall on same level, unspecified, initial encounter
CPT/HCPCS: 29260; 99283

== ENCOUNTER → 2024-04-14 07:02 | Outpatient (CLI) | payer OTHER, SELFPAY ==
--- NOTE | 2024-04-14 07:10 | DI.US.S_ITS ---
PROCEDURE: US PELVIC COMPLETE INDICATIONS: PELVIC PAIN. H/O OVARIAN CYSTS. H/O PARTIAL HYSTERECTOMY. TECHNIQUE: Real-time scanning was performed of the pelvic organs, with image documentation. Additional endovaginal scanning was necessary due to incomplete visualization of the adnexal and endometrial structures by transabdominal scanning. COMPARISON: [facility], PELVIC COMPLETE, 03/19/2022, 14:49. [facility] PELVIC COMPLETE, 10/08/2019, 15:02. [facility] PELVIC COMPLETE, 07/22/2019, 10:39. [facility] PELVIC COMPLETE, 06/10/2019, 10:26. FINDINGS: Uterus: Surgically absent Ovaries: Not identified due to overlying bowel gas. Other: No pathologic free abdominal or pelvic fluid. IMPRESSION: Limited examination due to bowel gas. Nonvisualization of the ovaries. We strive to produce accurate, complete, and clear reports of imaging services. To assist us in improving patient care, this report was composed using standard report templates and voice recognition software. Therefore, it may contain abnormal punctuation, insertions and/or omissions. Occasional wrong-word or sound-alike substitutions may occur. Though we review the report and make efforts to correct it, we do recommend that the report be read carefully in proper context to recognize any text inaccuracies. Dictated by: Tonny Sauceda M.D. on 04/14/2024 at 11:05 Approved by: Tonny Sauceda M.D. on 04/14/2024 at 11:09
== END ==
PROVIDERS: Family Provider Registered Nurse Diabetes Educator; PCP Registered Nurse Diabetes Educator; Referring Provider Registered Nurse Diabetes Educator; Visit Provider Registered Nurse Diabetes Educator
DX: R10.2 Pelvic and perineal pain (principal); Z87.42 Personal history of other diseases of the female genital tract; Z90.710 Acquired absence of both cervix and uterus
CPT/HCPCS: 76830; 76856

== ENCOUNTER → 2024-05-10 15:25 | Outpatient (CLI) | payer OTHER, SELFPAY ==
[2024-05-10 16:10] LABS: Influenza A - CEPHEID Flu A POSITIVE (NEGATIVE); Influenza B - CEPHEID Flu B NEGATIVE (NEGATIVE); Respiratory Syncytial Virus Negative (Negative)
[2024-05-10 16:22] LABS: COVID-19 CEPHEID 4-PLEX PCR Negative (Negative)
== END ==
PROVIDERS: Family Provider Registered Nurse Diabetes Educator; PCP Registered Nurse Diabetes Educator; Visit Provider Nurse Practitioner Family
DX: R05.1 Acute cough (principal)
CPT/HCPCS: 0241U; 87070

== ENCOUNTER 2024-07-22 17:00 | Outpatient (RCR) | payer OTHER, SELFPAY ==
--- NOTE | 2024-05-04 16:15 | PT.OIE ---
Current Diagnoses Contusion of right hip, subsequent encounter (05/04/24) Past Medical History (Last Reviewed 04/19/24 @ 10:31 by LIZ Woods) Abnormal prominence of clavicle Anemia Anxiety Arthritis of right acromioclavicular joint Cervical spondylosis Chronic neck pain Chronic sore throat Depression Dorsalgia Encounter for routine gynecological examination (07/06/20) Encounter for wellness examination in adult (07/06/20) Fatigue GERD (gastroesophageal reflux disease) (2019) Hair loss History of heavy periods Lumbar spondylosis Migraine without aura, not intractable Myofascial pain Neck strain Pelvic pain (2008) Right shoulder pain Screening for heart disease Sinusitis Tension headache Past Surgical History (Last Reviewed 04/19/24 @ 10:31 by LIZ Woods) S/P laparoscopic supracervical hysterectomy (05/26/18) Visit Care Team Role Provider Type LIZ Woods Family Provider Advanced Lubrication Technician Primary Care Provider Specialty: Medical Address: [address] [place] [address], [facility] Email: [email or web address] Dylan Lake MD Attending Provider Non-Staff Referring Provider Specialty: Physical Medicine and Rehab Address: [address] [place] [address], [id number] Email: Physical Therapy Initial Evaluation PT-OP-A Visit Information Start: 05/04/24 09:09 Freq: Status: Active Protocol: Document 05/04/24 15:18 [facility] (Rec: 05/04/24 16:14 [facility] [id number]) Out-Patient Physical Therapy Visit Information Visit Information Visit Type Initial Evaluation Visit Start Time 15:20 Visit Stop Time 16:03 Visit Number 04/12 Number of PAYROLL MASTER Visits 0 PT-OP-B Current Condition Start: 05/04/24 09:09 Freq: Status: Active Protocol: Document 05/04/24 15:18 [facility] (Rec: 05/04/24 16:14 [facility] [id number]) Current Condition History of Current Condition Onset Date Feb 10 2024 Current Complaints R hip pain History of Current Condition Pt went outside to grab something from a storeroom and has to pull down a door and had to step on something and slipped and fell onto hip. She fell onto her R wrist and elbow and R hip. Went o ER and the next day started to feel it more on her hip. Pt has had increased LBP since this fall . Prior to this, she wasn't feeling much or any pain to her LB, but since the fall, her LBP has been irritated. At work, she has to be very careful because if she lifts something heavy, it gets irritated. In the AMs, she feels okay. She does have to walk a lot and lift and push for work. Moves slower to not hurt herself. No evidence of bruising on hip at injury. Denies numbness/tingling or pain down leg. Treatment Goals Patient/Caregiver Goals Work at normal speed and lift as needed at work, dec hip pain, be able to sleep at night PT-OP-C Subjective Start: 05/04/24 09:09 Freq: Status: Active Protocol: Document 05/04/24 15:18 [facility] (Rec: 05/04/24 16:14 [facility] [id number]) Patient Questionnaires Lower Extremity Functional Scale LEFS Score 45/80 OP-PT Pain Assessment Location R hip Pain Location Details post lat hip Intensity 7 Scale Used Numeric (0 - 10) Description With Movement Frequency Daily Pain Aggravating Factors Bending,Lifting Other Pain Aggravating Factors at night especially on R, supine or prone, end of shift, push, sit to stand Pain Alleviating Factors Heat Other Pain Alleviating Factors tylenol, advil, stretches ( temporary) PT-OP-D Balance Start: 05/04/24 09:09 Freq: Status: Active Protocol: Document 05/04/24 15:18 [facility] (Rec: 05/04/24 16:14 [facility] [id number]) Balance Tests Single Limb Standing Single Limb- Right 12 sec (inc deviation Single Limb- Left 6 sec (inc deviation PT-OP-F Manual Assessment Start: 05/04/24 09:09 Freq: Status: Active Protocol: Document 05/04/24 15:18 [facility] (Rec: 05/04/24 16:14 [facility] [id number]) Manual Assessments Soft Tissue Assessment Soft Tissue Mobility Assessment tension QL, ES, glutes, hip flexor, ITB R PT-OP-G Mobility & Gait Start: 05/04/24 09:09 Freq: Status: Active Protocol: Document 05/04/24 15:18 [facility] (Rec: 05/04/24 16:14 [facility] [id number]) OP Gait Assessment Comments Gait Comments dec stance time RLE PT-OP-J Posture/Palpation/Skin Start: 05/04/24 09:09 Freq: Status: Active Protocol: Document 05/04/24 15:18 [facility] (Rec: 05/04/24 16:14 [facility] [id number]) Posture Evaluation [facility] Postural Classification System Evelyn Postural Classifications Posterior/Posterior Elbow Flexion Test 0 Lumbar Protective Mechanism Left AP 0 Lumbar Protective Mechanism Right AP 0 Lumbar Protective Mechanism Left PA 0 Lumbar Protective Mechanism Right PA 0 Comments Posture Comments R pelvic shear, L trunk rot, R iliac elevated, equal greater trochanter pain upper glute w/EFT PT-OP-K Range of Motion Start: 05/04/24 09:09 Freq: Status: Active Protocol: Document 05/04/24 15:18 [facility] (Rec: 05/04/24 16:14 [facility] [id number]) Hip Goniometric Range of Motion Hip Right Active Flexion w/Knee Flexed 86 Straight Leg Raise 69 Abduction 18 Internal Rotation 34 External Rotation 20 Left Active Flexion w/Knee Flexed 96 Straight Leg Raise 76 Abduction 24 Internal Rotation 40 External Rotation 16 PT-OP-L Special Tests Start: 05/04/24 09:09 Freq: Status: Active Protocol: Document 05/04/24 15:18 [facility] (Rec: 05/04/24 16:14 [facility] [id number]) Special Tests Hip Special Tests Sangita's Comments positive R>L KELSEY Comments dec range R>L and some pain Slump Comments R positive Straight Leg Raise Comments pain and limited range Dung Comments positive R RF and hip flex, TFL, L hip flex PT-OP-M Strength Start: 05/04/24 09:09 Freq: Status: Active Protocol: Document 05/04/24 15:18 [facility] (Rec: 05/04/24 16:14 [facility] [id number]) Hip Strength Hip Manual Muscle Testing Right Flexion (L2) 3+ Fair+ Extension (S1) 3- Fair- Abduction 3+ Fair+ Adduction 3- Fair- External Rotation 3+ Fair+ Internal Rotation 3 Fair Comments pain Left Flexion (L2) 4- Good- Extension (S1) 3+ Fair+ Abduction 4 Good Adduction 3+ Fair+ External Rotation 4- Good- Internal Rotation 4 Good Knee Strength Knee Manual Muscle Testing Right Flexion (S2) 4- Good- Extension (L3) 4- Good- Left Flexion (S2) 4+ Good+ Extension (L3) 4+ Good+ Ankle/Foot Strength Ankle and Foot Manual Muscle Testing Right Dorsiflexion (L4) 5 Normal Plantarflexion (S1) 5 Normal Left Dorsiflexion (L4) 5 Normal Plantarflexion (S1) 5 Normal Comments PF tested seated PT-OP-Q Treatments Start: 05/04/24 09:09 Freq: Status: Active Protocol: Document 05/04/24 15:18 [facility] (Rec: 05/04/24 16:14 [facility] [id number]) Therapeutic Exercises Sitting Exercises stretch Sitting Exercise Name 1. HS 2. piriformis Side bilateral Reps/Minutes 45 sec ea Standing Exercises sidestep Side bilateral Equipment Used L1 Reps/Minutes 20ft ea Comments cues posture stretch Standing Exercise Name hip flexor Side bilateral Reps/Minutes 45 sec ea PT-OP-T Assessment and Plan Start: 05/04/24 09:09 Freq: Status: Active Protocol: Document 05/04/24 15:18 [facility] (Rec: 05/04/24 16:14 [facility] [id number]) Physical Therapy Assessment Rehab Potential Rehabilitation Potential Good Evaluation Complexity Number of Personal Factors/Comorbidities 3 or More Number of Body Systems Impaired 4 or More Clinical Presentation at Evaluation Evolving Impairments Impairments Activity Tolerance,Balance, Functional Activities, Functional Mobility,Gait,Pain, Posture,ROM,Soft Tissue Mobility,Strength Goals activities Short Term Goal (STG) Pt will be able to do sit to stands and sleep and lay in bed w/o inc pain STG Duration 06/13 Cradle Slide Maker Goal (LTG) Pt will report no greater than 1/10 R hip pain after work and/or w/lifting and pushing activities LTG Duration 07/16 strength Short Term Goal (STG) Pt will be indep w/stretching exercises to help manage pain. STG Duration 06/13 Group Home Goal (LTG) Pt will score at least 4+/5 on BLE MMT and at least 3/5 on LPM to show improved stability and dec pain. LTG Duration 07/16 LEFS Impairment 45 Short Term Goal (STG) Pt will improve LEFS score to at least 52 to show improved functional ability. STG Duration 06/09 Cradle Slide Maker Goal (LTG) Pt will improve LEFS score to at least 60 to show improved functional ability. LTG Duration 07/16 Assessment Summary Assessment Pt presents w/R hip pain after falling at work off object when was trying to reach a door to pull up/down on it and hitting R hip and elbow and wrist. Current c/o R hip pain that is in post lat hip and appears to be related to SIJ dysfunction as pain is post and up to SI on R side and she demonstrates neural tension and R SIJ rotation in evaluation carolyn gw/impaired R hip ROM and strength. Pt is limited in ability to do all of job and has pain after work and when sleeping d/t limitations in R hip. She would benefit from skilled PT to address these deficits and dec pain in order to allow pt to work w/o inc pain. Physical Therapy Plan Frequency and Duration Frequency of Treatment 2x/Week Duration of treatment (weeks) 10 Plan of Care Start Date 05/04/24 Plan of Care End Date 07/13/24 Therapeutic Interventions Therapeutic Interventions Balance Training,Gait Training ,Home Exercise Program,Joint Mobilizations,Manual Therapy, Neuromuscular Re-education, Orthotic/Prosthetic Management ,Patient/Caregiver Education, Self-Care/Home Management,Soft Tissue Mobilization,Taping, Therapeutic Activities, Therapeutic Exercises Modalities Cold Pack/Ice Massage,Electric Stimulation,Hot Packs, Infrared Therapy,Ultrasound Next Visit Focus/Plan Next Note Type Treatment Note Next Visit Plan HEP review; add clamshells, supine isometric flex, paloff press manual to R hip, innominate mobility, STM to R hip, HS, glutes, ITB, hip flexor
--- NOTE | 2024-05-04 16:15 | PT.OPPOC ---
Physical, Occupational & Speech Therapy At [facility] Current Diagnoses Contusion of right hip, subsequent encounter (05/04/24) Visit Care Team Role Provider Type LIZ Woods Family Provider Advanced Loading Inspector Primary Care Provider Specialty: Medical Address: [address] [place] [address], [address] Email: [email or web address] Dylan Lake MD Attending Provider Non-Staff Referring Provider Specialty: Physical Medicine and Rehab Address: [address] [facility], [place], [address] Email: Plan Of Care PT-OP-B Current Condition Start: 05/04/24 09:09 Freq: Status: Active Protocol: Document 05/04/24 15:18 [facility] (Rec: 05/04/24 16:14 [facility] [id number]) Current Condition History of Current Condition Onset Date Feb 10 2024 Current Complaints R hip pain History of Current Condition Pt went outside to grab something from a storeroom and has to pull down a door and had to step on something and slipped and fell onto hip. She fell onto her R wrist and elbow and R hip. Went o ER and the next day started to feel it more on her hip. Pt has had increased LBP since this fall . Prior to this, she wasn't feeling much or any pain to her LB, but since the fall, her LBP has been irritated. At work, she has to be very careful because if she lifts something heavy, it gets irritated. In the AMs, she feels okay. She does have to walk a lot and lift and push for work. Moves slower to not hurt herself. No evidence of bruising on hip at injury. Denies numbness/tingling or pain down leg. Treatment Goals Patient/Caregiver Goals Work at normal speed and lift as needed at work, dec hip pain, be able to sleep at night PT-OP-T Assessment and Plan Start: 05/04/24 09:09 Freq: Status: Active Protocol: Document 05/04/24 15:18 [facility] (Rec: 05/04/24 16:14 [facility] [id number]) Physical Therapy Assessment Rehab Potential Rehabilitation Potential Good Evaluation Complexity Number of Personal Factors/Comorbidities 3 or More Number of Body Systems Impaired 4 or More Clinical Presentation at Evaluation Evolving Impairments Impairments Activity Tolerance,Balance, Functional Activities, Functional Mobility,Gait,Pain, Posture,ROM,Soft Tissue Mobility,Strength Goals activities Short Term Goal (STG) Pt will be able to do sit to stands and sleep and lay in bed w/o inc pain STG Duration 06/13 Senior Living Goal (LTG) Pt will report no greater than 1/10 R hip pain after work and/or w/lifting and pushing activities LTG Duration 07/16 strength Short Term Goal (STG) Pt will be indep w/stretching exercises to help manage pain. STG Duration 06/13 Marketing Information Coordinator Goal (LTG) Pt will score at least 4+/5 on BLE MMT and at least 3/5 on LPM to show improved stability and dec pain. LTG Duration 07/16 LEFS Impairment 45 Short Term Goal (STG) Pt will improve LEFS score to at least 52 to show improved functional ability. STG Duration 06/09 Marketing Information Coordinator Goal (LTG) Pt will improve LEFS score to at least 60 to show improved functional ability. LTG Duration 07/16 Assessment Summary Assessment Pt presents w/R hip pain after falling at work off object when was trying to reach a door to pull up/down on it and hitting R hip and elbow and wrist. Current c/o R hip pain that is in post lat hip and appears to be related to SIJ dysfunction as pain is post and up to SI on R side and she demonstrates neural tension and R SIJ rotation in evaluation carolyn gw/impaired R hip ROM and strength. Pt is limited in ability to do all of job and has pain after work and when sleeping d/t limitations in R hip. She would benefit from skilled PT to address these deficits and dec pain in order to allow pt to work w/o inc pain. Physical Therapy Plan Frequency and Duration Frequency of Treatment 2x/Week Duration of treatment (weeks) 10 Plan of Care Start Date 05/04/24 Plan of Care End Date 07/13/24 Therapeutic Interventions Therapeutic Interventions Balance Training,Gait Training ,Home Exercise Program,Joint Mobilizations,Manual Therapy, Neuromuscular Re-education, Orthotic/Prosthetic Management ,Patient/Caregiver Education, Self-Care/Home Management,Soft Tissue Mobilization,Taping, Therapeutic Activities, Therapeutic Exercises Modalities Cold Pack/Ice Massage,Electric Stimulation,Hot Packs, Infrared Therapy,Ultrasound Next Visit Focus/Plan Next Note Type Treatment Note Next Visit Plan HEP review; add clamshells, supine isometric flex, paloff press manual to R hip, innominate mobility, STM to R hip, HS, glutes, ITB, hip flexor Plan of Care Dates Plan of Care Start Date 05/04/24 Plan of Care End Date 07/13/24 Electronically Signed by: Carmen Mccurdy, PT 05/04/24 7729 If you are in agreement with this Plan of Care, please return a signed and dated copy. I have reviewed this Plan of Care and certify that the skilled therapy services above are required to meet the patient?s needs. Physician Signature Date Printed Name and Credentials Clinical Instructor Signature Printed Name and Credentials
--- NOTE | 2024-05-06 11:22 | PT.OTN ---
Current Diagnoses Contusion of right hip, subsequent encounter (05/06/24) Physical Therapy Treatment Note PT-OP-A Visit Information Start: 05/04/24 09:09 Freq: Status: Active Protocol: Document 05/06/24 09:42 [facility] (Rec: 05/06/24 11:22 [facility] [id number]) Out-Patient Physical Therapy Visit Information Visit Information Visit Type Treatment Note Visit Start Time 09:45 Visit Stop Time 10:25 Visit Number 2 Number of INTERNATIONAL TRADE ANALYST Visits 0 PT-OP-B Current Condition Start: 05/04/24 09:09 Freq: Status: Active Protocol: Document 05/04/24 15:18 [facility] (Rec: 05/04/24 16:14 [facility] [id number]) Current Condition History of Current Condition Onset Date Feb 10 2024 Current Complaints R hip pain History of Current Condition Pt went outside to grab something from a storeroom and has to pull down a door and had to step on something and slipped and fell onto hip. She fell onto her R wrist and elbow and R hip. Went o ER and the next day started to feel it more on her hip. Pt has had increased LBP since this fall . Prior to this, she wasn't feeling much or any pain to her LB, but since the fall, her LBP has been irritated. At work, she has to be very careful because if she lifts something heavy, it gets irritated. In the AMs, she feels okay. She does have to walk a lot and lift and push for work. Moves slower to not hurt herself. No evidence of bruising on hip at injury. Denies numbness/tingling or pain down leg. Treatment Goals Patient/Caregiver Goals Work at normal speed and lift as needed at work, dec hip pain, be able to sleep at night PT-OP-C Subjective Start: 05/04/24 09:09 Freq: Status: Active Protocol: Document 05/06/24 09:42 [facility] (Rec: 05/06/24 11:22 [facility] [id number]) OP-PT Subjective Patient Comments Patient Comments pt reports exercsies went well PT-OP-D Balance Start: 05/04/24 09:09 Freq: Status: Active Protocol: Document 05/04/24 15:18 [facility] (Rec: 05/04/24 16:14 [facility] [id number]) Balance Tests Single Limb Standing Single Limb- Right 12 sec (inc deviation Single Limb- Left 6 sec (inc deviation PT-OP-F Manual Assessment Start: 05/04/24 09:09 Freq: Status: Active Protocol: Document 05/04/24 15:18 [facility] (Rec: 05/04/24 16:14 [facility] [id number]) Manual Assessments Soft Tissue Assessment Soft Tissue Mobility Assessment tension QL, ES, glutes, hip flexor, ITB R PT-OP-G Mobility & Gait Start: 05/04/24 09:09 Freq: Status: Active Protocol: Document 05/04/24 15:18 [facility] (Rec: 05/04/24 16:14 [facility] [id number]) OP Gait Assessment Comments Gait Comments dec stance time RLE PT-OP-J Posture/Palpation/Skin Start: 05/04/24 09:09 Freq: Status: Active Protocol: Document 05/04/24 15:18 [facility] (Rec: 05/04/24 16:14 [facility] [id number]) Posture Evaluation [facility] Postural Classification System [facility] Postural Classifications Posterior/Posterior Elbow Flexion Test 0 Lumbar Protective Mechanism Left AP 0 Lumbar Protective Mechanism Right AP 0 Lumbar Protective Mechanism Left PA 0 Lumbar Protective Mechanism Right PA 0 Comments Posture Comments R pelvic shear, L trunk rot, R iliac elevated, equal greater trochanter pain upper glute w/EFT PT-OP-K Range of Motion Start: 05/04/24 09:09 Freq: Status: Active Protocol: Document 05/04/24 15:18 [facility] (Rec: 05/04/24 16:14 [facility] [id number]) Hip Goniometric Range of Motion Hip Right Active Flexion w/Knee Flexed 86 Straight Leg Raise 69 Abduction 18 Internal Rotation 34 External Rotation 20 Left Active Flexion w/Knee Flexed 96 Straight Leg Raise 76 Abduction 24 Internal Rotation 40 External Rotation 16 PT-OP-L Special Tests Start: 05/04/24 09:09 Freq: Status: Active Protocol: Document 05/04/24 15:18 [facility] (Rec: 05/04/24 16:14 [facility] [id number]) Special Tests Hip Special Tests Sangita's Comments positive R>L KELSEY Comments dec range R>L and some pain Slump Comments R positive Straight Leg Raise Comments pain and limited range Dung Comments positive R RF and hip flex, TFL, L hip flex PT-OP-M Strength Start: 05/04/24 09:09 Freq: Status: Active Protocol: Document 05/04/24 15:18 [facility] (Rec: 05/04/24 16:14 [facility] [id number]) Hip Strength Hip Manual Muscle Testing Right Flexion (L2) 3+ Fair+ Extension (S1) 3- Fair- Abduction 3+ Fair+ Adduction 3- Fair- External Rotation 3+ Fair+ Internal Rotation 3 Fair Comments pain Left Flexion (L2) 4- Good- Extension (S1) 3+ Fair+ Abduction 4 Good Adduction 3+ Fair+ External Rotation 4- Good- Internal Rotation 4 Good Knee Strength Knee Manual Muscle Testing Right Flexion (S2) 4- Good- Extension (L3) 4- Good- Left Flexion (S2) 4+ Good+ Extension (L3) 4+ Good+ Ankle/Foot Strength Ankle and Foot Manual Muscle Testing Right Dorsiflexion (L4) 5 Normal Plantarflexion (S1) 5 Normal Left Dorsiflexion (L4) 5 Normal Plantarflexion (S1) 5 Normal Comments PF tested seated PT-OP-Q Treatments Start: 05/04/24 09:09 Freq: Status: Active Protocol: Document 05/06/24 09:42 [facility] (Rec: 05/06/24 11:22 [facility] [id number]) Therapeutic Exercises Supine Exercises core Supine Exercise Name SL isometric flex Side bilateral Reps/Minutes 30 sec Comments HEP Sidelying Exercises clamshell Sidelying Exercise Name HEP Side bilateral Equipment Used Lvl 1 Reps/Minutes 15 ea Sitting Exercises stretch Sitting Exercise Name 1. HS 2. piriformis Side bilateral Reps/Minutes 45 sec ea Comments HEP Standing Exercises paloff press Standing Exercise Name HEP Side bilateral Equipment Used L1 band (2 bands) Reps/Minutes 10 Comments cues no hip or back rotation sidestep Standing Exercise Name HEP Side bilateral Equipment Used L1 Reps/Minutes 20ft ea Comments min cues stretch Standing Exercise Name hip flexor Side bilateral Reps/Minutes 1 min ea Comments HEP Manual Therapy Treatment Consent Patient gave verbal consent for manual Yes treatment Soft Tissue Mobilization ITB Body Location R Mobilization Type Rolling Intensity/Depth Moderate Body Position Sidelying glutes Body Location R piriformis and superior and lat glutes and along R SI Mobilization Type Rolling Intensity/Depth Moderate Body Position Sidelying Joint Mobilizations innominate Joint R add c/r s/l Body Position Sidelying hip Joint Hip free the ball R c/r ER Body Position Hooklying PT-OP-T Assessment and Plan Start: 05/04/24 09:09 Freq: Status: Active Protocol: Document 05/06/24 09:42 [facility] (Rec: 05/06/24 11:22 [facility] [id number]) Physical Therapy Assessment Goals activities Short Term Goal (STG) Pt will be able to do sit to stands and sleep and lay in bed w/o inc pain STG Duration 06/13 Flower Picker Goal (LTG) Pt will report no greater than 1/10 R hip pain after work and/or w/lifting and pushing activities LTG Duration 07/16 strength Short Term Goal (STG) Pt will be indep w/stretching exercises to help manage pain. STG Duration 06/13 Flower Picker Goal (LTG) Pt will score at least 4+/5 on BLE MMT and at least 3/5 on LPM to show improved stability and dec pain. LTG Duration 07/16 LEFS Impairment 45 Short Term Goal (STG) Pt will improve LEFS score to at least 52 to show improved functional ability. STG Duration 06/09 Flower Picker Goal (LTG) Pt will improve LEFS score to at least 60 to show improved functional ability. LTG Duration 07/16 Assessment Summary Assessment Pt tolerated additional exercises w/o increase in pain and requierd less cueing with exercises today. She had improved R hip ER after manual treatment today but did have noteable tightness around R hip. Physical Therapy Plan Frequency and Duration Frequency of Treatment 2x/Week Duration of treatment (weeks) 10 Plan of Care Start Date 05/04/24 Plan of Care End Date 07/13/24 Next Visit Focus/Plan Next Note Type Treatment Note Next Visit Plan HEP review and advance core/ hip stability manual to R hip, innominate mobility, STM to R hip, HS, glutes, ITB, hip flexor (cannot treat lumbar strain per L&I)
--- NOTE | 2024-05-20 09:36 | PT.OTN ---
Current Diagnoses Contusion of right hip, subsequent encounter (05/20/24) Physical Therapy Treatment Note PT-OP-A Visit Information Start: 05/04/24 09:09 Freq: Status: Active Protocol: Document 05/20/24 08:07 AB (Rec: 05/20/24 09:32 AB [id number]) Out-Patient Physical Therapy Visit Information Visit Information Visit Type Treatment Note Visit Start Time 08:18 Visit Stop Time 09:02 Visit Number 3 Number of POLITICAL CONSULTANT Visits 1 PT-OP-B Current Condition Start: 05/04/24 09:09 Freq: Status: Active Protocol: Document 05/04/24 15:18 [facility] (Rec: 05/04/24 16:14 [facility] [id number]) Current Condition History of Current Condition Onset Date Feb 10 2024 Current Complaints R hip pain History of Current Condition Pt went outside to grab something from a storeroom and has to pull down a door and had to step on something and slipped and fell onto hip. She fell onto her R wrist and elbow and R hip. Went o ER and the next day started to feel it more on her hip. Pt has had increased LBP since this fall . Prior to this, she wasn't feeling much or any pain to her LB, but since the fall, her LBP has been irritated. At work, she has to be very careful because if she lifts something heavy, it gets irritated. In the AMs, she feels okay. She does have to walk a lot and lift and push for work. Moves slower to not hurt herself. No evidence of bruising on hip at injury. Denies numbness/tingling or pain down leg. Treatment Goals Patient/Caregiver Goals Work at normal speed and lift as needed at work, dec hip pain, be able to sleep at night PT-OP-C Subjective Start: 05/04/24 09:09 Freq: Status: Active Protocol: Document 05/20/24 08:07 AB (Rec: 05/20/24 09:32 AB [id number]) OP-PT Subjective Patient Comments Patient Comments Patient reports she is better, but sleeping is still a problem. Patient reports she tries to due the exercises once a day, but as she has been sick wasn't able to do the HEP those days. Marely rates hip ain 2/10 ambulating into session with out device. Patient comments she was lifting a lot yesterday, comments back is also hurting now. PT-OP-D Balance Start: 05/04/24 09:09 Freq: Status: Active Protocol: Document 05/04/24 15:18 [facility] (Rec: 05/04/24 16:14 [facility] [id number]) Balance Tests Single Limb Standing Single Limb- Right 12 sec (inc deviation Single Limb- Left 6 sec (inc deviation PT-OP-F Manual Assessment Start: 05/04/24 09:09 Freq: Status: Active Protocol: Document 05/04/24 15:18 [facility] (Rec: 05/04/24 16:14 [facility] [id number]) Manual Assessments Soft Tissue Assessment Soft Tissue Mobility Assessment tension QL, ES, glutes, hip flexor, ITB R PT-OP-G Mobility & Gait Start: 05/04/24 09:09 Freq: Status: Active Protocol: Document 05/04/24 15:18 [facility] (Rec: 05/04/24 16:14 [facility] [id number]) OP Gait Assessment Comments Gait Comments dec stance time RLE PT-OP-J Posture/Palpation/Skin Start: 05/04/24 09:09 Freq: Status: Active Protocol: Document 05/04/24 15:18 [facility] (Rec: 05/04/24 16:14 [facility] [id number]) Posture Evaluation Evelyn Postural Classification System Evelyn Postural Classifications Posterior/Posterior Elbow Flexion Test 0 Lumbar Protective Mechanism Left AP 0 Lumbar Protective Mechanism Right AP 0 Lumbar Protective Mechanism Left PA 0 Lumbar Protective Mechanism Right PA 0 Comments Posture Comments R pelvic shear, L trunk rot, R iliac elevated, equal greater trochanter pain upper glute w/EFT PT-OP-K Range of Motion Start: 05/04/24 09:09 Freq: Status: Active Protocol: Document 05/04/24 15:18 [facility] (Rec: 05/04/24 16:14 [facility] [id number]) Hip Goniometric Range of Motion Hip Right Active Flexion w/Knee Flexed 86 Straight Leg Raise 69 Abduction 18 Internal Rotation 34 External Rotation 20 Left Active Flexion w/Knee Flexed 96 Straight Leg Raise 76 Abduction 24 Internal Rotation 40 External Rotation 16 PT-OP-L Special Tests Start: 05/04/24 09:09 Freq: Status: Active Protocol: Document 05/04/24 15:18 [facility] (Rec: 05/04/24 16:14 [facility] [id number]) Special Tests Hip Special Tests Sangita's Comments positive R>L KELSEY Comments dec range R>L and some pain Slump Comments R positive Straight Leg Raise Comments pain and limited range Dung Comments positive R RF and hip flex, TFL, L hip flex PT-OP-M Strength Start: 05/04/24 09:09 Freq: Status: Active Protocol: Document 05/04/24 15:18 [facility] (Rec: 05/04/24 16:14 [facility] [id number]) Hip Strength Hip Manual Muscle Testing Right Flexion (L2) 3+ Fair+ Extension (S1) 3- Fair- Abduction 3+ Fair+ Adduction 3- Fair- External Rotation 3+ Fair+ Internal Rotation 3 Fair Comments pain Left Flexion (L2) 4- Good- Extension (S1) 3+ Fair+ Abduction 4 Good Adduction 3+ Fair+ External Rotation 4- Good- Internal Rotation 4 Good Knee Strength Knee Manual Muscle Testing Right Flexion (S2) 4- Good- Extension (L3) 4- Good- Left Flexion (S2) 4+ Good+ Extension (L3) 4+ Good+ Ankle/Foot Strength Ankle and Foot Manual Muscle Testing Right Dorsiflexion (L4) 5 Normal Plantarflexion (S1) 5 Normal Left Dorsiflexion (L4) 5 Normal Plantarflexion (S1) 5 Normal Comments PF tested seated PT-OP-Q Treatments Start: 05/04/24 09:09 Freq: Status: Active Protocol: Document 05/20/24 08:07 AB (Rec: 05/20/24 09:32 AB [id number]) Therapeutic Exercises Supine Exercises Modified Dung stretch Supine Exercise Name 60 sec each LE X 1 with AROM knee flexion X10 Side bilateral Reps/Minutes 60 sec each LE X 1 with AROM knee flexion X10 Comments verbal cues core Supine Exercise Name 1. SL isometric hip flex 2. segmental bridge Side bilateral Reps/Minutes 1.30 sec 2. x10 Comments HEP Sidelying Exercises clamshell Sidelying Exercise Name HEP Side bilateral Equipment Used Lvl 2 Reps/Minutes 15 ea Comments monitored for pain and trunk postion Sitting Exercises Seated hip abd with band Side bilateral Resistance level 2 band Reps/Minutes one min X 1 Comments for glute med activation Standing Exercises sit to stand with band Side bilateral Resistance level 2 band Reps/Minutes X15 Comments Patient ed use of self tactile cues for hip hinge sidestep Standing Exercise Name HEP Side bilateral Equipment Used L2 Reps/Minutes one min left and right Comments Patient ed importance of avoiding toeing out. Manual Therapy Treatment Soft Tissue Mobilization glutes Body Location B illiopsoas, R glute/ piriformis Mobilization Type Cross-Friction,Rolling Intensity/Depth Moderate Body Position Hooklying Comments and sidelying Manual Techniques MET for right AI left PI and pubic shotgun Reps/Duration 6 X 6 sec each Comments verbal cues, manaul resist for pubic shotgun PT-OP-T Assessment and Plan Start: 05/04/24 09:09 Freq: Status: Active Protocol: Document 05/20/24 08:07 AB (Rec: 05/20/24 09:32 AB [id number]) Physical Therapy Assessment Goals activities Short Term Goal (STG) Pt will be able to do sit to stands and sleep and lay in bed w/o inc pain STG Duration 06/13 Button Sewing Machine Operator Goal (LTG) Pt will report no greater than 1/10 R hip pain after work and/or w/lifting and pushing activities LTG Duration 07/16 strength Short Term Goal (STG) Pt will be indep w/stretching exercises to help manage pain. STG Duration 06/13 Mcc Goal (LTG) Pt will score at least 4+/5 on BLE MMT and at least 3/5 on LPM to show improved stability and dec pain. LTG Duration 07/16 LEFS Impairment 45 Short Term Goal (STG) Pt will improve LEFS score to at least 52 to show improved functional ability. STG Duration 06/09 Mcc Goal (LTG) Pt will improve LEFS score to at least 60 to show improved functional ability. LTG Duration 07/16 Assessment Summary Assessment Patient rates right hip pain 1 /10 end of session ambulating out of session without device. Physical Therapy Plan Frequency and Duration Frequency of Treatment 2x/Week Duration of treatment (weeks) 10 Plan of Care Start Date 05/04/24 Plan of Care End Date 07/13/24 Next Visit Focus/Plan Next Note Type Treatment Note Next Visit Plan Assess lashanda to previous session , possibly sit to stand with band to HEP, HEP review and advance core/hip stability manual to R hip, innominate mobility, STM to R hip, HS, glutes, ITB, hip flexor (cannot treat lumbar strain per L&I)
--- NOTE | 2024-05-27 10:25 | PT.OTN ---
Current Diagnoses Contusion of right hip, subsequent encounter (05/27/24) Physical Therapy Treatment Note PT-OP-A Visit Information Start: 05/04/24 09:09 Freq: Status: Active Protocol: Document 05/27/24 08:55 AB (Rec: 05/27/24 10:25 AB [id number]) Out-Patient Physical Therapy Visit Information Visit Information Visit Type Treatment Note Visit Note Access Code [email or web address] Visit Start Time 09:02 Visit Stop Time 09:45 Visit Number 4 Number of PARKING LOT SUPERVISOR Visits 2 PT-OP-B Current Condition Start: 05/04/24 09:09 Freq: Status: Active Protocol: Document 05/04/24 15:18 LR (Rec: 05/04/24 16:14 [facility] [id number]) Current Condition History of Current Condition Onset Date Feb 10 2024 Current Complaints R hip pain History of Current Condition Pt went outside to grab something from a storeroom and has to pull down a door and had to step on something and slipped and fell onto hip. She fell onto her R wrist and elbow and R hip. Went o ER and the next day started to feel it more on her hip. Pt has had increased LBP since this fall . Prior to this, she wasn't feeling much or any pain to her LB, but since the fall, her LBP has been irritated. At work, she has to be very careful because if she lifts something heavy, it gets irritated. In the AMs, she feels okay. She does have to walk a lot and lift and push for work. Moves slower to not hurt herself. No evidence of bruising on hip at injury. Denies numbness/tingling or pain down leg. Treatment Goals Patient/Caregiver Goals Work at normal speed and lift as needed at work, dec hip pain, be able to sleep at night PT-OP-C Subjective Start: 05/04/24 09:09 Freq: Status: Active Protocol: Document 05/27/24 08:55 AB (Rec: 05/27/24 10:25 AB [id number]) OP-PT Subjective Patient Comments Patient Comments Patient reports she is doing better, performing HEP at least once day. Patient reports some nights sleeping is still painful, but is doing bettern than a few weeks ago. Patient reports having no pain start of session. PT-OP-D Balance Start: 05/04/24 09:09 Freq: Status: Active Protocol: Document 05/04/24 15:18 [facility] (Rec: 05/04/24 16:14 [facility] [id number]) Balance Tests Single Limb Standing Single Limb- Right 12 sec (inc deviation Single Limb- Left 6 sec (inc deviation PT-OP-F Manual Assessment Start: 05/04/24 09:09 Freq: Status: Active Protocol: Document 05/04/24 15:18 [facility] (Rec: 05/04/24 16:14 [facility] [id number]) Manual Assessments Soft Tissue Assessment Soft Tissue Mobility Assessment tension QL, ES, glutes, hip flexor, ITB R PT-OP-G Mobility & Gait Start: 05/04/24 09:09 Freq: Status: Active Protocol: Document 05/04/24 15:18 [facility] (Rec: 05/04/24 16:14 [facility] [id number]) OP Gait Assessment Comments Gait Comments dec stance time RLE PT-OP-J Posture/Palpation/Skin Start: 05/04/24 09:09 Freq: Status: Active Protocol: Document 05/04/24 15:18 [facility] (Rec: 05/04/24 16:14 [facility] [id number]) Posture Evaluation Evelyn Postural Classification System Evelyn Postural Classifications Posterior/Posterior Elbow Flexion Test 0 Lumbar Protective Mechanism Left AP 0 Lumbar Protective Mechanism Right AP 0 Lumbar Protective Mechanism Left PA 0 Lumbar Protective Mechanism Right PA 0 Comments Posture Comments R pelvic shear, L trunk rot, R iliac elevated, equal greater trochanter pain upper glute w/EFT PT-OP-K Range of Motion Start: 05/04/24 09:09 Freq: Status: Active Protocol: Document 05/04/24 15:18 [facility] (Rec: 05/04/24 16:14 [facility] [id number]) Hip Goniometric Range of Motion Hip Right Active Flexion w/Knee Flexed 86 Straight Leg Raise 69 Abduction 18 Internal Rotation 34 External Rotation 20 Left Active Flexion w/Knee Flexed 96 Straight Leg Raise 76 Abduction 24 Internal Rotation 40 External Rotation 16 PT-OP-L Special Tests Start: 05/04/24 09:09 Freq: Status: Active Protocol: Document 05/04/24 15:18 [facility] (Rec: 05/04/24 16:14 [facility] [id number]) Special Tests Hip Special Tests Sangita's Comments positive R>L KELSEY Comments dec range R>L and some pain Slump Comments R positive Straight Leg Raise Comments pain and limited range Dung Comments positive R RF and hip flex, TFL, L hip flex PT-OP-M Strength Start: 05/04/24 09:09 Freq: Status: Active Protocol: Document 05/04/24 15:18 [facility] (Rec: 05/04/24 16:14 [facility] [id number]) Hip Strength Hip Manual Muscle Testing Right Flexion (L2) 3+ Fair+ Extension (S1) 3- Fair- Abduction 3+ Fair+ Adduction 3- Fair- External Rotation 3+ Fair+ Internal Rotation 3 Fair Comments pain Left Flexion (L2) 4- Good- Extension (S1) 3+ Fair+ Abduction 4 Good Adduction 3+ Fair+ External Rotation 4- Good- Internal Rotation 4 Good Knee Strength Knee Manual Muscle Testing Right Flexion (S2) 4- Good- Extension (L3) 4- Good- Left Flexion (S2) 4+ Good+ Extension (L3) 4+ Good+ Ankle/Foot Strength Ankle and Foot Manual Muscle Testing Right Dorsiflexion (L4) 5 Normal Plantarflexion (S1) 5 Normal Left Dorsiflexion (L4) 5 Normal Plantarflexion (S1) 5 Normal Comments PF tested seated PT-OP-Q Treatments Start: 05/04/24 09:09 Freq: Status: Active Protocol: Document 05/27/24 08:55 AB (Rec: 05/27/24 10:25 AB [id number]) Therapeutic Exercises Supine Exercises Modified Dung stretch Supine Exercise Name 60 sec each LE X 1 with AROM knee flexion X10 Side bilateral Reps/Minutes 60 sec each LE X 1 with AROM knee flexion X10 Comments verbal cues core Supine Exercise Name 1. SL isometric hip flex 2. segmental bridge Side bilateral Reps/Minutes 1.30 sec 2. x10 Comments HEP Sidelying Exercises clamshell Sidelying Exercise Name HEP Side bilateral Equipment Used Lvl 3 Reps/Minutes 15 ea Comments monitored for pain and trunk postion Sitting Exercises Seated hip abd with band Side bilateral Resistance level 3 band Reps/Minutes one min X 1 Comments for glute med activation Standing Exercises sit to stand with band Standing Exercise Name HEP Side bilateral Resistance level 3 band Reps/Minutes X15 Comments Patient ed use of self tactile cues for hip hinge paloff press Standing Exercise Name HEP Side bilateral Equipment Used Level 3 [place] green band Reps/Minutes X10 X 2 ( sec set on eritrean ball) sidestep Standing Exercise Name HEP Side bilateral Equipment Used L3 Reps/Minutes 10 feet left and right band above knees X2 bands at ankles Comments Patient ed importance of avoiding toeing out. Manual Therapy Treatment Consent Patient gave verbal consent for manual Yes treatment Soft Tissue Mobilization R hip Body Location Illiopsoas Mobilization Type Cross-Friction,Rolling Intensity/Depth Moderate Body Position Hooklying glutes Body Location B illiopsoas, R glute/ piriformis Mobilization Type Cross-Friction,Rolling Intensity/Depth Moderate Body Position Hooklying Comments and sidelying Manual Techniques MET for right AI left PI and pubic shotgun Reps/Duration 6 X 6 sec each Comments verbal cues, manaul resist for pubic shotgun PT-OP-T Assessment and Plan Start: 05/04/24 09:09 Freq: Status: Active Protocol: Document 05/27/24 08:55 AB (Rec: 05/27/24 10:25 AB [id number]) Physical Therapy Assessment Goals activities Short Term Goal (STG) Pt will be able to do sit to stands and sleep and lay in bed w/o inc pain STG Duration 3 Shelter Goal (LTG) Pt will report no greater than 1/10 R hip pain after work and/or w/lifting and pushing activities LTG Duration 07/16 Assessment Summary Assessment Marely rates right hip pain 0 /10 ambulating out of session without device Physical Therapy Plan Frequency and Duration Frequency of Treatment 2x/Week Duration of treatment (weeks) 10 Plan of Care Start Date 05/04/24 Plan of Care End Date 07/13/24 Next Visit Focus/Plan Next Note Type Treatment Note Next Visit Plan HEP review and advance core/ hip stability manual to R hip, innominate mobility, STM to R hip, HS, glutes, ITB, hip flexor. Possibly trial of modified restorative pose with breathing from diaphragm to perform prior to sleep to relax illipsoas/hip muscles. (cannot treat lumbar strain per L&I)
--- NOTE | 2024-06-08 17:17 | PT.OTN ---
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 She fell onto her R wrist and elbow and R hip. Went o ER and the next day started to feel it more on her hip. Pt has had increased LBP since this fall . Prior to this, she wasn't feeling much or any pain to her LB, but since the fall, her LBP has been irritated. At work, she has to be very careful because if she lifts something heavy, it gets irritated. In the AMs, she feels okay. She does have to walk a lot and lift and push for work. Moves slower to not hurt herself. No evidence of bruising on hip at injury. Denies numbness/tingling or pain down leg. Treatment Goals Patient/Caregiver Goals Work at normal speed and lift as needed at work, dec hip pain, be able to sleep at night PT-OP-C Subjective Start: 05/04/24 09:09 Freq: Status: Active Protocol: Document 06/08/24 15:18 [facility] (Rec: 06/08/24 16:18 [facility] [id number]) OP-PT Subjective Patient Comments Patient Comments Pt reports she tried to start going back to her normal lifting and pushing and noticed that inc pain Patient Reported Progress Improving PT-OP-D Balance Start: 05/04/24 09:09 Freq: Status: Active Protocol: Document 05/04/24 15:18 [facility] (Rec: 05/04/24 16:14 [facility] [id number]) Balance Tests Single Limb Standing Single Limb- Right 12 sec (inc deviation Single Limb- Left 6 sec (inc deviation PT-OP-F Manual Assessment Start: 05/04/24 09:09 Freq: Status: Active Protocol: Document 05/04/24 15:18 [facility] (Rec: 05/04/24 16:14 [facility] [id number]) Manual Assessments Soft Tissue Assessment Soft Tissue Mobility Assessment tension QL, ES, glutes, hip flexor, ITB R PT-OP-G Mobility & Gait Start: 05/04/24 09:09 Freq: Status: Active Protocol: Document 05/04/24 15:18 [facility] (Rec: 05/04/24 16:14 [facility] [id number]) OP Gait Assessment Comments Gait Comments dec stance time RLE PT-OP-J Posture/Palpation/Skin Start: 05/04/24 09:09 Freq: Status: Active Protocol: Document 05/04/24 15:18 [facility] (Rec: 05/04/24 16:14 [facility] [id number]) Posture Evaluation Evelyn Postural Classification System Evelyn Postural Classifications Posterior/Posterior Elbow Flexion Test 0 Lumbar Protective Mechanism Left AP 0 Lumbar Protective Mechanism Right AP 0 Lumbar Protective Mechanism Left PA 0 Lumbar Protective Mechanism Right PA 0 Comments Posture Comments R pelvic shear, L trunk rot, R iliac elevated, equal greater trochanter pain upper glute w/EFT PT-OP-K Range of Motion Start: 05/04/24 09:09 Freq: Status: Active Protocol: Document 05/04/24 15:18 [facility] (Rec: 05/04/24 16:14 [facility] [id number]) Hip Goniometric Range of Motion Hip Right Active Flexion w/Knee Flexed 86 Straight Leg Raise 69 Abduction 18 Internal Rotation 34 External Rotation 20 Left Active Flexion w/Knee Flexed 96 Straight Leg Raise 76 Abduction 24 Internal Rotation 40 External Rotation 16 PT-OP-L Special Tests Start: 05/04/24 09:09 Freq: Status: Active Protocol: Document 05/04/24 15:18 [facility] (Rec: 05/04/24 16:14 [facility] [id number]) Special Tests Hip Special Tests Sangita's Comments positive R>L KELSEY Comments dec range R>L and some pain Slump Comments R positive Straight Leg Raise Comments pain and limited range Dung Comments positive R RF and hip flex, TFL, L hip flex PT-OP-M Strength Start: 05/04/24 09:09 Freq: Status: Active Protocol: Document 06/08/24 15:18 [facility] (Rec: 06/08/24 16:18 [facility] [id number]) Hip Strength Hip Manual Muscle Testing Right Flexion (L2) 4- Good- Extension (S1) 3 Fair Abduction 4 Good Adduction 4 Good External Rotation 4- Good- Internal Rotation 4 Good Comments pain ext Left Flexion (L2) 4 Good Extension (S1) 4 Good Abduction 4 Good Adduction 4 Good External Rotation 4 Good Internal Rotation 4+ Good+ Knee Strength Knee Manual Muscle Testing Right Flexion (S2) 4 Good Extension (L3) 4+ Good+ Left Flexion (S2) 5 Normal Extension (L3) 5 Normal Ankle/Foot Strength Ankle and Foot Manual Muscle Testing Right Dorsiflexion (L4) 5 Normal Plantarflexion (S1) 5 Normal Left Dorsiflexion (L4) 5 Normal Plantarflexion (S1) 5 Normal Comments PF tested seated PT-OP-Q Treatments Start: 05/04/24 09:09 Freq: Status: Active Protocol: Document 06/08/24 15:18 [facility] (Rec: 06/08/24 16:18 [facility] [id number]) Therapeutic Exercises Supine Exercises bridge Supine Exercise Name cues core, then glute then segmental lift Side bilateral Reps/Minutes 15 Comments cues knee alignment Modified Dung stretch Side right Reps/Minutes 60 sec Comments verbal cues core Supine Exercise Name DL isometric flex Side bilateral Reps/Minutes 30 sec hold Comments inc time for set up Standing Exercises hip ext Standing Exercise Name in bent over position and forearms on plinth Side bilateral Equipment Used Lvl 1 at ankles Reps/Minutes 10 alt Other Exercises hip ext Other Exercise Name quadruped Side bilateral Reps/Minutes 10 Comments cues no twist Manual Therapy Treatment Consent Patient gave verbal consent for manual Yes treatment Soft Tissue Mobilization glutes Body Location R glute/piriformis Mobilization Type Cross-Friction,Rolling Intensity/Depth Moderate Body Position Prone Joint Mobilizations sacrum Comments caudal R and PA R innominate Comments R ER c/r, abd c/r and ext c/r hip Comments on axis ER c/r PT-OP-T Assessment and Plan Start: 05/04/24 09:09 Freq: Status: Active Protocol: Document 06/08/24 15:18 [facility] (Rec: 06/08/24 16:18 [facility] [id number]) Physical Therapy Assessment Goals activities Short Term Goal (STG) Pt will be able to do sit to stands and sleep and lay in bed w/o inc pain 06/08-roll in bed still painful but sit to stand and sleeping going well STG Duration 06/28 Senior Care Goal (LTG) Pt will report no greater than 1/10 R hip pain after work and/or w/lifting and pushing activities 06/08-10/08 w/push/pull and lifting; after work being careful 08/08 LTG Duration 08/03 strength Short Term Goal (STG) Pt will be indep w/stretching exercises to help manage pain. STG Duration achieved 06/08 Senior Care Goal (LTG) Pt will score at least 4+/5 on BLE MMT and at least 3/5 on LPM to show improved stability and dec pain. 06/08-improving LTG Duration 08/03 LEFS Impairment 45 Short Term Goal (STG) Pt will improve LEFS score to at least 52 to show improved functional ability. 06/08-45 STG Duration 07/09 Senior Care Goal (LTG) Pt will improve LEFS score to at least 60 to show improved functional ability. LTG Duration 08/03 Assessment Summary Assessment Pt did well with new exercises w/o inc pain but increased challenge. Pt had improved hip ext w/ dec pain on R hip after manual. She is improving w/PT and has dec pain and improved function overall but still has pain w/mobility. Would benefit from cont PT. Physical Therapy Plan Frequency and Duration Frequency of Treatment 2x/Week Duration of treatment (weeks) 8 Plan of Care Start Date 06/08/24 Plan of Care End Date 08/03/24 Therapeutic Interventions Therapeutic Interventions Balance Training,Gait Training ,Home Exercise Program,Joint Mobilizations,Manual Therapy, Neuromuscular Re-education, Orthotic/Prosthetic Management ,Patient/Caregiver Education, Self-Care/Home Management,Soft Tissue Mobilization,Taping, Therapeutic Activities, Therapeutic Exercises Modalities Cold Pack/Ice Massage,Electric Stimulation,Hot Packs, Infrared Therapy,Ultrasound Next Visit Focus/Plan Next Note Type Treatment Note Next Visit Plan review new HEP; work on R iliopsoas and working on hip ext mobility, innominate mobility, add push/pull exercises
--- NOTE | 2024-06-08 17:17 | PT.OPPOC ---
Physical, Occupational & Speech Therapy At [facility] Current Diagnoses Contusion of right hip, subsequent encounter (06/08/24) Visit Care Team Role Provider Type LIZ Woods Family Provider Advanced Corn Shredder Primary Care Provider Specialty: Medical Address: [address] [place] [address], [id number] Email: [email or web address] Lake MD Attending Provider Non-Staff Referring Provider Specialty: Physical Medicine and Rehab Address: [facility] [address] [facility], [place], [address] Email: Plan Of Care PT-OP-B Current Condition Start: 05/04/24 09:09 Freq: Status: Active Protocol: Document 05/04/24 15:18 [facility] (Rec: 05/04/24 16:14 [facility] [id number]) Current Condition History of Current Condition Onset Date Feb 10 2024 Current Complaints R hip pain History of Current Condition Pt went outside to grab something from a storeroom and has to pull down a door and had to step on something and slipped and fell onto hip. She fell onto her R wrist and elbow and R hip. Went o ER and the next day started to feel it more on her hip. Pt has had increased LBP since this fall . Prior to this, she wasn't feeling much or any pain to her LB, but since the fall, her LBP has been irritated. At work, she has to be very careful because if she lifts something heavy, it gets irritated. In the AMs, she feels okay. She does have to walk a lot and lift and push for work. Moves slower to not hurt herself. No evidence of bruising on hip at injury. Denies numbness/tingling or pain down leg. Treatment Goals Patient/Caregiver Goals Work at normal speed and lift as needed at work, dec hip pain, be able to sleep at night PT-OP-T Assessment and Plan Start: 05/04/24 09:09 Freq: Status: Active Protocol: Document 06/08/24 15:18 [facility] (Rec: 06/08/24 16:18 [facility] [id number]) Physical Therapy Assessment Goals activities Short Term Goal (STG) Pt will be able to do sit to stands and sleep and lay in bed w/o inc pain 06/08-roll in bed still painful but sit to stand and sleeping going well STG Duration 06/28 Physician Gynecologist Goal (LTG) Pt will report no greater than 1/10 R hip pain after work and/or w/lifting and pushing activities 06/08-10/08 w/push/pull and lifting; after work being careful 08/08 LTG Duration 08/03 strength Short Term Goal (STG) Pt will be indep w/stretching exercises to help manage pain. STG Duration achieved 06/08 Senior Care Goal (LTG) Pt will score at least 4+/5 on BLE MMT and at least 3/5 on LPM to show improved stability and dec pain. 06/08-improving LTG Duration 08/03 LEFS Impairment 45 Short Term Goal (STG) Pt will improve LEFS score to at least 52 to show improved functional ability. 06/08-45 STG Duration 07/09 Senior Care Goal (LTG) Pt will improve LEFS score to at least 60 to show improved functional ability. LTG Duration 08/03 Assessment Summary Assessment Pt did well with new exercises w/o inc pain but increased challenge. Pt had improved hip ext w/ dec pain on R hip after manual. She is improving w/PT and has dec pain and improved function overall but still has pain w/mobility. Would benefit from cont PT. Physical Therapy Plan Frequency and Duration Frequency of Treatment 2x/Week Duration of treatment (weeks) 8 Plan of Care Start Date 06/08/24 Plan of Care End Date 08/03/24 Therapeutic Interventions Therapeutic Interventions Balance Training,Gait Training ,Home Exercise Program,Joint Mobilizations,Manual Therapy, Neuromuscular Re-education, Orthotic/Prosthetic Management ,Patient/Caregiver Education, Self-Care/Home Management,Soft Tissue Mobilization,Taping, Therapeutic Activities, Therapeutic Exercises Modalities Cold Pack/Ice Massage,Electric Stimulation,Hot Packs, Infrared Therapy,Ultrasound Next Visit Focus/Plan Next Note Type Treatment Note Next Visit Plan review new HEP; work on R iliopsoas and working on hip ext mobility, innominate mobility, add push/pull exercises Plan of Care Dates Plan of Care Start Date 06/08/24 Plan of Care End Date 08/03/24 Electronically Signed by: Carmen Mccurdy, PT 06/08/24 2448 If you are in agreement with this Plan of Care, please return a signed and dated copy. I have reviewed this Plan of Care and certify that the skilled therapy services above are required to meet the patient?s needs. Physician Signature Date Printed Name and Credentials Clinical Instructor Signature Printed Name and Credentials
--- NOTE | 2024-06-24 12:14 | PT.OTN ---
Current Diagnoses Contusion of right hip, subsequent encounter (06/24/24) Physical Therapy Treatment Note PT-OP-A Visit Information Start: 05/04/24 09:09 Freq: Status: Active Protocol: Document 06/24/24 10:36 [facility] (Rec: 06/24/24 12:14 [facility] [id number]) Out-Patient Physical Therapy Visit Information Visit Information Visit Type Treatment Note Visit Note Access Code [email or web address] Visit Start Time 11:33 Visit Stop Time 12:07 Visit Number 6 Number of BREAD PACKER Visits 1 PT-OP-B Current Condition Start: 05/04/24 09:09 Freq: Status: Active Protocol: Document 05/04/24 15:18 [facility] (Rec: 05/04/24 16:14 [facility] [id number]) Current Condition History of Current Condition Onset Date Feb 10 2024 Current Complaints R hip pain History of Current Condition Pt went outside to grab something from a storeroom and has to pull down a door and had to step on something and slipped and fell onto hip. She fell onto her R wrist and elbow and R hip. Went o ER and the next day started to feel it more on her hip. Pt has had increased LBP since this fall . Prior to this, she wasn't feeling much or any pain to her LB, but since the fall, her LBP has been irritated. At work, she has to be very careful because if she lifts something heavy, it gets irritated. In the AMs, she feels okay. She does have to walk a lot and lift and push for work. Moves slower to not hurt herself. No evidence of bruising on hip at injury. Denies numbness/tingling or pain down leg. Treatment Goals Patient/Caregiver Goals Work at normal speed and lift as needed at work, dec hip pain, be able to sleep at night PT-OP-C Subjective Start: 05/04/24 09:09 Freq: Status: Active Protocol: Document 06/24/24 10:36 [facility] (Rec: 06/24/24 12:14 [facility] [id number]) OP-PT Subjective Patient Comments Patient Comments Marely reports less discomfort at work the last 5 days, but pain does come and go. Patient reports sleeping on right side is still uncomfortable. Patient rates pain 0/10 start of session. Marely reports if she has to lift 30 to 40# throughout the day the right hip pain increases. ( Items are from floor, sometimes waist height. ) Patient reports pushes something heavy once or twice a day. PT-OP-D Balance Start: 05/04/24 09:09 Freq: Status: Active Protocol: Document 05/04/24 15:18 [facility] (Rec: 05/04/24 16:14 [facility] [id number]) Balance Tests Single Limb Standing Single Limb- Right 12 sec (inc deviation Single Limb- Left 6 sec (inc deviation PT-OP-F Manual Assessment Start: 05/04/24 09:09 Freq: Status: Active Protocol: Document 05/04/24 15:18 [facility] (Rec: 05/04/24 16:14 [facility] [id number]) Manual Assessments Soft Tissue Assessment Soft Tissue Mobility Assessment tension QL, ES, glutes, hip flexor, ITB R PT-OP-G Mobility & Gait Start: 05/04/24 09:09 Freq: Status: Active Protocol: Document 05/04/24 15:18 [facility] (Rec: 05/04/24 16:14 [facility] [id number]) OP Gait Assessment Comments Gait Comments dec stance time RLE PT-OP-J Posture/Palpation/Skin Start: 05/04/24 09:09 Freq: Status: Active Protocol: Document 05/04/24 15:18 [facility] (Rec: 05/04/24 16:14 [facility] [id number]) Posture Evaluation [facility] Postural Classification System Evelyn Postural Classifications Posterior/Posterior Elbow Flexion Test 0 Lumbar Protective Mechanism Left AP 0 Lumbar Protective Mechanism Right AP 0 Lumbar Protective Mechanism Left PA 0 Lumbar Protective Mechanism Right PA 0 Comments Posture Comments R pelvic shear, L trunk rot, R iliac elevated, equal greater trochanter pain upper glute w/EFT PT-OP-K Range of Motion Start: 05/04/24 09:09 Freq: Status: Active Protocol: Document 05/04/24 15:18 [facility] (Rec: 05/04/24 16:14 [facility] [id number]) Hip Goniometric Range of Motion Hip Right Active Flexion w/Knee Flexed 86 Straight Leg Raise 69 Abduction 18 Internal Rotation 34 External Rotation 20 Left Active Flexion w/Knee Flexed 96 Straight Leg Raise 76 Abduction 24 Internal Rotation 40 External Rotation 16 PT-OP-L Special Tests Start: 05/04/24 09:09 Freq: Status: Active Protocol: Document 05/04/24 15:18 [facility] (Rec: 05/04/24 16:14 [facility] [id number]) Special Tests Hip Special Tests Sangita's Comments positive R>L KELSEY Comments dec range R>L and some pain Slump Comments R positive Straight Leg Raise Comments pain and limited range Dung Comments positive R RF and hip flex, TFL, L hip flex PT-OP-M Strength Start: 05/04/24 09:09 Freq: Status: Active Protocol: Document 06/08/24 15:18 [facility] (Rec: 06/08/24 16:18 [facility] [id number]) Hip Strength Hip Manual Muscle Testing Right Flexion (L2) 4- Good- Extension (S1) 3 Fair Abduction 4 Good Adduction 4 Good External Rotation 4- Good- Internal Rotation 4 Good Comments pain ext Left Flexion (L2) 4 Good Extension (S1) 4 Good Abduction 4 Good Adduction 4 Good External Rotation 4 Good Internal Rotation 4+ Good+ Knee Strength Knee Manual Muscle Testing Right Flexion (S2) 4 Good Extension (L3) 4+ Good+ Left Flexion (S2) 5 Normal Extension (L3) 5 Normal Ankle/Foot Strength Ankle and Foot Manual Muscle Testing Right Dorsiflexion (L4) 5 Normal Plantarflexion (S1) 5 Normal Left Dorsiflexion (L4) 5 Normal Plantarflexion (S1) 5 Normal Comments PF tested seated PT-OP-Q Treatments Start: 05/04/24 09:09 Freq: Status: Active Protocol: Document 06/24/24 10:36 [facility] (Rec: 06/24/24 12:14 [facility] [id number]) Therapeutic Exercises Supine Exercises hamstring stretch Supine Exercise Name R lacking grossl 35 deg AROM 90/90 position Side bilateral Reps/Minutes 60 sec each LE Comments verbal cues Standing Exercises glute med isometric Side bilateral Reps/Minutes one min each side Comments verbal and visual cues sit to stand with band Standing Exercise Name HEP Side bilateral Resistance level 5 band Reps/Minutes 2 X10 Comments Patient ed use of self tactile cues for hip hinge Therapeutic Activity Therapeutic Activity push pull Name tray table manual resistance patient est at 50% of work load push pull Reps/Minutes ~4 min fwd back, turns Lifts Name 1. pivot waist height 2.knee height to upright 3. overhead 4. chair seat he Reps/Minutes 1. X 8 2. X8 3. X6 4. X 3 Comments 10 # for all but overhead, overhead 5 lb Verbal cues for avoiding hip add when flexing knees, verbal cues to use alternate LE for weight shift and stepping during overhead lifts PT-OP-T Assessment and Plan Start: 05/04/24 09:09 Freq: Status: Active Protocol: Document 06/24/24 10:36 [facility] (Rec: 06/24/24 12:14 [facility] [id number]) Physical Therapy Assessment Goals activities Short Term Goal (STG) Pt will be able to do sit to stands and sleep and lay in bed w/o inc pain 06/08-roll in bed still painful but sit to stand and sleeping going well STG Duration 06/28 Grease Press Helper Goal (LTG) Pt will report no greater than 1/10 R hip pain after work and/or w/lifting and pushing activities 06/08-710 w/push/pull and lifting; after work being careful 08/08 LTG Duration 08/03 strength Short Term Goal (STG) Pt will be indep w/stretching exercises to help manage pain. STG Duration achieved 06/08 Alf Goal (LTG) Pt will score at least 4+/5 on BLE MMT and at least 3/5 on LPM to show improved stability and dec pain. 06/08-improving LTG Duration 5/ LEFS Impairment 45 Short Term Goal (STG) Pt will improve LEFS score to at least 52 to show improved functional ability. 06/08-45 STG Duration 4/10 Alf Goal (LTG) Pt will improve LEFS score to at least 60 to show improved functional ability. LTG Duration 5 Assessment Summary Assessment Patient did well with lifts post corrections, initiates lower level lifts, even minimally lower with increased hip adduction. For weight shifts fwd back, patient positions LE's very close, and patient ed rationale of alternating LE's. Physical Therapy Plan Frequency and Duration Frequency of Treatment 2x/Week Duration of treatment (weeks) 8 Plan of Care Start Date 06/08/24 Plan of Care End Date 08/03/24 Next Visit Focus/Plan Next Note Type Treatment Note Next Visit Plan review new HEP; work on R iliopsoas and working on hip ext mobility, innominate mobility, add push/pull exercises
--- NOTE | 2024-07-13 17:13 | PT-OP ANOTE ---
Attempted to call pt re: no show but did not answer and VM full. Text message reading: Elio Yap, this is Carmen from [facility]. I had you on my schedule today for 5 pm today 07/13. I tried to call, but your voicemail is full. Your last appt is 07/22 at 5 pm. Please call us if you are not able to make your appointment. If you want to reschedule, please call tomorrow. Our number is [phone] sent.
--- NOTE | 2024-07-22 17:53 | PT.OTN ---
Current Diagnoses Contusion of right hip, subsequent encounter (07/22/24) Physical Therapy Treatment Note PT-OP-A Visit Information Start: 05/04/24 09:09 Freq: Status: Active Protocol: Document 07/22/24 17:02 [facility] (Rec: 07/22/24 17:53 [facility] [id number]) Out-Patient Physical Therapy Visit Information Visit Information Visit Type Treatment Note Visit Note Access Code [email or web address] Visit Start Time 17:05 Visit Stop Time 17:45 Visit Number 7 Number of HEAT AND FROST INSULATOR Visits 0 PT-OP-B Current Condition Start: 05/04/24 09:09 Freq: Status: Active Protocol: Document 05/04/24 15:18 [facility] (Rec: 05/04/24 16:14 [facility] [id number]) Current Condition History of Current Condition Onset Date Feb 10 2024 Current Complaints R hip pain History of Current Condition Pt went outside to grab something from a storeroom and has to pull down a door and had to step on something and slipped and fell onto hip. She fell onto her R wrist and elbow and R hip. Went o ER and the next day started to feel it more on her hip. Pt has had increased LBP since this fall . Prior to this, she wasn't feeling much or any pain to her LB, but since the fall, her LBP has been irritated. At work, she has to be very careful because if she lifts something heavy, it gets irritated. In the AMs, she feels okay. She does have to walk a lot and lift and push for work. Moves slower to not hurt herself. No evidence of bruising on hip at injury. Denies numbness/tingling or pain down leg. Treatment Goals Patient/Caregiver Goals Work at normal speed and lift as needed at work, dec hip pain, be able to sleep at night PT-OP-C Subjective Start: 05/04/24 09:09 Freq: Status: Active Protocol: Document 07/22/24 17:02 [facility] (Rec: 07/22/24 17:53 [facility] [id number]) OP-PT Subjective Patient Comments Patient Comments Pt reports last session, she had a migrane and went home and took a nap and accidently slept through appointment time . Lifting heavy stuff still hurts so she avoids it as she can. Patient Reported Progress Improving PT-OP-D Balance Start: 05/04/24 09:09 Freq: Status: Active Protocol: Document 05/04/24 15:18 [facility] (Rec: 05/04/24 16:14 [facility] [id number]) Balance Tests Single Limb Standing Single Limb- Right 12 sec (inc deviation Single Limb- Left 6 sec (inc deviation PT-OP-F Manual Assessment Start: 05/04/24 09:09 Freq: Status: Active Protocol: Document 05/04/24 15:18 [facility] (Rec: 05/04/24 16:14 [facility] [id number]) Manual Assessments Soft Tissue Assessment Soft Tissue Mobility Assessment tension QL, ES, glutes, hip flexor, ITB R PT-OP-G Mobility & Gait Start: 05/04/24 09:09 Freq: Status: Active Protocol: Document 05/04/24 15:18 [facility] (Rec: 05/04/24 16:14 [facility] [id number]) OP Gait Assessment Comments Gait Comments dec stance time RLE PT-OP-J Posture/Palpation/Skin Start: 05/04/24 09:09 Freq: Status: Active Protocol: Document 05/04/24 15:18 [facility] (Rec: 05/04/24 16:14 [facility] [id number]) Posture Evaluation Evelyn Postural Classification System Evelyn Postural Classifications Posterior/Posterior Elbow Flexion Test 0 Lumbar Protective Mechanism Left AP 0 Lumbar Protective Mechanism Right AP 0 Lumbar Protective Mechanism Left PA 0 Lumbar Protective Mechanism Right PA 0 Comments Posture Comments R pelvic shear, L trunk rot, R iliac elevated, equal greater trochanter pain upper glute w/EFT PT-OP-K Range of Motion Start: 05/04/24 09:09 Freq: Status: Active Protocol: Document 05/04/24 15:18 [facility] (Rec: 05/04/24 16:14 [facility] [id number]) Hip Goniometric Range of Motion Hip Right Active Flexion w/Knee Flexed 86 Straight Leg Raise 69 Abduction 18 Internal Rotation 34 External Rotation 20 Left Active Flexion w/Knee Flexed 96 Straight Leg Raise 76 Abduction 24 Internal Rotation 40 External Rotation 16 PT-OP-L Special Tests Start: 05/04/24 09:09 Freq: Status: Active Protocol: Document 05/04/24 15:18 [facility] (Rec: 05/04/24 16:14 [facility] [id number]) Special Tests Hip Special Tests Sangita's Comments positive R>L KELSEY Comments dec range R>L and some pain Slump Comments R positive Straight Leg Raise Comments pain and limited range Dung Comments positive R RF and hip flex, TFL, L hip flex PT-OP-M Strength Start: 05/04/24 09:09 Freq: Status: Active Protocol: Document 07/22/24 17:02 [facility] (Rec: 07/22/24 17:53 [facility] [id number]) Hip Strength Hip Manual Muscle Testing Right Flexion (L2) 4+ Good+ Extension (S1) 4+ Good+ Abduction 5 Normal Adduction 5 Normal External Rotation 5 Normal Internal Rotation 5 Normal Comments LPM AP: R:3 L:3 PA: R:3 L: 4 Left Flexion (L2) 5 Normal Extension (S1) 5 Normal Abduction 5 Normal Adduction 5 Normal External Rotation 5 Normal Internal Rotation 5 Normal Knee Strength Knee Manual Muscle Testing Right Flexion (S2) 5 Normal Extension (L3) 5 Normal Left Flexion (S2) 5 Normal Extension (L3) 5 Normal Ankle/Foot Strength Ankle and Foot Manual Muscle Testing Right Dorsiflexion (L4) 5 Normal Plantarflexion (S1) 5 Normal Left Dorsiflexion (L4) 5 Normal Plantarflexion (S1) 5 Normal Comments PF tested seated PT-OP-Q Treatments Start: 05/04/24 09:09 Freq: Status: Active Protocol: Document 07/22/24 17:02 [facility] (Rec: 07/22/24 17:53 [facility] [id number]) Therapeutic Exercises Supine Exercises core Supine Exercise Name DL isometric flex Side bilateral Reps/Minutes 30 sec hold Comments inc time for set up Other Exercises stretches Other Exercise Name review of HS, piriformis, figure 4 stretch in sit, standing and supine Side right isometrics Side bilateral Reps/Minutes MMT B and LPM hip ext Other Exercise Name quadruped bird dog Side bilateral Reps/Minutes 15 Comments cues no twist Therapeutic Activity Therapeutic Activity Lifts Comments 1. hip hinge w/dowel (self hold) x10, PT hold x10; w/10lb x10, w/10lb B x10 2. squat w/dowel x15, w/10lb x10 PT-OP-T Assessment and Plan Start: 05/04/24 09:09 Freq: Status: Active Protocol: Document 07/22/24 17:02 [facility] (Rec: 07/22/24 17:53 [facility] [id number]) Physical Therapy Assessment Goals activities Short Term Goal (STG) Pt will be able to do sit to stands and sleep and lay in bed w/o inc pain 06/08-roll in bed still painful but sit to stand and sleeping going well STG Duration achieved 07/22 Bmx Rider Goal (LTG) Pt will report no greater than 1/10 R hip pain after work and/or w/lifting and pushing activities 06/08-10/08 w/push/pull and lifting; after work being careful 08/08 07/22-3-07/09 if have to lift, no pain if don't have to lift LTG Duration 08/03 strength Short Term Goal (STG) Pt will be indep w/stretching exercises to help manage pain. STG Duration achieved 06/08 Intermediate Goal (LTG) Pt will score at least 4+/5 on BLE MMT and at least 3/5 on LPM to show improved stability and dec pain. 06/08-improving LTG Duration achieved 07/22 LEFS Impairment 45 Short Term Goal (STG) Pt will improve LEFS score to at least 52 to show improved functional ability. 06/08-45 STG Duration achieved to 74 Bmx Rider Goal (LTG) Pt will improve LEFS score to at least 60 to show improved functional ability. LTG Duration achieved to 74 Assessment Summary Assessment Pt having pain only w/lifitng heavy at work in R hip and otherwise not c/o much hip pain. Indep w/stretching and reviewed lifting mechanics and importance of pt doing strength work outside of work. DC to [facility] Physical Therapy Plan Discharge Physical Therapy Discharge Reasons Goals Met
== END 2024-07-23 08:46 | disposition home or self-care (01) ==
LOC: PHYS 17:00
PROVIDERS: Family Provider Registered Nurse Diabetes Educator; PCP Registered Nurse Diabetes Educator; Referring Provider Preventive Medicine Public Health & General Preventive Medicine; Visit Provider Preventive Medicine Public Health & General Preventive Medicine
DX: S70.01XD Contusion of right hip, subsequent encounter (principal)
CPT/HCPCS: 97110; 97140; 97162; 97530